=== PATIENT | male | born 1935 | race Caucasian/White ===

== ENCOUNTER 2016-07-13 10:07 | Inpatient (IN) | payer OTHER ==
[~2016-07-13] VITALS: Ht 175.3 cm; Wt 75.4 kg
[2016-07-13] VITALS (15 sets, daily range): BP systolic 85–117; BP diastolic 54–81; PULSE 83–108; TEMP 36.4–36.9; O2SAT 91–97; Ht 175.3 cm; Wt 75.4 kg
[2016-07-13] MEDS ORDERED: PIPERACILLIN/TAZOBACTAM 4.5 GM/100ML D5W IV STA (10:25)
[2016-07-13] MEDS ORDERED: SODIUM CHLORIDE 0.9% 1000ML 1,000 ML IV ONE (10:25)
[2016-07-13] MEDS ORDERED: VANCOMYCIN 1GM/270ML NSS IV STA (10:25)
[2016-07-13] MEDS ORDERED: LEVAQUIN 750MG / 150ML D5W IV STA (10:25)
[2016-07-13] MEDS ORDERED: ONDANSETRON INJ 2 MG/ML 2 ML VIAL IV STA (10:27)
[2016-07-13] MEDS ORDERED: ACETAMINOPHEN 500 MG TAB PO STA (10:27)
--- NOTE | 2016-07-13 10:49 | DIAGNOSTIC IMAGING REPORT ---
CHEST ONE VIEW PORTABLE CLINICAL HISTORY: Sepsis. Confusion. COMPARISON STUDY: No previous studies for comparison. FINDINGS: Lung volumes are normal. There is no pneumothorax or pleural effusion. No evidence of pulmonary edema. There is moderate enlargement of the cardiac silhouette. There is mild left basilar opacity. IMPRESSION: 1. Mild left basilar opacity. Atelectasis is favored although an infectious process could appear similar. 2. Moderate cardiomegaly without evidence of pulmonary edema. Electronically signed by: Henry Recio M.D. 07/13/2016 10:47 AM Dictated Date/Time: 07/13/2016 10:46 AM
--- NOTE | 2016-07-13 10:56 | EMERGENCY ROOM VISIT NOTE ---
History Report prepared by Hardeep: Richard Lynne Under the Supervision of: Dr. Domenic Fisher M.D. First contact with patient: 10:15 Chief Complaint: ILLNESS Stated Complaint: CONFUSION History of Present Illness The patient is a 80 year old male who presents to the Emergency Room via ALS with complaints of persistent weakness starting a few days ago. The patient also complains of chills. As per , the patient has been having flu-like symptoms for the past 3-4 days with a cough and phlegm production. As per , he has also been complaining of burning with urination. The patient currently denies any pain. As per family, he tripped and hit his head last night. He denies fevers, nausea, vomiting, abdominal pain, or any other complaints. Source of History: patient Onset: a few days ago Position: other (global) Symptom Intensity: No pain Quality: other (weakness) Timing: other (persistent) Associated Symptoms: + chills, + cough, No abdominal pain, No fevers, No nausea, No vomiting Review of Systems See HPI for pertinent positives & negatives. A total of 10 systems reviewed and were otherwise negative. Past Medical & Surgical Medical Problems: (1) Atrial fibrillation with RVR (2) Fever and neutropenia (3) Heart disease (4) Hypertension (5) Influenza B (6) Neutropenia associated with infectious disease (7) Sepsis (8) Septic shock (9) Tachycardia (10) Thrombocytopenia Family History Hypertension Social History Smoking Status: Never Smoker Alcohol Use: none Marital Status: Occupation Status: retired Current/Historical Medications Scheduled Dabigatran Etexilate Mesylate (Pradaxa), 1 CAP PO BID Diltiazem Hcl Ext Rel (Tiazac), 360 MG PO DAILY Donepezil Hydrochloride (Aricept), 1 TAB PO DAILY Galantamine Hydrobromide (Razadyne Ext Rel), 16 MG PO DAILY Allergies Coded Allergies: No Known Allergies (Unverified , 07/13/16) Physical Exam Vital Signs Date Time Temp Pulse Resp B/P Pulse Ox O2 Delivery O2 Flow Rate FiO2 07/13/16 14:09 125 28 74/51 96 Room Air 07/13/16 13:25 36.4 132 26 121/61 94 Room Air 07/13/16 11:52 94 Room Air 07/13/16 11:47 149 07/13/16 11:44 124 24 121/61 94 Room Air 07/13/16 11:20 113 20 130/81 94 Room Air 07/13/16 10:34 121 24 106/69 91 Room Air 07/13/16 10:14 39.5 114 22 103/65 91 Room Air Physical Exam GENERAL: Patient is a healthy-appearing well-nourished HEAD: Normocephalic atraumatic EYES: Ocular movements intact pupils equal and react to light OROPHARYNX mucous membranes are moist no exudates present no erythema or edema present NECK: Supple no nuchal rigidity CHEST: Good equal expansion LUNGS: Tachypneic. Clear and equal to auscultation CARDIAC: Normal S1 and S2 ABDOMEN: Soft nontender no guarding BACK: No CVA tenderness EXTREMITIES: No pain upon palpation normal muscle strength in all groups no clubbing cyanosis or edema NEURO: Patient is confused, doesn't follow commands. Cranial Nerves 2-12 grossly intact Medical Decision & Procedures ER Provider Diagnostic Interpretation: X-ray results as stated below per interpretation by me and the radiologist: CHEST ONE VIEW PORTABLE CLINICAL HISTORY: Sepsis. Confusion. COMPARISON STUDY: No previous studies for comparison. FINDINGS: Lung volumes are normal. There is no pneumothorax or pleural effusion. No evidence of pulmonary edema. There is moderate enlargement of the cardiac silhouette. There is mild left basilar opacity. IMPRESSION: 1. Mild left basilar opacity. Atelectasis is favored although an infectious process could appear similar. 2. Moderate cardiomegaly without evidence of pulmonary edema. Electronically signed by: Henry Recio M.D. 07/13/2016 10:47 AM Dictated Date/Time: 07/13/2016 10:[address] results as stated below per my review and radiologist interpretation: CT HEAD WITHOUT CONTRAST (CT) CLINICAL HISTORY: Acute change in mental status. COMPARISON STUDY: No previous studies for comparison. TECHNIQUE: Axial CT of the brain is performed from the vertex to the skull base. IV contrast was not administered for this examination. CT DOSE: 1338.90 mGycm FINDINGS: No intra or extra-axial mass lesions are visualized. There is no CT evidence of acute cortical infarction. There is no evidence of midline shift. There is no acute hemorrhage. No calvarial fractures are visualized. There are patchy white matter hypodensities likely on a small vessel basis. There is no evidence of pathologic ventricular dilatation. There is trace fluid within the sphenoid sinus.. Increased tentorial density, likely secondary to tentorial calcification. IMPRESSION: No acute intracranial findings Electronically signed by: Saul Huber M.D. 07/13/2016 11:43 AM Dictated Date/Time: 07/13/2016 11:41 AM Laboratory Results 07/13/16 10:13 Red Blood Count 5.46, Mean Corpuscular Volume 91.9, Mean Corpuscular Hemoglobin 33.2, Mean Corpuscular Hemoglobin Concent 36.1, Mean Platelet Volume 10.5, Neutrophils (%) (Auto) 84.3, Lymphocytes (%) (Auto) 12.5, Monocytes (%) (Auto) 1.6, Eosinophils (%) (Auto) 0.0, Basophils (%) (Auto) 0.0, Neutrophils # (Auto) 1.55, Lymphocytes # (Auto) 0.23, Monocytes # (Auto) 0.03, Eosinophils # (Auto) 0.00, Basophils # (Auto) 0.00 07/13/16 10:13 Test 07/13/16 10:13 07/13/16 10:37 07/13/16 10:45 White Blood Count 1.84 K/uL (4.8-10.8) Red Blood Count 5.46 M/uL (4.7-6.1) Hemoglobin 18.1 g/dL (14.0-18.0) Hematocrit 50.2 % (42-52) Mean Corpuscular Volume 91.9 fL (80-100) Mean Corpuscular Hemoglobin 33.2 pg (25-34) Mean Corpuscular Hemoglobin Concent 36.1 g/dl (32-36) Platelet Count 64 K/uL (130-400) Mean Platelet Volume 10.5 fL (7.4-10.4) Neutrophils (%) (Auto) 84.3 % Lymphocytes (%) (Auto) 12.5 % Monocytes (%) (Auto) 1.6 % Eosinophils (%) (Auto) 0.0 % Basophils (%) (Auto) 0.0 % Neutrophils # (Auto) 1.55 K/uL (1.4-6.5) Lymphocytes # (Auto) 0.23 K/uL (1.2-3.4) Monocytes # (Auto) 0.03 K/uL (0.11-0.59) Eosinophils # (Auto) 0.00 K/uL (0-0.5) Basophils # (Auto) 0.00 K/uL (0-0.2) RDW Standard Deviation 44.0 fL (36.4-46.3) RDW Coefficient of Variation 13.1 % (11.5-14.5) Immature Granulocyte % (Auto) 1.6 % Immature Granulocyte # (Auto) 0.03 K/uL (0.00-0.02) Prothrombin Time 12.2 SECONDS (9.0-12.0) Prothromb Time International Ratio 1.1 (0.9-1.1) Activated Partial Thromboplast Time 27.9 SECONDS (21.0-31.0) Partial Thromboplastin Ratio 1.1 Anion Gap 12.0 mmol/L (3-11) Est Creatinine Clear Calc Drug Dose 32.4 ml/min Estimated GFR () 42.6 Estimated GFR (Non- 36.7 BUN/Creatinine Ratio 18.4 (10-20) Calcium Level 8.2 mg/dl (8.5-10.1) Magnesium Level 2.1 mg/dl (1.8-2.4) Total Bilirubin 1.5 mg/dl (0.2-1) Aspartate Amino Transf (AST/SGOT) 38 U/L (15-37) Alanine Aminotransferase (ALT/SGPT) 39 U/L (12-78) Alkaline Phosphatase 130 U/L (45-117) Total Creatine Kinase 318 U/L (39-308) Creatine Kinase MB 3.7 ng/ml (0.5-3.6) Creatine Kinase MB Ratio 1.2 (0-3.0) Troponin I 0.030 ng/ml (0-0.045) Total Protein 7.1 gm/dl (6.4-8.2) Albumin 3.2 gm/dl (3.4-5.0) Globulin 3.9 gm/dl (2.5-4.0) Albumin/Globulin Ratio 0.8 (0.9-2) Chemistry Specimen Hemolysis Bedside Lactic Acid Venous 4.32 mmol/L (0.90-1.70) Influenza Type A Antigen Neg for Influ A (NEG) Influenza Type B Antigen POS for Influ B (NEG) Labs reviewed by ED physician. Medications Administered Medications (Trade) Dose Ordered Sig/Virginie Route Start Time Stop Time Status Last Admin Dose Admin Sodium Chloride (Nss 1000ml) 1,000 ml @ 999 mls/hr Q1H1M ONCE IV 07/13/16 10:25 07/13/16 11:25 DC 07/13/16 10:35 999 MLS/HR Piperacillin Sod/ Tazobactam Sod (Zosyn Iv) 4.5 gm ONE STAT IV 07/13/16 10:25 07/13/16 10:28 DC 07/13/16 10:41 4.5 GM Vancomycin HCl (Vancomycin 1gm/ 270ml Nss) 1 gm ONE STAT IV 07/13/16 10:25 07/13/16 10:28 DC 07/13/16 11:51 1 GM Levofloxacin (Levaquin / D5W) 750 mg ONE STAT IV 07/13/16 10:25 07/13/16 10:28 DC 07/13/16 11:27 750 MG Acetaminophen (Tylenol Tab) 1,000 mg NOW STAT PO 07/13/16 10:27 07/13/16 10:28 DC 07/13/16 10:34 1,000 MG Ondansetron HCl 4 mg 4 mg NOW STAT IV 07/13/16 10:27 07/13/16 10:28 DC 07/13/16 10:34 4 MG Sodium Chloride 500 ml @ 999 mls/hr Q31M STAT IV 07/13/16 11:08 07/13/16 11:38 DC 07/13/16 11:25 999 MLS/HR Sodium Chloride (Nss 1000ml) 1,000 ml @ 999 mls/hr Q1H1M STAT IV 07/13/16 11:09 07/13/16 12:09 DC 07/13/16 11:25 999 MLS/HR Oseltamivir Phosphate 75 mg 75 mg NOW STAT PO 07/13/16 11:55 07/13/16 11:57 DC 07/13/16 12:05 75 MG Sodium Chloride 1,000 ml @ 125 mls/hr Q8H IV 07/13/16 13:09 08/12/16 13:08 07/13/16 16:00 125 MLS/HR Norepinephrine Bitartrate/ Dextrose (Levophed Inj/ D5W 500ml) 508 ml @ 0 mls/hr Q0M PRN IV 07/13/16 14:11 08/12/16 14:10 07/13/16 14:59 8 MLS/HR ECG Indication: weakness Rate (beats per minute): 103 Rhythm: atrial fibrillation (with RVR) Findings: no acute ischemic change, other (old inferior infarct; old anterior infarct) ED Course 1015: Past medical records reviewed. The patient was evaluated in room B08. A complete history and physical examination was performed. 1025: Levofloxacin 750 mg IV, Vancomycin HCl 1 gm IV, Zosyn IV 4.5 gm IV, Sodium Chloride 1000 ml @ 999 mls/hr IV 1027: Zofran Inj 4 mg IV, Tylenol Tab 1000 mg PO 1108: Sodium Chloride 500 ml @ 999 mls/hr IV 1109: Sodium Chloride 1000 ml @ 999 mls/hr IV 1155: Tamiflu Cap 75 mg PO 1214: Upon reexamination the patient is resting comfortably. I discussed results and treatment plan with the patient and his family. They verbalize agreement and understanding. I spoke with Dr. Alexander from the [facility]. The patient will be evaluated for further management. Medical Decision Differential diagnosis: Etiologies such as metabolic, infection, hypo/hyperglycemia, electrolyte abnormalities, cardiac sources, intracerebral event, toxicologic, neurologic, as well as others were entertained. 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 The patient is also confused. He has white blood cell count of 1 and is septic. For this reason he was given 30 ml/kgs. He does have an elevation in his lactate. He was pancultured and started on antibiotics. The patient was given Tylenol for his fever and started on Tamiflu for the flu. Based on the nature of the patient's illness I did discuss the case with the hospitalist who agreed to admit the patient. Patient family were in agreement with the treatment plan. Consults Time Called: 1210 Consulting Physician: Dr. Alexander from the [facility] Returned Call: [address] Alexander from the [facility]. Impression Primary Impression: Sepsis Additional Impressions: Pneumonia Flu Critical Care I have personally spent greater than 30 minutes of critical care time in the direct management of this patient. This includes bedside care, interpretation of diagnostic studies, and testing, discussion with consultants, patient, and family members, and other required patient management activities. This 30 minutes is in excess of all separately billable procedures. Scribe Attestation The scribe's documentation has been prepared under my direction and personally reviewed by me in its entirety. I confirm that the note above accurately reflects all work, treatment, procedures, and medical decision making performed by me. Departure Information Dispostion Being Evaluated By Hospitalist Referrals Braeden Sultana III, CRNP (PCP) Patient Instructions My [facility] Problem Qualifiers Primary Impression: Sepsis Sepsis type: sepsis due to unspecified organism Qualified Codes: A41.9 - Sepsis, unspecified organism Additional Impressions: Pneumonia Pneumonia type: due to unspecified organism Laterality: unspecified laterality Lung location: unspecified part of lung Qualified Codes: J18.9 - Pneumonia, unspecified organism
[2016-07-13 11:01] LABS: INR 1.1 (0.9-1.1); PARTIAL THROMBOPLASTIN RATIO 1.1; PROTHROMBIN TIME (PATIENT) 12.2 SECONDS (9.0-12.0)
[2016-07-13] MEDS ORDERED: SODIUM CHLORIDE 0.9% 500ML 500 ML IV STA (11:08)
[2016-07-13] MEDS ORDERED: SODIUM CHLORIDE 0.9% 1000ML 1,000 ML IV STA (11:09)
[2016-07-13 11:10] LABS: HEMATOCRIT 50.2 % (42-52); MEAN CELL VOLUME 91.9 fL (80-100); MEAN CORPUSCULAR HEMOGLOBIN 33.2 pg (25-34); MEAN CORPUSCULAR HGB CONC 36.1 g/dl (32-36); RED BLOOD COUNT 5.46 M/uL (4.7-6.1); WHITE BLOOD COUNT 1.84 K/uL (4.8-10.8)
[2016-07-13 11:18] LABS: COMPLETE YES; IG% 1.6 %; LYMPH % 12.5 %; LYMPH ABS # 0.23 K/uL (1.2-3.4); MEAN PLATELET VOLUME 10.5 fL (7.4-10.4); MONO % 1.6 %; NEUT % 84.3 %; PLATELET COUNT 64 K/uL (130-400)
[2016-07-13 11:20] LABS: BUN/CREATININE RATIO 18.4 (10-20); CALCIUM 8.2 mg/dl (8.5-10.1); CREATININE 1.7 mg/dl (0.60-1.40); POTASSIUM 4.1 mmol/L (3.5-5.1)
[2016-07-13] MEDS ORDERED: GALA4TAB11 PO (11:20)
[2016-07-13] MEDS ORDERED: DILT-119 PO (11:20)
[2016-07-13] MEDS ORDERED: DABI150C PO (11:20)
[2016-07-13 11:29] LABS: ALB/GLOB RATIO 0.8 (0.9-2); CKMB/CK RATIO 1.2 (0-3.0)
--- NOTE | 2016-07-13 11:45 | DIAGNOSTIC IMAGING REPORT ---
CT HEAD WITHOUT CONTRAST (CT) CLINICAL HISTORY: Acute change in mental status. COMPARISON STUDY: No previous studies for comparison. TECHNIQUE: Axial CT of the brain is performed from the vertex to the skull base. IV contrast was not administered for this examination. CT DOSE: 1338.90 mGycm FINDINGS: No intra or extra-axial mass lesions are visualized. There is no CT evidence of acute cortical infarction. There is no evidence of midline shift. There is no acute hemorrhage. No calvarial fractures are visualized. There are patchy white matter hypodensities likely on a small vessel basis. There is no evidence of pathologic ventricular dilatation. There is trace fluid within the sphenoid sinus.. Increased tentorial density, likely secondary to tentorial calcification. IMPRESSION: No acute intracranial findings Electronically signed by: Saul Huber M.D. 07/13/2016 11:43 AM Dictated Date/Time: 07/13/2016 11:41 AM
[2016-07-13] MEDS ORDERED: OSELTAMIVIR PHOSPHATE 75 MG CAP PO STA (11:55)
[2016-07-13] MEDS ORDERED: DONE10TA12 PO (13:11)
[2016-07-13] MEDS ORDERED: RMNER16 PO (13:11)
[2016-07-13] MEDS ORDERED: ONDANSETRON INJ 2 MG/ML 2 ML VIAL IV PRN (13:15)
[2016-07-13] MEDS ORDERED: ALUMINUM/MAGNESIUM/SIMETH (MAALOX MAX) 30 ML UDC PO PRN (13:15)
[2016-07-13] MEDS ORDERED: ACETAMINOPHEN 325 MG TAB PO PRN (13:15)
[2016-07-13] MEDS ORDERED: MAGNESIUM HYDROXIDE SUSP 30 ML UDC PO PRN (13:15)
[2016-07-13] MEDS ORDERED: POLYETHYLENE (MIRALAX) 17 GM PACK PO PRN (13:15)
[2016-07-13] MEDS ORDERED: DILTIAZEM BOLUS / DRIP IV STA (13:24)
[2016-07-13] MEDS ORDERED: NOREPINEPHRINE BIT INJ 8 MG in DEXTROSE 5% 500ML 500 ML IV PRN (14:11)
[2016-07-13] MEDS ORDERED: DILTIAZEM HCL INJ 125 MG in DEXTROSE 5% 100ML IV PRN (14:15)
[2016-07-13 14:25] LABS: MAGNESIUM 2.1 mg/dl (1.8-2.4)
[2016-07-13] MEDS ORDERED: LEVOFLOXACIN CONSULT ACTIVE PRN (14:30)
[2016-07-13] MEDS ORDERED: VANCOMYCIN CONSULT ACTIVE PRN (14:30)
[2016-07-13] MEDS ORDERED: PIPERACILL/TAZOBAC CONSULT ACTIVE PRN (14:30)
--- NOTE | 2016-07-13 15:02 | History and Physical ---
History & Physical Date & Time of Service: Jul 13, 2016 at 14:31 Chief Complaint: Confusion Primary Care Physician: Braeden Sultana III, CRNP History of Present Illness Source: patient, family ( and son at bedside), clinic records, hospital records This is a 80 y/o male with a history of atrial fibrillation, dementia, hypertension, hyperlipidemia and h/o BPH who presented to the ED on 07/13 with weakness, productive cough, chills, dysuria and confusion. The patient is somewhat confused and history is obtained primarily from who is at bedside. The patient first developed a productive cough with white sputum about one week ago and has been experiencing persistent weakness and fatigue. A few days ago, the patient developed a decreased appetite as well as diarrhea. The patient also complained to his that he had burning with urination. The family states the patient has had 2 falls in the last few days, although neither of these were witnessed. The patient had stated time that he had tripped and fell, hitting his head. This morning prior to arrival, the patient developed chills, and he is currently complaining of sweats. He also admits to palpitations earlier but states that they have improved. The patient denies fevers, chest pain, claudication, shortness of breath, nausea, vomiting, abdominal pain, hematuria, urinary retention, paralysis, numbness and tingling. Past Medical/Surgical History Medical Problems: Atrial fibrillation HTN HLD Dementia h/o BPH and TURP Family History Hypertension Social History Smoking Status: Former Smoker Smokeless Tobacco Use: Yes Alcohol Use: none Drug Use: none Marital Status: Housing status: lives with significant other Occupational Status: retired Multi-Drug Resistant Organisms History of MDRO: No Allergies Coded Allergies: No Known Allergies (Unverified , 07/13/16) Home Medications Scheduled Dabigatran Etexilate Mesylate (Pradaxa), 1 CAP PO BID Diltiazem Hcl Ext Rel (Tiazac), 360 MG PO DAILY Donepezil Hydrochloride (Aricept), 1 TAB PO DAILY Galantamine Hydrobromide (Razadyne Ext Rel), 16 MG PO DAILY Review of Systems Constitutional: + chills, + fatigue, + sweats, + weakness, No fever (did not take temperature at home) Eyes: No diplopia, No eye pain, No worsening of vision ENT: No hearing loss, No sore throat, No trouble swallowing Respiratory: + cough, + sputum, No shortness of breath, No wheezing Cardiovascular: + palpitations, No chest pain, No claudication Abdomen: + diarrhea, No nausea, No pain, No vomiting Musculoskeletal: No calf pain, No joint pain, No muscle pain Genitourinary - Male: + dysuria, No hematuria, No urinary retention Neurologic: No numbness/tingling, No paralysis, No weakness Integumentary: No color change, No itch, No rash Physical Exam Vital Signs Date Time Temp Pulse Resp B/P Pulse Ox O2 Delivery O2 Flow Rate FiO2 07/13/16 14:30 135 32 96/61 97 Room Air 07/13/16 14:09 125 28 74/51 96 Room Air 07/13/16 13:25 36.4 132 26 121/61 94 Room Air 07/13/16 11:52 94 Room Air 07/13/16 11:47 149 07/13/16 11:44 124 24 121/61 94 Room Air 07/13/16 11:20 113 20 130/81 94 Room Air 07/13/16 10:34 121 24 106/69 91 Room Air 07/13/16 10:14 39.5 114 22 103/65 91 Room Air General Appearance: WD/WN, + mild distress (diaphoretic, appears fatigued) Head: normocephalic, atraumatic Eyes: normal inspection, PERRL, EOMI ENT: normal ENT inspection, hearing grossly normal, pharynx normal, + pertinent finding (dry oral mucosa) Neck: supple, no JVD, trachea midline Respiratory/Chest: normal breath sounds, no respiratory distress, + wheezing ( wheezing throughout), + pertinent finding (appears to be mildly dyspneic) Cardiovascular: no murmur, + tachycardia, + irregularly irregular Abdomen/GI: normal bowel sounds, non tender, soft Extremities/Musculoskelatal: normal inspection, no calf tenderness, no pedal edema Neurologic/Psych: alert, normal mood/affect, oriented x 3, + pertinent finding (oriented but seems confused) Skin: normal color, no rash, + diaphoresis Diagnostics Laboratory Results Results Past 24 Hours Test 07/13/16 10:13 07/13/16 10:37 07/13/16 10:45 07/13/16 14:00 Range/Units White Blood Count 1.84 4.8-10.8 K/uL Red Blood Count 5.46 4.7-6.1 M/uL Hemoglobin 18.1 14.0-18.0 g/dL Hematocrit 50.2 42-52 % Mean Corpuscular Volume 91.9 80-100 fL Mean Corpuscular Hemoglobin 33.2 25-34 pg Mean Corpuscular Hemoglobin Concent 36.1 32-36 g/dl Platelet Count 64 130-400 K/uL Mean Platelet Volume 10.5 7.4-10.4 fL Neutrophils (%) (Auto) 84.3 % Lymphocytes (%) (Auto) 12.5 % Monocytes (%) (Auto) 1.6 % Eosinophils (%) (Auto) 0.0 % Basophils (%) (Auto) 0.0 % Neutrophils # (Auto) 1.55 1.4-6.5 K/uL Lymphocytes # (Auto) 0.23 1.2-3.4 K/uL Monocytes # (Auto) 0.03 0.11-0.59 K/uL Eosinophils # (Auto) 0.00 0-0.5 K/uL Basophils # (Auto) 0.00 0-0.2 K/uL RDW Standard Deviation 44.0 36.4-46.3 fL RDW Coefficient of Variation 13.1 11.5-14.5 % Immature Granulocyte % (Auto) 1.6 % Immature Granulocyte # (Auto) 0.03 0.00-0.02 K/uL Prothrombin Time 12.2 9.0-12.0 SECONDS Prothromb Time International Ratio 1.1 0.9-1.1 Activated Partial Thromboplast Time 27.9 21.0-31.0 SECONDS Partial Thromboplastin Ratio 1.1 Sodium Level 134 136-145 mmol/L Potassium Level 4.1 3.5-5.1 mmol/L Chloride Level 99 98-107 mmol/L Carbon Dioxide Level 23 21-32 mmol/L Anion Gap 12.0 3-11 mmol/L Blood Urea Nitrogen 31 7-18 mg/dl Creatinine 1.70 0.60-1.40 mg/dl Est Creatinine Clear Calc Drug Dose 32.4 ml/min Estimated GFR () 42.6 Estimated GFR (Non- 36.7 BUN/Creatinine Ratio 18.4 10-20 Random Glucose 167 70-99 mg/dl Calcium Level 8.2 8.5-10.1 mg/dl Magnesium Level 2.1 1.8-2.4 mg/dl Total Bilirubin 1.5 0.2-1 mg/dl Aspartate Amino Transf (AST/SGOT) 38 15-37 U/L Alanine Aminotransferase (ALT/SGPT) 39 12-78 U/L Alkaline Phosphatase 130 45-117 U/L Total Creatine Kinase 318 39-308 U/L Creatine Kinase MB 3.7 0.5-3.6 ng/ml Creatine Kinase MB Ratio 1.2 0-3.0 Troponin I 0.030 0-0.045 ng/ml Total Protein 7.1 6.4-8.2 gm/dl Albumin 3.2 3.4-5.0 gm/dl Globulin 3.9 2.5-4.0 gm/dl Albumin/Globulin Ratio 0.8 0.9-2 Chemistry Specimen Hemolysis Bedside Lactic Acid Venous 4.32 0.90-1.70 mmol/L Influenza Type A Antigen Neg for Influ A NEG Influenza Type B Antigen POS for Influ B NEG Microbiology Results 07/13/16 Blood Culture, Received Pending 07/13/16 Blood Culture, Received Pending Diagnostic Radiology Reviewed the following studies and agree with interpretation as follows: Patient Name: NARINDER ALMANZA Unit Number: [id number] Dictated: 07/13/161140 Transcribed: 07/13/161140 ARG Printed Date/Time: [~ rep prt dt]/[~ rep prt tm] [~ rep ct labl] - [~ rep ct ivnm] [facility] [place] [address] Dictated: 07/13/161140 Transcribed: 07/13/161140 ARG Printed Date/Time: [~ rep prt dt]/[~ rep prt tm] [~ rep ct labl] - [~ rep ct ivnm] Patient: NARINDER ALMANZA Address1: [address] [facility] Rec: [id number] Address2: Acct ID: [id number] [facility] Zip: [place] [address] Date: 1935 Sex: M Room/Bed: Ref Phy: Braeden Sultana III, CRNP SC: FADIA Att Phy: Report #: [id number] Eliane Phy: Braeden Sultana III, CRNP Test: HWO Admit Phy: Special Order Jeweler: RORY Interpreting Phy: Saul Huber M.D. Diagnosis: CONFUSION Ordering Phy: Domenic Fisher MD Service Date: 07/13/16 Admit Date: 07/13/16 MNE: [id number] CONF: DICTATED BY: Saul Huber M.D.]] CC: Domenic Fisher MD Griel, Lester C. III, CRNP Endcc: [~ rep ct add3]] CT HEAD WITHOUT CONTRAST (CT) CLINICAL HISTORY: Acute change in mental status. COMPARISON STUDY: No previous studies for comparison. TECHNIQUE: Axial CT of the brain is performed from the vertex to the skull base. IV contrast was not administered for this examination. CT DOSE: 1338.90 mGycm FINDINGS: No intra or extra-axial mass lesions are visualized. There is no CT evidence of acute cortical infarction. There is no evidence of midline shift. There is no acute hemorrhage. No calvarial fractures are visualized. There are patchy white matter hypodensities likely on a small vessel basis. There is no evidence of pathologic ventricular dilatation. There is trace fluid within the sphenoid sinus.. Increased tentorial density, likely secondary to tentorial calcification. IMPRESSION: No acute intracranial findings Electronically signed by: Saul Huber M.D. 07/13/2016 11:43 AM Dictated Date/Time: 07/13/2016 11:41 AM The status of this report is Signed. Draft = Not yet reviewed or approved by Radiologist. Signed = Reviewed and approved by Radiologist. <AttendingPhy></AttendingPhy> <FamilyPhy>Braeden Sultana III, CRNP</FamilyPhy> < PrimaryPhy>Braeden Sultana III, CRNP</PrimaryPhy> <UnitNumber>[id number]</ UnitNumber> <VisitNumber>[id number]</VisitNumber> <PatientName>NARINDER ALMANZA</PatientName> <DateOfBirth>1935</DateOfBirth> <Location>C.EDB</Location > <ServiceDate>07/13/16</ServiceDate> <MNE>ESINDI</MNE> <OrderingPhy>Domenic Fisher MD</OrderingPhy> <OrderingPhyMNE>f rep ord dr easton</OrderingPhyMNE> < DictatingPhyMNE>f rep dict dr easton</DictatingPhyMNE> <CCListMNE>f rep ct mne</ CCListMNE> <AdmittingPhyMNE>f pt admit dr easton</AdmittingPhyMNE> <AttendingPhyMNE >f pt attend dr easton</AttendingPhyMNE> <ConsultingPhyMNE>f pt consult dr easton</ConsultingPhyMNE> <FamilyPhyMNE>f pt fam dr easton</FamilyPhyMNE> <OtherPhyMNE>f pt other dr easton</OtherPhyMNE> < PrimaryPhyMNE>f pt prim care dr easton</PrimaryPhyMNE> <ReferringPhyMNE>f pt referring dr easton</ReferringPhyMNE> Patient Name: NARINDER ALMANZA Unit Number: [id number] Dictated: 07/13/161045 Transcribed: 07/13/161045 Printed Date/Time: [~ rep prt dt]/[~ rep prt tm] [~ rep ct labl] - [~ rep ct ivnm] [facility] [place] [address] Dictated: 07/13/161045 Transcribed: 07/13/161045 Printed Date/Time: [~ rep prt dt]/[~ rep prt tm] [~ rep ct labl] - [~ rep ct ivnm] Patient: NARINDER ALMANZA Address1: [address] [facility] Rec: [id number] Address2: Acct ID: [id number] [facility] Zip: [place] [address] Date: 1935 Sex: M Room/Bed: Ref Phy: Braeden Sultana III, CRNP SC: AFDIA Att Phy: Report #: [id number] Eliane Phy: Braeden Sultana III, CRNP Test: CXR1P Admit Phy: Special Order Jeweler: JAVON Interpreting Phy: Herny Recio MD Diagnosis: CONFUSION Ordering Phy: Domenic Fisher MD Service Date: 07/13/16 Admit Date: 07/13/16 MNE: [id number] CONF: DICTATED BY: Henry Recio MD]] CC: Domenic Fisher, Braeden Garcia III, CRNP Endcc: [~ rep ct add3]] CHEST ONE VIEW PORTABLE CLINICAL HISTORY: Sepsis. Confusion. COMPARISON STUDY: No previous studies for comparison. FINDINGS: Lung volumes are normal. There is no pneumothorax or pleural effusion. No evidence of pulmonary edema. There is moderate enlargement of the cardiac silhouette. There is mild left basilar opacity. IMPRESSION: 1. Mild left basilar opacity. Atelectasis is favored although an infectious process could appear similar. 2. Moderate cardiomegaly without evidence of pulmonary edema. Electronically signed by: Henry Recio M.D. 07/13/2016 10:47 AM Dictated Date/Time: 07/13/2016 10:46 AM The status of this report is Signed. Draft = Not yet reviewed or approved by Radiologist. Signed = Reviewed and approved by Radiologist. <AttendingPhy></AttendingPhy> <FamilyPhy>Braeden Sultana III, CRNP</FamilyPhy> < PrimaryPhy>Braeden Sulatna III, CRNP</PrimaryPhy> <UnitNumber>[id number]</ UnitNumber> <VisitNumber>[id number]</VisitNumber> <PatientName>NARINDER ALMANZA</PatientName> <DateOfBirth>1935</DateOfBirth> <Location>C.EDB</Location > <ServiceDate>07/13/16</ServiceDate> <MNE>ESINDI</MNE> <OrderingPhy>Domenic Fisher MD</OrderingPhy> <OrderingPhyMNE>f rep ord dr easton</OrderingPhyMNE> < DictatingPhyMNE>f rep dict dr easton</DictatingPhyMNE> <CCListMNE>f rep ct mne</ CCListMNE> <AdmittingPhyMNE>f pt admit dr easton</AdmittingPhyMNE> <AttendingPhyMNE >f pt attend dr easton</AttendingPhyMNE> <ConsultingPhyMNE>f pt consult dr easton</ConsultingPhyMNE> <FamilyPhyMNE>f pt fam dr easton</FamilyPhyMNE> <OtherPhyMNE>f pt other dr easton</OtherPhyMNE> < PrimaryPhyMNE>f pt prim care dr easton</PrimaryPhyMNE> <ReferringPhyMNE>f pt referring dr easton</ReferringPhyMNE> EKG Reviewed EKG and agree with interpretation as follows: 103 bpm, afib with RVR, PVCs Impression Assessment and Plan 80 y/o male with a history of atrial fibrillation, dementia, hypertension, hyperlipidemia and h/o BPH who presented to the ED on 07/13 with weakness, productive cough, chills, dysuria and confusion. Per family, patient had 2 falls in the last few days. Patient is on Pradaxa for his A. fib. Patient arrived with a temperature of 39.5C, HR 114. Other VSS. EKG shows A. fib with RVR. Head CT no acute findings. CXR shows left basilar opacity, atelectasis versus infectious process. WBC 1.84. Hemoglobin elevated at 18.1. Creatinine elevated above baseline at 1.7. Gjvcq-tg-itay lactic acid elevated at 4.32. LFTs elevated. Positive for influenza B. Patient received total of 2.5 L NSS boluses as well as Levaquin, Zosyn, vancomycin and Tamiflu. Urine is pending. Sepsis/septic shock secondary to flu/PNA/possible UTI--meets sepsis criteria with fever, tachycardia, WBC < 4, and infectious source. Patient's blood pressure began to drop to the 70s/50s despite fluid resuscitation -Admit to ICU, consult unit aide -Start on Levophed -NSS at 125 cc/hr -Levaquin 750 mg IV q48h, renally dosed -IV Vanco and Zosyn -MRSA of nares, can consider dropping vancomycin if negative -Tamiflu 30 mg PO BID x 5 days, 1 dose received the ED. Renally dosed -Insert Hudd[place], check UA cath, culture if indicated -Repeat lactic acid at 1400 -Blood cultures pending -Droplet precautions A. fib with RVR -EKGs q am and prn with chest pain -Hold off on diltiazem drip for now due to septic shock -Check magnesium -Pradaxa 150 mg PO BID NICOLETTE--baseline creatinine 1.2-1.3 -Creatinine 1.7 on arrival -IVF as above -Continue to monitor Dementia -Continue Aricept 10 mg PO qd and galantamine 16 mg PO qd HTN--currently hypotensive -Hold oral diltiazem for now, mainly diltiazem drip later for A. fib control DVT prophylaxis -Pradaxa -BELEN chan and SCDs Code Status -Level I, FULL RESUSCITATION STATUS Level of Care Critical Care Resuscitation Status FULL RESUSCITATION VTE Prophylaxis VTE Risk Assessment Done? Y/N: Yes Risk Level: Moderate Given or contraindicated: Unfractionated heparin SQ, T.E.D. Stockings, SCD's Note Attending Admission Note & Attestation: Pt seen/examined, chart reviewed, and care plan d/w MIGUEL Lucero. I agree w/ the small components of her admission documentation. 80yo male with chronic a. fib on anticoagulation, dementia, BPH who presented with 5-7 days of illness. Developed fever in the last 24 hours. Has had 2 falls over last few days. Poor appetite and more confusion in the setting of his dementia. Did have flu vaccine this year. Upon presentation today found to be in rapid a. fib and febrile. Flu swab + for flu B. Sepsis protocol initiated. During his ER stay, despite 3+ liters of fluid, his BP continued to remain low with systolics in the 70s. At that time I gave additional fluid & started him on levophed. Admitted to ICU thereafter. PMH, PSH, allergies, meds, sochx, famhx, ros - reviewed vitals - tachycardic (HRs 100-150), hypotensive (70/50s), febrile gen - ill appearing, confused, hearing impaired neck - no JVD mouth - MM dry heart - irregular, tachy, no murmur lungs - diffuse wheezing b/l, no obvious rales abd - soft, NT, BS+ ext - no edema vascular - pulses feet 1+ at best, cool ext's labs - WBC 1 ANC about 1500 Cr 1.7 fluB+ A/P: 1. septic shock 2nd to influenza and suspected LLL pneumonia. 2. concern for UTI which could also be contributing to #1. 3. metabolic encephalopathy in setting of dementia. 4. a. fib with RVR. 5. thrombocytopenia, likely 2nd to #1. 6. hyponatremia. 7. abnormal LFTs - possibly due to sepsis. Tamiflu; triple abx coverage for pneumonia/septic shock; levophed; continue NS hydration. Hopefully a. fib will improve with resolution of fever and fluid resuscitation. Repeat troponin, LFTs in AM. Repeat cbc, bmp in AM. Place huddleston; send u/a and urine cx. Serial lactates. total critical care time about 70 minutes. plan of care d/w Dr. Andrade Staples, ICU attending. Gilmar Alexander MD
--- NOTE | 2016-07-13 15:03 | Pharmacy Progress Note ---
Pharmacy Antibiotic Consult Date of Service: Jul 13, 2016. Pharmacy Dosing Scope Pharmacy is consulted to initiate Vancomycin, Zosyn and Levaquin IV dosing therapy, order appropriate labs and adjust drug dose/frequency. Subjective The patient is a 80 year old male admitted on 07/13/16. Patient presented with persistent weakness. He reports a history of chills, productive cough and flu- like symptoms for the last 3-4 days. Objective Height (Feet): 5 Height (Inches): 8.00 Weight (Kilograms): 71.500 Lab Results (24hrs): Laboratory Tests Test 07/13/16 10:13 BUN/Creatinine Ratio 18.4 Blood Urea Nitrogen 31 mg/dl Creatinine 1.70 mg/dl White Blood Count 1.84 K/uL Red Blood Count 5.46 M/uL Hemoglobin 18.1 g/dL Hematocrit 50.2 % Mean Corpuscular Volume 91.9 fL Mean Corpuscular Hemoglobin 33.2 pg Mean Corpuscular Hemoglobin Concent 36.1 g/dl Platelet Count 64 K/uL Mean Platelet Volume 10.5 fL Neutrophils (%) (Auto) 84.3 % Lymphocytes (%) (Auto) 12.5 % Monocytes (%) (Auto) 1.6 % Eosinophils (%) (Auto) 0.0 % Basophils (%) (Auto) 0.0 % Neutrophils # (Auto) 1.55 K/uL Lymphocytes # (Auto) 0.23 K/uL Monocytes # (Auto) 0.03 K/uL Eosinophils # (Auto) 0.00 K/uL Basophils # (Auto) 0.00 K/uL Micro Results: Item Value Date Time Blood Culture Received 07/13/16 1025 Blood Pending Blood Culture Received 07/13/16 1040 Blood Pending Recent Pertinent Medications Tamiflu 75 mg x 1, then 30 mg BID - tested positive for influenza B Assessment & Plan Assessment 80 year old male admitted with influenza B and sepsis, possible lung source. Patient is febrile, neutropenic, and hypotensive requiring pressor support. Lactic acid is greater than 4 mmol/L. No recent admissions to [facility]. No previous culture data available for this patient. H&P not available at time of pharmacy consult. Plan Vancomycin, Zosyn and Levaquin for treatment of sepsis, lung source. Vancomycin IV * Patient received 1000 mg IV in ER ~1151 * I have ordered a second dose of 1000 mg IV to be given now (total loading dose = 2000 mg or 28 mg/kg) * A maintenance dose will not be scheduled at this time due to acute kidney injury. Baseline Scr is around 1.2 mg/dL. * Goal trough level for sepsis/pnx : 15 to 20 mcg/mL * A random level will be ordered on 07/14 am if renal function continues to worsen * MRSA nasal swab ordered Piperacillin/tazobactam * 4.5 g bolus administered over 30 minutes, then 4.5 g IV extended infusion every 8 hours for CrCl greater than 20 mL/min. * Aggressive dosing selected due to critically ill status. Levaquin * Continue 750 mg IV every 48 hours for CrCl 20-49 ml/min Pharmacy will continue to follow and will adjust dose/frequency as necessary. Thank you
[2016-07-13 15:38] LABS: URINE APPEARANCE TURBID (CLEAR); URINE BILIRUBIN NEG (NEG); URINE COLOR ORANGE; URINE NITRITE NEG (NEG); URINE SPECIFIC GRAVITY 1.013 (1.000-1.030); UROBILINOGEN NEG (NEG); ZZURINE CULT IF INDIC CATH YES
[2016-07-13 15:41] LABS: MANUAL MICROSCOPIC REQUIRED? NO; REVIEW REQ? NO
[2016-07-13] MEDS ORDERED: VANCOMYCIN INJ 1,000 MG in SODIUM CHLORIDE 0.9% 250ML 250 ML IV ONE (15:45)
[2016-07-13] MEDS: PIPERACILL/TAZOBAC IV 4.5 GM in DEXTROSE 5% 100ML 100 ML IV SCH (16:00)
[2016-07-13] MEDS: SODIUM CHLORIDE 0.9% 1000ML 1,000 ML IV SCH (16:00)
--- NOTE | 2016-07-13 16:49 | Critical Care Consultation ---
Critical Care Consultation Date of Consultation: Jul 13, 2016. Attending Physician: Gilmar Alexander MD Reason for Consultation: Sepsis hypotension requiring vasoactive medications History of Present Illness Patient is an 80-year-old male with a history of atrial fibrillation on his arrival so, hyperlipidemia and BPH who presents to [facility] emergency department on July 13 with weakness, cough, chills, dysuria and confusion. History is obtained predominantly from caregivers his and son. The patient is extremely hard of hearing. The concern that he's had increasing weakness for about 1 week yesterday he complained of difficulty with urination. When he developed rigors and sweats he was brought to the emergency department for further evaluation. In the emergency department he was given approximately 3 L of fluid started on broad-spectrum antibiotics, and started on vasoactive medications for presumptive septic shock. Past Medical/Surgical History Atrial fibrillation HTN HLD Dementia h/o BPH and TURP Family History Hypertension Social History Smoking Status: Former Smoker Smokeless Tobacco Use: Yes Alcohol Use: none Drug Use: none Marital Status: Occupation Status: retired Allergies Coded Allergies: No Known Allergies (Unverified , 07/13/16) Home Medications Scheduled Dabigatran Etexilate Mesylate (Pradaxa), 1 CAP PO BID Diltiazem Hcl Ext Rel (Tiazac), 360 MG PO DAILY Donepezil Hydrochloride (Aricept), 1 TAB PO DAILY Galantamine Hydrobromide (Razadyne Ext Rel), 16 MG PO DAILY Current Inpatient Medications Current Inpatient Medications Medications (Trade) Dose Ordered Sig/Virginie Route Start Time Stop Time Status Last Admin Dose Admin Sodium Chloride (Nss 1000ml) 1,000 ml @ 125 mls/hr Q8H IV 07/13/16 13:09 08/12/16 13:08 07/13/16 16:00 125 MLS/HR Acetaminophen (Tylenol Tab) 650 mg Q4H PRN PO 07/13/16 13:15 08/12/16 13:14 Al Hydrox/Mg Hydrox/Simethicone (Maalox Max Susp) 15 ml Q4H PRN PO 07/13/16 13:15 08/12/16 13:14 Magnesium Hydroxide (Milk Of Magnesia Susp) 30 ml Q12H PRN PO 07/13/16 13:15 08/12/16 13:14 Ondansetron HCl (Zofran Inj) 4 mg Q6H PRN IV 07/13/16 13:15 08/12/16 13:14 Polyethylene (Miralax Powder Packet) 17 gm DAILY PRN PO 07/13/16 13:15 08/12/16 13:14 Dabigatran (Pradaxa Cap) 150 mg BID PO 07/13/16 21:00 08/12/16 20:59 Donepezil HCl (Aricept Tab) 10 mg DAILY PO 07/14/16 09:00 08/13/16 08:59 Galantamine Hydrobromide (Razadyne Cap) 16 mg DAILY PO 07/14/16 09:00 08/13/16 08:59 Vancomycin HCl (Consult) 1 ea UD PRN N/A 07/13/16 14:30 08/12/16 14:29 Oseltamivir Phosphate 30 mg 30 mg BID PO 07/13/16 21:00 07/17/16 21:01 Levofloxacin 750 mg/Prmx 150 ml @ 100 mls/hr Q48H IV 07/15/16 11:00 07/20/16 10:59 Vancomycin HCl 1000 mg/Sodium Chloride 270 ml @ 125 mls/hr 1545 ONCE IV 07/13/16 15:45 07/13/16 17:54 07/13/16 16:00 125 MLS/HR Piperacillin Sod/ Tazobactam Sod 4.5 gm/Dextrose 120 ml @ 28.75 mls/ hr Q8H IV 07/13/16 16:00 07/20/16 09:59 07/13/16 16:00 28.75 MLS/HR Norepinephrine Bitartrate/ Dextrose (Levophed Inj/ D5W 500ml) 508 ml @ 0 mls/hr Q0M PRN IV 07/13/16 14:11 08/12/16 14:10 07/13/16 14:59 8 MLS/HR Levofloxacin (Consult) 1 ea UD PRN N/A 07/13/16 14:30 08/12/16 14:29 Piperacillin Sod/ Tazobactam Sod (Consult) 1 ea UD PRN N/A 07/13/16 14:30 08/12/16 14:29 Review of Systems Constitutional: + chills, + fever ENT: + hearing loss Respiratory: + cough, + sputum Genitourinary - Male: + dysuria Physical Exam Date Time Temp Pulse Resp B/P Pulse Ox O2 Delivery O2 Flow Rate FiO2 07/13/16 15:10 121 28 80/58 96 07/13/16 14:30 135 32 96/61 97 Room Air 07/13/16 14:09 125 28 74/51 96 Room Air 07/13/16 13:25 36.4 132 26 121/61 94 Room Air 07/13/16 11:52 94 Room Air 07/13/16 11:47 149 07/13/16 11:44 124 24 121/61 94 Room Air 07/13/16 11:20 113 20 130/81 94 Room Air 07/13/16 10:34 121 24 106/69 91 Room Air 07/13/16 10:14 39.5 114 22 103/65 91 Room Air General Appearance: mild distress Head: normocephalic, atraumatic Eyes: PERRLA, no discharge ENT: other (dry mucous membranes) Neck: no tenderness, trachea midline Respiratory: rhonchi (scattered bilaterally) Cardiovasular: normal S1S2, irregular rate Abdomen: non tender, normal bowel sounds, no rebound Genitourinary - Male: other ([place] present, purulent urine) Back: normal inspection, no midline tenderness Upper Extremities: no edema Lower Extremities: no edema Neuro: alert, other (interactive with the exam, hard of hearing follows complex commands) Laboratory Results Last 24 Hours Test 07/13/16 10:13 07/13/16 10:37 07/13/16 10:45 07/13/16 14:20 White Blood Count 1.84 K/uL Red Blood Count 5.46 M/uL Hemoglobin 18.1 g/dL Hematocrit 50.2 % Mean Corpuscular Volume 91.9 fL Mean Corpuscular Hemoglobin 33.2 pg Mean Corpuscular Hemoglobin Concent 36.1 g/dl Platelet Count 64 K/uL Mean Platelet Volume 10.5 fL Neutrophils (%) (Auto) 84.3 % Lymphocytes (%) (Auto) 12.5 % Monocytes (%) (Auto) 1.6 % Eosinophils (%) (Auto) 0.0 % Basophils (%) (Auto) 0.0 % Neutrophils # (Auto) 1.55 K/uL Lymphocytes # (Auto) 0.23 K/uL Monocytes # (Auto) 0.03 K/uL Eosinophils # (Auto) 0.00 K/uL Basophils # (Auto) 0.00 K/uL RDW Standard Deviation 44.0 fL RDW Coefficient of Variation 13.1 % Immature Granulocyte % (Auto) 1.6 % Immature Granulocyte # (Auto) 0.03 K/uL Prothrombin Time 12.2 SECONDS Prothromb Time International Ratio 1.1 Activated Partial Thromboplast Time 27.9 SECONDS Partial Thromboplastin Ratio 1.1 Sodium Level 134 mmol/L Potassium Level 4.1 mmol/L Chloride Level 99 mmol/L Carbon Dioxide Level 23 mmol/L Anion Gap 12.0 mmol/L Blood Urea Nitrogen 31 mg/dl Creatinine 1.70 mg/dl Est Creatinine Clear Calc Drug Dose 32.4 ml/min Estimated GFR () 42.6 Estimated GFR (Non- 36.7 BUN/Creatinine Ratio 18.4 Random Glucose 167 mg/dl Calcium Level 8.2 mg/dl Magnesium Level 2.1 mg/dl Total Bilirubin 1.5 mg/dl Aspartate Amino Transf (AST/SGOT) 38 U/L Alanine Aminotransferase (ALT/SGPT) 39 U/L Alkaline Phosphatase 130 U/L Total Creatine Kinase 318 U/L Creatine Kinase MB 3.7 ng/ml Creatine Kinase MB Ratio 1.2 Troponin I 0.030 ng/ml Total Protein 7.1 gm/dl Albumin 3.2 gm/dl Globulin 3.9 gm/dl Albumin/Globulin Ratio 0.8 Chemistry Specimen Hemolysis Bedside Lactic Acid Venous 4.32 mmol/L Influenza Type A Antigen Neg for Influ A Influenza Type B Antigen POS for Influ B Urine Color ORANGE Urine Appearance TURBID Urine pH 6.0 Urine Specific [place] 1.013 Urine Protein 3+ Urine Glucose (UA) NEG Urine Ketones NEG Urine Occult Blood 3+ Urine Nitrite NEG Urine Bilirubin NEG Urine Urobilinogen NEG Urine Leukocyte Esterase LARGE Urine WBC (Auto) >30 /hpf Urine RBC (Auto) >30 /hpf Urine Hyaline Casts (Auto) 1-5 /lpf Urine Epithelial Cells (Auto) 10-20 /lpf Urine Bacteria (Auto) 4+ Test 07/13/16 15:30 Lactic Acid Level 3.7 mmol/L Diagnostic Results I reviewed images of the CT scan of the head as well as the radiology report I have reviewed the chest x-ray dated July 13, report and image. I reviewed the electrocardiogram dated 07/13/2016 at 1012: Atrial fibrillation with PVC, ventricular rate 103. Repeat EKG timed 07/05/1948 revealed atrial fibrillation Assessment & Plan (1) Septic shock (2) Thrombocytopenia (3) Fever and neutropenia (4) Tachycardia (5) Atrial fibrillation with RVR (6) Influenza B Reason Critically Ill: Septic shock secondary to altered mental status, hypotension, lactic acidosis requiring vasoactive medications. PLAN: Neuro: Maintain map greater than 65 Resp: Continue Tamiflu for 5 days for influenza B CV: Titrate vasopressors to goal map greater than 65, pressors have been decreasing so hopefully will be able to stop and not require central venous access Fluids/Renal: Continue fluids at 125 an hour, received 3 L in the ED, bedside ultrasound demonstrated variability in IVC distention ID: Continue broad-spectrum antibiotics as ordered in the emergency department GI/Nutrition: Nothing by mouth Heme: Leukopenia, likely secondary to influenza B and thrombocytopenia, anticoagulated on Pradaxa Endocrine: Blood sugars within acceptable range I have personally spent 40 minutes of critical care time in the direct management of this patient. This is a life/limb threatening event. This includes time spent evaluating patient, direct bedside care, chart review, placing orders, interpretation of diagnostic studies, discussion with consultants, patient, and family members, as well as other required patient management activities. This time is exclusive of all separately billable procedures, and teaching time and separate from and in addition to any other critical care service time.
[2016-07-13] MEDS: DABIGATRAN ELEXILATE 75 MG CAP PO SCH (20:45)
[2016-07-13] MEDS: OSELTAMIVIR PHOSPHATE SUSP 30 MG/5 ML UDP PO SCH (20:46)
[2016-07-13] MEDS ORDERED: HEPARIN SOD 5000 UNIT/0.5 ML CARP SQ SCH (21:00)
[2016-07-14] VITALS (46 sets, daily range): BP systolic 82–143; BP diastolic 53–91; PULSE 81–100; TEMP 36.4–37.4; O2SAT 84–100
[2016-07-14] MEDS: SODIUM CHLORIDE 0.9% 1000ML 1,000 ML IV SCH ×3 (00:05→15:20)
[2016-07-14] MEDS: PIPERACILL/TAZOBAC IV 4.5 GM in DEXTROSE 5% 100ML 100 ML IV SCH ×3 (00:06→15:59)
[2016-07-14 05:24] LABS: ALB/GLOB RATIO 0.7 (0.9-2); BUN/CREATININE RATIO 16.2 (10-20); CALCIUM 6.6 mg/dl (8.5-10.1); CREATININE 2.2 mg/dl (0.60-1.40); MAGNESIUM 1.6 mg/dl (1.8-2.4); PHOSPHORUS 2.8 mg/dl (2.5-4.9); POTASSIUM 4.6 mmol/L (3.5-5.1)
[2016-07-14 06:10] LABS: HEMATOCRIT 41.2 % (42-52); MEAN CELL VOLUME 93.2 fL (80-100); MEAN CORPUSCULAR HEMOGLOBIN 33.7 pg (25-34); MEAN CORPUSCULAR HGB CONC 36.2 g/dl (32-36); MEAN PLATELET VOLUME 12.2 fL (7.4-10.4); PLATELET COUNT 47 K/uL (130-400); RED BLOOD COUNT 4.42 M/uL (4.7-6.1); WHITE BLOOD COUNT 20.45 K/uL (4.8-10.8)
[2016-07-14 06:21] LABS: COMPLETE YES
[2016-07-14 06:22] LABS: ECHINOCYTES 2+; EOSINOPHIL % 0.9 %; LYMPH ABS # 0.53 K/uL (1.2-3.4); LYMPHOCYTE % 2.6 %; META ABS # 2.13 K/uL (0-0); METAMYELOCYTE % 10.4 %; NEUTROPHILS % 85.2 %; PLT ESTIMATE DECREASED
[2016-07-14] MEDS: GALANTAMINE HYDROBROMIDE 8 MG CAPER PO SCH (07:32)
[2016-07-14] MEDS: DONEPEZIL HCL 10 MG TAB PO SCH (07:32)
[2016-07-14] MEDS: DABIGATRAN ELEXILATE 75 MG CAP PO SCH ×2 (07:32→20:53)
--- NOTE | 2016-07-14 07:33 | DIAGNOSTIC IMAGING REPORT ---
CHEST ONE VIEW PORTABLE CLINICAL HISTORY: Sepsis COMPARISON STUDY: 07/13/2016 FINDINGS: The heart is enlarged. There is no overt failure. There is no focal pulmonary consolidation. There are no pleural effusions.[ IMPRESSION: Cardiomegaly. No evidence of focal pulmonary consolidation. Electronically signed by: Saul Huber M.D. 07/14/2016 7:30 AM Dictated Date/Time: 07/14/2016 7:30 AM
[2016-07-14] MEDS: OSELTAMIVIR PHOSPHATE SUSP 30 MG/5 ML UDP PO SCH ×2 (07:34→21:17)
[2016-07-14] MEDS ORDERED: DILTIAZEM HCL (TIAzac) 180 MG CAPCR PO SCH (09:00)
--- NOTE | 2016-07-14 13:17 | ECHOCARDIOGRAM REPORT ---
*NOTICE TO RECEIVING REPUBLICAN AGENCY This information is strictly Confidential and protected under [place] law. [place] law prohibits you from making any further disclosure of this information unless further disclosure is expressly permitted by the written consent of the person to whom it pertains or is authorized by law. A general authorization for the release of medical or other information is not sufficient for this purpose. Hospital accepts no responsibility if the information is made available to any other person, INCLUDING THE PATIENT. Interpretation Summary * Conclusions -- * 1. Normal LV size. Normal LV wall thickness. * 2. Mild LV dysfunction. LVEF 45-50 %. Paradoxical septal motion consistent with RV volume overload. * 3. Normal RV size. Mild RV dysfunction * 4. [id number] mitral regurgitation with borderline anterior leaflet prolapse. * 5. Moderate to severe tricuspid regurgitation. * 6. Severe biatrial enlargement. * 7. Normal estimated PA and RA pressures. * 8. No prior studies for comparison. Procedure Details * Left Ventricle The left ventricle is grossly normal size. There is normal left ventricular wall thickness. Ejection Fraction = 45-50%. Paradoxical septal motion is consistent with right ventricular volume overload. * Right Ventricle The right ventricle is grossly normal size. The right ventricular systolic function is reduced as assessed by tricuspid annular plane systolic excursion (TAPSE) (TAPSE <1.6 cm). * Atria The left atrium is severely dilated. Massive right atrium No ASD detected; PFO is not assessed. * Mitral Valve There is borderline mitral valve prolapse. Mitral stenosis is absent. There is mild to moderate mitral regurgitation. * Tricuspid Valve The tricuspid valve is not well visualized, but is grossly normal. There is moderate to severe tricuspid regurgitation. * Aortic Valve The aortic valve opens well. The aortic valve is trileaflet. No hemodynamically significant valvular aortic stenosis. There is no significant aortic regurgitation. * Pulmonic Valve The pulmonic valve is not well seen, but is grossly normal. There is no pulmonic valvular stenosis. Mild pulmonic valvular regurgitation. * Great Vessels The aortic root and proximal ascending aorta are normal sized. * Pericardium/Pleural There is no pericardial effusion. * Great Vessels There is no evidence of pulmonary hypertension. The PA systolic pressure is less than 36 mmHg. Normal inferior vena cava size and collapsability with sniff indicates a normal right atrial pressure of 3 mmHg * * MMode 2D Measurements and Calculations * IVSd 1.0 cm * IVSs 1.2 cm * * LVIDd 4.9 cm * LVIDs 3.8 cm * LVPWd 1.0 cm * LVPWs 1.2 cm * * IVS/LVPW 1.0 * FS 21.6 % * EDV(Teich) 111.7 ml * ESV(Teich) 62.9 ml * EF(Teich) 43.7 % * * EDV(cubed) 116.1 ml * ESV(cubed) 55.9 ml * EF(cubed) 51.9 % * % IVS thick 21.7 % * % LVPW thick 17.1 % * * LV mass(C)d 178.3 grams * LV mass(C)dI 93.7 grams/m\S\2 * LV mass(C)s 156.9 grams * LV mass(C)sI 82.4 grams/m\S\2 * * CO(Teich) 5.0 l/min * CI(Teich) 2.6 l/min/m\S\2 * SV(Teich) 48.8 ml * SI(Teich) 25.7 ml/m\S\2 * CO(cubed) 6.2 l/min * CI(cubed) 3.3 l/min/m\S\2 * SV(cubed) 60.3 ml * SI(cubed) 31.7 ml/m\S\2 * * Ao root diam 3.7 cm * Ao root area 10.6 cm\S\2 * ACS 1.6 cm * LA dimension 4.7 cm * * LA/Ao 1.3 * * LVAd ap4 22.8 cm\S\2 * LVLd ap4 6.9 cm * EDV(MOD-sp4) 62.0 ml * LVAs ap4 16.5 cm\S\2 * LVLs ap4 6.7 cm * ESV(MOD-sp4) 36.0 ml * EF(MOD-sp4) 41.9 % * * LVAd ap2 22.8 cm\S\2 * LVLd ap2 6.5 cm * EDV(MOD-sp2) 67.0 ml * LVAs ap2 15.5 cm\S\2 * LVLs ap2 6.1 cm * ESV(MOD-sp2) 35.0 ml * EF(MOD-sp2) 47.8 % * * CO(MOD-sp4) 2.7 l/min * CI(MOD-sp4) 1.4 l/min/m\S\2 * SV(MOD-sp4) 26.0 ml * SI(MOD-sp4) 13.7 ml/m\S\2 * * CO(MOD-sp2) 3.3 l/min * CI(MOD-sp2) 1.7 l/min/m\S\2 * SV(MOD-sp2) 32.0 ml * SI(MOD-sp2) 16.8 ml/m\S\2 * * * Doppler Measurements and Calculations * MV E max trish 96.7 cm/sec * * MV P1/2t max trish 107.7 cm/sec * MV P1/2t 37.7 msec * MVA(P1/2t) 5.8 cm\S\2 * MV dec slope 836.1 cm/sec\S\2 * MV dec time 0.17 sec * * Ao V2 max 102.8 cm/sec * Ao max PG 4.2 mmHg * Ao max PG (full) 2.9 mmHg * * LV V1 max PG 1.4 mmHg * * LV V1 max 58.2 cm/sec * * PA V2 max 72.7 cm/sec * PA max PG 2.1 mmHg * * PI max trish 182.3 cm/sec * PI max PG 13.6 mmHg * PI dec slope 186.0 cm/sec\S\2 * PI P1/2t 287.0 msec * * TR max trish 259.3 cm/sec * *
--- NOTE | 2016-07-14 15:23 | Progress Note ---
Subjective Date of Service: Jul 14, 2016. 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 report has been off pressor support for 24 hours and recommend to transfer outside ICU Problem List Medical Problems: (1) Flu Status: Acute (2) Forearm laceration with complication Status: Acute (3) Pneumonia Status: Acute Review of Systems Constitutional: No chills, No fatigue, No fever, No problem reported, No sweats , No weakness, No weight loss Eyes: No diplopia, No discharge, No eye pain, No redness, No worsening of vision ENT: No dental problems, No hearing loss, No nasal symptoms, No sore throat, No tinnitus, No trouble swallowing, No unusual epistaxis Respiratory: No cough, No dyspnea at rest, No dyspnea on exertion, No hemoptysis, No shortness of breath, No sputum, No wheezing Cardiac: No PND, No chest pain, No claudication, No edema, No orthopnea, No palpitations Abdomen: + diarrhea (time 1 after eating), No constipation, No nausea, No pain , No vomiting Musculoskeletal: No calf pain, No joint pain, No muscle pain, No swelling Male : No dysuria, No hematuria, No incontinence, No nocturia more than once/ night, No slowing stream, No urinary frequency Neurologic: No balance problems, No memory loss, No numbness/tingling, No paralysis, No vertigo, No weakness Psychiatric: No anhedonism, No anxiety, No depression symptoms, No insomnia, No substance abuse Heme: No abnormal bleeding/bruising, No clotting problems, No night sweats, No swollen lymph nodes Endo: No excessive thirst, No excessive urination, No fatigue Skin: No bleeding, No color change, No itch, No new/changing skin lesions, No rash Objective Vital Signs Date Time Temp Pulse Resp B/P Pulse Ox O2 Delivery O2 Flow Rate FiO2 07/14/16 14:00 37.4 89 20 117/78 96 Room Air 07/14/16 11:30 37.2 96 20 113/74 96 Room Air 07/14/16 11:30 Room Air 07/14/16 09:25 86 20 106/78 100 Room Air 07/14/16 07:30 Room Air 07/14/16 07:30 37.0 92 20 101/68 97 Room Air 07/14/16 06:00 88 24 103/66 95 Room Air 07/14/16 05:32 83 24 101/69 97 Room Air 07/14/16 05:02 83 90/57 96 Room Air 07/14/16 04:32 91 24 100/57 97 Room Air 07/14/16 04:02 36.5 91 21 82/64 90 Room Air 07/14/16 04:00 Room Air 07/14/16 03:02 88 28 85/56 96 Room Air 07/14/16 02:32 84 22 86/53 95 Room Air 07/14/16 02:02 85 22 89/57 95 Room Air 07/14/16 02:00 88 24 96 Room Air 07/14/16 00:01 36.6 91 22 98/55 97 Room Air 07/13/16 23:59 Room Air 07/13/16 22:02 102 28 93/66 96 07/13/16 21:32 92 26 94/64 96 07/13/16 21:02 92 26 92/62 95 07/13/16 20:32 99 25 87/58 97 07/13/16 20:02 91 26 95/54 96 07/13/16 20:00 36.9 07/13/16 20:00 Room Air 07/13/16 19:32 104 20 90/63 94 07/13/16 19:02 94 26 96/58 96 07/13/16 18:32 99 26 97/60 95 07/13/16 18:02 88 30 89/66 97 07/13/16 17:49 99 29 117/81 97 07/13/16 17:13 93 30 86/59 93 07/13/16 16:17 83 26 85/62 96 07/13/16 16:13 36.4 108 18 85/57 97 Room Air 07/13/16 16:10 85 27 85/57 91 Physical Exam General Appearance: WD/WN, no apparent distress Eyes: normal inspection, PERRL, EOMI, sclerae normal ENT: normal ENT inspection, hearing grossly normal, pharynx normal Neck: supple, no adenopathy, thyroid normal, no JVD, no carotid bruits, trachea midline Respiratory/Chest: chest non-tender, lungs clear, normal breath sounds, no respiratory distress, no accessory muscle use Cardiovascular: regular rate, rhythm, no edema, no gallop, no JVD, no murmur Abdomen: normal bowel sounds, non tender, soft, no organomegaly, no pulsatile mass, + pertinent finding (Huddleston in place) Extremities: normal range of motion, non-tender, normal inspection, no pedal edema, no calf tenderness, normal capillary refill, pelvis stable Neurologic/Psychiatric: 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 as tested, no motor/sensory deficits, alert, normal mood/affect, oriented x 3 Skin: normal color, warm/dry, no rash Lymphatic: no adenopathy Laboratory Results Last 24 Hours Test 07/13/16 15:30 07/13/16 17:09 07/14/16 04:30 07/14/16 12:32 Lactic Acid Level 3.7 mmol/L 3.5 mmol/L Thyroid Stimulating Hormone (TSH) 3.610 uIu/ml Thyroxine (T4) 5.5 mcg/dl Random Cortisol 71.31 mcg/dl White Blood Count 20.45 K/uL Red Blood Count 4.42 M/uL Hemoglobin 14.9 g/dL Hematocrit 41.2 % Mean Corpuscular Volume 93.2 fL Mean Corpuscular Hemoglobin 33.7 pg Mean Corpuscular Hemoglobin Concent 36.2 g/dl Platelet Count 47 K/uL Mean Platelet Volume 12.2 fL Neutrophils (%) (Auto) % Lymphocytes (%) (Auto) % Monocytes (%) (Auto) % Eosinophils (%) (Auto) % Basophils (%) (Auto) % Neutrophils # (Auto) K/uL Lymphocytes # (Auto) K/uL Monocytes # (Auto) K/uL Eosinophils # (Auto) K/uL Basophils # (Auto) K/uL RDW Standard Deviation 46.8 fL RDW Coefficient of Variation 13.6 % Immature Granulocyte % (Auto) % Immature Granulocyte # (Auto) K/uL Neutrophils % (Manual) 85.2 % Lymphocytes % (Manual) 2.6 % Monocytes % (Manual) 0.9 % Eosinophils % (Manual) 0.9 % Metamyelocytes % 10.4 % Neutrophils # (Manual) 17.42 K/uL Total Absolute Neutrophils 17.42 K/uL Lymphocytes # (Manual) 0.53 K/uL Total Absolute Lymphocytes 0.53 K/uL Monocytes # (Manual) 0.18 K/uL Eosinophils # (Manual) 0.18 K/uL Metamyelocytes # 2.13 K/uL Platelet Estimate DECREASED Echinocytes 2+ Sodium Level 136 mmol/L Potassium Level 4.6 mmol/L Chloride Level 107 mmol/L Carbon Dioxide Level 20 mmol/L Anion Gap 9.0 mmol/L Blood Urea Nitrogen 36 mg/dl Creatinine 2.20 mg/dl Est Creatinine Clear Calc Drug Dose 25.9 ml/min Estimated GFR () 31.2 Estimated GFR (Non- 26.9 BUN/Creatinine Ratio 16.2 Random Glucose 111 mg/dl Calcium Level 6.6 mg/dl Phosphorus Level 2.8 mg/dl Magnesium Level 1.6 mg/dl Total Bilirubin 1.1 mg/dl Aspartate Amino Transf (AST/SGOT) 28 U/L Alanine Aminotransferase (ALT/SGPT) 29 U/L Alkaline Phosphatase 39 U/L Troponin I 0.097 ng/ml 0.093 ng/ml Total Protein 5.2 gm/dl Albumin 2.1 gm/dl Globulin 3.1 gm/dl Albumin/Globulin Ratio 0.7 Assessment and Plan 80yo male admitted on 07/13/2016 because of UTI sepsis bacteremia , He has been sick for 5-7 days Developed fever in the last 24 hours prior to admission. Has had 2 falls over last few days. Poor appetite and more confusion in the setting of his dementia. Did have flu vaccine this year. Sepsis from UTI Bacteremia Upon presentation today found to be in rapid a. fib and febrile. Flu swab + for flu B. Continue Sepsis protocol During his ER stay, despite 3+ liters of fluid, his BP continued to remain low with systolics in the 70s. At that time I gave additional fluid & started him on levophed. Has been Admitted to ICU thereafter. , Has been off pressor support more than 24 hour A/P: 1. septic shock 2nd to influenza and suspected LLL pneumonia. 2. concern for UTI which could also be contributing to #1. 3. Gram-negative bacilli blood culture positive 4 metabolic encephalopathy in setting of dementia. 4. a. fib with RVR. 5. thrombocytopenia, likely 2nd to #1. 6. hyponatremia. 7. abnormal LFTs - possibly due to sepsis. Continue Tamiflu; Continue triple abx coverage for pneumonia/septic shock; levophed; continue NS hydration. Repeat troponin, LFTs in AM. Repeat cbc, bmp in AM. Continue huddleston; send u/a and urine cx. Serial lactates. We'll downgrade antibiotic if sensitivity come back
--- NOTE | 2016-07-14 15:33 | Critical Care Progress Note ---
Critical Care Progress Note Date of Service Jul 14, 2016. ICU Day ICU Day Number: [address] Staples Subjective No specific complaint Objective General Appearance: Resting comfortably in bed Head: normocephalic, atraumatic Eyes: PERRLA, no discharge Neck: no tenderness, trachea midline Respiratory: rhonchi (scattered bilaterally) Cardiovasular: normal S1S2, irregular rate Abdomen: non tender, normal bowel sounds, no rebound Genitourinary - Male: other (Valencia present, purulent urine) Back: normal inspection, no midline tenderness Upper Extremities: no edema Lower Extremities: no edema Neuro: alert, other (interactive with the exam, hard of hearing follows complex commands) Assessment & Plan (1) Septic shock (2) Thrombocytopenia (3) Fever and neutropenia (4) Tachycardia (5) Atrial fibrillation with RVR (6) Influenza B (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 Decreased Pradaxa dosing due to decrease in GFR, continue to monitor her thrombocytopenia Endocrine: Blood sugars within acceptable range Significant improvement in clinical status, stable for downgraded to telemetry as patient is not required vasoactive medications. Consults & Procedures Consultants: NA Procedures: NA Data Medications: Current Inpatient Medications Medications (Trade) Dose Ordered Sig/Virginie Route Start Time Stop Time Status Last Admin Dose Admin Sodium Chloride (Nss 1000ml) 1,000 ml @ 75 mls/hr [id number] IV 07/13/16 13:09 08/12/16 13:08 07/14/16 05:09 125 MLS/HR Acetaminophen (Tylenol Tab) 650 mg Q4H PRN PO 07/13/16 13:15 08/12/16 13:14 Al Hydrox/Mg Hydrox/Simethicone (Maalox Max Susp) 15 ml Q4H PRN PO 07/13/16 13:15 08/12/16 13:14 Magnesium Hydroxide (Milk Of Magnesia Susp) 30 ml Q12H PRN PO 07/13/16 13:15 08/12/16 13:14 Ondansetron HCl (Zofran Inj) 4 mg Q6H PRN IV 07/13/16 13:15 08/12/16 13:14 Polyethylene (Miralax Powder Packet) 17 gm DAILY PRN PO 07/13/16 13:15 08/12/16 13:14 Donepezil HCl (Aricept Tab) 10 mg DAILY PO 07/14/16 09:00 08/13/16 08:59 07/14/16 07:32 10 MG Galantamine Hydrobromide (Razadyne Cap) 16 mg DAILY PO 07/14/16 09:00 08/13/16 08:59 07/14/16 07:32 16 MG Oseltamivir Phosphate 30 mg 30 mg BID PO 07/13/16 21:00 07/17/16 21:01 07/14/16 07:34 30 MG Levofloxacin 750 mg/Prmx 150 ml @ 100 mls/hr Q48H IV 07/15/16 11:00 07/20/16 10:59 Piperacillin Sod/ Tazobactam Sod/ Dextrose (Zosyn Iv/D5 100ml) 120 ml @ 28.75 mls/ hr Q8H IV 07/13/16 16:00 07/20/16 09:59 07/14/16 07:32 28.75 MLS/HR Levofloxacin (Consult) 1 ea UD PRN N/A 07/13/16 14:30 08/12/16 14:29 Piperacillin Sod/ Tazobactam Sod (Consult) 1 ea UD PRN N/A 07/13/16 14:30 08/12/16 14:29 Dabigatran (Pradaxa Cap) 75 mg BID PO 07/14/16 21:00 08/13/16 20:59 I & O: 24-Hour Column 07/14/16 08:00 Intake Total 3816 ml Output Total 600 ml Balance 3216 ml Vital Signs: Date Time Temp Pulse Resp B/P Pulse Ox O2 Delivery O2 Flow Rate FiO2 07/14/16 14:00 37.4 89 20 117/78 96 Room Air 07/14/16 11:30 37.2 96 20 113/74 96 Room Air 07/14/16 11:30 Room Air 07/14/16 09:25 86 20 106/78 100 Room Air 07/14/16 07:30 Room Air 07/14/16 07:30 37.0 92 20 101/68 97 Room Air 07/14/16 06:00 88 24 103/66 95 Room Air 07/14/16 05:32 83 24 101/69 97 Room Air 07/14/16 05:02 83 90/57 96 Room Air 07/14/16 04:32 91 24 100/57 97 Room Air 07/14/16 04:02 36.5 91 21 82/64 90 Room Air 07/14/16 04:00 Room Air 07/14/16 03:02 88 28 85/56 96 Room Air 07/14/16 02:32 84 22 86/53 95 Room Air 07/14/16 02:02 85 22 89/57 95 Room Air 07/14/16 02:00 88 24 96 Room Air 07/14/16 00:01 36.6 91 22 98/55 97 Room Air 07/13/16 23:59 Room Air 07/13/16 22:02 102 28 93/66 96 07/13/16 21:32 92 26 94/64 96 07/13/16 21:02 92 26 92/62 95 07/13/16 20:32 99 25 87/58 97 07/13/16 20:02 91 26 95/54 96 07/13/16 20:00 36.9 07/13/16 20:00 Room Air 07/13/16 19:32 104 20 90/63 94 07/13/16 19:02 94 26 96/58 96 07/13/16 18:32 99 26 97/60 95 07/13/16 18:02 88 30 89/66 97 07/13/16 17:49 99 29 117/81 97 07/13/16 17:13 93 30 86/59 93 07/13/16 16:17 83 26 85/62 96 07/13/16 16:13 36.4 108 18 85/57 97 Room Air 07/13/16 16:10 85 27 85/57 91 Laboratory Results: Last 24 Hours Test 07/13/16 15:30 07/13/16 17:09 07/14/16 04:30 07/14/16 12:32 Lactic Acid Level 3.7 mmol/L 3.5 mmol/L Thyroid Stimulating Hormone (TSH) 3.610 uIu/ml Thyroxine (T4) 5.5 mcg/dl Random Cortisol 71.31 mcg/dl White Blood Count 20.45 K/uL Red Blood Count 4.42 M/uL Hemoglobin 14.9 g/dL Hematocrit 41.2 % Mean Corpuscular Volume 93.2 fL Mean Corpuscular Hemoglobin 33.7 pg Mean Corpuscular Hemoglobin Concent 36.2 g/dl Platelet Count 47 K/uL Mean Platelet Volume 12.2 fL Neutrophils (%) (Auto) % Lymphocytes (%) (Auto) % Monocytes (%) (Auto) % Eosinophils (%) (Auto) % Basophils (%) (Auto) % Neutrophils # (Auto) K/uL Lymphocytes # (Auto) K/uL Monocytes # (Auto) K/uL Eosinophils # (Auto) K/uL Basophils # (Auto) K/uL RDW Standard Deviation 46.8 fL RDW Coefficient of Variation 13.6 % Immature Granulocyte % (Auto) % Immature Granulocyte # (Auto) K/uL Neutrophils % (Manual) 85.2 % Lymphocytes % (Manual) 2.6 % Monocytes % (Manual) 0.9 % Eosinophils % (Manual) 0.9 % Metamyelocytes % 10.4 % Neutrophils # (Manual) 17.42 K/uL Total Absolute Neutrophils 17.42 K/uL Lymphocytes # (Manual) 0.53 K/uL Total Absolute Lymphocytes 0.53 K/uL Monocytes # (Manual) 0.18 K/uL Eosinophils # (Manual) 0.18 K/uL Metamyelocytes # 2.13 K/uL Platelet Estimate DECREASED Echinocytes 2+ Sodium Level 136 mmol/L Potassium Level 4.6 mmol/L Chloride Level 107 mmol/L Carbon Dioxide Level 20 mmol/L Anion Gap 9.0 mmol/L Blood Urea Nitrogen 36 mg/dl Creatinine 2.20 mg/dl Est Creatinine Clear Calc Drug Dose 25.9 ml/min Estimated GFR () 31.2 Estimated GFR (Non- 26.9 BUN/Creatinine Ratio 16.2 Random Glucose 111 mg/dl Calcium Level 6.6 mg/dl Phosphorus Level 2.8 mg/dl Magnesium Level 1.6 mg/dl Total Bilirubin 1.1 mg/dl Aspartate Amino Transf (AST/SGOT) 28 U/L Alanine Aminotransferase (ALT/SGPT) 29 U/L Alkaline Phosphatase 39 U/L Troponin I 0.097 ng/ml 0.093 ng/ml Total Protein 5.2 gm/dl Albumin 2.1 gm/dl Globulin 3.1 gm/dl Albumin/Globulin Ratio 0.7
[2016-07-15] MEDS: PIPERACILL/TAZOBAC IV 4.5 GM in DEXTROSE 5% 100ML 100 ML IV SCH ×2 (00:15→08:27)
[2016-07-15] MEDS ORDERED: ALBUT/IPRATROP 3MG/0.5MG NEB 3 ML VIAL INH PRN (00:15)
[2016-07-15 03:26] VITALS: BP 121/85; PULSE 95; TEMP 36.4; O2SAT 97
[2016-07-15] MEDS: SODIUM CHLORIDE 0.9% 1000ML 1,000 ML IV SCH ×2 (03:38→20:27)
[2016-07-15 04:35] LABS: HEMATOCRIT 41.1 % (42-52); MEAN CELL VOLUME 92.2 fL (80-100); MEAN CORPUSCULAR HEMOGLOBIN 33.4 pg (25-34); MEAN CORPUSCULAR HGB CONC 36.3 g/dl (32-36); RED BLOOD COUNT 4.46 M/uL (4.7-6.1); WHITE BLOOD COUNT 17.41 K/uL (4.8-10.8)
[2016-07-15 04:41] LABS: BASO % 0.1 %; BASO ABS # 0.02 K/uL (0-0.2); COMPLETE YES; EOS % 0.2 %; IG% 1.5 %; LYMPH % 5.6 %; LYMPH ABS # 0.98 K/uL (1.2-3.4); MEAN PLATELET VOLUME 10.8 fL (7.4-10.4); MONO % 4.5 %; NEUT % 88.1 %; PLATELET COUNT 58 K/uL (130-400)
[2016-07-15 05:02] LABS: ALB/GLOB RATIO 0.7 (0.9-2); BUN/CREATININE RATIO 18.4 (10-20); CALCIUM 6.8 mg/dl (8.5-10.1); CREATININE 1.5 mg/dl (0.60-1.40); POTASSIUM 3.8 mmol/L (3.5-5.1)
[2016-07-15 07:53] VITALS: BP 118/82; PULSE 90; TEMP 36.6; O2SAT 96
[2016-07-15] MEDS: DONEPEZIL HCL 10 MG TAB PO SCH (08:24)
[2016-07-15] MEDS: OSELTAMIVIR PHOSPHATE SUSP 30 MG/5 ML UDP PO SCH ×2 (08:24→21:31)
[2016-07-15] MEDS: GALANTAMINE HYDROBROMIDE 8 MG CAPER PO SCH (08:24)
[2016-07-15] MEDS: DABIGATRAN ELEXILATE 75 MG CAP PO SCH ×2 (08:24→21:31)
--- NOTE | 2016-07-15 09:54 | Hospitalist Progress Note ---
Hospitalist Progress Note Date of Service Jul 15, 2016. Subjective Pt evaluation today including: conversation w/ patient, conversation w/ family (son), physical exam, chart review, lab review, review of studies, review of inpatient medication list Voiding: huddleston catheter in place (draining concentrated yellow urine ) Patient states he is feeling much better since admission. His appetite is starting to improve- ate breakfast w/out complaints. Patient denies any fever, chills, sweats, lightheadedness, dizziness, vision changes, CP, palpitations, edema, SOB, wheezing, cough, abdominal pain, nausea, vomiting, diarrhea, urinary symptoms, melena, numbness/tingling, weakness, muscle/joint pain, anxiety/depression, active bleeding, or new skin discoloration/changes. Reviewed records on [employer]- patient has followed w/ Dr. Peter in the past for BPH. In January 2015 his PSA was 31. Per notes, patient refused biopsy at that time. According to the patient, he was told if his PSA stays between 20-30, he is "good." This is confirmed by son. Patient admits to urinary difficulty a few days prior to admission, but denies urinary issues prior to recent situation. Medications Current Inpatient Medications Medications (Trade) Dose Ordered Sig/Virginie Route Start Time Stop Time Status Last Admin Dose Admin Sodium Chloride (Nss 1000ml) 1,000 ml @ 75 mls/hr [id number] IV 07/13/16 13:09 08/12/16 13:08 07/15/16 03:38 75 MLS/HR Acetaminophen (Tylenol Tab) 650 mg Q4H PRN PO 07/13/16 13:15 08/12/16 13:14 Al Hydrox/Mg Hydrox/Simethicone (Maalox Max Susp) 15 ml Q4H PRN PO 07/13/16 13:15 08/12/16 13:14 Magnesium Hydroxide (Milk Of Magnesia Susp) 30 ml Q12H PRN PO 07/13/16 13:15 08/12/16 13:14 Ondansetron HCl (Zofran Inj) 4 mg Q6H PRN IV 07/13/16 13:15 08/12/16 13:14 Polyethylene (Miralax Powder Packet) 17 gm DAILY PRN PO 07/13/16 13:15 08/12/16 13:14 Donepezil HCl (Aricept Tab) 10 mg DAILY PO 07/14/16 09:00 08/13/16 08:59 07/15/16 08:24 10 MG Galantamine Hydrobromide (Razadyne Cap) 16 mg DAILY PO 07/14/16 09:00 08/13/16 08:59 07/15/16 08:24 16 MG Oseltamivir Phosphate 30 mg 30 mg BID PO 07/13/16 21:00 07/17/16 21:01 07/15/16 08:24 30 MG Levofloxacin 750 mg/Prmx 150 ml @ 100 mls/hr Q48H IV 07/15/16 11:00 07/20/16 10:59 Piperacillin Sod/ Tazobactam Sod/ Dextrose (Zosyn Iv/D5 100ml) 120 ml @ 28.75 mls/ hr Q8H IV 07/13/16 16:00 07/20/16 09:59 07/15/16 08:27 28.75 MLS/HR Levofloxacin (Consult) 1 ea UD PRN N/A 07/13/16 14:30 08/12/16 14:29 Piperacillin Sod/ Tazobactam Sod (Consult) 1 ea UD PRN N/A 07/13/16 14:30 08/12/16 14:29 Dabigatran (Pradaxa Cap) 75 mg BID PO 07/14/16 21:00 08/13/16 20:59 07/15/16 08:24 75 MG Albuterol/ Ipratropium (Duoneb) 3 ml Q4R PRN INH 07/15/16 00:15 08/14/16 00:14 Objective Vital Signs Date Time Temp Pulse Resp B/P Pulse Ox O2 Delivery O2 Flow Rate FiO2 07/15/16 08:00 Room Air 07/15/16 07:53 36.6 90 20 118/82 96 07/15/16 04:00 Room Air 07/15/16 03:26 36.4 95 20 121/85 97 Room Air 07/14/16 23:59 Room Air 07/14/16 23:21 36.4 85 18 127/81 96 Room Air 07/14/16 20:00 Room Air 07/14/16 19:19 36.7 81 18 122/85 96 Room Air 07/14/16 18:47 36.4 93 16 118/71 96 Room Air 07/14/16 15:25 36.6 85 20 118/74 96 Room Air 07/14/16 15:25 Room Air 07/14/16 15:02 88 22 118/74 97 07/14/16 15:00 91 24 96 07/14/16 14:32 97 21 135/87 98 07/14/16 14:30 89 22 94 07/14/16 14:02 81 23 117/78 97 07/14/16 14:00 37.4 89 20 117/78 96 Room Air 07/14/16 14:00 92 22 98 07/14/16 13:32 87 20 108/74 97 07/14/16 13:30 91 20 97 07/14/16 13:02 91 20 143/91 93 07/14/16 13:00 90 22 89 07/14/16 12:32 95 22 124/80 96 07/14/16 12:30 100 25 96 07/14/16 11:30 97 20 85 07/14/16 11:30 37.2 96 20 113/74 96 Room Air 07/14/16 11:30 Room Air 07/14/16 11:02 85 20 107/67 97 07/14/16 11:00 86 20 97 07/14/16 10:32 91 25 102/71 97 07/14/16 10:30 86 23 97 07/14/16 10:02 86 18 101/86 97 07/14/16 10:00 82 26 98 07/14/16 09:32 82 20 105/67 96 07/14/16 09:30 81 20 97 Physical Exam General Appearance: no apparent distress Eyes: normal inspection, PERRL ENT: + pertinent finding (Hard of hearing ) Neck: supple Respiratory/Chest: no respiratory distress, no accessory muscle use, + decreased breath sounds (throughout all lung chong ), + crackles (bilateral lung bases ) Cardiovascular: + irregularly irregular (rate controlled) Abdomen: normal bowel sounds, non tender, soft Extremities: no pedal edema, no calf tenderness Neurologic/Psychiatric: alert, normal mood/affect, oriented x 3 Skin: normal color, warm/dry, no rash Laboratory Results Last 24 Hours Test 07/14/16 12:32 07/14/16 20:20 07/15/16 04:20 Troponin I 0.093 ng/ml 0.100 ng/ml 0.072 ng/ml White Blood Count 17.41 K/uL Red Blood Count 4.46 M/uL Hemoglobin 14.9 g/dL Hematocrit 41.1 % Mean Corpuscular Volume 92.2 fL Mean Corpuscular Hemoglobin 33.4 pg Mean Corpuscular Hemoglobin Concent 36.3 g/dl Platelet Count 58 K/uL Mean Platelet Volume 10.8 fL Neutrophils (%) (Auto) 88.1 % Lymphocytes (%) (Auto) 5.6 % Monocytes (%) (Auto) 4.5 % Eosinophils (%) (Auto) 0.2 % Basophils (%) (Auto) 0.1 % Neutrophils # (Auto) 15.34 K/uL Lymphocytes # (Auto) 0.98 K/uL Monocytes # (Auto) 0.78 K/uL Eosinophils # (Auto) 0.03 K/uL Basophils # (Auto) 0.02 K/uL RDW Standard Deviation 47.1 fL RDW Coefficient of Variation 13.8 % Immature Granulocyte % (Auto) 1.5 % Immature Granulocyte # (Auto) 0.26 K/uL Sodium Level 141 mmol/L Potassium Level 3.8 mmol/L Chloride Level 112 mmol/L Carbon Dioxide Level 21 mmol/L Anion Gap 8.0 mmol/L Blood Urea Nitrogen 28 mg/dl Creatinine 1.50 mg/dl Est Creatinine Clear Calc Drug Dose 38.0 ml/min Estimated GFR () 49.5 Estimated GFR (Non- 42.7 BUN/Creatinine Ratio 18.4 Random Glucose 95 mg/dl Calcium Level 6.8 mg/dl Magnesium Level 2.0 mg/dl Total Bilirubin 1.1 mg/dl Aspartate Amino Transf (AST/SGOT) 28 U/L Alanine Aminotransferase (ALT/SGPT) 26 U/L Alkaline Phosphatase 38 U/L Total Protein 5.2 gm/dl Albumin 2.1 gm/dl Globulin 3.1 gm/dl Albumin/Globulin Ratio 0.7 Assessment and Plan 80 y/o male with a history of atrial fibrillation, dementia, hypertension, hyperlipidemia and h/o BPH who presented to the ED on 07/13 with weakness, productive cough, chills, dysuria and confusion. Per family, patient had 2 falls in the last few days. Patient is on Pradaxa for his A. fib. Patient arrived with a temperature of 39.5C, HR 114. Other VSS. EKG shows A. fib with RVR. Head CT no acute findings. CXR shows left basilar opacity, atelectasis versus infectious process. WBC 1.84. Hemoglobin elevated at 18.1. Creatinine elevated above baseline at 1.7. [id number] lactic acid elevated at 4.32. LFTs elevated. Positive for influenza B. Patient received total of 2.5 L NSS boluses as well as Levaquin, Zosyn, Vancomycin and Tamiflu. Sepsis/septic shock secondary to flu and UTI-- met sepsis criteria w/ fever, tachycardia, WBC < 4, and infectious source- RESOLVING: - Admitted to ICU, consulted forming tube selector -- Treated with IV Levophed due to hypotension despite fluid resuscitation -- Transferred to [facility] on 07/14--> reviewed- no acute events - Trended cardiac enzymes- peak trop 0.100 - IV NSS at 75 cc/hr - IV Levaquin + Zosyn + Vancomycin -- Vanco d/c'd on 07/14 due to MRSA swab- negative -- Zosyn d/c'd on 07/15 due to resistance on sensitives - BCx- E.coli x1 culture -- Repeat BCx- NGTD - UCx- E.Coli- sensitives reviewed- continue Levaquin Influenza B positive: - Tamiflu 30 mg BID x5 days (last day of treatment 07/17) - DuoNeb PRN - Droplet precautions - Repeat CXR on 07/14- no acute processes h/o BPH: - Patient follows w/ Dr. Peter - PSA of 31 in January 2015- refused another biopsy at that time per records- check PSA tomorrow AM -- Patient had prostate biopsy ~11-12 years ago - d/c Huddleston on 07/15 for void trial- if continued urinary difficulty, will consult urology A. fib w/ RVR- rate controlled: - Diltiazem held due to hypotension- resume once status improves - Pradaxa 150 mg PO BID decreased to 75 mg PO BID due to decreased GFR- resume original dosage once kidney function improves - Mag level - WNL NICOLETTE, baseline creatinine 1.2-1.3- RESOLVING: - Treating with IVF - Follow PRP Dementia: Continue Aricept 10 mg PO qd and Galantamine 16 mg PO qd HTN: Held Diltiazem secondary to hypotension Thrombocytopenia- STABLE: Follow CBC GI Prophylaxis: Maalox PRN, IV Zofran PRN, Colace and/or Milk of Mag PRN DVT prophylaxis: BELEN Flor and LIZETTs Code Status: Level I, FULL RESUSCITATION STATUS Dispo: - From home, lives w/ - PT/OT evaluations - Discharge uncertain at this time
[2016-07-15] MEDS ORDERED: LEVOFLOXACIN / D5W 750 MG in PREMIXED IN D5W 150 ML IV SCH (11:00)
[2016-07-15 11:43] VITALS: BP 147/95; PULSE 86; TEMP 36.9; O2SAT 97
[2016-07-15 15:22] VITALS: BP 155/114; PULSE 89; TEMP 36.5; O2SAT 96
[2016-07-15 19:01] VITALS: BP 115/78; PULSE 95; TEMP 36.5; O2SAT 95
[2016-07-15 23:28] VITALS: BP 121/86; PULSE 88; TEMP 36.2; O2SAT 94
[2016-07-16 04:48] VITALS: BP 150/93; PULSE 93; TEMP 36.6; O2SAT 95
[2016-07-16] MEDS: SODIUM CHLORIDE 0.9% 1000ML 1,000 ML IV SCH (05:41)
[2016-07-16 06:27] LABS: BASO % 0.2 %; BASO ABS # 0.03 K/uL (0-0.2); COMPLETE YES; EOS % 0.3 %; HEMATOCRIT 43.4 % (42-52); IG% 0.5 %; LYMPH % 8.2 %; LYMPH ABS # 1.09 K/uL (1.2-3.4); MEAN CELL VOLUME 92.5 fL (80-100); MEAN CORPUSCULAR HEMOGLOBIN 32.8 pg (25-34); MEAN CORPUSCULAR HGB CONC 35.5 g/dl (32-36); MEAN PLATELET VOLUME 11.3 fL (7.4-10.4); MONO % 6.2 %; NEUT % 84.6 %; PLATELET COUNT 99 K/uL (130-400); RED BLOOD COUNT 4.69 M/uL (4.7-6.1); WHITE BLOOD COUNT 13.26 K/uL (4.8-10.8)
[2016-07-16 06:47] LABS: BUN/CREATININE RATIO 18.1 (10-20); CALCIUM 7.1 mg/dl (8.5-10.1); CREATININE 1.1 mg/dl (0.60-1.40); MAGNESIUM 2.4 mg/dl (1.8-2.4); POTASSIUM 3.8 mmol/L (3.5-5.1)
[2016-07-16 06:53] LABS: ALB/GLOB RATIO 0.7 (0.9-2)
[2016-07-16 07:37] VITALS: BP 148/63; PULSE 90; TEMP 36.5; O2SAT 95
[2016-07-16] MEDS: DABIGATRAN ELEXILATE 75 MG CAP PO SCH ×2 (08:41→20:49)
[2016-07-16] MEDS: GALANTAMINE HYDROBROMIDE 8 MG CAPER PO SCH (08:41)
[2016-07-16] MEDS: DONEPEZIL HCL 10 MG TAB PO SCH (08:56)
[2016-07-16] MEDS: OSELTAMIVIR PHOSPHATE SUSP 30 MG/5 ML UDP PO SCH ×2 (08:56→20:49)
--- NOTE | 2016-07-16 09:23 | Hospitalist Progress Note ---
Hospitalist Progress Note Date of Service Jul 16, 2016. Subjective Pt evaluation today including: conversation w/ patient, conversation w/ family (/son), physical exam, chart review, lab review, review of inpatient medication list Patient states he is feeling well. He is anxious for discharge. Valencia removed yesterday- patient admits to difficulty w/ voiding, but states it is much improved since admission. Again, asked patient about difficulty w/ voiding prior to admission- states he had a lot of difficulty prior to admission, but did notice difficulty over the last few months; yesterday, patient denied difficulty over the last couple of months- unsure of reliability secondary to dementia. Patient denies any fever, chills, sweats, lightheadedness, dizziness, vision changes, CP, palpitations, edema, SOB, wheezing, cough, abdominal pain, nausea, vomiting, diarrhea, melena, numbness/tingling, weakness, muscle/joint pain, anxiety/depression, active bleeding, or new skin discoloration/changes. Medications Current Inpatient Medications Medications (Trade) Dose Ordered Sig/Virginie Route Start Time Stop Time Status Last Admin Dose Admin Acetaminophen (Tylenol Tab) 650 mg Q4H PRN PO 07/13/16 13:15 08/12/16 13:14 Al Hydrox/Mg Hydrox/Simethicone (Maalox Max Susp) 15 ml Q4H PRN PO 07/13/16 13:15 08/12/16 13:14 Magnesium Hydroxide (Milk Of Magnesia Susp) 30 ml Q12H PRN PO 07/13/16 13:15 08/12/16 13:14 Ondansetron HCl (Zofran Inj) 4 mg Q6H PRN IV 07/13/16 13:15 08/12/16 13:14 Polyethylene (Miralax Powder Packet) 17 gm DAILY PRN PO 07/13/16 13:15 08/12/16 13:14 Donepezil HCl (Aricept Tab) 10 mg DAILY PO 07/14/16 09:00 08/13/16 08:59 07/16/16 08:56 10 MG Galantamine Hydrobromide (Razadyne Cap) 16 mg DAILY PO 07/14/16 09:00 08/13/16 08:59 07/16/16 08:41 16 MG Oseltamivir Phosphate (Tamiflu Susp) 30 mg BID PO 07/13/16 21:00 07/17/16 21:01 07/16/16 08:56 30 MG Levofloxacin (Consult) 1 ea UD PRN N/A 07/13/16 14:30 08/12/16 14:29 Dabigatran (Pradaxa Cap) 75 mg BID PO 07/14/16 21:00 08/13/16 20:59 07/16/16 08:41 75 MG Albuterol/ Ipratropium 3 ml 3 ml Q4R PRN INH 07/15/16 00:15 08/14/16 00:14 Levofloxacin/Prmx (Levaquin / D5W/ Premixed D5W) 150 ml @ 100 mls/hr Q24H IV 07/16/16 11:00 07/20/16 10:59 Objective Vital Signs Date Time Temp Pulse Resp B/P Pulse Ox O2 Delivery O2 Flow Rate FiO2 07/16/16 07:37 36.5 90 16 148/63 95 07/16/16 04:48 36.6 93 18 150/93 95 Room Air 07/16/16 04:00 Room Air 07/16/16 00:00 Room Air 07/15/16 23:28 36.2 88 20 121/86 94 Room Air 07/15/16 20:00 Room Air 07/15/16 19:01 36.5 95 19 115/78 95 Room Air 07/15/16 16:00 Room Air 07/15/16 15:22 36.5 89 19 155/114 96 Room Air 07/15/16 12:00 Room Air 07/15/16 11:43 36.9 86 18 147/95 97 Physical Exam General Appearance: no apparent distress Eyes: normal inspection, PERRL ENT: hearing grossly normal Neck: supple Respiratory/Chest: no respiratory distress, no accessory muscle use, + crackles (bilateral lung chong, L>R) Cardiovascular: + irregularly irregular (rate controlled ) Abdomen: normal bowel sounds, non tender, soft Extremities: no pedal edema, no calf tenderness Neurologic/Psychiatric: alert, normal mood/affect, oriented x 3 Skin: normal color, warm/dry, no rash Laboratory Results Last 24 Hours Test 07/16/16 05:37 White Blood Count 13.26 K/uL Red Blood Count 4.69 M/uL Hemoglobin 15.4 g/dL Hematocrit 43.4 % Mean Corpuscular Volume 92.5 fL Mean Corpuscular Hemoglobin 32.8 pg Mean Corpuscular Hemoglobin Concent 35.5 g/dl Platelet Count 99 K/uL Mean Platelet Volume 11.3 fL Neutrophils (%) (Auto) 84.6 % Lymphocytes (%) (Auto) 8.2 % Monocytes (%) (Auto) 6.2 % Eosinophils (%) (Auto) 0.3 % Basophils (%) (Auto) 0.2 % Neutrophils # (Auto) 11.22 K/uL Lymphocytes # (Auto) 1.09 K/uL Monocytes # (Auto) 0.82 K/uL Eosinophils # (Auto) 0.04 K/uL Basophils # (Auto) 0.03 K/uL RDW Standard Deviation 48.2 fL RDW Coefficient of Variation 14.2 % Immature Granulocyte % (Auto) 0.5 % Immature Granulocyte # (Auto) 0.06 K/uL Sodium Level 143 mmol/L Potassium Level 3.8 mmol/L Chloride Level 113 mmol/L Carbon Dioxide Level 21 mmol/L Anion Gap 9.0 mmol/L Blood Urea Nitrogen 20 mg/dl Creatinine 1.10 mg/dl Est Creatinine Clear Calc Drug Dose 51.8 ml/min Estimated GFR () 72.1 Estimated GFR (Non- 62.2 BUN/Creatinine Ratio 18.1 Random Glucose 95 mg/dl Calcium Level 7.1 mg/dl Magnesium Level 2.4 mg/dl Total Bilirubin 0.9 mg/dl Aspartate Amino Transf (AST/SGOT) 23 U/L Alanine Aminotransferase (ALT/SGPT) 26 U/L Alkaline Phosphatase 41 U/L Total Protein 5.5 gm/dl Albumin 2.3 gm/dl Globulin 3.2 gm/dl Albumin/Globulin Ratio 0.7 Prostate Specific Antigen 62.000 ng/ml Assessment and Plan 80 y/o male with a history of atrial fibrillation, dementia, hypertension, hyperlipidemia and h/o BPH who presented to the ED on 07/13 with weakness, productive cough, chills, dysuria and confusion. Per family, patient had 2 falls in the last few days. Patient is on Pradaxa for his A. fib. Patient arrived with a temperature of 39.5C, HR 114. Other VSS. EKG shows A. fib with RVR. Head CT no acute findings. CXR shows left basilar opacity, atelectasis versus infectious process. WBC 1.84. Hemoglobin elevated at 18.1. Creatinine elevated above baseline at 1.7. [id number] lactic acid elevated at 4.32. LFTs elevated. Positive for influenza B. Patient received total of 2.5 L NSS boluses as well as Levaquin, Zosyn, Vancomycin and Tamiflu. Sepsis/septic shock secondary to flu and UTI-- met sepsis criteria w/ fever, tachycardia, WBC < 4, and infectious source- RESOLVING: - Admitted to ICU, consulted manager financial -- Treated with IV Levophed due to hypotension despite fluid resuscitation -- Transferred to [facility] on 07/14 - Trended cardiac enzymes- peak trop 0.100 - IV NSS at 75 cc/hr- d/c on 07/16- eating/drinking adequately, NICOLETTE resolved - IV Levaquin + Zosyn + Vancomycin (Treatment started on 05/15) -- Vanco d/c'd on 07/14 due to MRSA swab- negative -- Zosyn d/c'd on 07/15 due to resistance on sensitives -- Transition to PO Levaquin on 07/17 - BCx- E.coli x1 culture -- Repeat BCx- NGTD x2 - UCx- E.Coli- sensitives reviewed- continue Levaquin Influenza B positive: - Tamiflu 30 mg BID x5 days (last day of treatment 07/17) - DuoNeb PRN - Droplet precautions - Repeat CXR on 07/14- no acute processes h/o BPH: - Patient follows w/ Dr. Peter- consult urology, appreciate recommendations - PSA of 31 in January 2015- refused another biopsy at that time per records -- PSA on 07/16- 62.00 -- Patient had prostate biopsy ~11-12 years ago - d/c Valencia on 07/15 A. fib w/ RVR- rate controlled: - Diltiazem 360 mg daily held due to hypotension- resume once status improves - Pradaxa 150 mg PO BID decreased to 75 mg PO BID due to decreased GFR- resume original dosage once kidney function improves - Mag level - WNL NICOLETTE, baseline creatinine 1.2-1.3- RESOLVED: - Treating with IVF - Follow PRP Dementia: Continue Aricept 10 mg PO qd and Galantamine 16 mg PO qd HTN: Held Diltiazem secondary to hypotension Thrombocytopenia- RESOLVING: Follow CBC GI Prophylaxis: Maalox PRN, IV Zofran PRN, Colace and/or Milk of Mag PRN DVT prophylaxis: BELEN Flor and SCDs Code Status: Level I, FULL RESUSCITATION STATUS Dispo: - From home, lives w/ - PT/OT evaluations - Discharge uncertain at this time
[2016-07-16] MEDS ORDERED: LEVOFLOXACIN / D5W 750 MG in PREMIXED IN D5W 150 ML IV SCH (11:00)
[2016-07-16 11:21] VITALS: BP 158/96; PULSE 72; TEMP 36.4; O2SAT 95
[2016-07-16] MEDS ORDERED: DILTIAZEM HCL 300 MG CAPCR PO STA (13:31)
--- NOTE | 2016-07-16 14:08 | Urology Consultation ---
History General Date of Service: Jul 16, 2016. Chief Complaint: UTI with sepsis, elevated PSA Primary Care Physician: Braeden Sultana III, CRNP Pt seen a urologist before?: Yes (Dr. Peter ) If yes, why?: elevated PSA, BPH History of Present Illness 80 yo male admitted with sepsis. UC&S and blood cultures growing e coli. Currently on Levaquin. consulted for elevated PSA of 63. The pt has a hx of elevated PSA for which he last saw Dr. Peter in 2014. PSA of 30 at that time. Prostate biospy recommended at that time, but the pt declined. Hx of negative prostate bx ~12 years ago. The pt also reports difficulty voiding over the past week. Huddleston catheter removed yesterday, and stream is weak today. PVR after voiding is 350ml. Cr noted to be 1.10 today. Laboratory Last 24 Hours Test 07/16/16 05:37 White Blood Count 13.26 K/uL Red Blood Count 4.69 M/uL Hemoglobin 15.4 g/dL Hematocrit 43.4 % Mean Corpuscular Volume 92.5 fL Mean Corpuscular Hemoglobin 32.8 pg Mean Corpuscular Hemoglobin Concent 35.5 g/dl Platelet Count 99 K/uL Mean Platelet Volume 11.3 fL Neutrophils (%) (Auto) 84.6 % Lymphocytes (%) (Auto) 8.2 % Monocytes (%) (Auto) 6.2 % Eosinophils (%) (Auto) 0.3 % Basophils (%) (Auto) 0.2 % Neutrophils # (Auto) 11.22 K/uL Lymphocytes # (Auto) 1.09 K/uL Monocytes # (Auto) 0.82 K/uL Eosinophils # (Auto) 0.04 K/uL Basophils # (Auto) 0.03 K/uL RDW Standard Deviation 48.2 fL RDW Coefficient of Variation 14.2 % Immature Granulocyte % (Auto) 0.5 % Immature Granulocyte # (Auto) 0.06 K/uL Sodium Level 143 mmol/L Potassium Level 3.8 mmol/L Chloride Level 113 mmol/L Carbon Dioxide Level 21 mmol/L Anion Gap 9.0 mmol/L Blood Urea Nitrogen 20 mg/dl Creatinine 1.10 mg/dl Est Creatinine Clear Calc Drug Dose 51.8 ml/min Estimated GFR () 72.1 Estimated GFR (Non- 62.2 BUN/Creatinine Ratio 18.1 Random Glucose 95 mg/dl Calcium Level 7.1 mg/dl Magnesium Level 2.4 mg/dl Total Bilirubin 0.9 mg/dl Aspartate Amino Transf (AST/SGOT) 23 U/L Alanine Aminotransferase (ALT/SGPT) 26 U/L Alkaline Phosphatase 41 U/L Total Protein 5.5 gm/dl Albumin 2.3 gm/dl Globulin 3.2 gm/dl Albumin/Globulin Ratio 0.7 Prostate Specific Antigen 62.000 ng/ml Problem List Medical Problems: (1) Flu Status: Acute (2) Forearm laceration with complication Status: Acute (3) Pneumonia Status: Acute Past History A Fib, BPH, dementia, hypertension, other (elevated PSA, loss of hearing) Past Surgical History: other (hernia repair) Family History Hypertension Social History Hx Tobacco Use In Past Year?: Yes Smoking: other (former smoker) Alcohol: never Drug use: none Marital status: Housing status: lives with significant other Occupation status: retired History of MDRO No Allergies Coded Allergies: No Known Allergies (Unverified , 07/13/16) Medications Home Medications: Home Meds and Scripts Medications Dose Route/Sig Max Daily Dose Days Date Category Aricept (Donepezil Hydrochloride) 10 Mg Tab 1 Tab PO DAILY 90 07/13/16 Reported Razadyne Ext Rel (Galantamine Hydrobromide) 16 Mg Cap 16 Mg PO DAILY 07/13/16 Reported Tiazac (Diltiazem HCl) 360 Mg Capcr 360 Mg PO DAILY 07/13/16 Reported Pradaxa (Dabigatran Etexilate Mesylate) 150 Mg Cap 1 Cap PO BID 90 07/13/16 Reported Inpatient Medications: Current Inpatient Medications Medications (Trade) Dose Ordered Sig/Virginie Route Start Time Stop Time Status Last Admin Dose Admin Acetaminophen (Tylenol Tab) 650 mg Q4H PRN PO 07/13/16 13:15 08/12/16 13:14 Al Hydrox/Mg Hydrox/Simethicone (Maalox Max Susp) 15 ml Q4H PRN PO 07/13/16 13:15 08/12/16 13:14 Magnesium Hydroxide (Milk Of Magnesia Susp) 30 ml Q12H PRN PO 07/13/16 13:15 08/12/16 13:14 Ondansetron HCl (Zofran Inj) 4 mg Q6H PRN IV 4/24/17 13:15 08/12/16 13:14 Polyethylene (Miralax Powder Packet) 17 gm DAILY PRN PO 07/13/16 13:15 08/12/16 13:14 Donepezil HCl (Aricept Tab) 10 mg DAILY PO 07/14/16 09:00 08/13/16 08:59 07/16/16 08:56 10 MG Galantamine Hydrobromide (Razadyne Cap) 16 mg DAILY PO 07/14/16 09:00 08/13/16 08:59 07/16/16 08:41 16 MG Oseltamivir Phosphate (Tamiflu Susp) 30 mg BID PO 07/13/16 21:00 07/17/16 21:01 07/16/16 08:56 30 MG Levofloxacin (Consult) 1 ea UD PRN N/A 07/13/16 14:30 08/12/16 14:29 Dabigatran (Pradaxa Cap) 75 mg BID PO 07/14/16 21:00 08/13/16 20:59 07/16/16 08:41 75 MG Albuterol/ Ipratropium 3 ml 3 ml Q4R PRN INH 07/15/16 00:15 08/14/16 00:14 Levofloxacin/Prmx (Levaquin / D5W/ Premixed D5W) 150 ml @ 100 mls/hr Q24H IV 07/16/16 11:00 07/17/16 00:00 07/16/16 11:00 100 MLS/HR Levofloxacin (Levaquin Tab) 750 mg DAILY@11 PO 07/17/16 11:00 07/23/26 10:59 Tamsulosin HCl (Flomax Cap) 0.4 mg HS PO 07/16/16 21:00 08/15/16 20:59 Diltiazem HCl (Cardizem Cd Cap) 300 mg QAM PO 07/17/16 09:00 08/16/16 08:59 Review of Systems Review of Systems Constitutional: No chills, No fever Eyes: No double vision Neurological: No dizzy Endocrine: No excessive thirst Gastrointestinal: No abdominal pain, No nausea, No vomiting Cardiovascular: No chest pain Respiratory: No shortness of breath Skin: No rash Musculoskeletal: + arthritis Male : + weak stream, No blood in urine, No painful urination Physical Exam Vital Signs: Vital Signs Past 12 Hours Date Time Temp Pulse Resp B/P Pulse Ox O2 Delivery O2 Flow Rate FiO2 07/16/16 12:00 Room Air 07/16/16 11:21 36.4 72 20 158/96 95 Room Air 07/16/16 08:00 Room Air 07/16/16 07:37 36.5 90 16 148/63 95 07/16/16 04:48 36.6 93 18 150/93 95 Room Air 07/16/16 04:00 Room Air Physical Exam: General Appearance: no apparent distress Eyes: bilateral eyes normal inspection ENT: hearing grossly normal Neck: no JVD Respiratory/Chest: no respiratory distress, no accessory muscle use Cardiovascular: no JVD Extremities: normal inspection Neurologic/Psychiatric: alert, normal mood/affect, oriented x 3 Skin: normal color Assessment & Plan Assessment & Plan 1. UTI with sepsis Suspect possible prostatitis in the setting of elevated PSA and incomplete bladder emptying. FÉLIX deferred as the pt is currently septic. Recommend 28 days of Levaquin to tx for prostatitis. 2. Incomplete bladder emptying, BPH Likely secondary to prostatitis and BPH. Will replace huddleston catheter. Recommend leaving huddleston in place for 14 days while treating for prostatitis. Will plan for outpatient TOV in 14 days. Will also start the pt on Flomax. Check orthostatic BPs 1hr after administration of Flomax. 3. Elevated PSA Remains suspicious for prostate cancer, but likely elevated secondary to UTI/ prostatitis and incomplete bladder emptying as well. Would not perform prostate bx in the setting of sepsis. Recommend 1 month of Levaquin, and repeating a PSA in 4-6 weeks. Will arrange for outpatient f/u with Dr. Peter in 4-6 weeks with a repeat PSA. Discuss possible prostate bx at that time. Thanks for the consult. Will continue to follow along with primary service.
[2016-07-16 15:12] VITALS: BP 156/95; PULSE 90; TEMP 36.2; O2SAT 96
[2016-07-16 19:04] VITALS: BP 157/86; PULSE 70; TEMP 36.7; O2SAT 92
[2016-07-16] MEDS: TAMSULOSIN HCL 0.4 MG CAP PO SCH (20:49)
[2016-07-16 23:44] VITALS: BP_SYST 129; BP_SYST 149; BP_SYST 154; BP_DIAS 79; BP_DIAS 89; BP_DIAS 92; PULSE 63; PULSE 83; PULSE 87; TEMP 36.9; O2SAT 93
[2016-07-17 04:08] VITALS: BP 124/78; PULSE 61; TEMP 36.6; O2SAT 92
[2016-07-17 06:05] LABS: HEMATOCRIT 39.9 % (42-52); MEAN CELL VOLUME 91.7 fL (80-100); MEAN CORPUSCULAR HEMOGLOBIN 32.4 pg (25-34); MEAN CORPUSCULAR HGB CONC 35.3 g/dl (32-36); MEAN PLATELET VOLUME 10.2 fL (7.4-10.4); PLATELET COUNT 111 K/uL (130-400); RED BLOOD COUNT 4.35 M/uL (4.7-6.1); WHITE BLOOD COUNT 10.13 K/uL (4.8-10.8)
[2016-07-17] MEDS: OSELTAMIVIR PHOSPHATE SUSP 30 MG/5 ML UDP PO SCH ×2 (07:37→21:29)
[2016-07-17] MEDS: GALANTAMINE HYDROBROMIDE 8 MG CAPER PO SCH (07:37)
[2016-07-17] MEDS: DABIGATRAN ELEXILATE 75 MG CAP PO SCH ×2 (07:37→20:54)
[2016-07-17] MEDS: DONEPEZIL HCL 10 MG TAB PO SCH (07:37)
[2016-07-17 07:39] VITALS: BP 118/73; PULSE 57; TEMP 36.8; O2SAT 94
[2016-07-17] MEDS: LEVOFLOXACIN 750 MG TAB PO SCH (10:35)
[2016-07-17 11:39] VITALS: BP 127/76; PULSE 58; TEMP 36.4; O2SAT 95
--- NOTE | 2016-07-17 13:08 | Progress Note ---
Subjective Date of Service: Jul 17, 2016. Subjective Pt evaluation today including: conversation w/ patient, conversation w/ family , physical exam, chart review, lab review, review of inpatient medication list Pain: Denies PO Intake: George PO, no emesis Voiding: huddleston catheter in place (urine clear) 80 yo male admitted with probable urosepsis, prostatitis, elevated PSA. in room. Feeling much improved today, Cr and WBC both normalized. Urine clear, findings reviewed with patient, prior consult reviewed. UC&S and blood culture shows E. Coli sensitive to Levaquin. Problem List Medical Problems: (1) Flu Status: Acute (2) Forearm laceration with complication Status: Acute (3) Pneumonia Status: Acute Review of Systems Constitutional: No chills, No fever Eyes: No worsening of vision ENT: No hearing loss Respiratory: No shortness of breath, No sputum Cardiac: No chest pain Abdomen: No nausea, No vomiting Male : + see HPI Neurologic: No memory loss Psychiatric: No depression symptoms Skin: No color change, No new/changing skin lesions Objective Vital Signs Date Time Temp Pulse Resp B/P Pulse Ox O2 Delivery O2 Flow Rate FiO2 07/17/16 12:00 Room Air 07/17/16 11:39 36.4 58 16 127/76 95 07/17/16 08:00 Room Air 07/17/16 07:39 36.8 57 16 118/73 94 07/17/16 04:08 36.6 61 20 124/78 92 Room Air 07/17/16 04:00 Room Air 07/16/16 23:59 Room Air 07/16/16 23:44 36.9 63 18 129/79 93 Room Air 87 154/92 83 149/89 07/16/16 20:00 Room Air 07/16/16 19:04 36.7 70 18 157/86 92 Room Air 07/16/16 16:00 Room Air 07/16/16 15:12 36.2 90 18 156/95 96 Room Air Physical Exam General Appearance: WD/WN, no apparent distress ENT: normal ENT inspection, + pertinent finding ([place]) Neck: supple, no adenopathy Respiratory/Chest: no respiratory distress, no accessory muscle use Cardiovascular: no JVD Abdomen: non tender, soft Neurologic/Psychiatric: alert Skin: normal color Laboratory Results Last 24 Hours Test 07/17/16 05:15 White Blood Count 10.13 K/uL Red Blood Count 4.35 M/uL Hemoglobin 14.1 g/dL Hematocrit 39.9 % Mean Corpuscular Volume 91.7 fL Mean Corpuscular Hemoglobin 32.4 pg Mean Corpuscular Hemoglobin Concent 35.3 g/dl RDW Standard Deviation 45.6 fL RDW Coefficient of Variation 13.6 % Platelet Count 111 K/uL Mean Platelet Volume 10.2 fL Assessment and Plan A/P 80 yo male with improving prostatitis, urosepsis on Levaquin. See recommendations in prior consult. Huddleston x 2 weeks, will arrange trial of void, outpatient f/u with Dr. Peter - patient can call office if he does not receive an appointment early next week. Repeat PSA with outpatient MD visit. Doing well, stable for discharge from perspective. Thank you for allowing us to participate in this patient's care, please contact our service with any additional questions or concerns.
[2016-07-17 15:20] VITALS: O2SAT 96
[2016-07-17 15:30] VITALS: BP 127/76; PULSE 58; TEMP 36.4; O2SAT 95
[2016-07-17 15:55] VITALS: BP 154/89; PULSE 62; TEMP 36.3; O2SAT 96
--- NOTE | 2016-07-17 16:38 | Progress Note ---
Subjective Date of Service: Jul 17, 2016. Subjective Pt evaluation today including: conversation w/ patient, conversation w/ family , physical exam, chart review, lab review, review of studies, conversation w/ nursing consultant, review of inpatient medication list Feeling much better, no complaining, eating okay, Problem List Medical Problems: (1) Flu Status: Acute (2) Forearm laceration with complication Status: Acute (3) Pneumonia Status: Acute Review of Systems Constitutional: + fatigue, + weakness (but is better than yesterday), No chills , No fever, No problem reported, No sweats, No weight loss Eyes: No diplopia, No discharge, No eye pain, No redness, No worsening of vision ENT: No dental problems, No hearing loss, No nasal symptoms, No sore throat, No tinnitus, No trouble swallowing, No unusual epistaxis Respiratory: No cough, No dyspnea at rest, No dyspnea on exertion, No hemoptysis, No shortness of breath, No sputum, No wheezing Cardiac: No PND, No chest pain, No claudication, No edema, No orthopnea, No palpitations Abdomen: No constipation, No diarrhea, No nausea, No pain, No vomiting Musculoskeletal: No calf pain, No joint pain, No muscle pain, No swelling Male : No dysuria, No hematuria, No incontinence, No nocturia more than once/ night, No slowing stream, No urinary frequency Neurologic: No balance problems, No memory loss, No numbness/tingling, No paralysis, No vertigo, No weakness Psychiatric: No anhedonism, No anxiety, No depression symptoms, No insomnia, No substance abuse Heme: No abnormal bleeding/bruising, No clotting problems, No night sweats, No swollen lymph nodes Endo: No excessive thirst, No excessive urination, No fatigue Skin: No bleeding, No color change, No itch, No new/changing skin lesions, No rash Objective Vital Signs Date Time Temp Pulse Resp B/P Pulse Ox O2 Delivery O2 Flow Rate FiO2 07/17/16 15:55 36.3 62 18 154/89 96 Room Air 07/17/16 15:30 36.4 58 16 95 07/17/16 15:20 96 07/17/16 12:00 Room Air 07/17/16 11:39 36.4 58 16 127/76 95 07/17/16 08:00 Room Air 07/17/16 07:39 36.8 57 16 118/73 94 07/17/16 04:08 36.6 61 20 124/78 92 Room Air 07/17/16 04:00 Room Air 07/16/16 23:59 Room Air 07/16/16 23:44 36.9 63 18 129/79 93 Room Air 87 154/92 83 149/89 07/16/16 20:00 Room Air 07/16/16 19:04 36.7 70 18 157/86 92 Room Air Physical Exam General Appearance: WD/WN, no apparent distress, + pertinent finding (look much better than yesterday, awake and alert, orientated, conversational) Eyes: normal inspection, PERRL, EOMI, sclerae normal ENT: normal ENT inspection, hearing grossly normal, pharynx normal Neck: supple, no adenopathy, thyroid normal, no JVD, no carotid bruits, trachea midline Respiratory/Chest: chest non-tender, no respiratory distress, no accessory muscle use, + decreased breath sounds Cardiovascular: regular rate, rhythm, no edema, no gallop, no JVD, no murmur Abdomen: normal bowel sounds, non tender, soft, no organomegaly, no pulsatile mass Extremities: normal range of motion, non-tender, normal inspection, no pedal edema, no calf tenderness, normal capillary refill, pelvis stable Neurologic/Psychiatric: lead clinical research coordinator II-XII nml as tested, no motor/sensory deficits, alert, normal mood/affect, oriented x 3 Skin: normal color, warm/dry, no rash Lymphatic: no adenopathy Laboratory Results Last 24 Hours Test 07/17/16 05:15 White Blood Count 10.13 K/uL Red Blood Count 4.35 M/uL Hemoglobin 14.1 g/dL Hematocrit 39.9 % Mean Corpuscular Volume 91.7 fL Mean Corpuscular Hemoglobin 32.4 pg Mean Corpuscular Hemoglobin Concent 35.3 g/dl RDW Standard Deviation 45.6 fL RDW Coefficient of Variation 13.6 % Platelet Count 111 K/uL Mean Platelet Volume 10.2 fL Assessment and Plan 80 y/o male make it on 07/13 2016 was found possible has Sepsis/septic shock secondary to flu and UTI with weakness, productive cough, chills, dysuria and confusion. Per family, patient had 2 falls in the last few days. Escherichia coli UTI, and Escherichia coli bacteremia with Sepsis/septic shock secondary to flu and UTI upon admission: stable, and continue improving Leukocytosis better from 23 days ago to today 10 was treated with IV Levophed due to hypotension despite fluid resuscitation upon admission in the ICU Was admitted to ICU, consulted mitigation supervisor, Transferred to [facility] on 07/14 2069, continue to be stable in PCU Elevated troponin, likely from demanding ischemia and from the mild sepsis - Trended cardiac enzymes- peak trop 0.100 - IV NSS at 75 cc/hr- d/c on 07/16- eating/drinking adequately, NICOLETTE resolved - IV Levaquin + Zosyn + Vancomycin (Treatment started on 05/15) -- Vanco d/c'd on 07/14 due to MRSA swab- negative -- Zosyn d/c'd on 07/15 due to resistance on sensitives -- Transition to PO Levaquin on 07/17 - BCx- E.coli x1 culture -- Repeat BCx- NGTD x2 - UCx- E.Coli- sensitives reviewed- continue Levaquin Influenza B positive: Has been on Tamiflu 30 mg BID x5 days (last day of treatment 07/17) has completed 4 cause of flu treatment h/o BPH: Check PSA 63k, urology saw patient, continue Valencia catheter, outpatient follow-up with urologist Rosalia shepherd w/ RVR- rate controlled: Continue Diltiazem 360 mg daily held due to hypotension- resume once status improves Continue Pradaxa 150 mg PO BID decreased to 75 mg PO BID due to decreased GFR- resume original dosage today cause of kidney function improves - Mag level - WNL NICOLETTE, baseline creatinine 1.2-1.3, RESOLVED: Dementia: HTN: Thrombocytopenia The above condition is stable continue current care GI Prophylaxis: Maalox PRN, IV Zofran PRN, Colace and/or Milk of Mag PRN DVT prophylaxis, patient is on Pradaxa DVT prophylaxis: Pradaxa, BELEN chan and SCDs Code Status: Level I, FULL RESUSCITATION STATUS Dispo: - From home, lives w/ - PT/OT evaluations Continued [facility] stay due to: multiple IV medications needed Discharge planning: home
[2016-07-17] MEDS: TAMSULOSIN HCL 0.4 MG CAP PO SCH (20:55)
--- NOTE | 2016-07-17 22:42 | Progress Note ---
Post ICU Progress Note Date & Time Jul 17, 2016 at 22:42 Vital Signs Vital Signs Past 12 Hours Date Time Temp Pulse Resp B/P Pulse Ox O2 Delivery O2 Flow Rate FiO2 07/17/16 16:00 Room Air 07/17/16 15:55 36.3 62 18 154/89 96 Room Air 07/17/16 15:30 36.4 58 16 95 07/17/16 15:20 96 07/17/16 12:00 Room Air 07/17/16 11:39 36.4 58 16 127/76 95 Notes Mental Status: see Notes (Spoke with nursing as patient was asleep and resting comfortably) Nausea / Vomiting: adequately controlled Pain: adequately controlled Airway Patency, RR, SpO2: stable & adequate BP & HR: stable & adequate Jude Mckeon is an 80-year-old male with a history of A. fib, hyperlipidemia, BPH who presented to [facility] on July 13 with confusion, weakness, dysuria, cough and chills. Patient had been experiencing increased weakness for about 1 week with difficulty urinating. He developed rigors and sweats and was ultimately brought to the emergency department. He was transferred to the intensive care unit and started on vasoactive medication due to septic shock. Patient's flu PCR was positive for influenza B. He was started on broad spectrum antibiotics. Patient did not undergo any further procedures while in the ICU. Patient did not require intubation, arterial or central access. Patient was on vasoactive for a short period time prior to holding his own pressure greater than a MAP of 60. Patient was transferred out of the ICU the following day July 14. I spoke with Jude's nurse at length secondary to him being asleep in bed when I went to examine him. She states that he has been doing extremely well no longer requiring a one-to-one and had recently taken Ambien to help sleep. He has been afebrile since the second day of admission, remains on room air with adequate saturations. His antibiotic coverage has been downgraded. And A. fib with RVR has been rate controlled and patient remains anticoagulated on Pradaxa His prior NICOLETTE has resolved. Patient has been referred for PT/OT is currently still on multiple IV medications, it is uncertain at this time if patient will need to be discharged to a nursing facility versus home. Consider outpatient follow up in 1 to 2 weeks after discharge with: Braeden Griel III, [employer]ER Repeat imaging needed: N/A Follow up cultures: Per Hospitalist team Reviewed progress notes, labs, and inpatient medication list Continue current management Additional recommendations: None Currently Patient is stable at this time thus critical care will sign off. Thank you for including us in the care of this patient, please feel free to reconsult as needed. Consults & Procedures Consultants: Urology: Dr. Eh Peter Procedures: NA
[2016-07-18 00:15] VITALS: O2SAT 96
[2016-07-18 07:34] VITALS: BP_SYST 149; BP_SYST 163; BP_DIAS 101; BP_DIAS 105; PULSE 82; TEMP 36.6; O2SAT 94
[2016-07-18] MEDS: DABIGATRAN ELEXILATE 75 MG CAP PO SCH ×2 (07:43→20:13)
[2016-07-18] MEDS: DILTIAZEM HCL 300 MG CAPCR PO SCH ×2 (07:43→08:26)
[2016-07-18] MEDS: DONEPEZIL HCL 10 MG TAB PO SCH (07:43)
[2016-07-18] MEDS: GALANTAMINE HYDROBROMIDE 8 MG CAPER PO SCH (08:16)
[2016-07-18 08:45] VITALS: BP 164/109
[2016-07-18 08:55] LABS: HEMATOCRIT 41.1 % (42-52); MEAN CELL VOLUME 91.1 fL (80-100); MEAN CORPUSCULAR HEMOGLOBIN 33.5 pg (25-34); MEAN CORPUSCULAR HGB CONC 36.7 g/dl (32-36); MEAN PLATELET VOLUME 10.6 fL (7.4-10.4); PLATELET COUNT 147 K/uL (130-400); RED BLOOD COUNT 4.51 M/uL (4.7-6.1); WHITE BLOOD COUNT 11.76 K/uL (4.8-10.8)
--- NOTE | 2016-07-18 09:13 | Progress Note ---
Subjective Date of Service: Jul 18, 2016. Subjective Pt evaluation today including: conversation w/ patient, conversation w/ family , physical exam, chart review, lab review, review of studies, conversation w/ group segment consultant, review of inpatient medication list Continue doing good, awake and alert and orientated, however blood pressure is elevated , was 163/109 this a.m., repeated in 1 hour after giving regular dose of Cardizem CD still up to 164/109 Problem List Medical Problems: (1) Flu Status: Acute (2) Forearm laceration with complication Status: Acute (3) Pneumonia Status: Acute Review of Systems Constitutional: + fatigue, + weakness, No chills, No fever, No problem reported , No sweats, No weight loss Eyes: No diplopia, No discharge, No eye pain, No redness, No worsening of vision ENT: No dental problems, No hearing loss, No nasal symptoms, No sore throat, No tinnitus, No trouble swallowing, No unusual epistaxis Respiratory: No cough, No dyspnea at rest, No dyspnea on exertion, No hemoptysis, No shortness of breath, No sputum, No wheezing Cardiac: No PND, No chest pain, No claudication, No edema, No orthopnea, No palpitations Abdomen: + problem reported (Valencia in place has drainage of l urine), No constipation, No diarrhea, No nausea, No pain, No vomiting Musculoskeletal: No calf pain, No joint pain, No muscle pain, No swelling Male : No dysuria, No hematuria, No incontinence, No nocturia more than once/ night, No slowing stream, No urinary frequency Neurologic: No balance problems, No memory loss, No numbness/tingling, No paralysis, No vertigo, No weakness Psychiatric: No anhedonism, No anxiety, No depression symptoms, No insomnia, No substance abuse Heme: No abnormal bleeding/bruising, No clotting problems, No night sweats, No swollen lymph nodes Endo: No excessive thirst, No excessive urination, No fatigue Skin: No bleeding, No color change, No itch, No new/changing skin lesions, No rash Objective Vital Signs Date Time Temp Pulse Resp B/P Pulse Ox O2 Delivery O2 Flow Rate FiO2 07/18/16 08:45 164/109 07/18/16 07:34 36.6 82 18 149/101 94 Room Air 163/105 07/18/16 00:15 96 Room Air 07/17/16 16:00 Room Air 07/17/16 15:55 36.3 62 18 154/89 96 Room Air 07/17/16 15:30 36.4 58 16 95 07/17/16 15:20 96 07/17/16 12:00 Room Air 07/17/16 11:39 36.4 58 16 127/76 95 Physical Exam General Appearance: WD/WN, no apparent distress, + pertinent finding Eyes: normal inspection, PERRL, EOMI, sclerae normal ENT: normal ENT inspection, hearing grossly normal, pharynx normal Neck: supple, no adenopathy, thyroid normal, no JVD, no carotid bruits, trachea midline Respiratory/Chest: chest non-tender, no respiratory distress, no accessory muscle use, + decreased breath sounds Cardiovascular: regular rate, rhythm, no edema, no gallop, no JVD, no murmur Abdomen: normal bowel sounds, non tender, soft, no organomegaly, no pulsatile mass, + pertinent finding (Valencia catheter in place) Extremities: normal range of motion, non-tender, normal inspection, no pedal edema, no calf tenderness, normal capillary refill, pelvis stable 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, no motor/sensory deficits, alert, normal mood/affect, oriented x 3 Skin: normal color, warm/dry, no rash Lymphatic: no adenopathy Laboratory Results Last 24 Hours Test 07/18/16 08:08 White Blood Count 11.76 K/uL Red Blood Count 4.51 M/uL Hemoglobin 15.1 g/dL Hematocrit 41.1 % Mean Corpuscular Volume 91.1 fL Mean Corpuscular Hemoglobin 33.5 pg Mean Corpuscular Hemoglobin Concent 36.7 g/dl RDW Standard Deviation 44.7 fL RDW Coefficient of Variation 13.5 % Platelet Count 147 K/uL Mean Platelet Volume 10.6 fL Assessment and Plan 80 y/o male make it on 07/13 2016 was found possible has Sepsis/septic shock secondary to flu and UTI with weakness, productive cough, chills, dysuria and confusion. Per family, patient had 2 falls in the last few days. Escherichia coli UTI, and Escherichia coli bacteremia with Sepsis/septic shock secondary to flu and UTI upon admission: Continue stable Leukocytosis resolved was treated with IV Levophed due to hypotension despite fluid resuscitation upon admission in the ICU Was admitted to ICU, consulted superintendent of schools, Transferred to tele on 07/14 2069, [facility] Was on IV NSS at 75 cc/hr- d/c on 07/16- eating/drinking adequately, NICOLETTE resolved Was on IV Levaquin + Zosyn + Vancomycin (Treatment started on 05/15) -- Vanco d/c'd on 07/14 due to MRSA swab- negative -- Zosyn d/c'd on 07/15 due to resistance on sensitives -- Transition to PO Levaquin on 07/17 - BCx- E.coli x1 culture -- Repeat BCx- NGTD x2 - UCx- E.Coli- sensitives reviewed- continue Levaquin, we'll give totally 10 days, today is 5/10 days Elevated troponin, likely from demanding ischemia and from the mild sepsis - Trended cardiac enzymes- peak trop 0.100 Influenza B positive: Has been on Tamiflu 30 mg BID x5 days (last day of treatment 07/17) has completed 4 cause of flu treatment h/o BPH: Check PSA 63k, urology saw patient, continue Valencia catheter, outpatient follow-up with urologist, Per report patient's daughter is a nurse, she requested home health care of nursing staff for "Valencia catheter care", Will talk to the family more about what they really need A. fib w/ RVR- rate controlled: Continue Diltiazem 360 mg daily held due to hypotension- resume once status improves Continue Pradaxa 150 mg PO BID decreased to 75 mg PO BID due to decreased GFR- resume original dosage today cause of kidney function improves - Mag level - WNL Accelerated hypertension, because patient has recent Acute kidney failure, I will not be KAILEE inhibitor for now, Beta adrien possible not a choice because his heart rate sometimes dropped < 50 Hydralazine , and amlodipine are a choice, I'm giving one dose of amlodipine NICOLETTE, baseline creatinine 1.2-1.3, RESOLVED: Dementia: Thrombocytopenia, resolved The above condition is stable continue current care GI Prophylaxis: Maalox PRN, IV Zofran PRN, Colace and/or Milk of Mag PRN DVT prophylaxis, patient is on Pradaxa Code Status: Level I, FULL RESUSCITATION STATUS Dispo: - PT/OT evaluations, then recommend patient to return home - Possible going home today if blood pressure better controlled Continued [facility] stay due to: multiple IV medications needed Discharge planning: home
[2016-07-18] MEDS ORDERED: AMLODIPINE BESYLATE 5 MG TAB PO ONE (09:15)
[2016-07-18 09:18] LABS: BUN/CREATININE RATIO 11.5 (10-20); CALCIUM 7.9 mg/dl (8.5-10.1); CREATININE 0.96 mg/dl (0.60-1.40); MAGNESIUM 2.2 mg/dl (1.8-2.4); POTASSIUM 3.7 mmol/L (3.5-5.1)
[2016-07-18 10:50] VITALS: BP 143/96
[2016-07-18] MEDS: LEVOFLOXACIN 750 MG TAB PO SCH (11:29)
[2016-07-18 15:23] VITALS: BP 146/86; PULSE 82; TEMP 36.7; O2SAT 94
[2016-07-18] MEDS: TAMSULOSIN HCL 0.4 MG CAP PO SCH (20:13)
[2016-07-18 23:20] VITALS: BP 152/83; PULSE 74; TEMP 36.6; O2SAT 95
[2016-07-19 00:10] VITALS: O2SAT 96
[2016-07-19 07:21] LABS: HEMATOCRIT 41.5 % (42-52); MEAN CELL VOLUME 90.8 fL (80-100); MEAN CORPUSCULAR HGB CONC 36.4 g/dl (32-36); MEAN PLATELET VOLUME 9.6 fL (7.4-10.4); PLATELET COUNT 161 K/uL (130-400); RED BLOOD COUNT 4.57 M/uL (4.7-6.1); WHITE BLOOD COUNT 11.13 K/uL (4.8-10.8)
[2016-07-19 07:35] VITALS: BP_SYST 135; BP_SYST 163; BP_DIAS 93; PULSE 72; TEMP 36.3; O2SAT 94
[2016-07-19] MEDS: GALANTAMINE HYDROBROMIDE 8 MG CAPER PO SCH (07:50)
[2016-07-19] MEDS: DABIGATRAN ELEXILATE 75 MG CAP PO SCH (07:51)
[2016-07-19] MEDS: DILTIAZEM HCL 300 MG CAPCR PO SCH (07:51)
[2016-07-19] MEDS: DONEPEZIL HCL 10 MG TAB PO SCH (07:51)
[2016-07-19] MEDS ORDERED: AMLODIPINE BESYLATE 5 MG TAB PO SCH ×2 (08:00)
[2016-07-19] MEDS ORDERED: NRV5 PO (08:02)
[2016-07-19] MEDS ORDERED: LVQ750 PO (08:02)
[2016-07-19] MEDS ORDERED: FLM4 PO (08:02)
--- NOTE | 2016-07-19 08:07 | Discharge Instructions ---
Discharge Instructions Date of Service Jul 19, 2016. Admission Reason for Admission: Septic Shock Discharge Discharge Diagnosis / Problem: Escherichia coli UTI, and Escherichia coli bacteremia Discharge Goals Goal(s): Decrease discomfort, Improve function, Increase independence, Improve disease control, Improve nutritional status, Learn about illness, Diagnostic testing, Therapeutic intervention, Prevent Disease Progression, Specific goals Activity Recommendations Activity Limitations: resume your previous activity . Instructions / Follow-Up Instructions / Follow-Up you have Escherichia coli UTI, and Escherichia coli bacteremia with Sepsis/ septic shock secondary to flu and UTI upon admission: I am giving you oral Levaquin for 8 days more you have prostate condition, urology saw you continue Valencia catheter, outpatient follow-up with urologist, you need to call urologist to get appointment, need to be seen in 1-2 week you have Accelerated hypertension, Amlodipine is a new medicine to you you need to check blood Pressure twice a day, follow up with pcp to adjust this medicine - you need to follow up with your primary care physician in 1 week, - take medication as instructed, never overdose or any misuse, or take with alcohol, because misuse of medicine may cause organ damage or , call your primary care physician if have questions of medications. - call your primary care physician OR go to local emergency room if has any fever/chill, chest pain, shortness of breathing, nausea/vomiting/abdominal pain , facial droop/slurry speech/local weakness, or if has any questions. - fall precaution - diet as instructed - you need to follow up with your subspecialist - you should understand that it is important to follow up the above instruction , and "not following the above instruction" may cause delayed or missed care of your medical conditions which may cause permanent organ damage and even . Current Hospital Diet Patient's current hospital diet: AHA Diet (Heart Healthy) Discharge Diet Recommended Diet: AHA Diet (Heart Healthy) Pending Studies Studies pending at discharge: no Medical Emergencies . Who to Call and When: Medical Emergencies: If at any time you feel your situation is an emergency, please call 911 immediately. . Non-Emergent Contact Non-Emergency issues call your: Primary Care Provider, Urologist . . "Provider Documentation" section prepared by Italo Oreilly. . VTE Core Measure Inpt VTE Proph given/why not?: Unfractionated heparin CARLITOS, TLexiEKashif Mcarthur, SCD 's
[2016-07-19] MEDS ORDERED: NURSING VERBAL MED ORDER ONE (09:00)
[2016-07-19 10:59] VITALS: BP 135/93; PULSE 72; TEMP 36.3; O2SAT 94
[2016-07-19] MEDS: LEVOFLOXACIN 750 MG TAB PO SCH (11:41)
--- NOTE | 2016-07-19 11:53 | Discharge Summary ---
Discharge Summary Date of Service Jul 19, 2016. Discharge Summary Admission Date: Jul 13, 2016 at 14:13 Discharge Date: Jul 19, 2016 Discharge Disposition: Home with services Principal Diagnosis: E coli UTI, and Escherichia coli bacteremia with Sepsis/ septic Problems/Secondary Diagnoses: Influenza B BPH, and elevated PSA, On Valencia catheter Procedures: Valencia catheter Consultations: Urologist Medication Reconciliation New Medications: Amlodipine Besylate (Amlodipine Besylate) 5 Mg Tab 5 MG PO QAM for 30 Days, #30 TAB Levofloxacin (Levofloxacin) 750 Mg Tab 750 MG PO DAILY@11 for 8 Days, TAB Tamsulosin HCl (Tamsulosin HCl) 0.4 Mg Cap 0.4 MG PO HS for 30 Days, CAP Continued Medications: Dabigatran Etexilate Mesylate (Pradaxa) 150 Mg Cap 1 CAP PO BID for 90 Days, #180 CAP 1 Refill Diltiazem Hcl Ext Rel (Tiazac) 360 Mg Capcr 360 MG PO DAILY, CAP Donepezil Hydrochloride (Aricept) 10 Mg Tab 1 TAB PO DAILY for 90 Days, #90 TAB 3 Refills Galantamine Hydrobromide (Razadyne Ext Rel) 16 Mg Cap 16 MG PO DAILY, CAP Discharge Exam Doing okay, out of bed to rest room with help, no fever and chill, no other complaint Review of Systems: Constitutional: + fatigue, + weakness, No chills, No fever, No problem reported, No sweats, No weight loss Eyes: No diplopia, No discharge, No eye pain, No problem reported, No redness, No worsening of vision ENT: No dental problems, No hearing loss, No nasal symptoms, No problem reported, No sore throat, No tinnitus, No trouble swallowing, No unusual epistaxis Respiratory: No cough, No dyspnea at rest, No dyspnea on exertion, No hemoptysis, No problem reported, No shortness of breath, No sputum, No wheezing Cardiovascular: No PND, No chest pain, No claudication, No edema, No orthopnea, No palpitations, No problem reported Abdomen: No GI bleeding, No constipation, No diarrhea, No nausea, No pain, No problem reported, No vomiting Musculoskeletal: No calf pain, No joint pain, No muscle pain, No problem reported, No swelling Genitourinary - Male: No dysuria, No hematuria, No impotence, No lesions, No penile discharge, No problem reported, No urinary frequency, No urinary hesitancy, No urinary incontinence, No urinary retention, No urinary urgency Neurologic: No balance problems, No memory loss, No numbness/tingling, No paralysis, No problem reported, No vertigo, No weakness Psychiatric: No anhedonism, No anxiety, No depression symptoms, No insomnia , No problem reported, No substance abuse Endocrine: No excessive thirst, No excessive urination, No fatigue, No problem reported Hematologic / Lymphatic: No abnormal bleeding/bruising, No clotting problems , No night sweats, No problem reported, No swollen lymph nodes Integumentary: No bleeding, No color change, No itch, No new/changing skin lesions, No problem reported, No rash Physical Exam: General Appearance: WD/WN, no apparent distress, + pertinent finding (looks better and then yesterday) Eyes: normal inspection, PERRL, EOMI ENT: normal ENT inspection, hearing grossly normal, TMs normal, pharynx normal Neck: supple, no adenopathy, thyroid normal Respiratory/Chest: chest non-tender, normal breath sounds, no respiratory distress, no accessory muscle use, + decreased breath sounds Cardiovascular: regular rate, rhythm, no edema, no gallop, no JVD Abdomen / GI: normal bowel sounds, non tender, soft, no organomegaly, no pulsatile mass Extremities: normal inspection, no calf tenderness, normal capillary refill 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 Per family, patient had 2 falls in the last few days. Escherichia coli UTI, and Escherichia coli bacteremia with Sepsis/septic shock secondary to flu and UTI upon admission: Continue stable Leukocytosis resolved was treated with IV Levophed due to hypotension despite fluid resuscitation upon admission in the ICU Was admitted to ICU, consulted infection control manager, Transferred to [facility] on 07/14 2069, continue to be stable in [facility] Was on IV NSS at 75 cc/hr- d/c on 07/16- eating/drinking adequately, NICOLETTE resolved Was on IV Levaquin + Zosyn + Vancomycin (Treatment started on 05/15) -- Vanco d/c'd on 07/14 due to MRSA swab- negative -- Zosyn d/c'd on 07/15 due to resistance on sensitives -- Transition to PO Levaquin on 07/17 - BCx- E.coli x1 culture -- Repeat BCx- NGTD x2 - UCx- E.Coli- sensitives reviewed- continue Levaquin, we'll give totally 10 days, today is 5/10 days, will continue Elevated troponin, likely from demanding ischemia and from the mild sepsis - Trended cardiac enzymes- peak trop 0.100 - Continue current care Influenza B positive: Has been on Tamiflu 30 mg BID x5 days (last day of treatment 07/17) has completed 4 cause of flu treatment h/o BPH: Check PSA 63 , urology saw patient, continue Valencia catheter, outpatient follow-up with urologist, Per report patient's daughter is a nurse, she requested home health care of nursing staff for "Valencia catheter care", has requested nurse to have Valencia catheter care teaching to patient's and family before discharge A. fib w/ RVR- rate controlled: Continue Diltiazem 360 mg daily held due to hypotension- resume once status improves Continue Pradaxa 150 mg PO BID decreased to 75 mg PO BID due to decreased GFR- resume original dosage today cause of kidney function improves - Mag level - WNL Accelerated hypertension, because patient has recent Acute kidney failure, I will not be KAILEE inhibitor for now, Beta adrien possible not a choice because his heart rate sometimes dropped < 50 Hydralazine , and amlodipine are a choice, I Medicine amlodipine was started yesterday, we'll continue I told patient to follow-up with PCP for the blood pressure control NICOLETTE, baseline creatinine 1.2-1.3, RESOLVED: Dementia: Thrombocytopenia, resolved The above condition is stable continue current care Total family need to have supervision when patient on the steps, and not allow to do yard work before PCP clear him GI Prophylaxis: Maalox PRN, IV Zofran PRN, Colace and/or Milk of Mag PRN DVT prophylaxis, patient is on Pradaxa Code Status: Level I, FULL RESUSCITATION STATUS Dispo: - PT/OT evaluations, then recommend patient to return home - Upon discharge discussed with nurse, immigration case manager, patient, and patient's family, answered all the questions Instructions / Follow-Up you have Escherichia coli UTI, and Escherichia coli bacteremia with Sepsis/ septic shock secondary to flu and UTI upon admission: I am giving you oral Levaquin for 8 days more you have prostate condition, urology saw you continue Valencia catheter, outpatient follow-up with urologist, you need to call urologist to get appointment, need to be seen in 1-2 week you have Accelerated hypertension, Amlodipine is a new medicine to you you need to check blood Pressure twice a day, follow up with pcp to adjust this medicine - you need to follow up with your primary care physician in 1 week, - take medication as instructed, never overdose or any misuse, or take with alcohol, because misuse of medicine may cause organ damage or , call your primary care physician if have questions of medications. - call your primary care physician OR go to local emergency room if has any fever/chill, chest pain, shortness of breathing, nausea/vomiting/abdominal pain , facial droop/slurry speech/local weakness, or if has any questions. - fall precaution - diet as instructed - you need to follow up with your subspecialist - you should understand that it is important to follow up the above instruction , and "not following the above instruction" may cause delayed or missed care of your medical conditions which may cause permanent organ damage and even . Total Time Spent: Greater than 30 minutes This includes examination of the patient, discharge planning, medication reconciliation, and communication with other providers. Discharge Instructions Please refer to the electronic Patient Visit Report (Discharge Instructions) for additional information. Additional Copies To Braeden Sultana III, CRNP; Farhan Multani MD, Urology
== END 2016-07-19 12:00 | disposition home health service (06) | DRG 871 ==
LOC: ENRESERVDT → CANRESERV → ENRESERVTM → EDBD 10:07 → C.EDB 10:08 → C.MSICU 14:13 → EDBEDREQSVC 14:31 → EDBEDREQTM 14:31 → EDBEDREQ 14:31 → C.2T 07-14 19:01 → C.MS4W 07-17 15:43
PROVIDERS: ADMIT Internal Medicine; ATTEND Hospitalist
DX: A41.51 Sepsis due to Escherichia coli [E. coli] (principal); R65.21 Severe sepsis with septic shock; G93.41 Metabolic encephalopathy; J11.00 Influenza due to unidentified influenza virus with unspecified type of pneumonia; N17.9 Acute kidney failure, unspecified; E87.1 Hypo-osmolality and hyponatremia; E87.2 Acidosis; N39.0 Urinary tract infection, site not specified; I24.8 Other forms of acute ischemic heart disease; I48.91 Unspecified atrial fibrillation; I10 Essential (primary) hypertension; E78.5 Hyperlipidemia, unspecified; F03.90 Unspecified dementia, unspecified severity, without behavioral disturbance, psychotic disturbance, mood disturbance, and anxiety; Z82.49 Family history of ischemic heart disease and other diseases of the circulatory system; Z87.891 Personal history of nicotine dependence; Z79.899 Other long term (current) drug therapy; H91.90 Unspecified hearing loss, unspecified ear; D69.6 Thrombocytopenia, unspecified; M19.90 Unspecified osteoarthritis, unspecified site; R33.9 Retention of urine, unspecified; N40.1 Benign prostatic hyperplasia with lower urinary tract symptoms; D70.9 Neutropenia, unspecified

== ENCOUNTER → 2016-08-25 | Outpatient (CLI) | payer OTHER ==
[~2016-08-25] MED LIST: DABI150C PO; DILT-119 PO; DONE10TA12 PO; FLM4 PO; LVQ750 PO; NRV5 PO; RMNER16 PO
== END | disposition home or self-care (01) ==
LOC: C.LABBC 09:01
PROVIDERS: ATTEND Urology
DX: N40.0 Benign prostatic hyperplasia without lower urinary tract symptoms (principal); R97.20 Elevated prostate specific antigen [PSA]

== ENCOUNTER → 2016-09-01 | Outpatient (CLI) | payer OTHER ==
[2016-09-01 10:46] LABS: BASO % 0.6 %; BASO ABS # 0.04 K/uL (0-0.2); COMPLETE YES; EOS % 4.3 %; HEMATOCRIT 40.6 % (42-52); IG% 0.3 %; LYMPH % 20.3 %; LYMPH ABS # 1.46 K/uL (1.2-3.4); MEAN CELL VOLUME 95.1 fL (80-100); MEAN CORPUSCULAR HEMOGLOBIN 32.6 pg (25-34); MEAN CORPUSCULAR HGB CONC 34.2 g/dl (32-36); MEAN PLATELET VOLUME 9.8 fL (7.4-10.4); MONO % 9.5 %; PLATELET COUNT 173 K/uL (130-400); RED BLOOD COUNT 4.27 M/uL (4.7-6.1); WHITE BLOOD COUNT 7.19 K/uL (4.8-10.8)
[2016-09-01 11:07] LABS: RATIO 121.6 mcg/mg (0-30.0)
[2016-09-01 11:09] LABS: ALT/SGPT 19 U/L (12-78); AST/SGOT 14 U/L (15-37); BLOOD UREA NITROGEN 18 mg/dl (7-18); BUN/CREATININE RATIO 13.6 (10-20); CALCIUM 8.6 mg/dl (8.5-10.1); CARBON DIOXIDE 23 mmol/L (21-32); CHLORIDE 108 mmol/L (98-107); GLUCOSE 110 mg/dl (70-99); POTASSIUM 4.2 mmol/L (3.5-5.1); SODIUM 140 mmol/L (136-145)
[2016-09-01 11:11] LABS: ALB/GLOB RATIO 0.9 (0.9-2); ALKALINE PHOSPHATASE 60 U/L (45-117); CHOLESTEROL 144 mg/dl (0-200); CHOLESTEROL/HDL RATIO 2.5; HDL CHOLESTEROL 58 mg/dl; LDL CHOLESTEROL CALCULATED 78 mg/dl; TRIGLYCERIDES 41 mg/dl (0-150); VERY LOW DENSITY LIPOPROT CALC 8 mg/dl
[2016-09-01 11:50] LABS: ESTIMATED AVERAGE GLUCOSE 117 mg/dl; HA1C FLAG Normal (Normal)
== END | disposition home or self-care (01) ==
LOC: C.LABBC 08:22
PROVIDERS: ATTEND Nurse Practitioner Family
DX: I48.91 Unspecified atrial fibrillation (principal); I10 Essential (primary) hypertension; E78.5 Hyperlipidemia, unspecified; R73.09 Other abnormal glucose

== ENCOUNTER → 2016-09-02 | Outpatient (CLI) | payer OTHER | END | disposition home or self-care (01) | LOC: C.LABSPEC 17:00 | PROVIDERS: ATTEND Urology | DX: R97.20 Elevated prostate specific antigen [PSA] (principal) ==

== ENCOUNTER → 2017-03-09 | Outpatient (CLI) | payer OTHER | END | disposition home or self-care (01) | LOC: C.LABBC 09:28 | PROVIDERS: ATTEND Nurse Practitioner Family | DX: R97.20 Elevated prostate specific antigen [PSA] (principal) ==

== ENCOUNTER → 2017-04-08 | Outpatient (CLI) | payer OTHER ==
[2017-04-08 10:57] LABS: BASO % 0.5 %; BASO ABS # 0.04 K/uL (0-0.2); EOS % 2.7 %; HEMATOCRIT 43.4 % (42-52); IG# 0.02 K/uL (0.00-0.02); LYMPH % 19.9 %; LYMPH ABS # 1.45 K/uL (1.2-3.4); MEAN CELL VOLUME 94.1 fL (80-100); MEAN CORPUSCULAR HEMOGLOBIN 32.5 pg (25-34); MEAN CORPUSCULAR HGB CONC 34.6 g/dl (32-36); MONO ABS # 0.58 K/uL (0.11-0.59); NEUT % 68.6 %; PLATELET COUNT 141 K/uL (130-400); RED CELL DISTRIBUTION WIDTH SD 44.6 fL (36.4-46.3); WHITE BLOOD COUNT 7.29 K/uL (4.8-10.8)
[2017-04-08 11:36] LABS: ALBUMIN 3.7 gm/dl (3.4-5.0); ALT/SGPT 22 U/L (12-78); BLOOD UREA NITROGEN 24 mg/dl (7-18); CALCIUM 8.9 mg/dl (8.5-10.1); CARBON DIOXIDE 24 mmol/L (21-32); CHOLESTEROL 149 mg/dl (0-200); CREATININE 1.36 mg/dl (0.60-1.40); GLUCOSE 109 mg/dl (70-99); POTASSIUM 4.3 mmol/L (3.5-5.1); SODIUM 138 mmol/L (136-145)
[2017-04-08 11:37] LABS: ALKALINE PHOSPHATASE 49 U/L (45-117); AST/SGOT 15 U/L (15-37); LDL CHOLESTEROL CALCULATED 84 mg/dl; TOTAL PROTEIN 7.4 gm/dl (6.4-8.2)
[2017-04-08 11:45] LABS: CREATININE RANDOM URINE 72.7 mg/dl
== END | disposition home or self-care (01) ==
LOC: C.LABBC 08:55
PROVIDERS: ATTEND Nurse Practitioner Family
DX: I48.91 Unspecified atrial fibrillation (principal); I10 Essential (primary) hypertension; E78.5 Hyperlipidemia, unspecified; R73.09 Other abnormal glucose; F03.90 Unspecified dementia, unspecified severity, without behavioral disturbance, psychotic disturbance, mood disturbance, and anxiety

== ENCOUNTER → 2017-10-12 | Outpatient (CLI) | payer OTHER ==
[~2017-10-12] MED LIST changes: +AMLO5TAB3 PO; +ASPI81TA28 PO; +CYAN500T PO; -DONE10TA12 PO; +FLAX100025 PO; -FLM4 PO; +HYDR25TA4 PO; -LVQ750 PO; -NRV5 PO; +TAMS0.4C38 PO; +VGR50 PO
== END | disposition home or self-care (01) ==
LOC: C.LABBC 08:55
PROVIDERS: ATTEND Nurse Practitioner Family
DX: R39.9 Unspecified symptoms and signs involving the genitourinary system (principal)

== ENCOUNTER → 2017-10-22 | Outpatient (CLI) | payer OTHER | END | disposition home or self-care (01) | LOC: C.LABSPEC 15:09 | PROVIDERS: ATTEND Urology | DX: N40.1 Benign prostatic hyperplasia with lower urinary tract symptoms (principal); R33.9 Retention of urine, unspecified ==

== ENCOUNTER → 2017-11-02 | Outpatient (CLI) | payer OTHER ==
[2017-11-02 10:41] LABS: ALBUMIN 3.7 gm/dl (3.4-5.0); BLOOD UREA NITROGEN 23 mg/dl (7-18); CALCIUM 8.9 mg/dl (8.5-10.1); CARBON DIOXIDE 23 mmol/L (21-32); CREATININE 1.36 mg/dl (0.60-1.40); GLUCOSE 95 mg/dl (70-99); PHOSPHORUS 2.6 mg/dl (2.5-4.9); POTASSIUM 4.1 mmol/L (3.5-5.1); SODIUM 136 mmol/L (136-145)
== END | disposition home or self-care (01) ==
LOC: C.LABBC 08:47
PROVIDERS: ATTEND Nurse Practitioner Family
DX: I10 Essential (primary) hypertension (principal); R60.9 Edema, unspecified

== ENCOUNTER 2019-04-19 17:22 | Inpatient (IN) ==
[2019-04-19] MEDS ORDERED: SODIUM CHLORIDE 0.9% 250 ML IV PRN ×3 (18:00→20:32)
[2019-04-19 18:11] LABS: Basophils # (auto) 0.03 K/uL (0-0.2); Basophils % (auto) 0.4 %; Eosinophils # (auto) 0.14 K/uL (0-0.5); Hematocrit (blood only) 22.4 % (42-52); Immature Granulocytes # (auto) 0.01 K/uL (0.00-0.02); Immature Granulocytes % (auto) 0.1 %; Lymphocytes # (auto) 1.38 K/uL (1.2-3.4); Lymphocytes % (auto) 19.4 %; Mean Corpuscular Hemoglobin 26.3 pg (25-34); Mean Corpuscular Hgb Conc 31.3 g/dL (32-36); Mean Corpuscular Volume 84.2 fL (80-100); Mean Platelet Volume 8.1 fL (7.4-10.4); Monocytes # (auto) 0.68 K/uL (0.11-0.59); Monocytes % (auto) 9.6 %; Neutrophils # (auto) 4.88 K/uL (1.4-6.5); Neutrophils % (auto) 68.5 %; Platelet Count 195 K/uL (130-400); RDW Coefficient of Variation 14.8 % (11.5-14.5); RDW Standard Deviation 46.2 fL (36.4-46.3); Red Blood Count 2.66 M/uL (4.7-6.1); White Blood Count 7.12 K/uL (4.8-10.8)
[2019-04-19] MEDS ORDERED: PANTOprazole 80 MG in DEXTROSE 5% 100 ML IV ONE (18:15)
[2019-04-19 18:20] LABS: Alanine Aminotransferase 17 U/L (12-78); Albumin Level 3.2 gm/dl (3.4-5.0); Aspartate Aminotransferase 7 U/L (15-37); BUN Creatinine Ratio 17.3 (10-20); Blood Urea Nitrogen 34 mg/dl (7-18); Calcium 8.7 mg/dl (8.5-10.1); Carbon Dioxide 21 mmol/L (21-32); Chloride 107 mmol/L (98-107); Creatinine Clr Calc Pharmacy 26.7 ml/min; Est GFR (African American) 35.1; Est GFR (Non-African American) 30.3; Glucose 137 mg/dl (70-99); INR 1.5 (0.9-1.1); Magnesium 2.4 mg/dl (1.8-2.4); Partial Thromboplastin Ratio 1.6; Partial Thromboplastin Time 43.3 Seconds (21.0-31.0); Potassium 4.6 mmol/L (3.5-5.1); Prothrombin Time 15.4 Seconds (9.0-12.0); Sodium 136 mmol/L (136-145)
[2019-04-19 18:25] LABS: Albumin Globulin Ratio 0.8 (0.9-2); Alkaline Phosphatase 52 U/L (45-117); Bilirubin,Total 0.2 mg/dl (0.2-1); Globulin 3.9 gm/dl (2.5-4.0); Total Protein 7.1 gm/dl (6.4-8.2); Troponin I < 0.015 ng/ml (0-0.045)
[2019-04-19] MEDS ORDERED: PANTOprazole 40 MG in DEXTROSE 5% 100 ML IV SCH (18:30)
[2019-04-19 18:31] LABS: Acanthocytes 1+; Schistocytes 1+
--- NOTE | 2019-04-19 18:43 | Emergency Department Note ---
Entered by Lauryn Batista acting as a scribe for History of Present Illness General Chief complaint: Referred by Doctor Stated complaint: BLOOD TRANSFUSION Time Seen by Provider: 04/19/19 17:35 Source: patient and family () History of Present Illness Onset (ago): week(s) 1 Location: chest Pain Consistency: + constant Relieved By: + none Associated symptoms: + denies other symptoms (denies abdominal pain), + shortness of breath and + weakness; no chest pain Treatments prior to arrival: none The patient is a 83 year old male who presents to the Emergency Room after referral from his PCP. The patient had blood work done this morning, and his doctor recommended coming to the ED due to his low blood cell count. This is a new problem for the patient, and he has no history of transfusion or a low blood cell count. The patient complained of shortness of breath and weakness for the past week. The patients denies fever. The patient is on a blood thinner. He has no history of ulcer or bleeding in the stomach. He denies chest pain and abdominal pain. Home Medications Home Medications Medication Instructions Recorded Confirmed Type cyanocobalamin (vitamin B-12) 500 500 mcg PO DAILY tab 10/07/18 04/19/19 History mcg tablet diltiazem HCl 360 mg capsule,24 360 mg PO QAM #90 cap 10/31/18 04/19/19 Rx hr,extended release amlodipine 5 mg tablet 5 mg PO DAILY #90 tab 11/07/18 04/19/19 Rx hydrochlorothiazide 25 mg tablet 25 mg PO DAILY #90 tab 11/07/18 04/19/19 Rx dabigatran etexilate 150 mg capsule 150 mg PO BID #180 cap 11/23/18 04/19/19 Rx galantamine 24 mg 24 hr 24 mg PO QAM #90 cap 11/23/18 04/19/19 Rx capsule,extended release sildenafil 50 mg tablet 50 mg PO UD PRN #7 tab 11/23/18 04/19/19 Rx metformin 500 mg tablet 500 mg PO BID #180 tab 11/28/18 04/19/19 Rx finasteride 5 mg tablet 5 mg PO DAILY #90 tab 12/28/18 04/19/19 Rx tamsulosin 0.4 mg capsule 0.4 mg PO DAILY #90 cap 12/28/18 04/19/19 Rx levothyroxine 50 mcg tablet 50 mcg PO DAILY #30 tab 01/23/19 04/19/19 Rx aspirin [Aspir-81] 81 mg PO DAILY 04/19/19 04/19/19 History Allergies Allergy/AdvReac Type Severity Reaction Status Date / Time zinc Allergy Intermediate ITCHY Verified 04/18/19 16:06 Past Med/Surg History Medical History Atrial fibrillation (Acute) 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 (Acute) Dementia (Acute) Elevated PSA (Acute) Heart disease (Chronic) Hiatal hernia (Acute) Hyperlipidemia (Acute) Hypertension Hypothyroidism (Chronic) Metabolic disorder (Acute) Mitral regurgitation (Acute) Raynaud's disease (Acute) Tricuspid regurgitation (Acute) Type 2 diabetes mellitus (Acute) Surgical History H/O hernia repair Family History Brother Coronary arteriosclerosis Mother Myocardial infarction Heart disease Father Myocardial infarction Heart disease Social History Preferred Language: A[place]i Communication Ability: Effective Visual Impairment: No Limitations 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 and A total of 10 systems reviewed and were otherwise negative Physical Exam Vital Signs Vital Signs - 24 hr 04/19/19 17:23 04/19/19 17:28 Temperature 36.8 C Temperature Source Oral Pulse Rate 57 L Respiratory Rate 16 Respiratory Effort / Characteristics Non-Labored Respiratory Depth Normal Blood Pressure 119/62 Blood Pressure Mean 81 Blood Pressure Position Sitting Pulse Oximetry 98 100 Oxygen Delivery Method Room Air Room Air Sepsis Recent Fever Within 48 Hours No Sepsis New/Unexplained Change in Mental Status No Sepsis Action Taken by Nursing No Action Required GENERAL: Patient is in no acute distress. HEENT: No acute trauma, normocephalic atraumatic, mucous membranes moist, no n alana congestion, no scleral icterus. NECK: No stridor, no adenopathy, no meningismus, trachea is midline. LUNGS: Clear to auscultation bilaterally, no wheeze, no rhonchi, breath sounds equal. HEART: Without murmurs gallops or rubs, regular rate and rhythm. ABDOMEN: Soft, nontender, bowel sounds positive, no hernias, no peritonitis. RECTAL: Brown, somewhat bloody appearing stool, heme positive. EXTREMITIES: Mild bilateral pedal edema. No cyanosis or edema, full range of motion of all the joints without pain or difficulty, no signs for acute trauma. NEUROLOGIC: Oriented x 3, no acute motor or sensory deficits, no focal weakness. SKIN: Pale. No rash, no jaundice, no diaphoresis. Course Course 1750: Past medical records reviewed. The patient was evaluated in room C11B. A complete history and physical exam was performed. 1824: The patient has consented for a blood transfusion. 1828: I spoke to Dr. Kim, [facility] hospitalist, who will see the patient for hospitalization. The patient understands and is agreeable to this plan. The patient will be evaluated for further treatment. Administered Medications Pantoprazole Sodium 40 mg/ (Syringe) 10 mls @ 5 mls/min IV BID@0900,2100 [facility] Stop: 05/19/19 20:59 Last Admin: 04/19/19 21:10 Dose: 5 mls/min Documented by: [id number] Insulin Aspart (Novolog Flexpen) 0 units SC Q6 ARSENIO Stop: 05/20/19 00:00 Last Admin: 04/20/19 00:25 Dose: Not Given Documented by: [id number] Cosigned by: [id number] Discontinued Medications Pantoprazole Sodium 80 mg/ (Dextrose) 120 mls @ 480 mls/hr IV NOW ONE Stop: 04/19/19 18:29 Last Infusion: 04/19/19 18:51 Dose: 0 mls/hr Documented by: [id number] Admin: 04/19/19 18:35 Dose: 480 mls/hr Documented by: [id number] Pantoprazole Sodium 40 mg/ (Dextrose) 100 mls @ 20 mls/hr IV Q5H ARSENIO Stop: 04/19/19 23:29 Last Infusion: 04/19/19 20:20 Dose: 0 mls/hr Documented by: [id number] Admin: 04/19/19 18:51 Dose: 20 mls/hr Documented by: [id number] Insulin Aspart (Novolog Flexpen) 0 units SC ACHS ARSENIO Stop: 05/19/19 20:59 Last Admin: 04/19/19 21:10 Dose: 1 units Documented by: [id number] Cosigned by: [id number] Critical Care Time Critical Care Time: Yes Total Critical Care Time: 33 I have personally spent 33 minutes of critical care time in the direct management of this patient. This includes bedside care, interpretation of diagnostic studies, and testing, discussion with consultants, patient, and family members, and other required patient management activities. This 33 minutes is in excess of all separately billable procedures. Medical Decision Making Differential Diagnosis Differential diagnosis includes: upper GI bleed, ulcer, gastritis, lower GI bleeding, colonic mass, anemia, electrolyte imbalance, cardiac ischemia, as well as others were considered. Medical Records Attestation: I reviewed the patient's medical records. Home Medications Current Medication List: was personally reviewed by me Laboratory Data Attestation: I reviewed the patient's lab results. Result diagrams: 04/19/19 20:26 04/19/19 17:42 Lab Results 04/19/19 04/19/19 04/19/19 Range/Units 17:42 17:42 17:42 WBC 7.12 (4.8-10.8) K/uL RBC 2.66 L (4.7-6.1) M/uL Hgb 7.0 L (14.0-18.0) g/dL Hct 22.4 L (42-52) % MCV 84.2 (80-100) fL MCH 26.3 (25-34) pg MCHC 31.3 L (32-36) g/dL RDW Std Deviation 46.2 (36.4-46.3) fL RDW Coeff of Julia 14.8 H (11.5-14.5) % Plt Count 195 (130-400) K/uL MPV 8.1 (7.4-10.4) fL Immature Gran % (Auto) 0.1 % Neut % (Auto) 68.5 % Lymph % (Auto) 19.4 % [place] % (Auto) 9.6 % Eos % (Auto) 2.0 % Baso % (Auto) 0.4 % Immature Gran # (Auto) 0.01 (0.00-0.02) K/uL Neut # (Auto) 4.88 (1.4-6.5) K/uL Lymph # (Auto) 1.38 (1.2-3.4) K/uL [place] # (Auto) 0.68 H (0.11-0.59) K/uL Eos # (Auto) 0.14 (0-0.5) K/uL Baso # (Auto) 0.03 (0-0.2) K/uL Acanthocytes (Spur) 1+ Schistocytes 1+ PT 15.4 H (9.0-12.0) Seconds INR 1.5 H (0.9-1.1) APTT 43.3 H (21.0-31.0) Seconds PTT Ratio 1.6 Sodium 136 (136-145) mmol/L Potassium 4.6 (3.5-5.1) mmol/L Chloride 107 (98-107) mmol/L Carbon Dioxide 21 (21-32) mmol/L Anion Gap 8.0 (3-11) BUN 34 H (7-18) mg/dl Creatinine 1.96 H (0.6-1.4) mg/dl Est Cr Clr Drug Dosing 26.7 ml/min Est GFR ( Amer) 35.1 Est GFR (Non-Af Amer) 30.3 BUN/Creatinine Ratio 17.3 (10-20) Glucose 137 H (70-99) mg/dl Calcium 8.7 (8.5-10.1) mg/dl Magnesium 2.4 (1.8-2.4) mg/dl Total Bilirubin 0.2 (0.2-1) mg/dl AST 7 L (15-37) U/L ALT 17 (12-78) U/L Alkaline Phosphatase 52 (45-117) U/L Troponin I < 0.015 (0-0.045) ng/ml Total Protein 7.1 (6.4-8.2) gm/dl Albumin 3.2 L (3.4-5.0) gm/dl Globulin 3.9 (2.5-4.0) gm/dl Albumin/Globulin Ratio 0.8 L (0.9-2) Blood Type Antibody Screen Crossmatch 04/19/19 Range/Units 17:49 WBC (4.8-10.8) K/uL RBC (4.7-6.1) M/uL Hgb (14.0-18.0) g/dL Hct (42-52) % MCV (80-100) fL MCH (25-34) pg MCHC (32-36) g/dL RDW Std Deviation (36.4-46.3) fL RDW Coeff of Julia (11.5-14.5) % Plt Count (130-400) K/uL MPV (7.4-10.4) fL Immature Gran % (Auto) % Neut % (Auto) % Lymph % (Auto) % [place] % (Auto) % Eos % (Auto) % Baso % (Auto) % Immature Gran # (Auto) (0.00-0.02) K/uL Neut # (Auto) (1.4-6.5) K/uL Lymph # (Auto) (1.2-3.4) K/uL [place] # (Auto) (0.11-0.59) K/uL Eos # (Auto) (0-0.5) K/uL Baso # (Auto) (0-0.2) K/uL Acanthocytes (Spur) Schistocytes PT (9.0-12.0) Seconds INR (0.9-1.1) APTT (21.0-31.0) Seconds PTT Ratio Sodium (136-145) mmol/L Potassium (3.5-5.1) mmol/L Chloride (98-107) mmol/L Carbon Dioxide (21-32) mmol/L Anion Gap (3-11) BUN (7-18) mg/dl Creatinine (0.6-1.4) mg/dl Est Cr Clr Drug Dosing ml/min Est GFR ( Amer) Est GFR (Non-Af Amer) BUN/Creatinine Ratio (10-20) Glucose (70-99) mg/dl Calcium (8.5-10.1) mg/dl Magnesium (1.8-2.4) mg/dl Total Bilirubin (0.2-1) mg/dl AST (15-37) U/L ALT (12-78) U/L Alkaline Phosphatase (45-117) U/L Troponin I (0-0.045) ng/ml Total Protein (6.4-8.2) gm/dl Albumin (3.4-5.0) gm/dl Globulin (2.5-4.0) gm/dl Albumin/Globulin Ratio (0.9-2) Blood Type A Positive Antibody Screen NEGATIVE Crossmatch See Detail ECG Data Attestation: I personally reviewed and interpreted this ECG as follows: Indication: + weakness Rate (beats per minute): 60 Rhythm: + atrial fibrillation ECG Intervals/blocks: + Normal QT-c (434) ECG ST segments: no ST elevation ECG Findings: + Other (Old inferior and potential old septal infarct. ); no PVCs Blood Pressure Blood Pressure Findings: Normal blood pressure Blood Pressure Disposition: did not require urgent referral MDM Narrative There is no leukocytosis. The patient is anemic with a hemoglobin of 7. Platelet count was normal. INR slightly elevated, this is consistent with the Pradaxa use. Creatinine somewhat elevated at 1.96. No liver enzyme elevation. EKG shows an atrial fibrillation, no acute ischemia. Cardiac enzyme testing x1 is not consistent with acute cardiac injury. On exam, the patient had brown/bloody stool that was heme positive. I did review the patient's chest x-ray from earlier today. There was no pneu monia, some mild cardiomegaly was seen. The patient was given a bolus of IV Protonix. Was placed on a Protonix drip. He did consent to a blood transfusion, he was ordered for 1 unit of packed red b lood cells to be transfused while here in the ED. The appropriate paperwork was signed. The patient presents with weakness, shortness of breath and fatigue. He has a low hemoglobin and heme positive stool. Hospitalization and further work-up is warranted. I did speak with case management. The patient is aware of his findings, the on-call hospitalist was consulted. Continuous Cardiac Monitoring: An order was placed for continuous cardiac monitoring. The monitor shows a rate of 62 with afib. Impression & Plan GI bleed, Shortness of breath, Weakness, Anemia Discharge Plan Visit Data *Final* Discharge Date/Time: 04/19/19 19:44 Chief Complaint: Referred by Doctor Stated Complaint: BLOOD TRANSFUSION ED Provider: Rafal Zamudio Discharge Problem: GI bleed, Shortness of breath, Weakness, Anemia Patient Disposition: Admitted As Inpatient Discharge Instructions Interventions: ED Discharge Assessment Last Done: 04/19/19 19:44 Discharge Problem: GI bleed Qualifiers: GI bleed type/associated pathology: unspecified gastrointestinal hemorrhage type Qualified Code(s): K92.2 - Gastrointestinal hemorrhage, unspecified Anemia Qualifiers: Anemia type: unspecified type Qualified Code(s): D64.9 - Anemia, unspecified The elinibe's documentation has been prepared under my direction and personally reviewed by me in its entirety. I confirm that the note above accurately reflects all work, treatment, procedures, and medical decision making performed by me.
[2019-04-19] MEDS ORDERED: ONDANSETRON INJ 2 MG/ML 2 ML VIAL IV PRN (20:02)
[2019-04-19] MEDS ORDERED: DEXTROSE 50% 50 ML SYRINGE IV PRN (20:02)
[2019-04-19] MEDS ORDERED: CARBOHYDRATES FOR HYPOGLYCEMIA PO PRN (20:02)
[2019-04-19] MEDS ORDERED: GLUCOSE 40% GEL 15 GM TUBE PO PRN (20:02)
[2019-04-19] MEDS ORDERED: GLUCOSE 10 TABS/TUBE PO PRN (20:02)
[2019-04-19] MEDS ORDERED: GLUCAGON FOR INJ 1 MG VIAL SQ PRN (20:02)
[2019-04-19 20:39] LABS: Hemoglobin 6.9 g/dL (14.0-18.0); Mean Corpuscular Hgb Conc 31.4 g/dL (32-36); Mean Platelet Volume 8.3 fL (7.4-10.4); Platelet Count 167 K/uL (130-400); RDW Coefficient of Variation 14.9 % (11.5-14.5); RDW Standard Deviation 45.3 fL (36.4-46.3); Red Blood Count 2.65 M/uL (4.7-6.1); White Blood Count 6.32 K/uL (4.8-10.8)
--- NOTE | 2019-04-19 20:52 | History & Physical Report ---
Date of Service April 19, 2019 Assessment & Plan (1) GI bleed: Patient with Heme+ stools, symptomatic anemia with Hgb=7 (from 12.4 in November 2018), Hct=22.4 (from 23.2 in November 2018). Hemodynamically stable, asymptomatic at rest. No history of liver disease. He is on Dabigatran for AF. -Admit to medical floor -NPO -Maintain two large bore PIVs -Transfuse 2 units PRBCs -Trend CBC q 8 hours, transfuse additional units for inappropriate increase, continued bleeding -Protonix 40mg IV BID -GI consultation appreciated Present on Admission?: Yes (2) Hypertension: Blood pressure presently 133/68. -Hold antihypertensive agents, Amlodipine, HCTZ -Continue to monitor blood pressure Present on Admission?: Yes (3) Type 2 diabetes mellitus: Chronic. Blood sugar =137. Last HgbA1c in November 2018 - 6.5 -Hold Metformin -ISS -Continue to monitor Present on Admission?: Yes (4) Benign prostatic hyperplasia with urinary obstruction: Chronic -Continue Finasteride and Flomax Present on Admission?: Yes (5) Dementia: Patient pleasant, AA&O, answers questions appropriately although communication hindered by patient's hearing loss -Continue galantamine -Delirium prevention strategies with frequent orientation Present on Admission?: Yes (6) Conductive hearing loss of both ears: Chronic -Noted -Delirium prevention strategies Present on Admission?: Yes (7) Atrial fibrillation: Patient rate controlled, on anticoagulation with Dabigatran. Takes ASA as well. Patient is hemodynamically stable, receiving blood. Bleed at this time is not acutely life-threatening. Will not administer reversal agent -Hold Dabigatran -Hold Diltiazem -Continue to monitor Present on Admission?: Yes (8) Hypothyroidism: Chronic. TSH=3.21 on 03/30/19 -Continue Synthroid F/E/N - transfusion as above. Electrolytes WNL. NPO for now Ppx - Protonix 40mg IV BID Code - Full Dispo - Admit to medical floor Present on Admission?: Yes History of Present Illness Chief Complaint: LGIB Primary Care Provider: Braeden Sultana, III, MANAGER STERILE Jude Mckeon is an 83yo C male with history of AF on Dabigatran, HT N/HLP/Hypothyroid and dementia. He presents today with complaint of PEDRAZA, fatigue. He was seen by his PCP on 04/18 for similar complaints. In the ER he was found to be afebrile, HD stable. Hgb=7, Hct=22.4. Heme+ stools. Patient does not use EtOH or NSAIDS. No prior GIBs. Denies melena/hematochezia/hematuria. He does have easy bruising. Has a hiatal hernia and frequently wears a binder. Last colonoscopy was "years ago", unable to find record. ER Course: Protonix bolus and drip Allergies Allergy/AdvReac Type Severity Reaction Status Date / Time zinc Allergy Intermediate ITCHY Verified 04/18/19 16:06 Home Medications Home Medications Medication Instructions Recorded Confirmed Type cyanocobalamin (vitamin B-12) 500 500 mcg PO DAILY tab 10/07/18 04/19/19 History mcg tablet diltiazem HCl 360 mg capsule,24 360 mg PO QAM #90 cap 10/31/18 04/19/19 Rx hr,extended release amlodipine 5 mg tablet 5 mg PO DAILY #90 tab 11/07/18 04/19/19 Rx hydrochlorothiazide 25 mg tablet 25 mg PO DAILY #90 tab 11/07/18 04/19/19 Rx dabigatran etexilate 150 mg capsule 150 mg PO BID #180 cap 11/23/18 04/19/19 Rx galantamine 24 mg 24 hr 24 mg PO QAM #90 cap 11/23/18 04/19/19 Rx capsule,extended release sildenafil 50 mg tablet 50 mg PO UD PRN #7 tab 11/23/18 04/19/19 Rx metformin 500 mg tablet 500 mg PO BID #180 tab 11/28/18 04/19/19 Rx finasteride 5 mg tablet 5 mg PO DAILY #90 tab 12/28/18 04/19/19 Rx tamsulosin 0.4 mg capsule 0.4 mg PO DAILY #90 cap 12/28/18 04/19/19 Rx levothyroxine 50 mcg tablet 50 mcg PO DAILY #30 tab 01/23/19 04/19/19 Rx aspirin [Aspir-81] 81 mg PO DAILY 04/19/19 04/19/19 History Past Med/Surg History Medical History Atrial fibrillation (Acute) 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 (Acute) Dementia (Acute) Elevated PSA (Acute) Heart disease (Chronic) Hiatal hernia (Acute) Hyperlipidemia (Acute) Hypertension Hypothyroidism (Chronic) Metabolic disorder (Acute) Mitral regurgitation (Acute) Raynaud's disease (Acute) Tricuspid regurgitation (Acute) Type 2 diabetes mellitus (Acute) Family History Brother Coronary arteriosclerosis Mother Myocardial infarction Heart disease Father Myocardial infarction Heart disease Social History Preferred Language: Yi Communication Ability: Effective Visual Impairment: No Limitations 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 Beliefs That Will Affect Care: None marital status: Current Living Situation: Spouse current occupational status: retired Feels Safe at Home: Yes Smoking Status: Former smoker Tobacco Type: smokeless tobacco ; Age Quit Using Tobacco: 58 ; Do You Dip or Chew Tobacco: Yes ; Tobacco Cessation Education Requested by Patient: No Hx Alcohol Use: No Hx Substance Use: No Dental Care, Regularly: Yes Physical Activity Frequency: Does not Exercise Seatbelt Use: always Sunscreen Use: No Do you think of yourself as: straight/heterosexual Review of Systems Review of Systems: All systems reviewed & are unremarkable except as noted in HPI & below Physical Exam Physical Exam: General: elderly male resting comfortably, NAD, non-toxic in appearance, very hard of hearing, AA&O x 3 Skin: warm, dry, intact, no rashes or lesions, +pallor HEENT: NC/AT, PERRL, EOMI, anicteric sclera, conjunctiva without injection, external ear normal to inspection and nontender, nares patent, moist mucus membranes, dentition intact, no oropharyngeal lesions, neck supple, trachea midline, no LAD, no thyromegaly, no JVD Heart: +S1/S2, irregular, bradycardic 2/6 VILLA at left sternal border, no rubs/gallops Lungs: equal air entry bilaterally, no rales/rhonchi/wheezes Abd: +BS, soft, NT/ND, no masses/organomegaly/ascites Ext: warm, 2+ pulses in UE/LE bilaterally, no clubbing/cyanosis or edema Neuro: nonfocal, patient AA&O x 4, speech intact, no facial droop, moving all extremities on command with equal strength 5/5 Results & Data Vital Signs (Past 12 Hours) Vital Signs Temp Pulse Pulse Resp BP BP Pulse Ox 04/19/19 19:55 36.6 C 72 16 133/68 100 04/19/19 17:28 36.8 C 57 L 16 119/62 100 04/19/19 17:23 98 Laboratory Results Lab Results 04/19/19 04/19/19 04/19/19 Range/Units 17:42 17:42 17:42 WBC 7.12 (4.8-10.8) K/uL RBC 2.66 L (4.7-6.1) M/uL Hgb 7.0 L (14.0-18.0) g/dL Hct 22.4 L (42-52) % MCV 84.2 (80-100) fL MCH 26.3 (25-34) pg MCHC 31.3 L (32-36) g/dL RDW Std Deviation 46.2 (36.4-46.3) fL RDW Coeff of Julia 14.8 H (11.5-14.5) % Plt Count 195 (130-400) K/uL MPV 8.1 (7.4-10.4) fL Immature Gran % (Auto) 0.1 % Neut % (Auto) 68.5 % Lymph % (Auto) 19.4 % Bowie % (Auto) 9.6 % Eos % (Auto) 2.0 % Baso % (Auto) 0.4 % Immature Gran # (Auto) 0.01 (0.00-0.02) K/uL Neut # (Auto) 4.88 (1.4-6.5) K/uL Lymph # (Auto) 1.38 (1.2-3.4) K/uL Bowie # (Auto) 0.68 H (0.11-0.59) K/uL Eos # (Auto) 0.14 (0-0.5) K/uL Baso # (Auto) 0.03 (0-0.2) K/uL Acanthocytes (Spur) 1+ Schistocytes 1+ PT 15.4 H (9.0-12.0) Seconds INR 1.5 H (0.9-1.1) APTT 43.3 H (21.0-31.0) Seconds PTT Ratio 1.6 Sodium 136 (136-145) mmol/L Potassium 4.6 (3.5-5.1) mmol/L Chloride 107 (98-107) mmol/L Carbon Dioxide 21 (21-32) mmol/L Anion Gap 8.0 (3-11) BUN 34 H (7-18) mg/dl Creatinine 1.96 H (0.6-1.4) mg/dl Est Cr Clr Drug Dosing 26.7 ml/min Est GFR ( Amer) 35.1 Est GFR (Non-Af Amer) 30.3 BUN/Creatinine Ratio 17.3 (10-20) Glucose 137 H (70-99) mg/dl POC Glucose (70-99) mg/dl Calcium 8.7 (8.5-10.1) mg/dl Magnesium 2.4 (1.8-2.4) mg/dl Total Bilirubin 0.2 (0.2-1) mg/dl AST 7 L (15-37) U/L ALT 17 (12-78) U/L Alkaline Phosphatase 52 (45-117) U/L Troponin I < 0.015 (0-0.045) ng/ml Total Protein 7.1 (6.4-8.2) gm/dl Albumin 3.2 L (3.4-5.0) gm/dl Globulin 3.9 (2.5-4.0) gm/dl Albumin/Globulin Ratio 0.8 L (0.9-2) Blood Type Blood Type Recheck Antibody Screen Crossmatch 04/19/19 04/19/19 04/19/19 Range/Units 17:49 19:17 20:33 WBC (4.8-10.8) K/uL RBC (4.7-6.1) M/uL Hgb (14.0-18.0) g/dL Hct (42-52) % MCV (80-100) fL MCH (25-34) pg MCHC (32-36) g/dL RDW Std Deviation (36.4-46.3) fL RDW Coeff of Julia (11.5-14.5) % Plt Count (130-400) K/uL MPV (7.4-10.4) fL Immature Gran % (Auto) % Neut % (Auto) % Lymph % (Auto) % Bowie % (Auto) % Eos % (Auto) % Baso % (Auto) % Immature Gran # (Auto) (0.00-0.02) K/uL Neut # (Auto) (1.4-6.5) K/uL Lymph # (Auto) (1.2-3.4) K/uL Bowie # (Auto) (0.11-0.59) K/uL Eos # (Auto) (0-0.5) K/uL Baso # (Auto) (0-0.2) K/uL Acanthocytes (Spur) Schistocytes PT (9.0-12.0) Seconds INR (0.9-1.1) APTT (21.0-31.0) Seconds PTT Ratio Sodium (136-145) mmol/L Potassium (3.5-5.1) mmol/L Chloride (98-107) mmol/L Carbon Dioxide (21-32) mmol/L Anion Gap (3-11) BUN (7-18) mg/dl Creatinine (0.6-1.4) mg/dl Est Cr Clr Drug Dosing ml/min Est GFR ( Amer) Est GFR (Non-Af Amer) BUN/Creatinine Ratio (10-20) Glucose (70-99) mg/dl POC Glucose 161 H (70-99) mg/dl Calcium (8.5-10.1) mg/dl Magnesium (1.8-2.4) mg/dl Total Bilirubin (0.2-1) mg/dl AST (15-37) U/L ALT (12-78) U/L Alkaline Phosphatase (45-117) U/L Troponin I (0-0.045) ng/ml Total Protein (6.4-8.2) gm/dl Albumin (3.4-5.0) gm/dl Globulin (2.5-4.0) gm/dl Albumin/Globulin Ratio (0.9-2) Blood Type A Positive Blood Type Recheck A Positive Antibody Screen NEGATIVE Crossmatch See Detail Code Status & VTE Plan Code Status FULL CODE VTE Prophylaxis Plan VTE Prophylaxis will be ordered: Yes PG Care Time/CCT Total # of Minutes Spent Total Time Spent with Patient: Total time spent is greater than 50% in coordination of care (as documented) at patient's floor/unit and/or counseling patient: Coding Level of Care Code 71456 Initial Inpt Care Lvl 3 Diagnoses GI bleed K92.2 GI bleed type/associated pathology: unspecified gastrointestinal hemorrhag e type Hypertension I10 Hypertension type: essential hypertension Type 2 diabetes mellitus E11.9 Diabetes mellitus tank terminal gauger insulin use: without tank terminal gauger use Diabetes mellitus complication status: without complication Benign prostatic hyperplasia with urinary obstruction N40.1; N13.8 Dementia F03.90 Dementia type: unspecified type Dementia behavioral disturbance: without behavioral disturbance Conductive hearing loss of both ears H90.0 Atrial fibrillation I48.91 Atrial fibrillation type: unspecified Hypothyroidism E03.9 Hypothyroidism type: unspecified (1) GI bleed GI bleed type/associated pathology: unspecified gastrointestinal hemorrhage type Qualified Code(s): K92.2 - Gastrointestinal hemorrhage, unspecified (2) Hypertension Hypertension type: essential hypertension Qualified Code(s): I10 - Essential (primary) hypertension (3) Type 2 diabetes mellitus Diabetes mellitus tank terminal gauger insulin use: without tank terminal gauger use Diabetes mellitus complication status: without complication Qualified Code(s): E11.9 - Type 2 diabetes mellitus without complications (4) Dementia Dementia type: unspecified type Dementia behavioral disturbance: without behavioral disturbance Qualified Code(s): F03.90 - Unspecified dementia without behavioral disturbance (5) Atrial fibrillation Atrial fibrillation type: unspecified Qualified Code(s): I48.91 - Unspecified atrial fibrillation (6) Hypothyroidism Hypothyroidism type: unspecified Qualified Code(s): E03.9 - Hypothyroidism, unspecified
[2019-04-19] MEDS ORDERED: INSULIN ASPART 100 UNITS/ML 3 ML PEN SC SCH (21:00)
[2019-04-19 21:03] LABS: Basophils # (auto) 0.02 K/uL (0-0.2); Basophils % (auto) 0.3 %; Eosinophils # (auto) 0.06 K/uL (0-0.5); Eosinophils % (auto) 0.9 %; Immature Granulocytes # (auto) 0.01 K/uL (0.00-0.02); Immature Granulocytes % (auto) 0.2 %; Lymphocytes # (auto) 1.12 K/uL (1.2-3.4); Lymphocytes % (auto) 17.7 %; Monocytes # (auto) 0.54 K/uL (0.11-0.59); Monocytes % (auto) 8.5 %; Neutrophils # (auto) 4.57 K/uL (1.4-6.5); Neutrophils % (auto) 72.4 %; Ovalocytes 1+; Schistocytes 1+
[2019-04-19] MEDS: PANTOprazole 40 MG in SYRINGE 0 ML IV SCH (21:10)
[2019-04-19] MEDS ORDERED: Nursing to Pharmacy Communication ONE (23:28)
[2019-04-20] MEDS: INSULIN ASPART 100 UNITS/ML 3 ML PEN SC SCH ×5 (00:25→21:52)
[2019-04-20 04:32] LABS: Basophils # (auto) 0.03 K/uL (0-0.2); Basophils % (auto) 0.5 %; Eosinophils # (auto) 0.11 K/uL (0-0.5); Hematocrit (blood only) 27.1 % (42-52); Hemoglobin 8.7 g/dL (14.0-18.0); Immature Granulocytes # (auto) 0.01 K/uL (0.00-0.02); Immature Granulocytes % (auto) 0.2 %; Lymphocytes # (auto) 1.07 K/uL (1.2-3.4); Lymphocytes % (auto) 19.4 %; Mean Corpuscular Hemoglobin 27.2 pg (25-34); Mean Corpuscular Hgb Conc 32.1 g/dL (32-36); Mean Corpuscular Volume 84.7 fL (80-100); Mean Platelet Volume 8.1 fL (7.4-10.4); Monocytes # (auto) 0.69 K/uL (0.11-0.59); Monocytes % (auto) 12.5 %; Neutrophils % (auto) 65.4 %; Platelet Count 158 K/uL (130-400); RDW Coefficient of Variation 14.7 % (11.5-14.5); RDW Standard Deviation 45.9 fL (36.4-46.3); White Blood Count 5.51 K/uL (4.8-10.8)
[2019-04-20 04:47] LABS: BUN Creatinine Ratio 18.4 (10-20); Calcium 8.5 mg/dl (8.5-10.1); Creatinine Clr Calc Pharmacy 33.5 ml/min; Est GFR (African American) 46.3; Est GFR (Non-African American) 39.9; Potassium 4.4 mmol/L (3.5-5.1)
[2019-04-20] MEDS: LEVOTHYROXINE SODIUM 50 MCG TABLET PO SCH (06:12)
[2019-04-20] MEDS: PANTOprazole 40 MG in SYRINGE 0 ML IV SCH ×2 (08:06→20:52)
[2019-04-20] MEDS: GALANTAMINE HYDROBROMIDE 8 MG CAPER PO SCH (08:06)
[2019-04-20] MEDS: CYANOCOBALAMIN 500 MCG TABLET (VITAMIN B-12) PO SCH (08:06)
[2019-04-20] MEDS: FINASTERIDE 5 MG TAB PO SCH (08:06)
[2019-04-20] MEDS: TAMSULOSIN HCL 0.4 MG CAP PO SCH (08:07)
--- NOTE | 2019-04-20 10:36 | Gastrointestinal Consultation ---
Date of Consultation April 20, 2019 Assessment & Plan (1) Anemia: Heme positive stool on Pradaxa daily. Pradaxa on hold currently. Denies NSAID use otherwise. No reported overt bleeding, though patient's ability to provide history is limited. H/H 8.7/27.1. -Continue IV Protonix 40 mg BID. -Keep NPO for EGD today. Patient and did come to an agreement that he wishes to proceed with endoscopic evaluation. -Continue to monitor H/H. Present on Admission?: Yes Supervising Physician Co-Signing Physician Notes Agree with WENDY Partida as above Abd: Soft, NT, ND, +BS Continue current therapy Proceed with EGD now History of Present Illness Reason for Consultation: Symptomatic anemia, possible UGI bleed Attending Physician: Ishan Reese History of Present Illness Patient is an 83 yo male who presented to the hospital with symptomatic anemia. On 04/19/2019 his H/H was 6.9/22. He is very hard of hearing and history is provided mainly by his . They report he has had progressive dyspnea with exertion. He was heme positive in the ED. He takes daily Pradaxa. He is unsure if he has had dark stools or rectal bleeding. is unsure as well. He denies abdominal pain, reflux, or nausea & vomiting. His BUN/Cr is 29/1.56. They report no GI history personally or family history. He reportedly had a colonoscopy many years ago--they believe it was by Dr. Gaines. His H/H is now 8.7/27.1 after transfusion of PRBCs. The patient is unsure if he wishes to proceed with endoscopic work-up at present. His would like him to proceed. They would like some time to discuss what their wishes are. Allergies Allergy/AdvReac Type Severity Reaction Status Date / Time zinc Allergy Intermediate ITCHY Verified 04/18/19 16:06 Home Medications Home Medications Medication Instructions Recorded Confirmed Type cyanocobalamin (vitamin B-12) 500 500 mcg PO DAILY tab 10/07/18 04/19/19 History mcg tablet diltiazem HCl 360 mg capsule,24 360 mg PO QAM #90 cap 10/31/18 04/19/19 Rx hr,extended release amlodipine 5 mg tablet 5 mg PO DAILY #90 tab 11/07/18 04/19/19 Rx hydrochlorothiazide 25 mg tablet 25 mg PO DAILY #90 tab 11/07/18 04/19/19 Rx dabigatran etexilate 150 mg capsule 150 mg PO BID #180 cap 11/23/18 04/19/19 Rx galantamine 24 mg 24 hr 24 mg PO QAM #90 cap 11/23/18 04/19/19 Rx capsule,extended release sildenafil 50 mg tablet 50 mg PO UD PRN #7 tab 11/23/18 04/19/19 Rx metformin 500 mg tablet 500 mg PO BID #180 tab 11/28/18 04/19/19 Rx finasteride 5 mg tablet 5 mg PO DAILY #90 tab 12/28/18 04/19/19 Rx tamsulosin 0.4 mg capsule 0.4 mg PO DAILY #90 cap 12/28/18 04/19/19 Rx levothyroxine 50 mcg tablet 50 mcg PO DAILY #30 tab 01/23/19 04/19/19 Rx aspirin [Aspir-81] 81 mg PO DAILY 04/19/19 04/19/19 History Patient History Medical History Atrial fibrillation (Acute) 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 (Acute) Dementia (Acute) Elevated PSA (Acute) Heart disease (Chronic) Hiatal hernia (Acute) Hyperlipidemia (Acute) Hypertension Hypothyroidism (Chronic) Metabolic disorder (Acute) Mitral regurgitation (Acute) Raynaud's disease (Acute) Tricuspid regurgitation (Acute) Type 2 diabetes mellitus (Acute) Surgical History H/O hernia repair Family History Brother Coronary arteriosclerosis Mother Myocardial infarction Heart disease Father Myocardial infarction Heart disease Social History Preferred Language: Chadian Communication Ability: Effective Visual Impairment: No Limitations Hearing Ability: Use of Hearing Aid Product Test Specialist Required: No Beliefs That Will Affect Care: None marital status: Current Living Situation: Spouse current occupational status: retired Feels Safe at Home: Yes Smoking Status: Former smoker Tobacco Type: smokeless tobacco ; Age Quit Using Tobacco: 58 ; Do You Dip or Chew Tobacco: Yes ; Tobacco Cessation Education Requested by Patient: No Hx Alcohol Use: No Hx Substance Use: No Dental Care, Regularly: Yes Physical Activity Frequency: Does not Exercise Seatbelt Use: always Sunscreen Use: No Do you think of yourself as: straight/heterosexual Review of Systems Constitutional: + fatigue Eyes: no acute issues Ear, Nose, Mouth, Throat: hard of hearing Respiratory: + dyspnea on exertion; no cough Cardiovascular: no chest pain Gastrointestinal: no abdominal pain, no vomiting, no coffee ground emesis, no diarrhea/loose stools, no blood in stools and no melena Musculoskeletal: + joint pain Integumentary: no rash Neurologic: + generalized weakness Psychiatric: no acute issues Endocrine: + fatigue Hematologic / Lymphatic: + easy bleeding Results & Data Vital Signs (Past 12 Hours) Vital Signs Temp Pulse Pulse Resp BP BP Pulse Ox 04/20/19 07:18 36.5 C 62 16 124/77 96 04/20/19 02:40 36.8 C 65 20 122/72 98 04/20/19 01:44 37.1 C 64 20 121/69 97 04/20/19 01:10 36.9 C 68 18 114/66 99 04/20/19 00:41 36.7 C 68 20 127/62 96 04/20/19 00:26 36.9 C 67 18 120/65 98 04/20/19 00:24 36.6 C 71 20 134/77 96 04/20/19 00:07 36.8 C 65 18 125/73 97 04/19/19 23:42 36.7 C 66 18 124/74 98 04/19/19 22:54 36.6 C 64 18 122/72 98 PG Care Time/CCT Total # of Minutes Spent Total Time Spent with Patient: Total time spent is greater than 50% in coordination of care (as documented) at patient's floor/unit and/or counseling patient: Coding Level of Care Code 42776 Initial Inpt Care Lvl 3 Diagnoses Anemia D64.9 Anemia type: unspecified type (1) Anemia Anemia type: unspecified type Qualified Code(s): D64.9 - Anemia, unspecified
[2019-04-20 12:23] LABS: Basophils # (auto) 0.05 K/uL (0-0.2); Basophils % (auto) 0.8 %; Eosinophils % (auto) 1.5 %; Hematocrit (blood only) 30.1 % (42-52); Hemoglobin 9.8 g/dL (14.0-18.0); Immature Granulocytes # (auto) 0.02 K/uL (0.00-0.02); Immature Granulocytes % (auto) 0.3 %; Lymphocytes # (auto) 1.08 K/uL (1.2-3.4); Lymphocytes % (auto) 16.6 %; Mean Corpuscular Hemoglobin 27.4 pg (25-34); Mean Corpuscular Hgb Conc 32.6 g/dL (32-36); Mean Corpuscular Volume 84.1 fL (80-100); Mean Platelet Volume 8.4 fL (7.4-10.4); Monocytes # (auto) 0.69 K/uL (0.11-0.59); Monocytes % (auto) 10.6 %; Neutrophils # (auto) 4.56 K/uL (1.4-6.5); Neutrophils % (auto) 70.2 %; Platelet Count 169 K/uL (130-400); RDW Coefficient of Variation 14.6 % (11.5-14.5); RDW Standard Deviation 45.1 fL (36.4-46.3); Red Blood Count 3.58 M/uL (4.7-6.1)
--- NOTE | 2019-04-20 16:28 | Anesthesiology Consultation ---
Date of Service April 20, 2019 Assessment & Plan (1) Encounter for pre-operative examination: Chart Review Chart Review: Acceptable Risk for Surgery and Patient NOT seen in Pre Admission Testing Consults Requested none History Surgery Operation Date: 04/20/19 17:30 Proposed Procedures p Esophagogastroduodenoscopy Dr Landers - Jamal Tatum Case, DO Height/Weight Height: 5 ft 8 in Weight: 71.6 kg Allergies Allergy/AdvReac Type Severity Reaction Status Date / Time zinc Allergy Intermediate ITCHY Verified 04/18/19 16:06 Medications Home Medications Medication Instructions Recorded Confirmed Last Taken cyanocobalamin (vitamin B-12) 500 500 mcg PO DAILY tab 10/07/18 04/19/19 Unknown mcg tablet diltiazem HCl 360 mg capsule,24 360 mg PO QAM #90 cap 10/31/18 04/19/19 Unknown hr,extended release amlodipine 5 mg tablet 5 mg PO DAILY #90 tab 11/07/18 04/19/19 Unknown hydrochlorothiazide 25 mg tablet 25 mg PO DAILY #90 tab 11/07/18 04/19/19 Unknown dabigatran etexilate 150 mg capsule 150 mg PO BID #180 cap 11/23/18 04/19/19 Unknown galantamine 24 mg 24 hr 24 mg PO QAM #90 cap 11/23/18 04/19/19 Unknown capsule,extended release sildenafil 50 mg tablet 50 mg PO UD PRN #7 tab 11/23/18 04/19/19 Unknown metformin 500 mg tablet 500 mg PO BID #180 tab 11/28/18 04/19/19 Unknown finasteride 5 mg tablet 5 mg PO DAILY #90 tab 12/28/18 04/19/19 Unknown tamsulosin 0.4 mg capsule 0.4 mg PO DAILY #90 cap 12/28/18 04/19/19 Unknown levothyroxine 50 mcg tablet 50 mcg PO DAILY #30 tab 01/23/19 04/19/19 Unknown aspirin [Aspir-81] 81 mg PO DAILY 04/19/19 04/19/19 Unknown Active Medications Generic Name Dose Route Start Last Admin Trade Name Freq PRN Reason Stop Dose Admin Cyanocobalamin 500 mcg 04/20/19 09:00 04/20/19 08:06 Vitamin B-12 PO 05/20/19 08:59 500 mcg DAILY ARSENIO Administration Finasteride 5 mg 04/20/19 09:00 04/20/19 08:06 Proscar PO 05/20/19 08:59 5 mg DAILY ARSENIO Administration Galantamine Hydrobromide 24 mg 04/20/19 09:00 04/20/19 08:06 Razadyne PO 05/20/19 08:59 24 mg QAM ARSENIO Administration Pantoprazole Sodium 40 mg/ 10 mls @ 5 mls/min 04/19/19 21:00 04/20/19 08:06 Syringe IV 05/19/19 20:59 5 mls/min BID@0900,2100 ARSENIO Administration Insulin Aspart 0 units 04/20/19 00:00 04/20/19 12:27 Novolog Flexpen SC 05/20/19 00:00 Not Given Q6 ARSENIO Levothyroxine Sodium 50 mcg 04/20/19 06:30 04/20/19 06:12 Synthroid PO 05/20/19 06:29 50 mcg DAILYBB ARSENIO Administration Tamsulosin HCl 0.4 mg 04/20/19 09:00 04/20/19 08:07 Flomax PO 05/20/19 08:59 0.4 mg DAILY ARSENIO Administration NPO Date Last Intake of Fluids: 04/19/19 Time Last Intake of Fluids: 23:00 Last Intake of Fluids Comment: SIP WITH MEDS Date Last Intake of Solids: 04/18/19 Time Last Intake of Solids: 16:30 Last Intake of Solids Comment: SEVERAL DAYS PATIENT STATES Past Medical History Medical History Atrial fibrillation (Acute) 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 (Acute) Dementia (Acute) Elevated PSA (Acute) Heart disease (Chronic) Hiatal hernia (Acute) Hyperlipidemia (Acute) Hypertension Hypothyroidism (Chronic) Metabolic disorder (Acute) Mitral regurgitation (Acute) Raynaud's disease (Acute) Tricuspid regurgitation (Acute) Type 2 diabetes mellitus (Acute) Past Family History Family History Brother Coronary arteriosclerosis Mother Myocardial infarction Heart disease Father Myocardial infarction Heart disease Past Surgical History Surgical History H/O hernia repair Social History Smoking Status: Former smoker tobacco type: smokeless tobacco Do You Dip or Chew Tobacco: Yes Hx Alcohol Use: No Hx Substance Use: No Physical Exam Vital Signs Last Vital Signs Temp 36.9 C 04/20/19 16:09 Pulse 79 04/20/19 16:09 Resp 18 04/20/19 16:09 BP 148/76 H 04/20/19 16:09 Pulse Ox 97 04/20/19 16:09 Testing Laboratory Results 04/20/19 12:13 04/20/19 04:15 PT 15.4 Seconds (9.0-12.0) H 04/19/19 17:42 INR 1.5 (0.9-1.1) H 04/19/19 17:42 APTT 43.3 Seconds (21.0-31.0) H 04/19/19 17:42 Blood Type A Positive 04/19/19 17:49 Antibody Screen NEGATIVE 04/19/19 17:49 04/20/19 04/20/19 11:54 06:01 POC Glucose 117 H 124 H
[2019-04-20] MEDS ORDERED: ATROPINE SULFATE 0.1 MG/ML 10ML SYR IV PRN (16:29)
[2019-04-20] MEDS ORDERED: ePHEDrine sulfate 50 MG/ML AMP IV PRN (16:29)
[2019-04-20] MEDS ORDERED: PROPOFOL IV EMULSION 10 MG/ML 20 ML VIAL IV ONE ×2 (16:40→17:04)
[2019-04-20] MEDS ORDERED: LIDOCAINE HCL 2% 2 ML VIAL/AMP(20MG/ML) INFIL ONE (16:40)
--- NOTE | 2019-04-20 17:16 | Electrocardiogram Report ---
Test Reason : Blood Pressure : / mmHG Vent. Rate : 060 BPM Atrial Rate : 057 BPM P-R Int : 000 ms QRS Dur : 084 ms QT Int : 434 ms P-R-T Axes : 000 -17 012 degrees QTc Int : 434 ms probably Atrial fibrillation with a competing junctional pacemaker Low voltage QRS Inferior infarct (cited on or before 14-JUL-2016) Cannot rule out Anterior infarct (cited on or before 15-JUL-2016) Abnormal ECG When compared with ECG of 15-JUL-2016 13:38, No significant change was found Confirmed by Eh Linda ([id number]) on 04/20/2019 5:16:23 PM Referred By: REFERRED SELF Confirmed By:Rob Linda
--- NOTE | 2019-04-20 17:18 | Anesthesiology Progress Note ---
Date of Service April 20, 2019 Anesthesia Post Procedure Vital Signs Vital Signs: Temp Pulse Pulse Resp BP BP Pulse Ox 04/20/19 16:09 36.9 C 79 18 148/76 H 97 04/20/19 15:05 36.5 C 82 18 135/77 96 04/20/19 07:18 36.5 C 62 16 124/77 96 04/20/19 02:40 36.8 C 65 20 122/72 98 04/20/19 01:44 37.1 C 64 20 121/69 97 04/20/19 01:10 36.9 C 68 18 114/66 99 04/20/19 00:41 36.7 C 68 20 127/62 96 04/20/19 00:26 36.9 C 67 18 120/65 98 04/20/19 00:24 36.6 C 71 20 134/77 96 04/20/19 00:07 36.8 C 65 18 125/73 97 04/19/19 23:42 36.7 C 66 18 124/74 98 04/19/19 22:54 36.6 C 64 18 122/72 98 04/19/19 22:25 36.8 C 64 18 127/73 99 04/19/19 21:54 36.8 C 59 L 18 122/72 98 04/19/19 21:24 36.8 C 59 L 18 122/72 98 04/19/19 21:09 36.8 C 73 18 122/69 95 04/19/19 20:51 36.6 C 60 18 124/73 99 04/19/19 19:55 36.6 C 72 16 133/68 100 04/19/19 17:28 36.8 C 57 L 16 119/62 100 04/19/19 17:23 98 Transfer of Care Handoff Completed per policy Notes Mental Status: alert / awake / arousable Patient Amnestic to Procedure: Yes Nausea / Vomiting: adequately controlled Pain: adequately controlled Airway Patency, RR, SpO2: stable & adequate BP & HR: stable & adequate Hydration State: stable & adequate Anesthetic Complications: no major complications apparent and Pt Satisfied with anesthetic care
[2019-04-20] MEDS ORDERED: PHENYLEPHRINE 100MCG/ML 5ML SYR ONE (17:23)
--- NOTE | 2019-04-20 17:24 | GI REPORT ---
Patient Name: Jude Mckeon Procedure Date: 04/20/2019 4:52 PM Date of : 1935 Admit Type: Inpatient Age: 83 Gender: Male Attending MD: Jamal Landers DO Procedure: Upper GI endoscopy Providers: Jamal Landers DO Referring MD: Ishan Reese M.d. Indications: Acute post hemorrhagic anemia, Melena Medicines: Monitored Anesthesia Care Complications: No immediate complications. Estimated Blood Loss: Estimated blood loss: none. Procedure: Pre-Anesthesia Assessment: - Prior to the procedure, a History and Physical was performed, and patient medications and allergies were reviewed. The patient's tolerance of previous anesthesia was also reviewed. The risks and benefits of the procedure and the sedation options and risks were discussed with the patient. All questions were answered, and informed consent was obtained. Prior Anticoagulants: The patient last took aspirin 1 day and Pradaxa (dabigatran) 1 day prior to the procedure. ASA Grade Assessment: III - A patient with severe systemic disease. After reviewing the risks and benefits, the patient was deemed in satisfactory condition to undergo the procedure. After obtaining informed consent, the endoscope was passed under direct vision. Throughout the procedure, the patient's blood pressure, pulse, and oxygen saturations were monitored continuously. The Endoscope was introduced through the mouth, and advanced to the second part of duodenum. The upper GI endoscopy was accomplished without difficulty. The patient tolerated the procedure well. Findings: One superficial esophageal ulcer with no bleeding and no stigmata of recent bleeding was found 34 cm from the incisors. The lesion was 5 mm in largest dimension. A small hiatal hernia was present. Localized mild inflammation characterized by erythema was found in the gastric antrum. Biopsies were taken with a cold forceps for histology. One non-bleeding cratered gastric ulcer with no stigmata of bleeding was found in the gastric antrum. The lesion was 4 mm in largest dimension. The examined duodenum was normal. Impression: - Non-bleeding esophageal ulcer. - Small hiatal hernia. - Gastritis. Biopsied. - Non-bleeding gastric ulcer with no stigmata of bleeding. - Normal examined duodenum. Recommendation: - Return patient to [facility] for [facility] care. - Advance diet as tolerated. - Continue present medications. - Await pathology results. Jamal Landers DO 04/20/2019 5:24:17 PM This report has been signed electronically. Note Initiated On: 04/20/2019 4:52 PM Number of Addenda: 0 I attest to the content of the Intraoperative Record and orders documented therein, exceptions below {[id number]}
[2019-04-20 20:37] LABS: Basophils # (auto) 0.02 K/uL (0-0.2); Basophils % (auto) 0.3 %; Eosinophils % (auto) 1.6 %; Hematocrit (blood only) 30.6 % (42-52); Hemoglobin 9.8 g/dL (14.0-18.0); Immature Granulocytes # (auto) 0.02 K/uL (0.00-0.02); Immature Granulocytes % (auto) 0.3 %; Lymphocytes # (auto) 1.37 K/uL (1.2-3.4); Lymphocytes % (auto) 22.1 %; Mean Corpuscular Hemoglobin 26.8 pg (25-34); Mean Corpuscular Volume 83.8 fL (80-100); Mean Platelet Volume 8.6 fL (7.4-10.4); Monocytes % (auto) 9.7 %; Neutrophils # (auto) 4.08 K/uL (1.4-6.5); Platelet Count 155 K/uL (130-400); RDW Coefficient of Variation 14.6 % (11.5-14.5); RDW Standard Deviation 44.7 fL (36.4-46.3); Red Blood Count 3.65 M/uL (4.7-6.1); White Blood Count 6.19 K/uL (4.8-10.8)
[2019-04-20 21:21] LABS: Polychromasia 1+
--- NOTE | 2019-04-20 22:59 | Hospitalist Progress Note ---
Date of Service April 20, 2019 Assessment & Plan (1) GI bleed: Patient with Heme+ stools, symptomatic anemia with Hgb=7 (from 12.4 in November 2018), Hct=22.4 (from 23.2 in November 2018). Hemodynamically stable, asymptomatic at rest. No history of liver disease. He is on Dabigatran for AF. -Admit to medical floor -NPO -Maintain two large bore PIVs -Transfused2 units PRBCs: hemoglobin improved to above 9 which was appropriate -No signs of continued bleeding. -Plan is for Upper endoscopy later today -Protonix 40mg IV BID -GI consultation appreciated (2) Hypertension: Blood pressure at goal. Hold BP meds for now. -Continue to monitor blood pressure (3) Type 2 diabetes mellitus: Chronic. Blood sugar =137. Last HgbA1c in November 2018 - 6.5 -Hold Metformin -ISS -Continue to monitor (4) Benign prostatic hyperplasia with urinary obstruction: Chronic -Continue Finasteride and Flomax (5) Dementia: Patient pleasant, AA&O, answers questions appropriately although communication hindered by patient's hearing loss -Continue galantamine -Delirium prevention strategies with frequent orientation (6) Conductive hearing loss of both ears: Chronic -Noted -Delirium prevention strategies (7) Atrial fibrillation: Patient rate controlled, on anticoagulation with Dabigatran. Takes ASA as well. Patient is hemodynamically stable, Will not administer reversal agent -Hold Dabigatran -Hold Diltiazem -Continue to monitor Patient will need to restart dabigatran if ulcers are cleaned base after discharge, DUE to CHADSVASC score of 4. (8) Hypothyroidism: Chronic. TSH=3.21 on 03/30/19 -Continue Synthroid F/E/N - transfusion as above. Electrolytes WNL. NPO for now Ppx - Protonix 40mg IV BID Code - Full Subjective Patient is a poor historian as he is poor of hearing. Patient's family is at bedside and is concern about his anemia. All of their questions and concerns were answered. Patient has not had any dark stools prior to arriving to hospital or during hospital stay, patient also has not had any hematoquezia. Review of Systems Review of Systems: All systems reviewed & are unremarkable except as noted in HPI & below Physical Exam Physical Exam: General: elderly male resting comfortably, NAD, non-toxic in appearance, very hard of hearing, AA&O x 3 Skin: warm, dry, intact, no rashes or lesions, +pallor HEENT: NC/AT, PERRL, EOMI, anicteric sclera, conjunctiva without injection, no oropharyngeal lesions, neck supple, trachea midline, no LAD, no thyromegaly, no JVD Heart: +S1/S2, irregular, bradycardic 2/6 VILLA at left sternal border, no rubs/gallops Lungs: equal air entry bilaterally, no rales/rhonchi/wheezes Abd: +BS, soft, NT/ND, no masses/organomegaly/ascites Ext: warm, 2+ pulses in UE/LE bilaterally, no clubbing/cyanosis or edema Neuro: nonfocal, patient AA&O x 4, speech intact, no facial droop, moving all extremities on command with equal strength 5/5 Results & Data ([facility]) Vital Signs (Past 12 Hours) Vital Signs Temp Pulse Resp BP Pulse Ox 04/20/19 18:15 36.7 C 65 20 105/76 95 04/20/19 17:58 36.7 C 73 18 123/67 04/20/19 17:45 69 18 107/58 L 94 04/20/19 17:30 73 18 109/52 L 96 04/20/19 17:15 70 16 93/50 L 96 04/20/19 16:09 36.9 C 79 18 148/76 H 97 04/20/19 15:05 36.5 C 82 18 135/77 96 PG Care Time/CCT Total # of Minutes Spent Total Time Spent with Patient: Total time spent is greater than 50% in coordination of care (as documented) at patient's floor/unit and/or counseling patient: Coding Level of Care Code 79421 Subseq Hosp Care Lvl 3 Diagnoses GI bleed K92.2 GI bleed type/associated pathology: unspecified gastrointestinal hemorrhage type Hypertension I10 Hypertension type: essential hypertension Type 2 diabetes mellitus E11.9 Diabetes mellitus complication status: without complication Diabetes mellitus meterman insulin use: without correction use Benign prostatic hyperplasia with urinary obstruction N40.1; N13.8 Dementia F03.90 Dementia behavioral disturbance: without behavioral disturbance Dementia type: unspecified type Conductive hearing loss of both ears H90.0 Atrial fibrillation I48.91 Atrial fibrillation type: unspecified Hypothyroidism E03.9 Hypothyroidism type: unspecified Time Spent (min) 35 Comment D/W family and GI. (1) GI bleed GI bleed type/associated pathology: unspecified gastrointestinal hemorrhage type Qualified Code(s): K92.2 - Gastrointestinal hemorrhage, unspecified (2) Type 2 diabetes mellitus Diabetes mellitus complication status: without complication Diabetes mellitus meterman insulin use: without correction use Qualified Code(s): E11.9 - Type 2 diabetes mellitus without complications (3) Atrial fibrillation Atrial fibrillation type: unspecified Qualified Code(s): I48.91 - Unspecified atrial fibrillation (4) Dementia Dementia behavioral disturbance: without behavioral disturbance Dementia type: unspecified type Qualified Code(s): F03.90 - Unspecified dementia without behavioral disturbance (5) Hypothyroidism Hypothyroidism type: unspecified Qualified Code(s): E03.9 - Hypothyroidism, unspecified (6) Hypertension Hypertension type: essential hypertension Qualified Code(s): I10 - Essential (primary) hypertension
[2019-04-21 04:12] LABS: Basophils # (auto) 0.03 K/uL (0-0.2); Basophils % (auto) 0.6 %; Eosinophils % (auto) 3.8 %; Hematocrit (blood only) 30.2 % (42-52); Hemoglobin 9.7 g/dL (14.0-18.0); Immature Granulocytes # (auto) 0.02 K/uL (0.00-0.02); Immature Granulocytes % (auto) 0.4 %; Lymphocytes # (auto) 1.02 K/uL (1.2-3.4); Lymphocytes % (auto) 19.6 %; Mean Corpuscular Hgb Conc 32.1 g/dL (32-36); Mean Corpuscular Volume 84.1 fL (80-100); Mean Platelet Volume 8.8 fL (7.4-10.4); Monocytes # (auto) 0.71 K/uL (0.11-0.59); Monocytes % (auto) 13.6 %; Neutrophils # (auto) 3.23 K/uL (1.4-6.5); Platelet Count 152 K/uL (130-400); RDW Coefficient of Variation 14.8 % (11.5-14.5); RDW Standard Deviation 45.8 fL (36.4-46.3); Red Blood Count 3.59 M/uL (4.7-6.1); White Blood Count 5.21 K/uL (4.8-10.8)
[2019-04-21] MEDS: LEVOTHYROXINE SODIUM 50 MCG TABLET PO SCH (05:33)
--- NOTE | 2019-04-21 07:38 | Anesthesiology Progress Note ---
Date of Service April 21, 2019 Anesthesia Post Procedure Vital Signs Vital Signs: Temp Pulse Resp BP BP Pulse Ox 04/21/19 07:00 36.7 C 80 20 133/81 99 04/21/19 01:00 36.5 C 72 18 134/60 95 04/20/19 18:15 36.7 C 65 20 105/76 95 04/20/19 17:58 36.7 C 73 18 123/67 04/20/19 17:45 69 18 107/58 L 94 04/20/19 17:30 73 18 109/52 L 96 04/20/19 17:15 70 16 93/50 L 96 04/20/19 16:09 36.9 C 79 18 148/76 H 97 04/20/19 15:05 36.5 C 82 18 135/77 96 Notes Mental Status: alert / awake / arousable and participated in evaluation Patient Amnestic to Procedure: Yes Nausea / Vomiting: adequately controlled Pain: adequately controlled Airway Patency, RR, SpO2: stable & adequate BP & HR: stable & adequate Hydration State: stable & adequate Anesthetic Complications: Pt Satisfied with anesthetic care
[2019-04-21] MEDS: TAMSULOSIN HCL 0.4 MG CAP PO SCH (08:11)
[2019-04-21] MEDS: PANTOprazole 40 MG in SYRINGE 0 ML IV SCH (08:11)
[2019-04-21] MEDS: FINASTERIDE 5 MG TAB PO SCH (08:11)
[2019-04-21] MEDS: GALANTAMINE HYDROBROMIDE 8 MG CAPER PO SCH (08:11)
[2019-04-21] MEDS: INSULIN ASPART 100 UNITS/ML 3 ML PEN SC SCH ×2 (08:43→12:51)
[2019-04-21] MEDS: CYANOCOBALAMIN 500 MCG TABLET (VITAMIN B-12) PO SCH (08:44)
--- NOTE | 2019-04-21 10:00 | Gastroenterology Progress Note ---
Date of Service April 21, 2019 Assessment & Plan (1) Esophageal ulcer: -Continue Protonix 40 mg BID on d/c for 8 weeks. -Follow-up in our clinic in 8 weeks. If H/H stable/improving and no signs of bleeding, will decrease PPI to once daily. -Await pathology from biopsies taken during EGD. -Supportive care and discharge planning per primary team. Present on Admission?: Yes (2) Gastric ulcer: See plan for esophageal ulcer. Supervising Physician Co-Signing Physician Notes Agree with WENDY Partida as above Abd: Soft, NT, ND, +BS Protonix 40 mg by mouth twice daily Continue supportive care. Subjective Patient is an 83 yo male with anemia & esophageal and gastric ulcers identified on EGD on 04/20/2019. He is currently on Protonix therapy. H/H improved after transfusions of PRBCs to 9.7/30.2. He denies melena. No further complaints from a GI standpoint. Review of Systems Constitutional: + fatigue Respiratory: + dyspnea on exertion Cardiovascular: no chest pain Gastrointestinal: no abdominal pain, no heartburn and no melena Physical Exam Constitutional: WD/WN, vitals as above Respiratory: normal respiratory effort, lungs clear to auscultation Cardiovascular: Rate/Rhythm: regular rate Gastrointestinal (Abdomen): normal bowel sounds, soft, nontender, no hepatosplenomegaly Skin: no rashes, warm and dry Psychiatric: A+Ox3, euthymic affect Results & Data Vital Signs (Past 12 Hours) Vital Signs Temp Pulse Resp BP BP Pulse Ox 04/21/19 07:00 36.7 C 80 20 133/81 99 04/21/19 01:00 36.5 C 72 18 134/60 95 PG Care Time/CCT Total # of Minutes Spent Total Time Spent with Patient: Total time spent is greater than 50% in coordination of care (as documented) at patient's floor/unit and/or counseling patient: Coding Level of Care Code 13294 Subseq Hosp Care Lvl 2 Diagnoses Esophageal ulcer K22.10 Esophageal ulcer bleeding: without bleeding Gastric ulcer K25.3 Gastric ulcer chronicity: acute Gastric ulcer complication status: without hemorrhage or perforation (1) Esophageal ulcer Esophageal ulcer bleeding: without bleeding Qualified Code(s): K22.10 - Ulcer of esophagus without bleeding (2) Gastric ulcer Gastric ulcer chronicity: acute Gastric ulcer complication status: without hemorrhage or perforation Qualified Code(s): K25.3 - Acute gastric ulcer without hemorrhage or perforation
--- NOTE | 2019-04-25 20:17 | Discharge Summary ---
Date of Service April 21, 2019 Admission HPI Per Admitting Provider Jude Mckeon is an 83yo C male with history of AF on Dabigatran, HTN/HLP/Hypothyroid and dementia. He presents today with complaint of PEDRAZA, fatigue. He was seen by his PCP on 04/18 for similar complaints. In the ER he was found to be afebrile, HD stable. Hgb=7, Hct=22.4. Heme+ stools. Patient does not use EtOH or NSAIDS. No prior GIBs. Denies melena/hematochezia/hematuria. He does have easy bruising. Has a hiatal hernia and frequently wears a binder. Last colonoscopy was "years ago", unable to find record. ER Course: Protonix bolus and drip Principal Diagnosis upper GI bleed Discharge Exam General: elderly male resting comfortably, NAD, non-toxic in appearance, very hard of hearing, AA&O x 3 Skin: warm, dry, intact, no rashes or lesions, +pallor HEENT: NC/AT, PERRL, EOMI, anicteric sclera, conjunctiva without injection, no oropharyngeal lesions, neck supple, trachea midline, no LAD, no thyromegaly, no JVD Heart: +S1/S2, irregular, bradycardic 2/6 VILLA at left sternal border, no rubs/gallops Lungs: equal air entry bilaterally, no rales/rhonchi/wheezes Abd: +BS, soft, NT/ND, no masses/organomegaly/ascites Ext: warm, 2+ pulses in UE/LE bilaterally, no clubbing/cyanosis or edema Neuro: nonfocal, patient AA&O x 4, speech intact, no facial droop, moving all extremities on command with equal strength 5/5 Discharge Data Allergies Allergy/AdvReac Type Severity Reaction Status Date / Time zinc Allergy Intermediate ITCHY Verified 04/18/19 16:06 Consultations 04/19/19 18:27 ED Decision to Admit Stat 04/19/19 20:02 Consult Gastroenterology Routine Procedures Performed Operation Date: 04/20/19 17:30 Actual Procedures p EGD Biopsy Cytology - Jamal Tatum Case, DO Hospital Course (1) GI bleed: Patient with Heme+ stools, symptomatic anemia with Hgb=7 (from 12.4 in November 2018), Hct=22.4 (from 23.2 in November 2018). Hemodynamically stable, asymptomatic at rest. No history of liver disease. He is on Dabigatran for AF. -Admit to medical floor -NPO -Maintain two large bore PIVs -Transfused 2 units PRBCs: hemoglobin improved to above 9 which was appropriate -No signs of continued bleeding. -Plan is for Upper endoscopy later today -Protonix 40mg IV BID -GI consultation appreciated -Continue Protonix 40 mg BID indefinitely (due to being on blood thinner) -Await pathology from biopsies taken during EGD. -will resume xarelto early next week as benefit outweighs risk, and studies have shown mortality rises when anticoagulation is stopped (2) Hypertension: Blood pressure at goal. will resume BP meds at discharge but at a decreased dose, please refer to med list below. (3) Type 2 diabetes mellitus: Chronic. Blood sugar =137. 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 Takes ASA as well. Patient is hemodynamically stable, cooper resume meds at discharge (8) Hypothyroidism: Chronic. TSH=3.21 on 03/30/19 -Continue Synthroid Total Time Total Time Spent Total Time Spent (In Minutes): 32 Total Time Includes: Examination of the Patient, Discharge Planning and Medication Reconciliation Discharge Plan Discharge Items Patient Disposition: Home - Self-Care Reason For Visit: UGIB Discharge Diagnosis: Upper Gastrointestinal bleed Activity: Resume your previous activity Non-emergency contact: Primary Care Provider Call non-emergency contact if: you have any medication questions Follow-up/Referrals: Margarita Reagan CRNP [Nurse Practitioner] - 05/22/19 1:45 pm (Please, follow up at [facility] G[facility] Office with Margarita TRONCOSO on WednesdayMay 21 at 1:45 pm. *The office is located at [address] [place] [address]). If you need to change this appointment, call the office at [phone].) Braeden Sultana III, CRNP [Primary Care Provider] - 05/01/19 4:00 pm (Please, follow up with Braeden RTONCOSO on WednesdayMay 01 at 4:00 pm. *If you need to change this appointment, call the office at [phone].) Diet: Regular and Carb Consistent or DM2 Addtl Attending Provider Instructions: You have been hospitalized for an acute medical problem: anemia. During your stay at [facility], we have made an effort to correct the problem that brought you to the hospital while keeping you as comfortable as possible. Medications were used to bring your condition under control and your discharge instructions will include directions for any medications you should take after leaving the hospital. Please make sure you see your Primary Care Provider as part of your follow up plan. You can resume your medications, but will hold HYDROCHLOROTHIAZIDE until seen by your primary care doctor. Restart amlodipine 2.5 mg PO HS. You will restart your dabigatran 150 mg twice a day on Wednesday. Pending Studies at Discharge: No Stand-Alone Forms: My [facility], Smoking Cessation Medications and DC Order Prescriptions: New pantoprazole 40 mg tablet,delayed release (DR/EC) 40 mg PO BID 30 Days Qty: 60 RF: 0 amlodipine 2.5 mg tablet 2.5 mg PO HS Qty: 30 RF: 0 Continued diltiazem HCl 360 mg capsule,extended release 24 hr 360 mg PO QAM Qty: 90 RF: 1 galantamine 24 mg capsule,ext rel. pellets 24 hr 24 mg PO QAM Qty: 90 RF: 1 dabigatran etexilate 150 mg capsule 150 mg PO BID Qty: 180 RF: 1 sildenafil 50 mg tablet 50 mg PO UD PRN (Reason: sexual activity) Qty: 7 RF: 9 levothyroxine 50 mcg tablet 50 mcg PO DAILY Qty: 30 RF: 2 cyanocobalamin (vitamin B-12) 500 mcg tablet 500 mcg PO DAILY RF: 0 metformin 500 mg tablet 500 mg PO BID Qty: 180 RF: 1 finasteride 5 mg tablet 5 mg PO DAILY Qty: 90 RF: 3 tamsulosin 0.4 mg capsule 0.4 mg PO DAILY Qty: 90 RF: 3 aspirin [Aspir-81] 81 mg Tablet,Delayed Release (Dr/Ec) 81 mg PO DAILY RF: 0 Discontinued hydrochlorothiazide 25 mg tablet 25 mg PO DAILY Qty: 90 RF: 1 amlodipine 5 mg tablet 5 mg PO DAILY Qty: 90 RF: 1 Discharge Orders: Discharge Order (Routine); Ordered 04/21/19 Ordered By: Ishan Reese Admission Data Admit Date/Time: 04/19/19 19:02 Attending Provider: Ishan Reese Admit Provider: Shaniqua Kim Primary Care Provider: Braeden Sultana III Other Providers: Shaniqua Kim ; Jamal Landers Other Interventions: Discharge Summary Assessment (RN) Last Done: 04/21/19 13:22 DC Date/Time DO NOT enter until pt leaves facility: 04/21/19 14:15 Coding Level of Care Code D/C Day Management >30 mins Diagnoses GI bleed K92.2 GI bleed type/associated pathology: unspecified gastrointestinal hemorrhage type Hypertension I10 Hypertension type: essential hypertension Type 2 diabetes mellitus E11.9 Diabetes mellitus care home insulin use: without care home use Diabetes mellitus complication status: without complication Benign prostatic hyperplasia with urinary obstruction N40.1; N13.8 Dementia F03.90 Dementia type: unspecified type Dementia behavioral disturbance: without behavioral disturbance Conductive hearing loss of both ears H90.0 Atrial fibrillation I48.91 Atrial fibrillation type: unspecified Hypothyroidism E03.9 Hypothyroidism type: unspecified
== END 2019-04-21 14:15 | disposition home or self-care (01) | DRG 378 ==
LOC: ED 17:22 → SUATTDRO 19:02 → 4W 19:02

== ENCOUNTER 2020-06-18 18:14 | Inpatient (IN) ==
[2020-06-18 19:49] LABS: Basophils # (auto) 0.02 K/uL (0-0.2); Basophils % (auto) 0.2 %; Eosinophils # (auto) 0.11 K/uL (0-0.5); Eosinophils % (auto) 1.3 %; Hematocrit (blood only) 25.9 % (42-52); Hemoglobin 8.2 g/dL (14.0-18.0); Immature Granulocytes # (auto) 0.01 K/uL (0.00-0.02); Immature Granulocytes % (auto) 0.1 %; Lymphocytes # (auto) 0.84 K/uL (1.2-3.4); Lymphocytes % (auto) 10.1 %; Mean Corpuscular Hgb Conc 31.7 g/dL (32-36); Mean Corpuscular Volume 85.2 fL (80-100); Mean Platelet Volume 9.2 fL (7.4-10.4); Monocytes # (auto) 0.73 K/uL (0.11-0.59); Monocytes % (auto) 8.8 %; Neutrophils # (auto) 6.59 K/uL (1.4-6.5); Neutrophils % (auto) 79.5 %; Platelet Count 211 K/uL (130-400); RDW Coefficient of Variation 13.7 % (11.5-14.5); RDW Standard Deviation 42.8 fL (36.4-46.3); Red Blood Count 3.04 M/uL (4.7-6.1)
--- NOTE | 2020-06-18 19:49 | Emergency Department Note ---
Impression & Plan Peripheral edema, Anemia, CKD (chronic kidney disease) ED Provider Note NAME: NARINDER ALMANZA AGE: 84 SEX: M ARRIVES VIA: Walk-In INFORMANT: Patient, ED PROVIDER(S): Marco Gonsalez MD CHIEF COMPLAINT: Edema, anemia PLAN: Disposition: Admit MEDICAL DECISION MAKING: The patient is a pleasant 84-year-old gentleman with a past medical history of atrial fibrillation on dabigatran, hypertension, hypothyroidism, diabetes, GERD, BPH who presents to the emergency department referred from PCPs office for evaluation of worsening lower extremity edema with outpatient lab work performed that also demonstrated worsening anemia with a hemoglobin of 8 is down from 10 in the February. The patient denies any blood in his stool though he and his report that his stools have been dark but this was in the setting of being on iron which he stopped taking several days ago. The patient denies any recent fevers, chills, cough, congestion, chest pain, shortness of breath. Denies any known COVID-19 exposures. They do admit that he has been gaining weight likely related to his fluid retention over the past couple of months. On arrival the patient is in no acute distress, afebrile with stable vital signs. He does have 2+ bilateral lower extremity pitting edema which extends into his scrotum as well. There is no erythema warmth or tenderness. There is no crepitus. Rectal exam was performed and demonstrates brown stool and no melena. This was slightly Hemoccult positive. Chest x-ray performed outpatient earlier today showed improvement in venous congestion. WBC and platelets within normal limits. H/H 8.2/25.9 similar to values earlier today. MCV is normocytic. Chemistry without significant metabolic acidosis. Creatinine 1.86 increased from recent values but approximate to prior range of values in the setting of history of CKD. Electrolytes unremarkable. LFTs without significant abnormality. Troponin negative/undetectable. BNP 1800, nonspecific in the setting of the patient's CKD. UA with positive nitrites leukoesterase and WBCs and 4+ bacteria albeit with epithelial cells present. Will defer decision for antibiotics to admitting team. Covid-19 PCR negative. Given the patient's volume overload noted on exam suspect patient's anemia which has progressed since February may be related to component of hemodilution as the patient does not exhibit any evidence of any significant GI bleed given brown stool. Moreover, his reports that he has been evaluated for GI bleeding in the past with no source of bleeding identified (EGD and colonoscopy May 2019). The patient was ordered for lasix as well as huddleston catheter for diuresis. Dr. Kim, [facility] [place] hospitalist, to evaluate the patient for admission. Triage Nursing notes reviewed and agree them. Additional history obtained from at bedside Prior medical records reviewed Vital Signs: reviewed and remarkable for no significant abnormalities Differential diagnosis: Infection, dehydration, metabolic abnormality, hypo/hyperglycemia, electrolyte disturbance, anemia, hypoxia, cardiac sources, intracerebral event, toxicologic, neurologic, as well as other pathologies. ER treatment provided: See below. Diagnostics interpreted by me: Cardiac Monitoring: An order for continuous cardiac monitoring was placed and demonstrated atrial fibrillation, 58 bpm, no ectopy. Laboratory studies: See below Imaging studies: Outpatient: XR chest 2V PA/lateral HISTORY: Shortness of breath. COMPARISON: Chest 04/19/2019. FINDINGS: The cardiac silhouette remains enlarged. There is interval improvement in the mild pulmonary vascular congestion without overt edema. Trace bilateral pleural effusions have also improved. No pneumothorax. No new focal lung consolidations to suggest pneumonia. IMPRESSION: Near complete resolution of the pulmonary vascular congestion and trace bilateral pleural effusions. Consultation(s): Dr. Kim [facility] [place] hospitalist, to evaluate the patient for admission. HPI: The patient is a pleasant 84-year-old gentleman with a past medical history of atrial fibrillation on dabigatran, hypertension, hypothyroidism, diabetes, GERD, BPH who presents to the emergency department referred from PCPs office for evaluation of worsening lower extremity edema with outpatient lab work performed that also demonstrated worsening anemia with a hemoglobin of 8 is down from 10 in the February. The patient denies any blood in his stool though he and his report that his stools have been dark but this was in the setting of being on iron which he stopped taking several days ago. The patient denies any recent fevers, chills, cough, congestion, chest pain, shortness of breath. Denies any known COVID-19 exposures. They do admit that he has been gaining weight likely related to his fluid retention over the past couple of months. ROS: See above HPI for pertinent positives & negatives. A total of 10 systems reviewed and were otherwise negative. PAST MEDICAL HISTORY:See Below PAST SURGICAL HISTORY:See Below FAMILY HISTORY:See Below SOCIAL HISTORY:See Below HOME MEDICATIONS:See Below ALLERGIES:See Below VITALS:See Below PHYSICAL EXAMINATION: GENERAL: Awake, alert, well-appearing, in no distress HENT: Normocephalic, atraumatic. Oropharynx unremarkable. EYES: Normal conjunctiva. Sclera non-icteric. NECK: Supple. No nuchal rigidity. FROM. No JVD. RESPIRATORY: Clear to auscultation. CARDIAC: Regular rate, irregular rhythm. Extremities warm and well perfused. Pulses equal. ABDOMEN: Soft, non-distended. No tenderness to palpation. No rebound or guarding. No masses. RECTAL: Brown stool, no gross blood or melena. Scant heme-occult positive. : 3+ scrotal/penile edema. No erythema, warmth or tenderness. No crepitus. MUSCULOSKELETAL: Chest examination reveals no tenderness. The back is symmetrical on inspection without obvious abnormality. There is no CVA tenderness to palpation. No joint edema. LOWER EXTREMITIES: Calves are equal size bilaterally and non-tender. 2+ BLE pitting edema. No discoloration. NEURO: Normal sensorium. No sensory or motor deficits noted. SKIN: No rash or jaundice noted. Marco Gonsalez MD Past Med/Surg History Medical History Acute blood loss anemia Atrial fibrillation 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 Dementia Elevated PSA Esophageal ulcer Gastric ulcer GI bleed Heart disease Hiatal hernia Hyperlipidemia Hypertension Hypothyroidism Metabolic disorder Mitral regurgitation Raynaud's disease Tricuspid regurgitation Type 2 diabetes mellitus Surgical History H/O hernia repair History of colonoscopy History of esophagogastroduodenoscopy (EGD) 04/20/[address] Berry Case Family History Brother Coronary arteriosclerosis Mother Myocardial infarction Heart disease Father Myocardial infarction Heart disease Denies family history of Colon cancer Ovarian cancer Prostate cancer Breast cancer Social History Smoking Status: Former smoker Age Quit Using Tobacco: 58; Second Hand Exposure: No; Hx Alcohol Use: No Hx Substance Use: No Preferred Language: Burkinan Communication Ability: Effective Visual Impairment: No Limitations Hearing Ability: Use of Hearing Aid Elevator Dispatcher Required: Yes Beliefs That Will Affect Care: None marital status: Current Living Situation: Spouse current occupational status: retired Feels Safe at Home: Yes Dental Care, Regularly: Yes Physical Activity Frequency: Does not Exercise Seatbelt Use: always Sunscreen Use: No Do you think of yourself as: straight/heterosexual Assistive Devices: Glasses and Hearing Aid - Bilateral Allergies Allergies Allergy/AdvReac Type Severity Reaction Status Date / Time zinc Allergy Intermediate ITCHY Verified 06/18/20 19:46 Home Meds Home Medications Medication Instructions Recorded Confirmed diltiazem HCl 360 mg PO QAM 06/18/20 06/18/20 pantoprazole [Protonix] 40 mg PO QAM 06/18/20 06/18/20 tamsulosin 0.4 mg PO HS 06/18/20 06/18/20 Previous Rx's Medication Instructions Recorded metformin 500 mg tablet 500 mg PO BID #180 tab 01/01/20 amlodipine 2.5 mg tablet 2.5 mg PO HS #90 tab 01/16/20 levothyroxine 50 mcg tablet 50 mcg PO QAM #90 tab 01/23/20 finasteride 5 mg tablet 5 mg PO QPM #90 tab 03/04/20 galantamine 24 mg 24 hr 24 mg PO QAM #90 cap 06/04/20 capsule,extended release dabigatran etexilate 150 mg capsule 150 mg PO BID #180 cap 06/11/20 furosemide 20 mg tablet 20 mg PO DAILY #30 tab 06/18/20 Results & Data (ED) Vital Signs Vital Signs - 24 hr 06/18/20 18:25 06/18/20 19:35 06/18/20 20:20 Temperature 36.4 C L Temperature Source Temporal Artery Scan Pulse Rate 59 L Pulse Rate [Bilateral Apical] 56 L 60 Respiratory Rate 20 20 20 Blood Pressure 118/62 Blood Pressure [Right Arm] 131/45 L 131/45 L Blood Pressure Mean 80 Blood Pressure Mean [Right Arm] 73 73 Pulse Oximetry 99 99 98 Oxygen Delivery Method Room Air Room Air Sepsis Recent Fever Within 48 Hours No Sepsis New/Unexplained Change in Mental Status No Sepsis Action Taken by Nursing No Action Required Laboratory Data Attestation: I reviewed the patient's lab results. Result diagrams: 06/18/20 19:18 03/30/21 19:18 Lab Results 06/18/20 06/18/20 06/18/20 Range/Units 19:18 19:18 19:18 WBC 8.30 (4.8-10.8) K/uL RBC 3.04 L (4.7-6.1) M/uL Hgb 8.2 L (14.0-18.0) g/dL Hct 25.9 L (42-52) % MCV 85.2 (80-100) fL MCH 27.0 (25-34) pg MCHC 31.7 L (32-36) g/dL RDW Std Deviation 42.8 (36.4-46.3) fL RDW Coeff of Julia 13.7 (11.5-14.5) % Plt Count 211 (130-400) K/uL MPV 9.2 (7.4-10.4) fL Immature Gran % (Auto) 0.1 % Neut % (Auto) 79.5 % Lymph % (Auto) 10.1 % [place] % (Auto) 8.8 % Eos % (Auto) 1.3 % Baso % (Auto) 0.2 % Neut # (Auto) 6.59 H (1.4-6.5) K/uL Lymph # (Auto) 0.84 L (1.2-3.4) K/uL [place] # (Auto) 0.73 H (0.11-0.59) K/uL Eos # (Auto) 0.11 (0-0.5) K/uL Baso # (Auto) 0.02 (0-0.2) K/uL Immature Gran # (Auto) 0.01 (0.00-0.02) K/uL Sodium 135 L (136-145) mmol/L Potassium 4.5 (3.5-5.1) mmol/L Chloride 107 (98-107) mmol/L Carbon Dioxide 20 L (21-32) mmol/L Anion Gap 8.0 (3-11) BUN 32 H (7-18) mg/dl Creatinine 1.86 H (0.6-1.4) mg/dl Est Cr Clr Drug Dosing 25.7 ml/min Est GFR ( Amer) 37.1 Est GFR (Non-Af Amer) 32.0 BUN/Creatinine Ratio 17.4 (10-20) Glucose 143 H (70-99) mg/dl Calcium 8.7 (8.5-10.1) mg/dl Phosphorus (2.5-4.9) mg/dl Magnesium (1.8-2.4) mg/dl Total Bilirubin 0.4 (0.2-1) mg/dl AST 12 L (15-37) U/L ALT 18 (12-78) U/L Alkaline Phosphatase 70 (45-117) U/L Troponin I (0-0.045) ng/ml NT-Pro-B Natriuret Pep (0-1800) pg/ml Total Protein 7.0 (6.4-8.2) gm/dl Albumin 3.5 (3.4-5.0) gm/dl Globulin 3.5 (2.5-4.0) gm/dl Albumin/Globulin Ratio 1.0 (0.9-2) Urine Color Urine Appearance (Clear) Urine pH (4.5-7.5) Ur Specific [place] (1.000-1.030) Urine Protein (Negative) Urine Glucose (UA) (Negative) Urine Ketones (Negative) Urine Blood (Negative) Urine Nitrite (Negative) Urine Bilirubin (Negative) Urine Urobilinogen (Negative) Ur Leukocyte Esterase (Negative) Urine WBC (Auto) (0-5) /hpf Urine RBC (Auto) (0-4) /hpf U Hyaline Cast (Auto) (0-5) /lpf U Epithel Cells (Auto) (0-5) /lpf Urine Bacteria (Auto) (Negative) COVID-19 Eval Order SARS-CoV-2 (PCR) (Negative) Influenza Type A (PCR) (Neg) Influenza Type B (PCR) (Neg) RSV (RT-PCR) (Neg) Blood Type A Positive Antibody Screen NEGATIVE 06/18/20 06/18/20 06/18/20 Range/Units 19:18 20:17 20:17 WBC (4.8-10.8) K/uL RBC (4.7-6.1) M/uL Hgb (14.0-18.0) g/dL Hct (42-52) % MCV (80-100) fL MCH (25-34) pg MCHC (32-36) g/dL RDW Std Deviation (36.4-46.3) fL RDW Coeff of Julia (11.5-14.5) % Plt Count (130-400) K/uL MPV (7.4-10.4) fL Immature Gran % (Auto) % Neut % (Auto) % Lymph % (Auto) % [place] % (Auto) % Eos % (Auto) % Baso % (Auto) % Neut # (Auto) (1.4-6.5) K/uL Lymph # (Auto) (1.2-3.4) K/uL [place] # (Auto) (0.11-0.59) K/uL Eos # (Auto) (0-0.5) K/uL Baso # (Auto) (0-0.2) K/uL Immature Gran # (Auto) (0.00-0.02) K/uL Sodium (136-145) mmol/L Potassium (3.5-5.1) mmol/L Chloride (98-107) mmol/L Carbon Dioxide (21-32) mmol/L Anion Gap (3-11) BUN (7-18) mg/dl Creatinine (0.6-1.4) mg/dl Est Cr Clr Drug Dosing ml/min Est GFR ( Amer) Est GFR (Non-Af Amer) BUN/Creatinine Ratio (10-20) Glucose (70-99) mg/dl Calcium (8.5-10.1) mg/dl Phosphorus 3.5 (2.5-4.9) mg/dl Magnesium 2.5 H (1.8-2.4) mg/dl Total Bilirubin (0.2-1) mg/dl AST (15-37) U/L ALT (12-78) U/L Alkaline Phosphatase (45-117) U/L Troponin I < 0.015 (0-0.045) ng/ml NT-Pro-B Natriuret Pep 1806 H (0-1800) pg/ml Total Protein (6.4-8.2) gm/dl Albumin (3.4-5.0) gm/dl Globulin (2.5-4.0) gm/dl Albumin/Globulin Ratio (0.9-2) Urine Color Urine Appearance (Clear) Urine pH (4.5-7.5) Ur Specific [place] (1.000-1.030) Urine Protein (Negative) Urine Glucose (UA) (Negative) Urine Ketones (Negative) Urine Blood (Negative) Urine Nitrite (Negative) Urine Bilirubin (Negative) Urine Urobilinogen (Negative) Ur Leukocyte Esterase (Negative) Urine WBC (Auto) (0-5) /hpf Urine RBC (Auto) (0-4) /hpf U Hyaline Cast (Auto) (0-5) /lpf U Epithel Cells (Auto) (0-5) /lpf Urine Bacteria (Auto) (Negative) COVID-19 Eval Order CovFluRsv at [facility] SARS-CoV-2 (PCR) NEGATIVE (Negative) Influenza Type A (PCR) Negative (Neg) Influenza Type B (PCR) Negative (Neg) RSV (RT-PCR) Negative (Neg) Blood Type Antibody Screen 06/18/20 Range/Units 20:30 WBC (4.8-10.8) K/uL RBC (4.7-6.1) M/uL Hgb (14.0-18.0) g/dL Hct (42-52) % MCV (80-100) fL MCH (25-34) pg MCHC (32-36) g/dL RDW Std Deviation (36.4-46.3) fL RDW Coeff of Julia (11.5-14.5) % Plt Count (130-400) K/uL MPV (7.4-10.4) fL Immature Gran % (Auto) % Neut % (Auto) % Lymph % (Auto) % [place] % (Auto) % Eos % (Auto) % Baso % (Auto) % Neut # (Auto) (1.4-6.5) K/uL Lymph # (Auto) (1.2-3.4) K/uL [place] # (Auto) (0.11-0.59) K/uL Eos # (Auto) (0-0.5) K/uL Baso # (Auto) (0-0.2) K/uL Immature Gran # (Auto) (0.00-0.02) K/uL Sodium (136-145) mmol/L Potassium (3.5-5.1) mmol/L Chloride (98-107) mmol/L Carbon Dioxide (21-32) mmol/L Anion Gap (3-11) BUN (7-18) mg/dl Creatinine (0.6-1.4) mg/dl Est Cr Clr Drug Dosing ml/min Est GFR ( Amer) Est GFR (Non-Af Amer) BUN/Creatinine Ratio (10-20) Glucose (70-99) mg/dl Calcium (8.5-10.1) mg/dl Phosphorus (2.5-4.9) mg/dl Magnesium (1.8-2.4) mg/dl Total Bilirubin (0.2-1) mg/dl AST (15-37) U/L ALT (12-78) U/L Alkaline Phosphatase (45-117) U/L Troponin I (0-0.045) ng/ml NT-Pro-B Natriuret Pep (0-1800) pg/ml Total Protein (6.4-8.2) gm/dl Albumin (3.4-5.0) gm/dl Globulin (2.5-4.0) gm/dl Albumin/Globulin Ratio (0.9-2) Urine Color Yellow Urine Appearance Cloudy A (Clear) Urine pH 6.0 (4.5-7.5) Ur Specific [place] 1.014 (1.000-1.030) Urine Protein Negative (Negative) Urine Glucose (UA) Negative (Negative) Urine Ketones Negative (Negative) Urine Blood Negative (Negative) Urine Nitrite Positive A (Negative) Urine Bilirubin Negative (Negative) Urine Urobilinogen Negative (Negative) Ur Leukocyte Esterase 1+ H (Negative) Urine WBC (Auto) 10-30 H (0-5) /hpf Urine RBC (Auto) 0-4 (0-4) /hpf U Hyaline Cast (Auto) 10-30 H (0-5) /lpf U Epithel Cells (Auto) >30 H (0-5) /lpf Urine Bacteria (Auto) 4+ H (Negative) COVID-19 Eval Order SARS-CoV-2 (PCR) (Negative) Influenza Type A (PCR) (Neg) Influenza Type B (PCR) (Neg) RSV (RT-PCR) (Neg) Blood Type Antibody Screen Administered Medications Dabigatran (Dabigatran Etexilate 75 Mg Cap) 150 mg PO BID ARSENIO Stop: 07/18/20 22:44 Last Admin: 06/19/20 00:09 Dose: 150 mg Documented by: [id number] Finasteride (Finasteride 5 Mg Tab) 5 mg PO QPM ARSENIO Stop: 07/18/20 22:25 Last Admin: 06/19/20 00:10 Dose: 5 mg Documented by: [id number] Insulin Aspart (Insulin Aspart 100 Units/Ml 3 Ml Pen) 0 units SC ACHS ARSENIO Stop: 07/18/20 22:25 Last Admin: 06/19/20 00:33 Dose: Not Given Documented by: [id number] Tamsulosin HCl (Tamsulosin Hcl 0.4 Mg Cap) 0.4 mg PO HS ARSENIO Stop: 07/18/20 22:25 Last Admin: 06/19/20 00:09 Dose: 0.4 mg Documented by: [id number] Discontinued Medications Furosemide (Furosemide 40 Mg/4 Ml Vial) 20 mg IV NOW STA Stop: 06/18/20 20:11 Last Admin: 06/18/20 20:20 Dose: 20 mg Documented by: [id number] Discharge Plan Visit Data Chief Complaint: Abnormal Labs/Diagnostic Testing Stated Complaint: ABNORMAL LABS- DOC REFERRED ED Provider: Marco Gonsalez Discharge Problem: Peripheral edema, Anemia, CKD (chronic kidney disease) Patient Disposition: Admitted As Inpatient Discharge Instructions Interventions: ED Discharge Assessment Last Done: 06/18/20 21:53 Discharge Problem: Anemia Qualifiers: Anemia type: unspecified type Qualified Code(s): D64.9 - Anemia, unspecified CKD (chronic kidney disease) Qualifiers: Chronic kidney disease stage: unspecified stage Qualified Code(s): N18.9 - Chronic kidney disease, unspecified
[2020-06-18 20:09] LABS: Albumin Level 3.5 gm/dl (3.4-5.0); BUN Creatinine Ratio 17.4 (10-20); Calcium 8.7 mg/dl (8.5-10.1); Creatinine Clr Calc Pharmacy 25.7 ml/min; Est GFR (African American) 37.1; Potassium 4.5 mmol/L (3.5-5.1)
[2020-06-18] MEDS ORDERED: FUROSEMIDE 40 MG/4 ML VIAL IV STA (20:10)
[2020-06-18 20:12] LABS: Bilirubin,Total 0.4 mg/dl (0.2-1); Globulin 3.5 gm/dl (2.5-4.0)
[2020-06-18 20:27] LABS: Magnesium 2.5 mg/dl (1.8-2.4); NT Pro B Type Natriuretic Pept 1806 pg/ml (0-1800); Phosphorus 3.5 mg/dl (2.5-4.9); Troponin I < 0.015 ng/ml (0-0.045)
[2020-06-18 20:47] LABS: Appearance Urine Cloudy (Clear); Bacteria Urine Automated 4+ (Negative); Bilirubin Urine Negative (Negative); Blood Urine Negative (Negative); Color Urine Yellow; Epithelial Cell Urine Auto >30 /lpf (0-5); Glucose Urine UA Negative (Negative); Ketones Urine Negative (Negative); Leukocyte Esterase Urine 1+ (Negative); Nitrite Urine Positive (Negative); Protein Urine Negative (Negative); RBC Urine Automated 0-4 /hpf (0-4); Specific Gravity Urine 1.014 (1.000-1.030); Urobilinogen Urine Negative (Negative)
--- NOTE | 2020-06-18 21:04 | History & Physical Report ---
Date of Service June 18, 2020 Assessment & Plan (1) Edema: 84yo male presenting with one week of progressive bilateral LE edema. Patient had an echocardiogram performed in 2017 which showed normal LV size, mild LV dysfunction with EF of 45-50%, mild RV dysfunction, mild-moderate MR wtih borderline anterior leaflet prolapse, mod-severe TR, severe biatrial enlargement. Suspect CHF contributing to edema. Elevated BNP = 1806, no prior on record. Patient is bradycardic with HR presently 54 bpm could possibly be contributing to failure as well. -Admit to medical with telemetry -Lasix 20mg IV BID -Monitor intake and output. Valencia catheter placed in ER -Monitor daily weights -Monitor electrolytes and renal function -Check 2D echo Present on Admission?: Yes (2) Atrial fibrillation: Patient bradycardic currently at 54 bpm. He is currently on Diltiazem 360mg po qAM. Question if heart rate may be contributing to CHF -Echo as above -Decrease Diltiazem to 180mg po daily - closely monitor HR -Continue Dabigatran -Consider Cardiology consultation Present on Admission?: Yes (3) Hypertension: Blood pressure currently 122/70 -Hold Amlodipine for now. May be contributing to LE edema -Decrease Diltiazem as above from 360mg daily to 180mg daily -Monitor BP Present on Admission?: Yes (4) Anemia: Hgb=8.2. No active bleeding identified. Normochromic, normocytic. ?dilutional component as well. 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 Valencia catheter placed in ER without difficulty. -Continue Finasteride 5mg po qPM -Continue Flomax 0.4mg po qHS Present on Admission?: Yes (6) Type 2 diabetes mellitus: Chronic. Blood tnxbs=826 today. Hgb A1C on 02/26/20 = 5.7 -Check HgbA1C with AM labs -Hold Metformin -ISS, goal blood sugar 100 - 140 -CC diet as tolerated Present on Admission?: Yes (7) Hypothyroidism: TSH within normal limits at 4.06 -Continue Synthroid 50mcg po daily Present on Admission?: Yes (8) Dementia: Chronic. Patient very hard of hearing as well -Continue Galantamine daily -Frequent orientation -Delirium prevention strategies Present on Admission?: Yes (9) UTI (urinary tract infection): +UA, patient with history of BPH -Await culture -Ceftriaxone 1gm IV daily F/E/N- Diuresis with Lasix 20mg IV BID, electrolytes WNL, CC/AHA diet Ppx - On Dabigatran. Continue home Protonix Code - Full per discussion with at bedside. Living will on file Dispo - Admit to medical with telemetry Present on Admission?: Yes History of Present Illness Chief Complaint: edema Primary Care Provider: Braeden Sultana, III, SCORING MACHINE OPERATOR Jude Mckeon is an 84yo C male with history of atrial fibrillation on Dabigatran anticoagulation presenting with one week of worsening LE and scrotal edema. Symptoms have been progressive x 1 week. also notes patient becomes tired more easily as well as some dyspnea with exertion. Patient denies chest pain, palpitations, cough, SOB, abdominal pain, nausea, vomiting, diarrhea or constipation. No additional complaints at this time. Patient was seen by his PCP today with this complaint. He was to be changed from HCTZ 25mg daily to Lasix 20mg po daily to start tomorrow AM. He reports weighing 165# today at his PCPs office. He is unsure of his dry weight. He has had history of LE edema in the past, however, not as severe as today. ER Course: Lasix 20mg IV Allergies Allergy/AdvReac Type Severity Reaction Status Date / Time zinc Allergy Intermediate ITCHY Verified 06/18/20 19:46 Home Medications Medication Instructions Recorded Confirmed Type metformin 500 mg tablet 500 mg PO BID #180 tab 01/01/20 06/18/20 Rx amlodipine 2.5 mg tablet 2.5 mg PO HS #90 tab 01/16/20 06/18/20 Rx levothyroxine 50 mcg tablet 50 mcg PO QAM #90 tab 01/23/20 06/18/20 Rx finasteride 5 mg tablet 5 mg PO QPM #90 tab 03/04/20 06/18/20 Rx galantamine 24 mg 24 hr 24 mg PO QAM #90 cap 06/04/20 06/18/20 Rx capsule,extended release dabigatran etexilate 150 mg capsule 150 mg PO BID #180 cap 06/11/20 06/18/20 Rx diltiazem HCl 360 mg PO QAM 06/18/20 06/18/20 History furosemide 20 mg tablet 20 mg PO DAILY #30 tab 06/18/20 06/18/20 Rx pantoprazole [Protonix] 40 mg PO QAM 06/18/20 06/18/20 History tamsulosin 0.4 mg PO HS 06/18/20 06/18/20 History Past Med/Surg History Medical History (Updated 06/18/20 @ 21:26 by Shaniqua Kim DO) Acute blood loss anemia Atrial fibrillation 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 Dementia Elevated PSA Esophageal ulcer Gastric ulcer GI bleed Heart disease Hiatal hernia Hyperlipidemia Hypertension Hypothyroidism Metabolic disorder Mitral regurgitation Raynaud's disease Tricuspid regurgitation Type 2 diabetes mellitus Surgical History H/O hernia repair History of colonoscopy History of esophagogastroduodenoscopy (EGD) 04/20/[address] Berry Case Family History Brother Coronary arteriosclerosis Mother Myocardial infarction Heart disease Father Myocardial infarction Heart disease Denies family history of Colon cancer Ovarian cancer Prostate cancer Breast cancer Social History Smoking Status: Former smoker Age Quit Using Tobacco: 58; Second Hand Exposure: No; Hx Alcohol Use: No Hx Substance Use: No Preferred Language: Nigerian Communication Ability: Effective Visual Impairment: No Limitations Hearing Ability: Use of Hearing Aid Gse Mechanic Required: No Beliefs That Will Affect Care: None marital status: Current Living Situation: Spouse current occupational status: retired Feels Safe at Home: Yes Dental Care, Regularly: Yes Physical Activity Frequency: Does not Exercise Seatbelt Use: always Sunscreen Use: No Do you think of yourself as: straight/heterosexual Assistive Devices: Glasses and Hearing Aid - Bilateral Review of Systems Review of Systems: All systems reviewed & are unremarkable except as noted in HPI & below Physical Exam Physical Exam: General: patient resting comfortably, NAD, non-toxic in appearance, very hard of hearing Skin: warm, dry, intact, no rashes or lesions HEENT: NC/AT, PERRL, EOMI, anicteric sclera, conjunctiva without injection, external ear normal to inspection and nontender, nares patent, moist mucus membranes, dentition intact, no oropharyngeal lesions, neck supple, trachea mi dline, no LAD, no thyromegaly, no JVD Heart: +S1/S2, irregularly irregular, 2/6 VILLA at LSB Lungs: equal air entry bilaterally, no rales/rhonchi/wheezes Abd: +BS, soft, NT/ND, no masses/organomegaly/ascites Ext: warm, 2+ pulses in UE/LE bilaterally, 3+ pitting edema to thighs bilaterally, scrotal edema Neuro: nonfocal, patient very hard of hearing, speech intact, no facial droop, moving all extremities on command with equal strength 5/5 Results & Data Results & Data ([facility]) Vital Signs (Past 12 Hours) Vital Signs Temp Pulse Pulse Resp BP BP Pulse Ox 06/18/20 20:20 60 20 131/45 L 98 06/18/20 19:35 56 L 20 131/45 L 99 06/18/20 18:25 36.4 C L 59 L 20 118/62 99 Laboratory Results Lab Results 06/18/20 06/18/20 06/18/20 Range/Units 19:18 19:18 19:18 WBC 8.30 (4.8-10.8) K/uL RBC 3.04 L (4.7-6.1) M/uL Hgb 8.2 L (14.0-18.0) g/dL Hct 25.9 L (42-52) % MCV 85.2 (80-100) fL MCH 27.0 (25-34) pg MCHC 31.7 L (32-36) g/dL RDW Std Deviation 42.8 (36.4-46.3) fL RDW Coeff of Julia 13.7 (11.5-14.5) % Plt Count 211 (130-400) K/uL MPV 9.2 (7.4-10.4) fL Immature Gran % (Auto) 0.1 % Neut % (Auto) 79.5 % Lymph % (Auto) 10.1 % Whitman % (Auto) 8.8 % Eos % (Auto) 1.3 % Baso % (Auto) 0.2 % Neut # (Auto) 6.59 H (1.4-6.5) K/uL Lymph # (Auto) 0.84 L (1.2-3.4) K/uL Whitman # (Auto) 0.73 H (0.11-0.59) K/uL Eos # (Auto) 0.11 (0-0.5) K/uL Baso # (Auto) 0.02 (0-0.2) K/uL Immature Gran # (Auto) 0.01 (0.00-0.02) K/uL Sodium 135 L (136-145) mmol/L Potassium 4.5 (3.5-5.1) mmol/L Chloride 107 (98-107) mmol/L Carbon Dioxide 20 L (21-32) mmol/L Anion Gap 8.0 (3-11) BUN 32 H (7-18) mg/dl Creatinine 1.86 H (0.6-1.4) mg/dl Est Cr Clr Drug Dosing 25.7 ml/min Est GFR ( Amer) 37.1 Est GFR (Non-Af Amer) 32.0 BUN/Creatinine Ratio 17.4 (10-20) Glucose 143 H (70-99) mg/dl Calcium 8.7 (8.5-10.1) mg/dl Phosphorus 3.5 (2.5-4.9) mg/dl Magnesium 2.5 H (1.8-2.4) mg/dl Total Bilirubin 0.4 (0.2-1) mg/dl AST 12 L (15-37) U/L ALT 18 (12-78) U/L Alkaline Phosphatase 70 (45-117) U/L Troponin I < 0.015 (0-0.045) ng/ml NT-Pro-B Natriuret Pep 1806 H (0-1800) pg/ml Total Protein 7.0 (6.4-8.2) gm/dl Albumin 3.5 (3.4-5.0) gm/dl Globulin 3.5 (2.5-4.0) gm/dl Albumin/Globulin Ratio 1.0 (0.9-2) Urine Color Urine Appearance (Clear) Urine pH (4.5-7.5) Ur Specific [place] (1.000-1.030) Urine Protein (Negative) Urine Glucose (UA) (Negative) Urine Ketones (Negative) Urine Blood (Negative) Urine Nitrite (Negative) Urine Bilirubin (Negative) Urine Urobilinogen (Negative) Ur Leukocyte Esterase (Negative) Urine WBC (Auto) (0-5) /hpf Urine RBC (Auto) (0-4) /hpf U Hyaline Cast (Auto) (0-5) /lpf U Epithel Cells (Auto) (0-5) /lpf Urine Bacteria (Auto) (Negative) COVID-19 Eval Order 06/18/20 06/18/20 Range/Units 20:17 20:30 WBC (4.8-10.8) K/uL RBC (4.7-6.1) M/uL Hgb (14.0-18.0) g/dL Hct (42-52) % MCV (80-100) fL MCH (25-34) pg MCHC (32-36) g/dL RDW Std Deviation (36.4-46.3) fL RDW Coeff of Julia (11.5-14.5) % Plt Count (130-400) K/uL MPV (7.4-10.4) fL Immature Gran % (Auto) % Neut % (Auto) % Lymph % (Auto) % Whitman % (Auto) % Eos % (Auto) % Baso % (Auto) % Neut # (Auto) (1.4-6.5) K/uL Lymph # (Auto) (1.2-3.4) K/uL Whitman # (Auto) (0.11-0.59) K/uL Eos # (Auto) (0-0.5) K/uL Baso # (Auto) (0-0.2) K/uL Immature Gran # (Auto) (0.00-0.02) K/uL Sodium (136-145) mmol/L Potassium (3.5-5.1) mmol/L Chloride (98-107) mmol/L Carbon Dioxide (21-32) mmol/L Anion Gap (3-11) BUN (7-18) mg/dl Creatinine (0.6-1.4) mg/dl Est Cr Clr Drug Dosing ml/min Est GFR ( Amer) Est GFR (Non-Af Amer) BUN/Creatinine Ratio (10-20) Glucose (70-99) mg/dl Calcium (8.5-10.1) mg/dl Phosphorus (2.5-4.9) mg/dl Magnesium (1.8-2.4) mg/dl Total Bilirubin (0.2-1) mg/dl AST (15-37) U/L ALT (12-78) U/L Alkaline Phosphatase (45-117) U/L Troponin I (0-0.045) ng/ml NT-Pro-B Natriuret Pep (0-1800) pg/ml Total Protein (6.4-8.2) gm/dl Albumin (3.4-5.0) gm/dl Globulin (2.5-4.0) gm/dl Albumin/Globulin Ratio (0.9-2) Urine Color Yellow Urine Appearance Cloudy A (Clear) Urine pH 6.0 (4.5-7.5) Ur Specific [place] 1.014 (1.000-1.030) Urine Protein Negative (Negative) Urine Glucose (UA) Negative (Negative) Urine Ketones Negative (Negative) Urine Blood Negative (Negative) Urine Nitrite Positive A (Negative) Urine Bilirubin Negative (Negative) Urine Urobilinogen Negative (Negative) Ur Leukocyte Esterase 1+ H (Negative) Urine WBC (Auto) 10-30 H (0-5) /hpf Urine RBC (Auto) 0-4 (0-4) /hpf U Hyaline Cast (Auto) 10-30 H (0-5) /lpf U Epithel Cells (Auto) >30 H (0-5) /lpf Urine Bacteria (Auto) 4+ H (Negative) COVID-19 Eval Order CovFluRsv at [facility] PG Care Time/CCT Total # of Minutes Spent Total Time Spent with Patient: Total time spent is greater than 50% in coordination of care (as documented) at patient's floor/unit and/or counseling patient: Coding Level of Care Code 94735 Initial Inpt Care Lvl 3 Diagnoses Edema R60.9 Edema type: unspecified Atrial fibrillation I48.91 Atrial fibrillation type: unspecified Hypertension I10 Hypertension type: essential hypertension Anemia D64.9 Anemia type: unspecified type Benign prostatic hyperplasia with urinary obstruction N40.1; N13.8 Type 2 diabetes mellitus E11.9 Diabetes mellitus complication status: without complication Diabetes mellitus care home insulin use: without care home use Hypothyroidism E03.9 Hypothyroidism type: unspecified Dementia F03.90 Dementia type: unspecified type Dementia behavioral disturbance: without behavioral disturbance UTI (urinary tract infection) N39.0 Urinary tract infection type: site unspecified Hematuria presence: without hematuria (1) Type 2 diabetes mellitus Diabetes mellitus complication status: without complication Diabetes mellitus care home insulin use: without intermission coordinator use Qualified Code(s): E11.9 - Type 2 diabetes mellitus without complications (2) Anemia Anemia type: unspecified type Qualified Code(s): D64.9 - Anemia, unspecified (3) Atrial fibrillation Atrial fibrillation type: unspecified Qualified Code(s): I48.91 - Unspecified atrial fibrillation (4) Edema Edema type: unspecified Qualified Code(s): R60.9 - Edema, unspecified (5) Hypothyroidism Hypothyroidism type: unspecified Qualified Code(s): E03.9 - Hypothyroidism, unspecified (6) Hypertension Hypertension type: essential hypertension Qualified Code(s): I10 - Essential (primary) hypertension (7) Dementia Dementia type: unspecified type Dementia behavioral disturbance: without behavioral disturbance Qualified Code(s): F03.90 - Unspecified dementia without behavioral disturbance (8) UTI (urinary tract infection) Urinary tract infection type: site unspecified Hematuria presence: without hematuria Qualified Code(s): N39.0 - Urinary tract infection, site not specified
[2020-06-18 21:25] LABS: Influenza A virus by PCR Negative (Neg); Influenza B virus by PCR Negative (Neg); RSV by PCR Negative (Neg); SARS CoV2 RNA(COVID-19) InHosp NEGATIVE (Negative)
[2020-06-18] MEDS ORDERED: GLUCAGON FOR INJ 1 MG VIAL SQ PRN (22:26)
[2020-06-18] MEDS ORDERED: CARBOHYDRATES FOR HYPOGLYCEMIA PO PRN (22:26)
[2020-06-18] MEDS ORDERED: GLUCOSE 40% GEL 15 GM TUBE PO PRN (22:26)
[2020-06-18] MEDS ORDERED: DEXTROSE 50% 50 ML SYRINGE IV PRN (22:26)
[2020-06-18] MEDS ORDERED: ACETAMINOPHEN 325 MG TAB PO PRN (22:26)
[2020-06-18] MEDS ORDERED: GLUCOSE 10 TABS/TUBE PO PRN (22:26)
[2020-06-18] MEDS ORDERED: ONDANSETRON INJ 2 MG/ML 2 ML VIAL IV PRN (22:26)
[2020-06-19] MEDS: DABIGATRAN ETEXILATE 75 MG CAP PO SCH ×3 (00:09→20:54)
[2020-06-19] MEDS: TAMSULOSIN HCL 0.4 MG CAP PO SCH ×2 (00:09→20:54)
[2020-06-19] MEDS: FINASTERIDE 5 MG TAB PO SCH ×2 (00:10→20:55)
[2020-06-19] MEDS: INSULIN ASPART 100 UNITS/ML 3 ML PEN SC SCH ×5 (00:33→20:55)
[2020-06-19] MEDS: LEVOTHYROXINE SODIUM 50 MCG TABLET PO SCH (05:56)
[2020-06-19 06:02] LABS: Basophils # (auto) 0.02 K/uL (0-0.2); Basophils % (auto) 0.3 %; Eosinophils # (auto) 0.12 K/uL (0-0.5); Eosinophils % (auto) 2.1 %; Hematocrit (blood only) 24.5 % (42-52); Hemoglobin 7.8 g/dL (14.0-18.0); Immature Granulocytes # (auto) 0.01 K/uL (0.00-0.02); Immature Granulocytes % (auto) 0.2 %; Lymphocytes # (auto) 0.83 K/uL (1.2-3.4); Lymphocytes % (auto) 14.3 %; Mean Corpuscular Hemoglobin 27.1 pg (25-34); Mean Corpuscular Hgb Conc 31.8 g/dL (32-36); Mean Corpuscular Volume 85.1 fL (80-100); Mean Platelet Volume 8.6 fL (7.4-10.4); Monocytes # (auto) 0.54 K/uL (0.11-0.59); Monocytes % (auto) 9.3 %; Neutrophils # (auto) 4.29 K/uL (1.4-6.5); Neutrophils % (auto) 73.8 %; Platelet Count 176 K/uL (130-400); RDW Coefficient of Variation 13.6 % (11.5-14.5); RDW Standard Deviation 42.4 fL (36.4-46.3); Red Blood Count 2.88 M/uL (4.7-6.1); White Blood Count 5.81 K/uL (4.8-10.8)
[2020-06-19 06:23] LABS: Acanthocytes 1+
[2020-06-19 06:36] LABS: BUN Creatinine Ratio 19.9 (10-20); Calcium 8.2 mg/dl (8.5-10.1); Creatinine Clr Calc Pharmacy 30.5 ml/min; Est GFR (African American) 45.6; Est GFR (Non-African American) 39.3
[2020-06-19] MEDS ORDERED: SODIUM CHLORIDE 0.9% 250 ML IV PRN (08:16)
[2020-06-19] MEDS: GALANTAMINE HYDROBROMIDE 8 MG CAPER PO SCH (08:17)
[2020-06-19] MEDS: FUROSEMIDE 20 MG in SYRINGE 0 ML IV SCH ×2 (08:18→16:55)
[2020-06-19] MEDS: PANTOprazole 40 MG TAB PO SCH (08:18)
[2020-06-19] MEDS: dilTIAZem HCL 180 MG CAPCR PO SCH (08:25)
[2020-06-19] MEDS ORDERED: dilTIAZem HCL 180 MG CAPCR PO SCH (09:00)
[2020-06-19] MEDS: cefTRIAXone SODIUM 1,000 MG in DEXTROSE 5% 50 ML IV SCH (09:35)
--- NOTE | 2020-06-19 11:24 | XCELERA ---
[id number]
--- NOTE | 2020-06-19 13:39 | Hospitalist Progress Note ---
Date of Service June 19, 2020 Assessment & Plan (1) Edema: Appears to be due to acute on chronic diastolic congestive heart failure. Good response to parenteral Lasix so far. Cardiac echo reveals normal ejection fraction with no regional wall motion abnormalities. (2) Atrial fibrillation: Somewhat bradycardic on admission. Diltiazem dose has been down titrated. Amlodipine has been discontinued. Continue Pradaxa anticoagulation. Telemetry (3) Hypertension: Stable. Diltiazem has been down titrated due to somewhat slow heart rate. Amlodipine has been discontinued as this may be contributing to the peripheral edema. Monitor BP (4) Anemia: Hemoglobin has decreased to 7.8. He consents to 2 units packed red blood cells today. No evidence of overt GI blood loss. Serial labs ordered. 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 Valencia catheter placed in ER without difficulty. -Continue Finasteride 5mg po qPM -Continue Flomax 0.4mg po qHS (6) Type 2 diabetes mellitus: Hgb A1C on 02/26/20 = 5.7. ADA diet. Sliding scale coverage. Metformin currently on hold. (7) Hypothyroidism: TSH within normal limits at 4.06 -Continue Synthroid 50mcg po daily (8) Dementia: Chronic. Patient very hard of hearing as well -Continue Galantamine daily -Frequent orientation -Delirium prevention strategies (9) UTI (urinary tract infection): +UA, patient with history of BPH -Await culture -Continue ceftriaxone 1gm IV daily F/E/N- Diuresis with Lasix 20mg IV BID, electrolytes WNL, CC/AHA diet Ppx - On Dabigatran. Continue home Protonix Code - Full Dispo -eventual discharge to home Admission and Anticipated Discharge Date Admission Date: June 18, 2020 Subjective Very hard of hearing and difficult to communicate with. Overall he is stable and he has diuresed quite a bit with parenteral Lasix. Hemoglobin is 7.8 and he has agreed to receive 2 units packed red blood cells today. Creatinine trending downward. He remains on Rocephin. Urine culture results are pending however. Diltiazem dosage has been decreased due to atrial fibrillation with somewhat slow ventricular rate. Amlodipine discontinued on admission. Cardiac echo done today reveals normal ejection fraction with no regional wall motion abnormalities. OT and PT assessments requested. Review of Systems Review of Systems: All systems reviewed & are unremarkable except as noted in HPI & below Physical Exam Physical Exam: General-alert and oriented x3, no fevers, no chills HEENT-head atraumatic and normocephalic, TMs intact bilaterally, pupils equal and reactive to light, extraocular muscles intact. Hard of hearing Neck-no lymphadenopathy or thyromegaly, trachea midline Chest-faint bibasilar inspiratory rales. No dullness to percussion. No wheezing Cardiac-regular rate and rhythm, normal S1 and S2 Abdomen-normal bowel sounds, nontender, no hepatosplenomegaly [id number]+ pitting edema bilateral lower extremities below the knees . He also has evidence of chronic venous stasis changes Neuro-cranial nerves II through XII intact, motor and sensory function within normal limits, strength symmetrical , no focal deficits Psych-normal affect, normal mood Results & Data Results & Data ([facility]) Vital Signs (Past 12 Hours) Vital Signs Temp Pulse Pulse Pulse Resp BP BP 06/19/20 13:15 36.7 C 58 L 18 109/63 06/19/20 13:00 36.7 C 66 16 110/63 06/19/20 12:39 36.6 C 66 18 107/59 L 06/19/20 11:12 36.7 C 57 L 16 108/59 L 06/19/20 08:17 85 06/19/20 07:35 36.8 C 53 L 16 113/64 06/19/20 04:04 36.8 C 79 18 111/68 Pulse Ox 06/19/20 13:15 99 06/19/20 13:00 99 06/19/20 12:39 99 06/19/20 11:12 99 06/19/20 08:17 06/19/20 07:35 96 06/19/20 04:04 95 Laboratory Results 06/19/20 05:19 06/19/20 05:19 PG Care Time/CCT Total # of Minutes Spent Total Time Spent with Patient: Total time spent is greater than 50% in coordination of care (as documented) at patient's floor/unit and/or counseling patient: Coding Level of Care Code 99735 Subseq Hosp Care Lvl 3 Diagnoses Edema R60.9 Edema type: unspecified Atrial fibrillation I48.91 Atrial fibrillation type: unspecified Hypertension I10 Hypertension type: essential hypertension Anemia D64.9 Anemia type: unspecified type Benign prostatic hyperplasia with urinary obstruction N40.1; N13.8 Type 2 diabetes mellitus E11.9 Diabetes mellitus care home insulin use: without care home use Diabetes mellitus complication status: without complication Hypothyroidism E03.9 Hypothyroidism type: unspecified Dementia F03.90 Dementia type: unspecified type Dementia behavioral disturbance: without behavioral disturbance UTI (urinary tract infection) N39.0 Urinary tract infection type: site unspecified Hematuria presence: without hematuria (1) Edema Edema type: unspecified Qualified Code(s): R60.9 - Edema, unspecified (2) Atrial fibrillation Atrial fibrillation type: unspecified Qualified Code(s): I48.91 - Unspecified atrial fibrillation (3) Hypertension Hypertension type: essential hypertension Qualified Code(s): I10 - Essential (primary) hypertension (4) Anemia Anemia type: unspecified type Qualified Code(s): D64.9 - Anemia, unspecified (5) Type 2 diabetes mellitus Diabetes mellitus care home insulin use: without care home use Diabetes mellitus complication status: without complication Qualified Code(s): E11.9 - Type 2 diabetes mellitus without complications (6) Hypothyroidism Hypothyroidism type: unspecified Qualified Code(s): E03.9 - Hypothyroidism, unspecified (7) Dementia Dementia type: unspecified type Dementia behavioral disturbance: without behavioral disturbance Qualified Code(s): F03.90 - Unspecified dementia without behavioral disturbance (8) UTI (urinary tract infection) Urinary tract infection type: site unspecified Hematuria presence: without hematuria Qualified Code(s): N39.0 - Urinary tract infection, site not specified
--- NOTE | 2020-06-19 14:35 | Electrocardiogram Report ---
Test Reason : Blood Pressure : / mmHG Vent. Rate : 052 BPM Atrial Rate : 267 BPM P-R Int : 000 ms QRS Dur : 074 ms QT Int : 436 ms P-R-T Axes : 000 -03 071 degrees QTc Int : 405 ms Probable Junctional bradycardia Low voltage QRS Cannot rule out Anterior infarct (cited on or before 15-JUL-2016) Abnormal ECG When compared with ECG of 19-APR-2019 18:03, T wave inversion more evident in Anterior leads Confirmed by Jayy Beatty ([id number]) on 06/19/2020 2:35:27 PM Referred By: Braeden Sultana Confirmed By:Jayy Beatty
[2020-06-20] MEDS: LEVOTHYROXINE SODIUM 50 MCG TABLET PO SCH (05:49)
[2020-06-20 07:30] LABS: Basophils # (auto) 0.04 K/uL (0-0.2); Basophils % (auto) 0.6 %; Eosinophils # (auto) 0.13 K/uL (0-0.5); Eosinophils % (auto) 2.1 %; Hemoglobin 10.2 g/dL (14.0-18.0); Lymphocytes # (auto) 0.83 K/uL (1.2-3.4); Lymphocytes % (auto) 13.5 %; Mean Corpuscular Hemoglobin 27.3 pg (25-34); Mean Corpuscular Hgb Conc 32.9 g/dL (32-36); Mean Corpuscular Volume 82.9 fL (80-100); Mean Platelet Volume 8.7 fL (7.4-10.4); Monocytes # (auto) 0.71 K/uL (0.11-0.59); Monocytes % (auto) 11.5 %; Neutrophils # (auto) 4.45 K/uL (1.4-6.5); Neutrophils % (auto) 72.3 %; Platelet Count 180 K/uL (130-400); RDW Coefficient of Variation 13.9 % (11.5-14.5); RDW Standard Deviation 42.8 fL (36.4-46.3); Red Blood Count 3.74 M/uL (4.7-6.1); White Blood Count 6.16 K/uL (4.8-10.8)
[2020-06-20 08:02] LABS: BUN Creatinine Ratio 18.2 (10-20); Calcium 8.4 mg/dl (8.5-10.1); Creatinine Clr Calc Pharmacy 32.6 ml/min; Est GFR (African American) 49.4; Est GFR (Non-African American) 42.6; Potassium 3.6 mmol/L (3.5-5.1)
[2020-06-20] MEDS: dilTIAZem HCL 180 MG CAPCR PO SCH (08:03)
[2020-06-20] MEDS: GALANTAMINE HYDROBROMIDE 8 MG CAPER PO SCH (08:03)
[2020-06-20] MEDS: FUROSEMIDE 20 MG in SYRINGE 0 ML IV SCH (08:04)
[2020-06-20] MEDS: PANTOprazole 40 MG TAB PO SCH (08:04)
[2020-06-20] MEDS: DABIGATRAN ETEXILATE 75 MG CAP PO SCH (08:04)
[2020-06-20] MEDS: cefTRIAXone SODIUM 1,000 MG in DEXTROSE 5% 50 ML IV SCH (08:05)
[2020-06-20] MEDS: INSULIN ASPART 100 UNITS/ML 3 ML PEN SC SCH ×2 (08:11→12:12)
--- NOTE | 2020-06-20 11:44 | Hospitalist Progress Note ---
Date of Service June 20, 2020 Assessment & Plan (1) Edema: Appears to be due to acute on chronic diastolic congestive heart failure. Resolved with parenteral Lasix . Cardiac echo reveals normal ejection fraction with no regional wall motion abnormalities. (2) Atrial fibrillation: Somewhat bradycardic on admission. Diltiazem dose has been down titrated. Amlodipine has been discontinued. Continue Pradaxa anticoagulation. Telemetry . Improved (3) Hypertension: Stable. Diltiazem has been down titrated due to somewhat slow heart rate. Amlodipine has been discontinued as this may be contributing to the peripheral edema. Monitor BP (4) Anemia: Hemoglobin better after 2 units packed red blood cells 06/19. No evidence of overt GI blood loss. Serial labs ordered. 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 Valencia catheter placed in ER without difficulty. Will remove at discharge -Continue Finasteride 5mg po qPM -Continue Flomax 0.4mg po qHS (6) Type 2 diabetes mellitus: Hgb A1C on 02/26/20 = 5.7. ADA diet. Sliding scale coverage. Metformin currently on hold. restart at discharge (7) Hypothyroidism: TSH within normal limits at 4.06 -Continue Synthroid 50mcg po daily (8) Dementia: Chronic. Patient very hard of hearing as well -Continue Galantamine daily -Frequent orientation -Delirium prevention strategies (9) UTI (urinary tract infection): +UA, patient with history of BPH -Await culture -Treated with ceftriaxone 1gm IV daily F/E/N- Diuresis with Lasix 20mg IV BID, electrolytes WNL, CC/AHA diet Ppx - On Dabigatran. Continue home Protonix Code - Full Dispo - discharge to home today, 06/20 Admission and Anticipated Discharge Date Admission Date: June 18, 2020 Subjective Adamant about leaving today and fortunately he is ready for discharge. Hgb acceptable after transfusion. CHF resolved. Valencia will be removed. Review of Systems Review of Systems: All systems reviewed & are unremarkable except as noted in HPI & below Physical Exam Constitutional: WD/WN, vitals as above Eyes: PERRL, conjunctivae normal, anicteric sclerae ENMT: external ear and nose normal, oropharynx normal Neck: trachea midline, no thyromegaly Respiratory: normal respiratory effort, lungs clear to auscultation Cardiovascular: Rate/Rhythm: regular rate and regular rhythm Gastrointestinal (Abdomen): normal bowel sounds, soft, nontender, no hepatosplenomegaly Musculoskeletal: no cyanosis or clubbing, extremities motor strength 5/5 Skin: no rashes, warm and dry Neurologic: CN's II-XI intact bilaterally and moves all extremities Psychiatric: A+Ox3, euthymic affect Results & Data Results & Data ([facility]) Vital Signs (Past 12 Hours) Vital Signs Temp Pulse Pulse Resp BP Pulse Ox 06/20/20 11:29 36.9 C 88 18 134/83 99 06/20/20 07:58 36.9 C 61 19 124/72 97 06/20/20 07:14 58 L 06/20/20 03:59 36.7 C 81 16 120/73 95 06/20/20 00:02 81 Laboratory Results 06/20/20 07:06 06/20/20 07:06 PG Care Time/CCT Total # of Minutes Spent Total Time Spent with Patient: Total time spent is greater than 50% in c oordination of care (as documented) at patient's floor/unit and/or counseling patient: Coding Level of Care Code 58018 Subseq Hosp Care Lvl 3 Diagnoses Edema R60.9 Edema type: unspecified Atrial fibrillation I48.91 Atrial fibrillation type: unspecified Hypertension I10 Hypertension type: essential hypertension Anemia D64.9 Anemia type: unspecified type Benign prostatic hyperplasia with urinary obstruction N40.1; N13.8 Type 2 diabetes mellitus E11.9 Diabetes mellitus ocean transportation intermediary insulin use: without ocean transportation intermediary use Diabetes mellitus complication status: without complication Hypothyroidism E03.9 Hypothyroidism type: unspecified Dementia F03.90 Dementia type: unspecified type Dementia behavioral disturbance: without behavioral disturbance UTI (urinary tract infection) N39.0 Urinary tract infection type: site unspecified Hematuria presence: without hematuria (1) Edema Edema type: unspecified Qualified Code(s): R60.9 - Edema, unspecified (2) Atrial fibrillation Atrial fibrillation type: unspecified Qualified Code(s): I48.91 - Unspecified atrial fibrillation (3) Hypertension Hypertension type: essential hypertension Qualified Code(s): I10 - Essential (primary) hypertension (4) Anemia Anemia type: unspecified type Qualified Code(s): D64.9 - Anemia, unspecified (5) Type 2 diabetes mellitus Diabetes mellitus ocean transportation intermediary insulin use: without ocean transportation intermediary use Diabetes mellitus complication status: without complication Qualified Code(s): E11.9 - Type 2 diabetes mellitus without complications (6) Hypothyroidism Hypothyroidism type: unspecified Qualified Code(s): E03.9 - Hypothyroidism, unspecified (7) Dementia Dementia type: unspecified type Dementia behavioral disturbance: without behavioral disturbance Qualified Code(s): F03.90 - Unspecified dementia without behavioral disturbance (8) UTI (urinary tract infection) Urinary tract infection type: site unspecified Hematuria presence: without hematuria Qualified Code(s): N39.0 - Urinary tract infection, site not specified
--- NOTE | 2020-06-27 10:04 | Coding Query ---
CHRONIC KIDNEY DISEASE To promote full compliance with coding requirements relating to patient care, physician participation is requested in all cases of devil dog uncertainty. Please assist us with the question(s) below: Coding Question(s): The record reflects the following clinical findings: The ER H&P Documents CKD (Chronic Kidney Disease), this is not documented past the ER H&P. Please specify the known or suspected type by placing an "X" within the parenthesis (x). If other, please document type. Please document Staging if known: ( ) Stage I >90 Kidney damage with normal or elevated GFR. ( ) Stage II 60-89 Kidney damage with mildly decreased kidney function ( x) Stage III 30-59 Moderately decreased kidney function ( ) Stage IV 15-29 Severely decreased kidney function ( ) Stage V <15 Renal failure (or dialysis) ( ) End Stage ( ) Unknown ( ) Ruled-Out Thank you Asiya STEVE
--- NOTE | 2020-07-18 14:04 | Discharge Summary ---
Date of Service July 18, 2020 Admission HPI Per Admitting Provider Jude Mckeon is an 84yo C male with history of atrial fibrillation on Dabigatran anticoagulation presenting with one week of worsening LE and scrotal edema. Symptoms have been progressive x 1 week. also notes patient becomes tired more easily as well as some dyspnea with exertion. Patient denies chest pain, palpitations, cough, SOB, abdominal pain, nausea, vomiting, diarrhea or constipation. No additional complaints at this time. Patient was seen by his PCP today with this complaint. He was to be changed from HCTZ 25mg daily to Lasix 20mg po daily to start tomorrow AM. He reports weighing 165# today at his PCPs office. He is unsure of his dry weight. He has had history of LE edema in the past, however, not as severe as today. ER Course: Lasix 20mg IV Principal Diagnosis Acute on chronic diastolic congestive heart failure, atrial fibrillation, anemia Discharge Data Allergies Allergy/AdvReac Type Severity Reaction Status Date / Time zinc Allergy Intermediate ITCHY Verified 06/27/20 09:18 Consultations 06/18/20 20:11 ED Decision to Admit Stat Hospital Course (1) Edema: Appears to be due to acute on chronic diastolic congestive heart failure. Resolved with parenteral Lasix . Cardiac echo reveals normal ejection fraction with no regional wall motion abnormalities. (2) Atrial fibrillation: Somewhat bradycardic on admission. Diltiazem dose has been down titrated. Amlodipine has been discontinued. Continue Pradaxa anticoagulation. Telemetry . Improved (3) Hypertension: Stable. Diltiazem has been down titrated due to somewhat slow heart rate. Amlodipine has been discontinued as this may be contributing to the peripheral edema. Monitor BP (4) Anemia: Hemoglobin better after 2 units packed red blood cells 06/19. No evidence of overt GI blood loss. Serial labs ordered. 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 Valencia catheter placed in ER without difficulty. Will remove at discharge -Continue Finasteride 5mg po qPM -Continue Flomax 0.4mg po qHS (6) Type 2 diabetes mellitus: Hgb A1C on 02/26/20 = 5.7. ADA diet. Sliding scale coverage. Metformin currently on hold. restart at discharge (7) Hypothyroidism: TSH within normal limits at 4.06 -Continue Synthroid 50mcg po daily (8) Dementia: Chronic. Patient very hard of hearing as well -Continue Galantamine daily -Frequent orientation -Delirium prevention strategies (9) UTI (urinary tract infection): +UA, patient with history of BPH -Await culture -Treated with ceftriaxone 1gm IV daily F/E/N- Diuresis with Lasix 20mg IV BID, electrolytes WNL, CC/AHA diet Ppx - On Dabigatran. Continue home Protonix Code - Full Dispo - discharge to home today, 06/20 Total Time Total Time Spent Total Time Spent (In Minutes): 35 minutes Total Time Includes: Examination of the Patient, Discharge Planning and Medication Reconciliation Discharge Plan Discharge Items Patient Disposition: Home - Self-Care Reason For Visit: EDEMA Discharge Diagnosis: Acute diastolic CHF, UTI, chronic atrial fib with bradycardia Activity: Resume your previous activity Non-emergency contact: Primary Care Provider Call non-emergency contact if: you have any medication questions and your symptoms worsen Follow-up/Referrals: Braeden Sultana III, CRNP [Primary Care Provider] - 06/27/20 9:20 am Diet: Carb Consistent or DM2 and Heart Healthy Addtl Attending Provider Instructions: Amlodipine has been discontinued. Diltiazem dose has been decreased Pending Studies at Discharge: No Stand-Alone Forms: My [facility] [place] [employer], Smoking Cessation Medications and DC Order Prescriptions: New diltiazem HCl 180 mg Capsule,Extended Release 24hr 180 mg PO QAM Qty: 30 RF: 0 amoxicillin 875 mg tablet 875 mg PO BID Qty: 14 RF: 0 Continued levothyroxine 50 mcg tablet 50 mcg PO QAM Qty: 90 RF: 1 galantamine 24 mg capsule,ext rel. pellets 24 hr 24 mg PO QAM Qty: 90 RF: 1 Pradaxa 150 mg capsule 150 mg PO BID Qty: 180 RF: 1 finasteride 5 mg tablet 5 mg PO QPM Qty: 90 RF: 3 furosemide 20 mg tablet 20 mg PO DAILY Qty: 30 RF: 2 tamsulosin 0.4 mg capsule 0.4 mg PO HS RF: 0 pantoprazole [Protonix] 40 mg tablet,delayed release (DR/EC) 40 mg PO QAM RF: 0 Discontinued amlodipine 2.5 mg tablet 2.5 mg PO HS Qty: 90 RF: 1 diltiazem HCl 360 mg capsule,extended release 24 hr 360 mg PO QAM RF: 0 No Action metformin 500 mg tablet 500 mg PO BID Qty: 180 RF: 1 Discharge Orders: Discharge Order (Routine); Ordered 06/20/20 Ordered By: Jae Sanford Admission Data Admit Date/Time: 06/18/20 20:52 Attending Provider: Jae Sanford Admit Provider: Shaniqua Kim Primary Care Provider: Braeden Sultana III Other Interventions: Discharge Summary Assessment (RN) Last Done: 06/20/20 12:00 Coding Level of Care Code D/C Day Management >30 mins Diagnoses Edema R60.9 Edema type: unspecified Atrial fibrillation I48.91 Atrial fibrillation type: unspecified Hypertension I10 Hypertension type: essential hypertension Anemia D64.9 Anemia type: unspecified type Benign prostatic hyperplasia with urinary obstruction N40.1; N13.8 Type 2 diabetes mellitus E11.9 Diabetes mellitus manager long term care insulin use: without manager long term care use Diabetes mellitus complication status: without complication Hypothyroidism E03.9 Hypothyroidism type: unspecified Dementia F03.90 Dementia type: unspecified type Dementia behavioral disturbance: without behavioral disturbance UTI (urinary tract infection) N39.0 Urinary tract infection type: site unspecified Hematuria presence: without hematuria
== END 2020-06-20 13:20 | disposition home or self-care (01) | DRG 291 ==
LOC: ED 18:14 → 2N 20:52 → SUATTDRO 20:52 → 2N 21:53

== ENCOUNTER 2020-09-02 12:49 | Inpatient (IN) ==
[2020-09-02] MEDS ORDERED: PANTOPRAZOLE BOLUS/DRIP 1 EA IV STA (14:27)
[2020-09-02] MEDS ORDERED: PANTOprazole 80 MG in DEXTROSE 5% 100 ML IV ONE (14:27)
--- NOTE | 2020-09-02 14:41 | Emergency Department Note ---
Impression & Plan Peripheral edema, Anemia, CKD (chronic kidney disease) ED Provider Note NAME: NARINDER ALMANZA AGE: 85 SEX: M : 1935 ARRIVES VIA: Walk-In INFORMANT: Patient, ED PROVIDER(S): Domenic Fisher MD CHIEF COMPLAINT: Anemia HPI: This is an 85-year-old male sent in by his primary care physician over concerns of the patient's blood counts have dropped. The patient himself has no complaints. He denies any chest pain or abdominal pain. He does admit to general weakness that is made worse with movement. He reports rest makes the weakness better. The patient has previously needed blood for GI bleed although the site of the blood has never been found. ROS: See above HPI for pertinent positives & negatives. A total of 10 systems reviewed and were otherwise negative. PAST MEDICAL HISTORY: See Below PAST SURGICAL HISTORY: See Below FAMILY HISTORY: See Below SOCIAL HISTORY: See Below HOME MEDICATIONS: See Below ALLERGIES: See Below VITALS: See Below PHYSICAL EXAMINATION: VITAL SIGNS - Vital signs and nursing notes were reviewed. GENERAL - 85-year-old male appearing stated age who is in no acute distress. Communicates well with provider and answers questions appropriately. SKIN - Without rashes. HEAD - NC/AT. EYES - PERRL with EOMI bilaterally. Sclera anicteric. Palpebral conjunctiva pink and moist with no injection noted. EARS - No deformities of external structures noted on gross examination bilaterally. NOSE - Midline and without cyanosis. No epistaxis or purulent drainage noted. Septum midline without deviation or septal hematoma noted. MOUTH/OROPHARYNX - Without perioral cyanosis. Buccal mucosa pink and moist and without leukoplakia. Tongue midline with equal elevation of palate bilaterally. No tonsillar hypertrophy, erythema, or exudates noted. NECK - Neck with FROM. Supple to palpation. No nuchal rigidity. LUNGS - Chest wall symmetric without accessory muscle use, intercostals retractions, or central cyanosis. Normal vesicular breath sounds CTA B/L. No wheezes, rales, or rhonchi appreciated. CARDIAC - RRR with S1/S2. No murmur, rubs, or gallops appreciated. ABDOMEN - Abdominal contour BS normoactive all four quadrants. No tenderness, palpable masses, hepatosplenomegaly, or ascites noted. RECTAL - Brown stool heme positive EXTREMITIES - No clubbing or peripheral cyanosis. No pretibial edema present. +3/5 radial, posterior tibial, and dorsalis pedis pulses palpated throughout. +5/5 strength noted in UE/LE bilaterally. NEUROLOGIC - Cranial nerves II through XII grossly intact. Sensory intact to light touch throughout. Patellar reflexes +2/4. PSYCH - A&Ox3 and cooperates fully with examiner. Pt is very pleasant and in teracts well with examiner. MEDICAL DECISION MAKING: Patient was seen and evaluated as above in room A2. Review was performed of nursing notes and vital signs. I did review pertinent previous visits and patient history. After obtaining a thorough history and physical examination the above work up was performed. This is an 85-year-old male sent in for a GI bleed and anemia. The patient was typed and screened for 1 unit of packed red blood cells. He was started on Protonix bolus and drip. Patient's blood consent was signed and placed on the chart by the patient's . Patient himself verbally agrees to a blood transfusion. I did discuss the case with the hospitalist service who did agree to admit the patient. An order was placed for continuous cardiac monitoring. The monitor shows a rate of 80 with A fib rhythm. The patient was evaluated during a period of high volume and high acuity during the global COVID-19 pandemic, and that diagnosis was suspected/considered upon their initial presentation. Their evaluation, treatment and testing was consistent with current guidelines for patients who present with complaints or symptoms that may be related to COVID-19. Patient was seen while provider was wearing PPE. Triage Nursing notes reviewed. Prior medical records reviewed Vital Signs: reviewed and remarkable for no significant abnormalities Differential diagnosis: Diverticulosis, AVM, coagulopathy, colitis, inflammatory bowel disease, malignancy, Rayna-Noe tear, esophagitis, peptic ulcer disease, variceal bleed, gastritis, epistaxis, fissure, hemorrhoids, as well as other pathologies. ER treatment provided: See below Diagnostics interpreted by me: ECG: EKG shows A. fib with PVC inferior infarct anterior septal infarct QTC is 445 ventricular rate is 88, EKG is compared to 06/18/2020 A. fib has replaced junctional rhythm. Laboratory studies: As stated above and show below. Imaging studies: See below Consultation(s): Internal Medicine ED COURSE: Critical Care: I have personally spent greater than 30 minutes of critical care time in the direct management of this patient. This includes bedside care, interpretation of diagnostic studies, and testing, discussion with consultants, patient, and family members, and other required patient management activities. This 30 minutes is in excess of all separately billable procedures. 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 Berry Case Family History Brother Coronary arteriosclerosis Mother Myocardial infarction Heart disease Father Myocardial infarction Heart disease Denies family history of Colon cancer Ovarian cancer Prostate cancer Breast cancer Social History Smoking Status: Former smoker Age Quit Using Tobacco: 58; Second Hand Exposure: No; Hx Alcohol Use: No Hx Substance Use: No Preferred Language: Hebrew Communication Ability: Impaired Visual Impairment: No Limitations Hearing Ability: Use of Hearing Aid Pattern Changer Required: Yes Beliefs That Will Affect Care: None marital status: Current Living Situation: Spouse current occupational status: retired Feels Safe at Home: Yes Dental Care, Regularly: Yes Physical Activity Frequency: Does not Exercise Seatbelt Use: always Sunscreen Use: No Do you think of yourself as: straight/heterosexual Assistive Devices: Hearing Aid - Bilateral Allergies Allergies Allergy/AdvReac Type Severity Reaction Status Date / Time zinc Allergy Intermediate ITCHY Verified 09/03/20 09:29 Home Meds Home Medications Medication Instructions Recorded Confirmed tamsulosin 0.4 mg PO HS 06/18/20 09/02/20 pantoprazole 40 mg PO BID 09/02/20 09/02/20 Previous Rx's Medication Instructions Recorded galantamine 24 mg 24 hr 24 mg PO QAM #90 cap 06/04/20 capsule,extended release furosemide 20 mg tablet 20 mg PO DAILY #30 tab 06/18/20 metformin 500 mg tablet 500 mg PO BID #180 tab 07/04/20 levothyroxine 50 mcg tablet 50 mcg PO QAM #90 tab 07/24/20 diltiazem HCl 180 mg 180 mg PO QAM #30 cap 08/13/20 capsule,extended release 24 hr finasteride 5 mg tablet 5 mg PO QPM #90 tab 08/28/20 Results & Data (ED) Vital Signs Vital Signs - 24 hr 09/02/20 13:08 09/02/20 14:29 09/02/20 14:31 Temperature 37.3 C Temperature Source Temporal Artery Scan Pulse Rate 95 H Pulse Rate [Finger] 80 Pulse Rhythm Regular Pulse Strength Normal Respiratory Rate 20 18 Respiratory Effort / Characteristics Non-Labored Spontaneous Respiratory Depth Normal Respiratory Pattern Regular Blood Pressure 131/59 L Blood Pressure [Right Arm] 123/74 Blood Pressure Mean 83 Blood Pressure Mean [Right Arm] 90 Blood Pressure Position Sitting Pulse Oximetry 100 100 100 Oxygen Delivery Method Room Air Room Air Room Air Sepsis Recent Fever Within 48 Hours No Sepsis New/Unexplained Change in Mental Status No Sepsis Action Taken by Nursing No Action Required Laboratory Data Result diagrams: 09/03/20 05:42 09/03/20 05:42 Lab Results 09/02/20 09/02/20 09/02/20 Range/Units 14:15 14:15 14:15 WBC 5.43 (4.8-10.8) K/uL RBC 2.91 L (4.7-6.1) M/uL Hgb 6.6 L* (14.0-18.0) g/dL Hct 22.1 L (42-52) % MCV 75.9 L (80-100) fL MCH 22.7 L (25-34) pg MCHC 29.9 L (32-36) g/dL RDW Std Deviation 44.6 (36.4-46.3) fL RDW Coeff of Julia 15.8 H (11.5-14.5) % Plt Count 196 (130-400) K/uL MPV 8.2 (7.4-10.4) fL Immature Gran % (Auto) 0.2 % Neut % (Auto) 70.6 % Lymph % (Auto) 16.9 % [place] % (Auto) 10.1 % Eos % (Auto) 1.3 % Baso % (Auto) 0.9 % Neut # (Auto) 3.83 (1.4-6.5) K/uL Lymph # (Auto) 0.92 L (1.2-3.4) K/uL [place] # (Auto) 0.55 (0.11-0.59) K/uL Eos # (Auto) 0.07 (0-0.5) K/uL Baso # (Auto) 0.05 (0-0.2) K/uL Immature Gran # (Auto) 0.01 (0.00-0.02) K/uL Hypochromasia Present Ovalocytes 1+ Acanthocytes (Spur) 1+ PT (9.0-12.0) Seconds INR (0.9-1.1) APTT (21.0-31.0) Seconds PTT Ratio Sodium 138 (136-145) mmol/L Potassium 4.6 (3.5-5.1) mmol/L Chloride 108 H (98-107) mmol/L Carbon Dioxide 24 (21-32) mmol/L Anion Gap 6.0 (3-11) BUN 25 H (7-18) mg/dl Creatinine 1.66 H (0.6-1.4) mg/dl Est Cr Clr Drug Dosing 28.3 ml/min Est GFR ( Amer) 42.3 ml/min Est GFR (Non-Af Amer) 36.5 ml/min BUN/Creatinine Ratio 14.8 (10-20) Glucose 108 H (70-99) mg/dl Calcium 8.4 L (8.5-10.1) mg/dl Total Bilirubin 0.4 (0.2-1) mg/dl AST 8 L (15-37) U/L ALT 15 (12-78) U/L Alkaline Phosphatase 59 (45-117) U/L Troponin I < 0.015 (0-0.045) ng/ml Total Protein 7.3 (6.4-8.2) gm/dl Albumin 3.5 (3.4-5.0) gm/dl Globulin 3.8 (2.5-4.0) gm/dl Albumin/Globulin Ratio 0.9 (0.9-2) POC Stool Occult Blood (Negative) COVID-19 Eval Order SARS-CoV-2 (PCR) (Negative) Blood Type A Positive Antibody Screen NEGATIVE Crossmatch See Detail 09/02/20 09/02/20 09/02/20 Range/Units 14:15 14:25 14:25 WBC (4.8-10.8) K/uL RBC (4.7-6.1) M/uL Hgb (14.0-18.0) g/dL Hct (42-52) % MCV (80-100) fL MCH (25-34) pg MCHC (32-36) g/dL RDW Std Deviation (36.4-46.3) fL RDW Coeff of Julia (11.5-14.5) % Plt Count (130-400) K/uL MPV (7.4-10.4) fL Immature Gran % (Auto) % Neut % (Auto) % Lymph % (Auto) % [place] % (Auto) % Eos % (Auto) % Baso % (Auto) % Neut # (Auto) (1.4-6.5) K/uL Lymph # (Auto) (1.2-3.4) K/uL [place] # (Auto) (0.11-0.59) K/uL Eos # (Auto) (0-0.5) K/uL Baso # (Auto) (0-0.2) K/uL Immature Gran # (Auto) (0.00-0.02) K/uL Hypochromasia Ovalocytes Acanthocytes (Spur) PT 16.3 H (9.0-12.0) Seconds INR 1.7 H (0.9-1.1) APTT 47.4 H* (21.0-31.0) Seconds PTT Ratio 1.8 Sodium (136-145) mmol/L Potassium (3.5-5.1) mmol/L Chloride (98-107) mmol/L Carbon Dioxide (21-32) mmol/L Anion Gap (3-11) BUN (7-18) mg/dl Creatinine (0.6-1.4) mg/dl Est Cr Clr Drug Dosing ml/min Est GFR ( Amer) ml/min Est GFR (Non-Af Amer) ml/min BUN/Creatinine Ratio (10-20) Glucose (70-99) mg/dl Calcium (8.5-10.1) mg/dl Total Bilirubin (0.2-1) mg/dl AST (15-37) U/L ALT (12-78) U/L Alkaline Phosphatase (45-117) U/L Troponin I (0-0.045) ng/ml Total Protein (6.4-8.2) gm/dl Albumin (3.4-5.0) gm/dl Globulin (2.5-4.0) gm/dl Albumin/Globulin Ratio (0.9-2) POC Stool Occult Blood (Negative) COVID-19 Eval Order Covid19 at [facility] SARS-CoV-2 (PCR) NEGATIVE (Negative) Blood Type Antibody Screen Crossmatch 09/02/20 Range/Units 14:29 WBC (4.8-10.8) K/uL RBC (4.7-6.1) M/uL Hgb (14.0-18.0) g/dL Hct (42-52) % MCV (80-100) fL MCH (25-34) pg MCHC (32-36) g/dL RDW Std Deviation (36.4-46.3) fL RDW Coeff of Julia (11.5-14.5) % Plt Count (130-400) K/uL MPV (7.4-10.4) fL Immature Gran % (Auto) % Neut % (Auto) % Lymph % (Auto) % [place] % (Auto) % Eos % (Auto) % Baso % (Auto) % Neut # (Auto) (1.4-6.5) K/uL Lymph # (Auto) (1.2-3.4) K/uL [place] # (Auto) (0.11-0.59) K/uL Eos # (Auto) (0-0.5) K/uL Baso # (Auto) (0-0.2) K/uL Immature Gran # (Auto) (0.00-0.02) K/uL Hypochromasia Ovalocytes Acanthocytes (Spur) PT (9.0-12.0) Seconds INR (0.9-1.1) APTT (21.0-31.0) Seconds PTT Ratio Sodium (136-145) mmol/L Potassium (3.5-5.1) mmol/L Chloride (98-107) mmol/L Carbon Dioxide (21-32) mmol/L Anion Gap (3-11) BUN (7-18) mg/dl Creatinine (0.6-1.4) mg/dl Est Cr Clr Drug Dosing ml/min Est GFR ( Amer) ml/min Est GFR (Non-Af Amer) ml/min BUN/Creatinine Ratio (10-20) Glucose (70-99) mg/dl Calcium (8.5-10.1) mg/dl Total Bilirubin (0.2-1) mg/dl AST (15-37) U/L ALT (12-78) U/L Alkaline Phosphatase (45-117) U/L Troponin I (0-0.045) ng/ml Total Protein (6.4-8.2) gm/dl Albumin (3.4-5.0) gm/dl Globulin (2.5-4.0) gm/dl Albumin/Globulin Ratio (0.9-2) POC Stool Occult Blood Positive A (Negative) COVID-19 Eval Order SARS-CoV-2 (PCR) (Negative) Blood Type Antibody Screen Crossmatch Administered Medications Discontinued Medications Diltiazem HCl (Diltiazem Hcl 180 Mg Capcr) 180 mg PO QAM ARSENIO Stop: 10/03/20 08:59 Last Admin: 09/03/20 07:59 Dose: 180 mg Documented by: [id number] Finasteride (Finasteride 5 Mg Tab) 5 mg PO QPM ARSENIO Stop: 10/02/20 20:59 Last Admin: 09/02/20 20:06 Dose: 5 mg Documented by: [id number] Furosemide (Furosemide 20 Mg Tab) 20 mg PO DAILY ARSENIO Stop: 10/03/20 08:59 Last Admin: 09/03/20 07:59 Dose: 20 mg Documented by: [id number] Pantoprazole Sodium (Protonix Bolus/Drip) 0 mls @ 1 mls/hr IV ONE STA Stop: 09/02/20 14:28 Last Infusion: 09/03/20 10:15 Dose: 0 mls/hr Documented by: [id number] Admin: 09/02/20 14:49 Dose: 1 mls/hr Documented by: [id number] Pantoprazole Sodium 40 mg/ (Dextrose) 100 mls @ 20 mls/hr IV Q5H ARSENIO Stop: 10/02/20 14:41 Last Infusion: 09/03/20 13:46 Dose: 0 mg/hr, 0 mls/hr Documented by: [id number] Infusion: 09/03/20 12:55 Dose: 0 mg/hr, 0 mls/hr Documented by: [id number] Admin: 09/03/20 11:16 Dose: 8 mg/hr, 20 mls/hr Documented by: [id number] Infusion: 09/03/20 10:14 Dose: 0 mg/hr, 0 mls/hr Documented by: [id number] Admin: 09/03/20 05:13 Dose: 8 mg/hr, 20 mls/hr Documented by: [id number] Infusion: 09/03/20 05:11 Dose: 8 mg/hr, 20 mls/hr Documented by: [id number] Admin: 09/03/20 00:11 Dose: 8 mg/hr, 20 mls/hr Documented by: [id number] Infusion: 09/03/20 00:11 Dose: 8 mg/hr, 20 mls/hr Documented by: [id number] Admin: 09/02/20 19:29 Dose: 8 mg/hr, 20 mls/hr Documented by: [id number] Infusion: 09/02/20 19:29 Dose: 8 mg/hr, 20 mls/hr Documented by: [id number] Admin: 09/02/20 14:49 Dose: 8 mg/hr, 20 mls/hr Documented by: [id number] Pantoprazole Sodium 80 mg/ (Dextrose) 120 mls @ 400 mls/hr IV NOW ONE Stop: 09/02/20 14:44 Last Infusion: 09/02/20 18:10 Dose: 0 mls/hr Documented by: [id number] Admin: 09/02/20 14:49 Dose: 400 mls/hr Documented by: [id number] Calcium Gluconate 1,000 mg/ (Sodium Chloride) 60 mls @ 240 mls/hr IV NOW ONE Stop: 09/02/20 20:14 Last Infusion: 09/02/20 20:13 Dose: 0 mls/hr Documented by: [id number] Admin: 09/02/20 19:48 Dose: 240 mls/hr Documented by: [id number] Insulin Aspart (Insulin Aspart 100 Units/Ml 3 Ml Pen) 0 units SC ACHS ARSENIO Stop: 10/02/20 20:59 Last Admin: 09/03/20 12:24 Dose: Not Given Documented by: [id number] Cosigned by: [id number] Admin: 09/03/20 07:54 Dose: Not Given Documented by: [id number] Cosigned by: [id number] Admin: 09/02/20 20:59 Dose: Not Given Documented by: [id number] Levothyroxine Sodium (Levothyroxine Sodium 50 Mcg Tablet) 50 mcg PO DAILYBB [facility] Stop: 10/03/20 06:29 Last Admin: 09/03/20 05:47 Dose: 50 mcg Documented by: [id number] Miscellaneous (Galantamine~Order Awaiting Action) 1 ea N/A QS [facility] Stop: 10/02/20 18:29 Last Admin: 09/03/20 15:06 Dose: Not Given Documented by: [id number] Admin: 09/03/20 07:56 Dose: Not Given Documented by: [id number] Admin: 09/03/20 00:12 Dose: Not Given Documented by: [id number] Admin: 09/02/20 19:39 Dose: Not Given Documented by: [id number] Tamsulosin HCl (Tamsulosin Hcl 0.4 Mg Cap) 0.4 mg PO HS [facility] Stop: 10/02/20 20:59 Last Admin: 09/02/20 20:06 Dose: 0.4 mg Documented by: [id number] Discharge Plan Visit Data Chief Complaint: Abnormal Labs/Diagnostic Testing Stated Complaint: ABNORMAL LABS,REF BY DOC ED Provider: Domenic Fisher Discharge Problem: Peripheral edema, Anemia, CKD (chronic kidney disease) Patient Disposition: Admitted As Inpatient Discharge Instructions Interventions: ED Discharge Assessment Last Done: 09/02/20 18:16
[2020-09-02 14:46] LABS: Alanine Aminotransferase 15 U/L (12-78); Albumin Level 3.5 gm/dl (3.4-5.0); Aspartate Aminotransferase 8 U/L (15-37); BUN Creatinine Ratio 14.8 (10-20); Blood Urea Nitrogen 25 mg/dl (7-18); Calcium 8.4 mg/dl (8.5-10.1); Carbon Dioxide 24 mmol/L (21-32); Chloride 108 mmol/L (98-107); Creatinine Clr Calc Pharmacy 28.3 ml/min; Est GFR (African American) 42.3 ml/min; Est GFR (Non-African American) 36.5 ml/min; Glucose 108 mg/dl (70-99); INR 1.7 (0.9-1.1); Partial Thromboplastin Ratio 1.8; Potassium 4.6 mmol/L (3.5-5.1); Prothrombin Time 16.3 Seconds (9.0-12.0); Sodium 138 mmol/L (136-145)
[2020-09-02] MEDS: PANTOprazole 40 MG in DEXTROSE 5% 100 ML IV SCH ×2 (14:49→19:29)
[2020-09-02 14:50] LABS: Hematocrit (blood only) 22.1 % (42-52); Hemoglobin 6.6 g/dL (14.0-18.0); Mean Corpuscular Hemoglobin 22.7 pg (25-34); Mean Corpuscular Hgb Conc 29.9 g/dL (32-36); Mean Corpuscular Volume 75.9 fL (80-100); Mean Platelet Volume 8.2 fL (7.4-10.4); Platelet Count 196 K/uL (130-400); RDW Coefficient of Variation 15.8 % (11.5-14.5); RDW Standard Deviation 44.6 fL (36.4-46.3); Red Blood Count 2.91 M/uL (4.7-6.1); White Blood Count 5.43 K/uL (4.8-10.8)
[2020-09-02 14:51] LABS: Albumin Globulin Ratio 0.9 (0.9-2); Alkaline Phosphatase 59 U/L (45-117); Bilirubin,Total 0.4 mg/dl (0.2-1); Globulin 3.8 gm/dl (2.5-4.0); Total Protein 7.3 gm/dl (6.4-8.2); Troponin I < 0.015 ng/ml (0-0.045)
[2020-09-02 14:54] LABS: Partial Thromboplastin Time 47.4 Seconds (21.0-31.0)
[2020-09-02] MEDS ORDERED: SODIUM CHLORIDE 0.9% 250 ML IV PRN ×2 (15:06→18:19)
[2020-09-02 15:13] LABS: Acanthocytes 1+; Basophils # (auto) 0.05 K/uL (0-0.2); Basophils % (auto) 0.9 %; Eosinophils # (auto) 0.07 K/uL (0-0.5); Eosinophils % (auto) 1.3 %; Hypochromasia Present; Immature Granulocytes # (auto) 0.01 K/uL (0.00-0.02); Immature Granulocytes % (auto) 0.2 %; Lymphocytes # (auto) 0.92 K/uL (1.2-3.4); Lymphocytes % (auto) 16.9 %; Monocytes # (auto) 0.55 K/uL (0.11-0.59); Monocytes % (auto) 10.1 %; Neutrophils # (auto) 3.83 K/uL (1.4-6.5); Neutrophils % (auto) 70.6 %; Ovalocytes 1+
--- NOTE | 2020-09-02 16:43 | History & Physical Report ---
Date of Service September 02, 2020 Assessment & Plan (1) GI bleed: Unspecified- Stools dark, no increase in frequency per . Heme positive in the EMD - [place] 10 - Shock index on admission 0.7 - Protonix drip started in the EMD- will continue - GI consult- Dr. Landers - Monitor stools - BUN not elevated - LFTs normal - INR 1.7- hold Pradaxa recheck in AM - Calcium mildly low- will replete with 1GM CA gluconate following blood transfusion (2) Anemia: Microcytic hypochromic on this admission with RDW 15.8% - likely multifactorial with FE deficient and blood loss - PRBC already infusing in the EMD - Can get repeat iron studies done as outpatient- although he is currently non compliant with medications (3) Hypertension: - Continue with his lasix and diltiazem at this time - Lasix will be tomorrow morning and l - ikely needed after blood volume- revaluate need following 2nd unit tonight - Continue diltiazem for rate control (4) Atrial fibrillation: As above, continue diltiazem- hemodynamically stable - Hold Dabigatran - consider need for extermination supervisor anticoagulation with patient regarding bleeding risks (5) Mitral regurgitation: As above, follow volume status with transfusion - IV lasix if needed following transfusion (6) CKD (chronic kidney disease): CKD III - 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- mild increase to 1.66 baseline 1.2-1.5 - Minimize nephrotoxic agents (7) BPH (benign prostatic hyperplasia): Currently with retention in the EMD and distended bladder - straight cath now with PVR- continue when on floor - Continue Tamsulosin and Finasteride- hold if hypotension occurs from blood loss (8) Hypothyroidism: Continue Synthroid - TSH in morning History of Present Illness Primary Care Provider: Braeden Sultana, III, [employer] INTERFACE DEVELOPER 85 YOM with past medical history of: Afib (on Pradaxa), BPH, HFpEF, mild mitral regurge, hypothyroidism, HTN, FE deficient anemia, DM II, difficulty hearing (does not use hearing aids), dementia. Patient comes to the emergency room today , brought in by his for concerns of dark stools and fatigue. The patient is hard of hearing and refuses to wear hearing aids. The states that he has been having dark stools for the past few weeks. He was on Iron tablets in the recent past, but stopped taking these as he thought it was making his stool more dark. She denies noticing any kasandra blood. The patient just says "no blood in stools" and does not quantify frequency of BM, but denies hematemesis, or abdominal pain or discomfort. Patient is on Pradaxa for his atrial fibrillation. She has noticed that he is more easily fatigued, however he still gets up at 0400 and does work around the yard, no syncope or presyncope described. Patient states that he came in here before and "had studies done and didn't find anything." He was recently admitted in May for acute CHF- had an ECHO done with normal EF 50-60% and mild Mitral Regurge. He was anemic at that time, normochromic/normocytic and negative FOBT. He had a EGD and Colonoscopy on 06/06/20 with normal esophagus/small hiatal hernia, and normal duodenum. Colonoscopy with small diverticula in sigmoid colon, non bleeding small internal hemorrhoids. He also had an EGD in 04/20/20 that showed a non-bleeding esophageal ulcer with gastritis- biopsy was negative for metaplasia, dysplasia and malignancy and negative for H.Pylori. Patient will be admitted to medical telemetry, Pradaxa will be held, clear diet, NPO after midnight. GI consult placed. Will transfuse 1-2 more units of PRBC as needed for HGB >8. Allergies Allergy/AdvReac Type Severity Reaction Status Date / Time zinc Allergy Intermediate ITCHY Verified 09/06/20 22:02 Home Medications Medication Instructions Recorded Confirmed Type galantamine 24 mg 24 hr 24 mg PO QAM #90 cap 06/04/20 09/06/20 Rx capsule,extended release furosemide 20 mg tablet 20 mg PO DAILY #30 tab 06/18/20 09/06/20 Rx tamsulosin 0.4 mg PO HS 06/18/20 09/06/20 History metformin 500 mg tablet 500 mg PO BID #180 tab 07/04/20 09/06/20 Rx levothyroxine 50 mcg tablet 50 mcg PO QAM #90 tab 07/24/20 09/06/20 Rx diltiazem HCl 180 mg 180 mg PO QAM #30 cap 08/13/20 09/06/20 Rx capsule,extended release 24 hr finasteride 5 mg tablet 5 mg PO QPM #90 tab 08/28/20 09/06/20 Rx pantoprazole 40 mg PO BID 09/02/20 09/06/20 History Past Med/Surg History Medical History (Updated 09/07/20 @ 04:26 by Lv Medina MD) Acute blood loss anemia Atrial fibrillation 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 Dementia Elevated PSA Esophageal ulcer Gastric ulcer GI bleed Heart disease Hiatal hernia Hyperlipidemia Hypertension Hypothyroidism Metabolic disorder Mitral regurgitation Raynaud's disease Tricuspid regurgitation Type 2 diabetes mellitus Surgical History H/O hernia repair History of colonoscopy History of esophagogastroduodenoscopy (EGD) 04/20/[address] Berry Case Family History Brother Coronary arteriosclerosis Mother Myocardial infarction Heart disease Father Myocardial infarction Heart disease Denies family history of Colon cancer Ovarian cancer Prostate cancer Breast cancer Social History Smoking Status: Former smoker Age Quit Using Tobacco: 58; Second Hand Exposure: No; Do You Dip or Chew Tobacco: No; Tobacco Cessation Education Requested by Patient: No Hx Alcohol Use: No Hx Substance Use: No Preferred Language: South Sudanese Communication Ability: Effective Communication Ability Comment: EGEGIK Visual Impairment: No Limitations Hearing Ability: Use of Hearing Aid Service Desk Director Required: No Beliefs That Will Affect Care: None marital status: Current Living Situation: Spouse current occupational status: retired Other Information That Helps Us Care for You: No Feels Safe at Home: Yes Safety Concerns: Feels Safe At This Time Dental Care, Regularly: Yes Physical Activity Frequency: Does not Exercise Seatbelt Use: always Sunscreen Use: No Do you think of yourself as: straight/heterosexual Assistive Devices: Oxygen - Continuous Review of Systems Review of Systems: REVIEW OF SYSTEMS: Constitutional: No fever, sweats or chills Eyes: No diplopia, no worsening or blurred vision ENT: very difficult of hearing, no trouble swallowing Respiratory: No cough, sputum, dyspnea at rest or on exertion Cardiovascular: No chest pain, tightness or palpitations Abdomen: +) dark stools, No pain, nausea, vomiting, diarrhea or constipation Musculoskeletal: No joint pain, calf pain, swelling Neurologic: No weakness, numbness/tingling, or balance problems Psychiatric: No anxiety or depression Skin: No rash or itch Physical Exam Physical Exam: PHYSICAL EXAM: General: awake, alert, no apparent distress Head: Normocephalic, atraumatic ENT: PERRL, EOMI, pale conjunctiva, no pharyngeal exudate, mucous membranes moist Neuro: AAO x 3, speech clear and appropriate, strength intact bilaterally 5/5, sensation intact and equal all extremities and dermatomes, no pronator drift Chest: equal rise and fall of the chest, no accessory muscle use, no heaves or thrills, Clear to auscultation, on room air, Cardiac: Regular rate and rhythm, telemetry reviewed, skin warm dry, cap refill <3 seconds, peripheral pulses +2 no JVD, 1-2 soft systolic murmur LSB, no edema GI: NABS x 4 quadrants, soft, nontender to palpation, no rebound, guarding or tenderness : Spontaneously voiding, no pain, no CVA tenderness, Extremities: Normal inspection, no peripheral edema or erythema, calfs nontender to palpation Psych: Normal mood and affect Skin: no rash or erythema Results & Data Results & Data ([facility]) Vital Signs (Past 12 Hours) Vital Signs Temp Pulse Pulse Resp BP BP Pulse Ox 09/02/20 16:00 36.5 C 77 18 132/76 98 09/02/20 15:41 36.9 C 77 20 135/74 100 09/02/20 14:31 80 18 123/74 100 09/02/20 14:29 100 09/02/20 13:08 37.3 C 95 H 20 131/59 L 100 Laboratory Results Abnormal lab results 09/02/20 09/02/20 09/02/20 Range/Units 14:15 14:15 14:15 RBC 2.91 L (4.7-6.1) M/uL Hgb 6.6 L* (14.0-18.0) g/dL Hct 22.1 L (42-52) % MCV 75.9 L (80-100) fL MCH 22.7 L (25-34) pg MCHC 29.9 L (32-36) g/dL RDW Coeff of Julia 15.8 H (11.5-14.5) % Lymph # (Auto) 0.92 L (1.2-3.4) K/uL PT (9.0-12.0) Seconds INR (0.9-1.1) APTT (21.0-31.0) Seconds Chloride 108 H (98-107) mmol/L BUN 25 H (7-18) mg/dl Creatinine 1.66 H (0.6-1.4) mg/dl Glucose 108 H (70-99) mg/dl Calcium 8.4 L (8.5-10.1) mg/dl AST 8 L (15-37) U/L POC Stool Occult Blood (Negative) Crossmatch See Detail 09/02/20 09/02/20 Range/Units 14:15 14:29 RBC (4.7-6.1) M/uL Hgb (14.0-18.0) g/dL Hct (42-52) % MCV (80-100) fL MCH (25-34) pg MCHC (32-36) g/dL RDW Coeff of Julia (11.5-14.5) % Lymph # (Auto) (1.2-3.4) K/uL PT 16.3 H (9.0-12.0) Seconds INR 1.7 H (0.9-1.1) APTT 47.4 H* (21.0-31.0) Seconds Chloride (98-107) mmol/L BUN (7-18) mg/dl Creatinine (0.6-1.4) mg/dl Glucose (70-99) mg/dl Calcium (8.5-10.1) mg/dl AST (15-37) U/L POC Stool Occult Blood Positive A (Negative) Crossmatch Diagnostic Findings No films obtained Medications Administered Pantoprazole Sodium 40 mg/ (Dextrose) 100 mls @ 20 mls/hr IV Q5H [facility] Stop: 10/02/20 14:41 Last Admin: 09/02/20 14:49 Dose: 8 mg/hr, 20 mls/hr Documented by: [id number] Discontinued Medications Pantoprazole Sodium (Protonix Bolus/Drip) 0 mls @ 1 mls/hr IV ONE STA Stop: 09/02/20 14:28 Last Admin: 09/02/20 14:49 Dose: 1 mls/hr Documented by: [id number] Pantoprazole Sodium 80 mg/ (Dextrose) 120 mls @ 400 mls/hr IV NOW ONE Stop: 09/02/20 14:44 Last Admin: 09/02/20 14:49 Dose: 400 mls/hr Documented by: [id number] ECG Additional Comments: Atrial fibrillation with premature ventricular or aberrantly conducted complexes Inferior infarct , age undetermined Anteroseptal infarct (cited on or before 15-JUL-2016) Abnormal ECG When compared with ECG of 18-JUN-2020 19:13, Atrial fibrillation has replaced Junctional rhythm Vent. rate has increased BY [address] no longer depressed in Anterior leads T wave inversion no longer evident in Anterior leads Code Status & VTE Plan Code Status CODE: FULL VTE: SCDs VTE Prophylaxis Plan VTE Prophylaxis will be ordered: Yes Supervising Physician Co-Signing Physician Notes Attending Attestation & Admission Note: Pt seen/examined, chart reviewed, care plan d/w ABA Darci Liz. I agree w/ the small components of his documentation. 85yo male with permanent a.fib on pradaxa, prior GI bleeding requiring PRBC transfusion, DM -- presents with melena stools and acute blood loss anemia. Presenting Hb 6.5. MCV 76. Fortunately without any GI symptoms and hemodynamically stable. PMH, PSH, allergies, meds, sochx, famhx - reviewed VSS, no fever gen - NAD skin - pallor ENT - SEVERE hearing impairment heart - irregular, s1 s2 lungs - CTA b/l abd - soft, NT, ND, BS+, no HSM ext - no edema labs as noted above creatinine 1.5 A/P: 1. acute blood loss anemia - suspected 2nd upper GI bleeding. Tx PRBCs per Mr Hill's note. 2. check ferritin in am; consider IV venofer. 3. GI consultation for consideration of EGD; if EGD negative -- capsule endoscopy?? Has never had such per records. 4. hypothyroidism - TSH wnl; cont synthroid. Gilmar Alexander MD PG Care Time/CCT Total # of Minutes Spent Total Time Spent with Patient: Total time spent is greater than 50% in coordination of care (as documented) at patient's floor/unit and/or counseling patient: Coding Level of Care Code 61904 Initial Inpt Care Lvl 3 Diagnoses GI bleed K92.2 GI bleed type/associated pathology: unspecified gastrointestinal hemorrhage type Anemia D64.9 Anemia type: unspecified type Hypertension I10 Hypertension type: essential hypertension Atrial fibrillation I48.91 Atrial fibrillation type: unspecified Mitral regurgitation I34.0 Cardiac valve disease etiology: etiology unspecified CKD (chronic kidney disease) N18.9 Chronic kidney disease stage: unspecified stage BPH (benign prostatic hyperplasia) N40.1; R33.8 Lower urinary tract symptom detail: urinary retention Lower urinary tract symptom presence: symptoms present Hypothyroidism E03.9 Hypothyroidism type: unspecified (1) BPH (benign prostatic hyperplasia) Lower urinary tract symptom detail: urinary retention Lower urinary tract symptom presence: symptoms present Qualified Code(s): N40.1 - Benign prostatic hyperplasia with lower urinary tract symptoms; R33.8 - Other retention of urine (2) GI bleed GI bleed type/associated pathology: unspecified gastrointestinal hemorrhage type Qualified Code(s): K92.2 - Gastrointestinal hemorrhage, unspecified (3) Anemia Anemia type: unspecified type Qualified Code(s): D64.9 - Anemia, unspecified (4) Atrial fibrillation Atrial fibrillation type: unspecified Qualified Code(s): I48.91 - Unspecified atrial fibrillation (5) Hypothyroidism Hypothyroidism type: unspecified Qualified Code(s): E03.9 - Hypothyroidism, unspecified (6) Mitral regurgitation Cardiac valve disease etiology: etiology unspecified Qualified Code(s): I34.0 - Nonrheumatic mitral (valve) insufficiency (7) CKD (chronic kidney disease) Chronic kidney disease stage: unspecified stage Qualified Code(s): N18.9 - Chronic kidney disease, unspecified (8) Hypertension Hypertension type: essential hypertension Qualified Code(s): I10 - Essential (primary) hypertension
--- NOTE | 2020-09-02 17:16 | Electrocardiogram Report ---
Test Reason : Blood Pressure : / mmHG Vent. 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 rate has increased BY [address] no longer depressed in Anterior leads T wave inversion no longer evident in Anterior leads Confirmed by Eh Linda ([id number]) on 09/02/2020 5:15:48 PM Referred By: Confirmed By:Rob Linda
[2020-09-02] MEDS ORDERED: GLUCOSE 10 TABS/TUBE PO PRN (18:19)
[2020-09-02] MEDS ORDERED: DEXTROSE 50% 50 ML SYRINGE IV PRN (18:19)
[2020-09-02] MEDS ORDERED: GLUCAGON FOR INJ 1 MG VIAL SQ PRN (18:19)
[2020-09-02] MEDS ORDERED: ONDANSETRON INJ 2 MG/ML 2 ML VIAL IV PRN (18:19)
[2020-09-02] MEDS ORDERED: CARBOHYDRATES FOR HYPOGLYCEMIA PO PRN (18:19)
[2020-09-02] MEDS ORDERED: ACETAMINOPHEN 325 MG TAB PO PRN (18:19)
[2020-09-02] MEDS ORDERED: GLUCOSE 40% GEL 15 GM TUBE PO PRN (18:19)
[2020-09-02] MEDS ORDERED: CALCIUM GLUCONATE 10% 1,000 MG in SODIUM CHLORIDE 0.9% 50 ML IV ONE (20:00)
[2020-09-02] MEDS: INSULIN ASPART 100 UNITS/ML 3 ML PEN SC SCH (20:59)
[2020-09-02] MEDS ORDERED: FINASTERIDE 5 MG TAB PO SCH (21:00)
[2020-09-02] MEDS ORDERED: TAMSULOSIN HCL 0.4 MG CAP PO SCH (21:00)
[2020-09-03] MEDS: PANTOprazole 40 MG in DEXTROSE 5% 100 ML IV SCH ×3 (00:11→11:16)
[2020-09-03 06:12] LABS: Basophils # (auto) 0.02 K/uL (0-0.2); Basophils % (auto) 0.3 %; Eosinophils # (auto) 0.07 K/uL (0-0.5); Eosinophils % (auto) 1.1 %; Hematocrit (blood only) 27.3 % (42-52); Hemoglobin 8.4 g/dL (14.0-18.0); Immature Granulocytes # (auto) 0.01 K/uL (0.00-0.02); Immature Granulocytes % (auto) 0.2 %; Lymphocytes # (auto) 0.79 K/uL (1.2-3.4); Lymphocytes % (auto) 11.9 %; Mean Corpuscular Hemoglobin 24.2 pg (25-34); Mean Corpuscular Hgb Conc 30.8 g/dL (32-36); Mean Corpuscular Volume 78.7 fL (80-100); Mean Platelet Volume 8.4 fL (7.4-10.4); Monocytes # (auto) 0.55 K/uL (0.11-0.59); Monocytes % (auto) 8.3 %; Neutrophils # (auto) 5.21 K/uL (1.4-6.5); Neutrophils % (auto) 78.2 %; Platelet Count 175 K/uL (130-400); RDW Coefficient of Variation 15.8 % (11.5-14.5); Red Blood Count 3.47 M/uL (4.7-6.1); White Blood Count 6.65 K/uL (4.8-10.8)
[2020-09-03 06:22] LABS: INR 1.4 (0.9-1.1); Partial Thromboplastin Ratio 1.6
[2020-09-03] MEDS ORDERED: LEVOTHYROXINE SODIUM 50 MCG TABLET PO SCH (06:30)
[2020-09-03 06:55] LABS: BUN Creatinine Ratio 19.6 (10-20); Calcium 8.3 mg/dl (8.5-10.1); Creatinine Clr Calc Pharmacy 35.9 ml/min; Est GFR (African American) 56.3 ml/min; Est GFR (Non-African American) 48.6 ml/min; Potassium 4.2 mmol/L (3.5-5.1)
[2020-09-03 07:06] LABS: Ferritin 7.7 ng/ml (8-388); Thyroid Stimulating Hormone 2.72 uIu/ml (0.300-4.500)
[2020-09-03] MEDS: INSULIN ASPART 100 UNITS/ML 3 ML PEN SC SCH ×2 (07:54→12:24)
--- NOTE | 2020-09-03 08:34 | Hospitalist Progress Note ---
Date of Service September 03, 2020 Assessment & Plan (1) GI bleed: Unspecified- Stools dark, no increase in frequency per . Heme positive in the EMD - [place] 10 - Shock index on admission 0.7 - Protonix drip started in the EMD- will continue - GI consult- Dr. 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 with patient regarding bleeding risks (5) Mitral regurgitation: As above, follow volume status with transfusion - IV lasix if needed following transfusion (6) CKD (chronic kidney disease): CKD III - 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- mild increase to 1.66 baseline 1.2-1.5 - Minimize nephrotoxic agents (7) BPH (benign prostatic hyperplasia): Currently with retention in the EMD and distended bladder - straight cath now with PVR- continue when on floor - Continue Tamsulosin and Finasteride- hold if hypotension occurs from blood loss (8) Hypothyroidism: Continue Synthroid - TSH in morning Admission and Anticipated Discharge Date Admission Date: September 02, 2020 Results & Data Results & Data ([facility]) Vital Signs (Past 12 Hours) Vital Signs Temp Pulse Pulse Resp BP BP Pulse Ox 09/03/20 07:47 98.6 F 70 18 116/72 99 09/03/20 04:31 98.6 F 64 18 125/71 95 09/03/20 01:51 74 09/03/20 00:10 98.1 F 81 18 125/80 95 09/03/20 00:09 98.1 F 81 18 125/80 95 09/02/20 23:15 98.4 F 80 18 120/68 95 09/02/20 22:47 97.9 F 73 18 149/81 H 96 09/02/20 22:15 98.1 F 75 18 117/65 97 09/02/20 21:45 98.2 F 77 18 118/63 98 09/02/20 21:30 98.4 F 77 20 109/77 98 09/02/20 21:12 98.4 F 73 16 114/63 98 PG Care Time/CCT Total # of Minutes Spent Total Time Spent with Patient: Total time spent is greater than 50% in coordination of care (as documented) at patient's floor/unit and/or counseling patient: Coding Diagnoses GI bleed K92.2 GI bleed type/associated pathology: unspecified gastrointestinal hemorrhage type Anemia D64.9 Anemia type: unspecified type Hypertension I10 Hypertension type: essential hypertension Atrial fibrillation I48.91 Atrial fibrillation type: unspecified Mitral regurgitation I34.0 Cardiac valve disease etiology: etiology unspecified CKD (chronic kidney disease) N18.9 Chronic kidney disease stage: unspecified stage BPH (benign prostatic hyperplasia) N40.1; R33.8 Lower urinary tract symptom presence: symptoms present Lower urinary tract symptom detail: urinary retention Hypothyroidism E03.9 Hypothyroidism type: unspecified (1) GI bleed GI bleed type/associated pathology: unspecified gastrointestinal hemorrhage type Qualified Code(s): K92.2 - Gastrointestinal hemorrhage, unspecified (2) Anemia Anemia type: unspecified type Qualified Code(s): D64.9 - Anemia, unspecified (3) Hypertension Hypertension type: essential hypertension Qualified Code(s): I10 - Essential (primary) hypertension (4) Atrial fibrillation Atrial fibrillation type: unspecified Qualified Code(s): I48.91 - Unspecified atrial fibrillation (5) Mitral regurgitation Cardiac valve disease etiology: etiology unspecified Qualified Code(s): I34.0 - Nonrheumatic mitral (valve) insufficiency (6) CKD (chronic kidney disease) Chronic kidney disease stage: unspecified stage Qualified Code(s): N18.9 - Chronic kidney disease, unspecified (7) BPH (benign prostatic hyperplasia) Lower urinary tract symptom presence: symptoms present Lower urinary tract symptom detail: urinary retention Qualified Code(s): N40.1 - Benign prostatic hyperplasia with lower urinary tract symptoms; R33.8 - Other retention of urine (8) Hypothyroidism Hypothyroidism type: unspecified Qualified Code(s): E03.9 - Hypothyroidism, unspecified
[2020-09-03] MEDS ORDERED: dilTIAZem HCL 180 MG CAPCR PO SCH (09:00)
[2020-09-03] MEDS ORDERED: FUROSEMIDE 20 MG TAB PO SCH (09:00)
--- NOTE | 2020-09-03 09:08 | Gastrointestinal Consultation ---
Date of Consultation September 03, 2020 Assessment & Plan (1) Anemia: (2) Melena: -Keep NPO for EGD today -Continue IV Protonix 40 mg BID for now -Follow H/H -Further recommendations pending results of EGD Thank you for allowing us to participate in the care of this patient. If you should have any further questions or concerns, do not hesitate to contact us at extension [phone] or [phone]. Supervising Physician Co-Signing Physician Notes Agree with WENDY Partida as above Abd: Soft, NT, ND, +BS Continue current therapy EGD today for further evaluation History of Present Illness Reason for Consultation: Anemia Attending Physician: Daniel Paula MD History of Present Illness Patient is an 85 year old male with past medical history of Afib on Pradaxa, BPH, HFpEF, mild mitral regurgitation, hypothyroidism, HTN, FE deficient anemia, DM II, hearing loss, and dementia. Patient was brought to the ED by who had concerns for progressive fatigue. There were reports of dark stools over several weeks. He is a poor historian but denies abdominal pain or BRBPR. He was hospitalized in May and was anemic at that time with a negative fecal occult blood test. EGD at that time indicated no unusual findings. Colonoscopy indicated small diverticula and non-bleeding hemorrhoids. He also had an EGD in March 2020 that indicated a non-bleeding esophageal ulcer with gastritis. H/H 8.4/27.3 at present. Allergies Allergy/AdvReac Type Severity Reaction Status Date / Time zinc Allergy Intermediate ITCHY Verified 09/02/20 14:51 Home Medications Medication Instructions Recorded Confirmed Type galantamine 24 mg 24 hr 24 mg PO QAM #90 cap 06/04/20 09/02/20 Rx capsule,extended release dabigatran etexilate 150 mg capsule 150 mg PO BID #180 cap 06/11/20 09/02/20 Rx furosemide 20 mg tablet 20 mg PO DAILY #30 tab 06/18/20 09/02/20 Rx tamsulosin 0.4 mg PO HS 06/18/20 09/02/20 History metformin 500 mg tablet 500 mg PO BID #180 tab 07/04/20 09/02/20 Rx levothyroxine 50 mcg tablet 50 mcg PO QAM #90 tab 07/24/20 09/02/20 Rx diltiazem HCl 180 mg 180 mg PO QAM #30 cap 08/13/20 09/02/20 Rx capsule,extended release 24 hr finasteride 5 mg tablet 5 mg PO QPM #90 tab 08/28/20 09/02/20 Rx pantoprazole 40 mg PO BID 09/02/20 09/02/20 History Patient History Medical History (Updated 09/03/20 @ 09:24 by Sandy Go PA-C) Acute blood loss anemia Atrial fibrillation 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 Dementia Elevated PSA Esophageal ulcer Gastric ulcer GI bleed Heart disease Hiatal hernia Hyperlipidemia Hypertension Hypothyroidism Metabolic disorder Mitral regurgitation Raynaud's disease Tricuspid regurgitation Type 2 diabetes mellitus Surgical History H/O hernia repair History of colonoscopy History of esophagogastroduodenoscopy (EGD) 04/20/[address] 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 Beliefs That Will Affect Care: None marital status: Current Living Situation: Spouse current occupational status: retired Feels Safe at Home: Yes Dental Care, Regularly: Yes Physical Activity Frequency: Does not Exercise Seatbelt Use: always Sunscreen Use: No Do you think of yourself as: straight/heterosexual Assistive Devices: Hearing Aid - Bilateral Review of Systems Review of Systems: Difficult to obtain due to hearing issues Constitutional: no fever and no chills Respiratory: no cough and no dyspnea Cardiovascular: no chest pain Gastrointestinal: + melena; no abdominal pain and no blood in stools Physical Exam Constitutional: well developed Respiratory: normal respiratory effort Cardiovascular: Extremities: no edema Gastrointestinal (Abdomen): normal bowel sounds, soft, nontender, no hepatosplenomegaly Psychiatric: A+Ox3, euthymic affect Results & Data ([facility]) Vital Signs (Past 12 Hours) Vital Signs Temp Pulse Pulse Resp BP BP Pulse Ox 09/03/20 07:47 37.0 C 70 18 116/72 99 09/03/20 04:31 37.0 C 64 18 125/71 95 09/03/20 01:51 74 09/03/20 00:10 36.7 C 81 18 125/80 95 09/03/20 00:09 36.7 C 81 18 125/80 95 09/02/20 23:15 36.9 C 80 18 120/68 95 09/02/20 22:47 36.6 C 73 18 149/81 H 96 09/02/20 22:15 36.7 C 75 18 117/65 97 09/02/20 21:45 36.8 C 77 18 118/63 98 09/02/20 21:30 36.9 C 77 20 109/77 98 09/02/20 21:12 36.9 C 73 16 114/63 98 PG Care Time/CCT Total # of Minutes Spent Total Time Spent with Patient: Total time spent is greater than 50% in coordination of care (as documented) at patient's floor/unit and/or counseling patient: Coding Level of Care Code 57308 Initial Inpt Care Lvl 3 Diagnoses Anemia D64.9 Anemia type: unspecified type Melena K92.1 (1) Anemia Anemia type: unspecified type Qualified Code(s): D64.9 - Anemia, unspecified
--- NOTE | 2020-09-03 09:13 | Anesthesiology Consultation ---
Date of Service September 03, 2020 Assessment & Plan (1) Encounter for pre-operative examination: Chart Review Chart Review: Acceptable Risk for Surgery, Patient NOT seen in Pre Admission Testing and entry analyst initiated Consults Requested none ASA ASA3 Proposed Anesthesia Anesthesia Type: MAC Risk / Benefits Reviewed With: PT / POA / Parent / Guardian, Accepts Plan and Informed Consent Obtained History Surgery Operation Date: 09/03/20 16:30 Proposed Procedures p Esophagogastroduodenoscopy Dr Landers - Jamal Tatum Case, DO Height/Weight Height: 5 ft 6 in Weight: 67.1 kg Allergies Allergy/AdvReac Type Severity Reaction Status Date / Time zinc Allergy Intermediate ITCHY Verified 09/02/20 14:51 Medications Home Medications Medication Instructions Recorded Confirmed Last Taken galantamine 24 mg 24 hr 24 mg PO QAM #90 cap 06/04/20 09/02/20 06/18/20 capsule,extended release dabigatran etexilate 150 mg capsule 150 mg PO BID #180 cap 06/11/20 09/02/20 06/18/20 furosemide 20 mg tablet 20 mg PO DAILY #30 tab 06/18/20 09/02/20 Unknown tamsulosin 0.4 mg PO HS 06/18/20 09/02/20 06/17/20 metformin 500 mg tablet 500 mg PO BID #180 tab 07/04/20 09/02/20 Unknown levothyroxine 50 mcg tablet 50 mcg PO QAM #90 tab 07/24/20 09/02/20 Unknown diltiazem HCl 180 mg 180 mg PO QAM #30 cap 08/13/20 09/02/20 Unknown capsule,extended release 24 hr finasteride 5 mg tablet 5 mg PO QPM #90 tab 08/28/20 09/02/20 Unknown pantoprazole 40 mg PO BID 09/02/20 09/02/20 Unknown Active Medications Generic Name Dose Route Start Last Admin Trade Name Freq PRN Reason Stop Dose Admin Diltiazem HCl 180 mg 09/03/20 09:00 09/03/20 07:59 Diltiazem Hcl 180 Mg Capcr PO 10/03/20 08:59 180 mg QAM ARSENIO Administration Finasteride 5 mg 09/02/20 21:00 09/02/20 20:06 Finasteride 5 Mg Tab PO 10/02/20 20:59 5 mg QPM ARSENIO Administration Furosemide 20 mg 09/03/20 09:00 09/03/20 07:59 Furosemide 20 Mg Tab PO 10/03/20 08:59 20 mg DAILY ARSENIO Administration Pantoprazole Sodium 40 mg/ 100 mls @ 20 mls/hr 09/02/20 14:42 09/03/20 05:13 Dextrose IV 10/02/20 14:41 8 mg/hr Q5H ARSENIO 20 mls/hr Administration 8 MG/HR Insulin Aspart 0 units 09/02/20 21:00 09/03/20 07:54 Insulin Aspart 100 Units/Ml 3 Ml Pen SC 10/02/20 20:59 Not Given ACHS ARSENIO Levothyroxine Sodium 50 mcg 09/03/20 06:30 09/03/20 05:47 Levothyroxine Sodium 50 Mcg Tablet PO 10/03/20 06:29 50 mcg DAILYBB ARSENIO Administration Miscellaneous 1 ea 09/02/20 18:30 09/03/20 07:56 Galantamine~Order Awaiting Action N/A 10/02/20 18:29 Not Given QS ARSENIO Tamsulosin HCl 0.4 mg 09/02/20 21:00 09/02/20 20:06 Tamsulosin Hcl 0.4 Mg Cap PO 10/02/20 20:59 0.4 mg HS ARSENIO Administration Past Medical History Medical History (Updated 09/03/20 @ 09:16 by Sam Figueroa MD) Acute blood loss anemia Atrial fibrillation 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 Dementia Elevated PSA Esophageal ulcer Gastric ulcer GI bleed Heart disease Hiatal hernia Hyperlipidemia Hypertension Hypothyroidism Metabolic disorder Mitral regurgitation Raynaud's disease Tricuspid regurgitation Type 2 diabetes mellitus Past Family History Family History Brother Coronary arteriosclerosis Mother Myocardial infarction Heart disease Father Myocardial infarction Heart disease Denies family history of Colon cancer Ovarian cancer Prostate cancer Breast cancer Past Surgical History Surgical History H/O hernia repair History of colonoscopy History of esophagogastroduodenoscopy (EGD) 04/20/[address] Jamal Landers Social History Smoking Status: Former smoker tobacco type: smokeless tobacco Hx Alcohol Use: No Hx Substance Use: No Physical Exam Vital Signs Last Vital Signs Temp 37.0 C 09/03/20 07:47 Pulse 70 09/03/20 07:47 Resp 18 09/03/20 07:47 BP 116/72 09/03/20 07:47 Pulse Ox 99 09/03/20 07:47 Testing Laboratory Results 09/03/20 05:42 09/03/20 05:42 PT 14.0 Seconds (9.0-12.0) H 09/03/20 05:42 INR 1.4 (0.9-1.1) H 09/03/20 05:42 APTT 43.0 Seconds (21.0-31.0) H 09/03/20 05:42 Blood Type A Positive 09/02/20 14:15 Antibody Screen NEGATIVE 09/02/20 14:15 09/03/20 07:33 POC Glucose 130 H Electrocardiogram Test Reason : Blood Pressure : / mmHG Vent. 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 rate has increased BY [address] no longer depressed in Anterior leads T wave inversion no longer evident in Anterior leads Confirmed by Eh Linda ([id number]) on 09/02/2020 5:15:48 PM Referred By: Confirmed By:Rob Linda Echocardiogram Date: 06/19/20 EF: 60-65 LV Function: normal RWMA: + none Other Findings: + atrial enlargement Valvular Disease: + MR
--- NOTE | 2020-09-03 10:00 | GI REPORT ---
Patient Name: Jude Mckeon Procedure Date: 09/03/2020 9:32 AM Date of : 1935 Admit Type: Inpatient Age: 85 Gender: Male Attending MD: Jamal Landers DO Procedure: Upper GI endoscopy Providers: Jamal Landers DO Referring MD: Braeden Sultana Indications: Acute post hemorrhagic anemia, Melena Medicines: Monitored Anesthesia Care Complications: No immediate complications. Estimated Blood Loss: Estimated blood loss: none. Procedure: Pre-Anesthesia Assessment: - Prior to the procedure, a History and Physical was performed, and patient medications and allergies were reviewed. The patient's tolerance of previous anesthesia was also reviewed. The risks and benefits of the procedure and the sedation options and risks were discussed with the patient. All questions were answered, and informed consent was obtained. Prior Anticoagulants: The patient has taken Pradaxa (dabigatran), last dose was 2 days prior to procedure. ASA Grade Assessment: III - A patient with severe systemic disease. After reviewing the risks and benefits, the patient was deemed in satisfactory condition to undergo the procedure. After obtaining informed consent, the endoscope was passed under direct vision. Throughout the procedure, the patient's blood pressure, pulse, and oxygen saturations were monitored continuously. The Endoscope was introduced through the mouth, and advanced to the third part of duodenum. The upper GI endoscopy was accomplished without difficulty. The patient tolerated the procedure well. Findings: Gum was found in the posterior pharynx. Removal was accomplished with a regular forceps. The examined esophagus was normal. A small hiatal hernia was present. The examined duodenum was normal. Impression: - Foreign body removal from posterior pharynx - Normal esophagus. - Small hiatal hernia. - Normal examined duodenum. - No specimens collected. Recommendation: - Resume previous diet. - Continue present medications. - Return to primary care physician as previously scheduled. Jamal Landers DO 09/03/2020 10:00:00 AM This report has been signed electronically. Note Initiated On: 09/03/2020 9:32 AM Number of Addenda: 0 I attest to the content of the Intraoperative Record and orders documented therein, exceptions below {[id number]}
--- NOTE | 2020-09-03 10:18 | Anesthesiology Progress Note ---
Date of Service September 03, 2020 Anesthesia Post Procedure Vital Signs Vital Signs: Temp Pulse Pulse Resp BP BP Pulse Ox 09/03/20 10:16 73 18 91/50 L 98 09/03/20 10:07 76 18 95/62 L 97 09/03/20 09:17 37.6 C H 61 16 126/83 99 09/03/20 07:47 37.0 C 70 18 116/72 99 09/03/20 04:31 37.0 C 64 18 125/71 95 09/03/20 01:51 74 09/03/20 00:10 36.7 C 81 18 125/80 95 09/03/20 00:09 36.7 C 81 18 125/80 95 09/02/20 23:15 36.9 C 80 18 120/68 95 09/02/20 22:47 36.6 C 73 18 149/81 H 96 09/02/20 22:15 36.7 C 75 18 117/65 97 09/02/20 21:45 36.8 C 77 18 118/63 98 09/02/20 21:30 36.9 C 77 20 109/77 98 09/02/20 21:12 36.9 C 73 16 114/63 98 09/02/20 18:23 36.6 C 81 17 159/70 H 97 09/02/20 18:01 72 18 130/77 97 09/02/20 18:00 67 21 98 09/02/20 17:45 36.6 C 79 18 144/65 H 99 09/02/20 17:31 79 18 144/65 H 99 09/02/20 17:30 81 22 96 09/02/20 17:28 78 16 133/90 98 09/02/20 16:45 36.9 C 82 16 150/70 H 99 09/02/20 16:30 80 16 150/70 H 99 09/02/20 16:15 36.8 C 77 17 144/63 H 98 09/02/20 16:00 36.5 C 80 23 132/76 98 09/02/20 15:41 36.9 C 77 20 135/74 100 09/02/20 15:40 76 19 135/74 100 09/02/20 15:30 77 17 144/63 H 98 09/02/20 15:00 18 127/77 100 09/02/20 14:31 80 18 123/74 100 09/02/20 14:29 100 09/02/20 13:08 37.3 C 95 H 20 131/59 L 100 Transfer of Care Handoff Completed per policy Notes Mental Status: alert / awake / arousable and participated in evaluation Patient Amnestic to Procedure: Yes Nausea / Vomiting: adequately controlled Pain: adequately controlled Airway Patency, RR, SpO2: stable & adequate BP & HR: stable & adequate Hydration State: stable & adequate Anesthetic Complications: no major complications apparent and Pt Satisfied with anesthetic care
--- NOTE | 2020-09-03 18:56 | Discharge Summary ---
Date of Service September 03, 2020 Principal Diagnosis anemia of undetermined cause, negative EGD pt demands to leave transfusion of 2 units of PRBC Discharge Exam The patient appeared well , appears agitated and partially demented Vital signs as documented. does not appear pale Lungs are clear to auscultation and appear unlabored Cardiac exam, Rhythm is regular.. No murmurs, rubs or gallops. Abdominal exam reveals normal bowel sounds, soft non tender Extremities are nonedematous and both pedal pulses are normal. Neurologic exam is alert and oriented, no focal loss of strength or sensation Skin is without bruises or rashes Psychologically is with concerns for dementia Discharge Data Allergies Allergy/AdvReac Type Severity Reaction Status Date / Time zinc Allergy Intermediate ITCHY Verified 09/03/20 09:29 Consultations 09/02/20 15:25 ED Decision to Admit Stat 09/02/20 18:19 Consult Gastroenterology Routine Procedures Performed Operation Date: 09/03/20 16:30 Actual Procedures p EGD Foreign Body Removal - Jamal Landers, DO Hospital Course (1) GI bleed: Unspecified- Stools dark, no increase in frequency per . Heme positive in the EMD - - GI consult- Dr. Landers, performed upper endoscope without signs of bleeding, will transition to protonix po again, pt does not want to stay for further workup or surveillance. - BUN not elevated - LFTs normal - INR 1.7- hold Pradaxa, will recheck labs as an outpt, understands that she may need to return has a pcp appointment on 09/05 this pt absolutely will not stay another day, pacing in room ripping off tele patches, pulled out [place] with balloon up and refused further iv meds or labs here (2) Anemia: Microcytic hypochromic on this admission with RDW 15.8% - likely multifactorial with FE deficient and blood loss - PRBC 2 units given check iron as outpt (3) Hypertension: - Continue with his lasix and diltiazem at this time (4) Atrial fibrillation: As above, continue diltiazem- hemodynamically stable - Hold Dabigatran- consider need for detention anticoagulation with patient regarding bleeding risks somewhat dependent on outpt labs, may benefit from outpt colonoscopy and oral iron (5) Mitral regurgitation: continue typical outpt regime (6) CKD (chronic kidney disease): CKD III - BUN and TOPPER PACKER stable- mild increase to 1.66 baseline 1.2-1.5 - Minimize nephrotoxic agents (7) BPH (benign prostatic hyperplasia): Currently with retention in the EMD and distended bladder - straight cath now with PVR- continue when on floor - Continue Tamsulosin and Finasteride- (8) Hypothyroidism: Continue Synthroid Total Time Total Time Spent Total Time Spent (In Minutes): Discharge greater than 30 minutes required including bedside discussion with and patient Discharge Plan Discharge Items Patient Disposition: Home - Self-Care Reason For Visit: Anemia, GI bleed unspecified Discharge Diagnosis: anemia cause unspecified Activity: Per Instructions section Activity Comment: rest and recover Non-emergency contact: Primary Care Provider Call non-emergency contact if: your symptoms worsen and you have a fever Follow-up/Referrals: Braeden Sultana III, CRNP [Primary Care Provider] - 09/05/20 12:00 pm (Please keep your appointment already scheduled for . If you have any questions or need to change this, please call [phone].) Diet: Regular Ambulatory Orders: Complete Blood Count with Diff (Routine) Timeframe: 1 Day Location: Determined by Patient Ordered By: Daniel Curran Attending Provider Instructions: please hydrate and rest Please hold your blood thinner, Pradaxa/Dabigitran, until you see your primary care, braeden Porter please have outpatient blood work checked on wednesday09/04/20 please return in abdominal pain or bloody bowel movements the patient tore out his urinary catheter during his stay, he may experience some bloody or painful urination, if he is unable to urinate or has severe pain or fever please return to the hospital Pending Studies at Discharge: No Stand-Alone Forms: My [facility] [employer], Smoking Cessation Medications and DC Order Prescriptions: Continued galantamine 24 mg capsule,ext rel. pellets 24 hr 24 mg PO QAM Qty: 90 RF: 1 metformin 500 mg tablet 500 mg PO BID Qty: 180 RF: 1 levothyroxine 50 mcg tablet 50 mcg PO QAM Qty: 90 RF: 1 diltiazem HCl 180 mg capsule,extended release 24hr 180 mg PO QAM Qty: 30 RF: 5 furosemide 20 mg tablet 20 mg PO DAILY Qty: 30 RF: 2 finasteride 5 mg tablet 5 mg PO QPM Qty: 90 RF: 3 tamsulosin 0.4 mg capsule 0.4 mg PO HS RF: 0 pantoprazole 40 mg tablet,delayed release (DR/EC) 40 mg PO BID RF: 0 Discontinued Pradaxa 150 mg capsule 150 mg PO BID Qty: 180 RF: 1 Discharge Orders: Discharge Order (Routine); Ordered 09/03/20 Ordered By: Daniel Valentino/Other Patient Handouts: Bleeding Gastrointestinal, Anemia, Benign Prostatic Hyperplasia, ED BPH (Enlarged Prostate) Admission Data Admit Date/Time: 09/02/20 16:55 Attending Provider: Daniel Paula Admit Provider: Gilmar Alexander Primary Care Provider: Braeden Sultana III Other Providers: Gilmar Alexander ; Jamal Landers Other Interventions: Discharge Summary Assessment (RN) Last Done: 09/03/20 15:07 Coding Level of Care Code D/C Day Management >30 mins Diagnoses GI bleed K92.2 GI bleed type/associated pathology: unspecified gastrointestinal hemorrhage type Anemia D64.9 Anemia type: unspecified type Hypertension I10 Hypertension type: essential hypertension Atrial fibrillation I48.91 Atrial fibrillation type: unspecified Mitral regurgitation I34.0 Cardiac valve disease etiology: etiology unspecified CKD (chronic kidney disease) N18.9 Chronic kidney disease stage: unspecified stage BPH (benign prostatic hyperplasia) N40.1; R33.8 Lower urinary tract symptom presence: symptoms present Lower urinary tract symptom detail: urinary retention Hypothyroidism E03.9 Hypothyroidism type: unspecified
[2020-09-03] MEDS ORDERED: PANTOprazole 40 MG TAB PO SCH (21:00)
== END 2020-09-03 15:57 | disposition home or self-care (01) | DRG 812 ==
LOC: ED 12:49 → SUATTDRO 16:55 → 2N 16:55

== ENCOUNTER 2020-09-06 19:11 | Inpatient (IN) ==
[2020-09-06] MEDS ORDERED: CEFEPIME 2,000 MG/20 ML VIAL IV STA (19:24)
[2020-09-06] MEDS ORDERED: DAPTOmycin 400 MG in SYRINGE 0 ML IV ONE (19:25)
--- NOTE | 2020-09-06 19:29 | Emergency Department Note ---
Impression & Plan Sepsis ED Provider Note INFORMANT: Patient ED PROVIDER(S): Ino Green MD CHIEF COMPLAINT: Weakness PLAN: Disposition: Admitted Condition: Good Outpatient prescription management: none Referral: None MEDICAL DECISION MAKING: Patient presented because of weakness and fever. Upon arrival the full nursing team was evaluating the patient and initiating a work-up. Urinalysis was ob tained via catheter specimen. Blood work and cultures were being performed. IV was established. Patient was started on normal saline hydration. Urinalysis was very concerning for infection. He was treated with IV Tylenol. He was given additional saline. His blood work showed a leukocytosis. He was mildly anemic but consistent with prior. His lactate was mildly elevated. Urinalysis was very concerning for infection. Patient was empirically treated with broad- spectrum antibiotics of cefepime and daptomycin. Chest x-ray was unremarkable. Patient was reevaluated and was doing well. He had no hypotension. His fever resolved. I did inform his of the findings. He will need further management in the hospital. Consultation was made with Dr. Lv Medina of the [facility] service. Patient was evaluated in the ER for further management. Triage Nursing notes reviewed and agree them. Vital Signs: reviewed and remarkable for fever Differential diagnosis: Sepsis, UTI, pneumonia, metabolic, electrolyte abnormalities, cardiac sources, intracerebral event, toxicologic, neurologic, as well as other pathologies. Diagnostics interpreted by me: ECG: Twelve-lead ECG reveals atrial fibrillation at 70 bpm. Low voltage QRS. No ST elevation or depression. No PVCs. Anteroseptal Q waves. Cardiac Monitoring:Cardiac monitoring ordered by me: The patient was placed on continuous cardiac monitoring and observed. It revealed a fibrillation at 67 beats per minute without ectopy or evidence of dysrhythmia. Imaging studies: Chest x-ray. Findings: A chest x-ray was performed and revealed no pneumothorax, effusion, infiltrate, pulmonary edema, free air under the diaphragm, or wide mediastinum. Impression: No acute disease. HPI: The patient is a 85 year old male who presents to the Emergency Room with complaints of weakness. This started today and is persisting. The patient also notes the following associated symptoms, fevers. The patient has found no relieving factors. Current pain is rated as 0/10. EMS noted he had foul smelling urine. Pt denies LOC, headache, diaphoresis, visual changes, neck pain, chest pain, breathing difficulties, nausea, vomiting, abdominal pain, back pain, melena, hematochezia, numbness, weakness, lymphadenopathy, rash, or other complaints. ROS: See above HPI for pertinent positives & negatives. A total of 10 systems reviewed and were otherwise negative. PAST MEDICAL HISTORY:See Below , anemia, afib with RVR PAST SURGICAL HISTORY:See Below, FAMILY HISTORY:See Below SOCIAL HISTORY:See Below, HOME MEDICATIONS:See Below ALLERGIES:See Below VITALS:See Below PHYSICAL EXAMINATION: GENERAL: Awake, tired appearing, in no distress HENT: Normocephalic, atraumatic. Oropharynx unremarkable. EYES: Normal conjunctiva. Sclera non-icteric. NECK: Inspection normal. Non-tender. Supple. No nuchal rigidity. FROM. No masses. RESPIRATORY: Clear to auscultation. No wheezes. No rales. Normal respiratory effort. CARDIAC: Normal rate. Irregular rhythm. No murmurs. No rubs. Extremities warm and well perfused. Pulses equal. No JVD. GI: Soft, non-distended. No tenderness to palpation. No rebound or guarding. No masses. RECTAL: Deferred. MUSCULOSKELETAL: Atraumatic. Chest examination reveals no tenderness. The back is symmetrical on inspection without obvious abnormality. There is no CVA tenderness to palpation. No joint edema. LOWER EXTREMITIES: Calves are equal size bilaterally and non-tender. No edema. No discoloration. NEURO: [place], Normal sensorium.Generally weak but No focal sensory or motor deficits noted. SKIN: No rash or jaundice noted. 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 Berry Case Family History Brother Coronary arteriosclerosis Mother Myocardial infarction Heart disease Father Myocardial infarction Heart disease Denies family history of Colon cancer Ovarian cancer Prostate cancer Breast cancer Social History Smoking Status: Former smoker Age Quit Using Tobacco: 58; Second Hand Exposure: No; Do You Dip or Chew Tobacco: No; Tobacco Cessation Education Requested by Patient: No Hx Alcohol Use: No Hx Substance Use: No Preferred Language: Wallisian Communication Ability: Effective Communication Ability Comment: [place] Visual Impairment: No Limitations Hearing Ability: Use of Hearing Aid Porcelain Technician Required: No Beliefs That Will Affect Care: None marital status: Current Living Situation: Spouse current occupational status: retired Other Information That Helps Us Care for You: No Feels Safe at Home: Yes Safety Concerns: Feels Safe At This Time Dental Care, Regularly: Yes Physical Activity Frequency: Does not Exercise Seatbelt Use: always Sunscreen Use: No Do you think of yourself as: straight/heterosexual Assistive Devices: Walker Allergies Allergies Allergy/AdvReac Type Severity Reaction Status Date / Time zinc Allergy Intermediate ITCHY Verified 09/06/20 22:02 Home Meds Home Medications Medication Instructions Recorded Confirmed tamsulosin 0.4 mg PO HS 06/18/20 09/06/20 pantoprazole 40 mg PO BID 09/02/20 09/06/20 Previous Rx's Medication Instructions Recorded galantamine 24 mg 24 hr 24 mg PO QAM #90 cap 06/04/20 capsule,extended release furosemide 20 mg tablet 20 mg PO DAILY #30 tab 06/18/20 metformin 500 mg tablet 500 mg PO BID #180 tab 07/04/20 levothyroxine 50 mcg tablet 50 mcg PO QAM #90 tab 07/24/20 diltiazem HCl 180 mg 180 mg PO QAM #30 cap 08/13/20 capsule,extended release 24 hr finasteride 5 mg tablet 5 mg PO QPM #90 tab 08/28/20 Results & Data (ED) Vital Signs Vital Signs - 24 hr 09/06/20 19:14 09/06/20 19:38 09/06/20 19:41 Temperature 39.6 C H Temperature Source Oral Pulse Rate 73 82 102 H Pulse Rate from SpO2 Sensor 78 81 Respiratory Rate 28 H 20 30 H Respiratory Effort / Characteristics Non-Labored Spontaneous Respiratory Depth Normal Blood Pressure 122/63 Blood Pressure Mean 82 Blood Pressure Position Lying Pulse Oximetry 94 96 94 Oxygen Delivery Method Room Air Room Air Room Air Sepsis Recent Fever Within 48 Hours Yes Sepsis New/Unexplained Change in Mental Status No Sepsis Action Taken by Nursing No Action Required 09/06/20 19:45 09/06/20 20:00 09/06/20 20:15 Temperature Temperature Source Pulse Rate 84 86 86 Pulse Rate from SpO2 Sensor Respiratory Rate 25 H 26 H 23 Respiratory Effort / Characteristics Respiratory Depth Blood Pressure Blood Pressure Mean Blood Pressure Position Pulse Oximetry Oxygen Delivery Method Sepsis Recent Fever Within 48 Hours Sepsis New/Unexplained Change in Mental Status Sepsis Action Taken by Nursing 09/06/20 20:30 09/06/20 20:45 09/06/20 21:00 Temperature Temperature Source Pulse Rate 75 91 H 90 Pulse Rate from SpO2 Sensor Respiratory Rate 26 H 22 21 Respiratory Effort / Characteristics Respiratory Depth Blood Pressure Blood Pressure Mean Blood Pressure Position Pulse Oximetry Oxygen Delivery Method Sepsis Recent Fever Within 48 Hours Sepsis New/Unexplained Change in Mental Status Sepsis Action Taken by Nursing 09/06/20 21:15 09/06/20 21:30 09/06/20 21:45 Temperature Temperature Source Pulse Rate 87 82 79 Pulse Rate from SpO2 Sensor 79 Respiratory Rate 24 26 H 23 Respiratory Effort / Characteristics Respiratory Depth Blood Pressure Blood Pressure Mean Blood Pressure Position Pulse Oximetry 92 Oxygen Delivery Method Sepsis Recent Fever Within 48 Hours Sepsis New/Unexplained Change in Mental Status Sepsis Action Taken by Nursing 09/06/20 22:00 09/06/20 22:15 09/06/20 22:30 Temperature Temperature Source Pulse Rate 82 87 82 Pulse Rate from SpO2 Sensor 84 82 82 Respiratory Rate 25 H 23 21 Respiratory Effort / Characteristics Respiratory Depth Blood Pressure Blood Pressure Mean Blood Pressure Position Pulse Oximetry 92 94 95 Oxygen Delivery Method Room Air Room Air Sepsis Recent Fever Within 48 Hours Sepsis New/Unexplained Change in Mental Status Sepsis Action Taken by Nursing 09/06/20 22:40 09/06/20 22:41 09/06/20 22:42 Temperature Temperature Source Pulse Rate 74 82 72 Pulse Rate from SpO2 Sensor 75 83 74 Respiratory Rate 25 H 24 23 Respiratory Effort / Characteristics Respiratory Depth Blood Pressure 100/59 L 101/50 L Blood Pressure Mean 72 67 Blood Pressure Position Pulse Oximetry 92 95 93 Oxygen Delivery Method Room Air Room Air Sepsis Recent Fever Within 48 Hours Sepsis New/Unexplained Change in Mental Status Sepsis Action Taken by Nursing Laboratory Data Result diagrams: 09/06/20 19:25 09/06/20 19:25 Lab Results 09/06/20 09/06/20 09/06/20 Range/Units 19:20 19:25 19:25 WBC 13.55 H (4.8-10.8) K/uL RBC 3.60 L (4.7-6.1) M/uL Hgb 8.7 L (14.0-18.0) g/dL Hct 28.2 L (42-52) % MCV 78.3 L (80-100) fL MCH 24.2 L (25-34) pg MCHC 30.9 L (32-36) g/dL RDW Std Deviation 51.1 H (36.4-46.3) fL RDW Coeff of Julia 18.2 H (11.5-14.5) % Plt Count 180 (130-400) K/uL MPV 8.6 (7.4-10.4) fL Immature Gran % (Auto) 0.4 % Neut % (Auto) 91.1 % Lymph % (Auto) 3.1 % Hart % (Auto) 5.2 % Eos % (Auto) 0.1 % Baso % (Auto) 0.1 % Neut # (Auto) 12.35 H (1.4-6.5) K/uL Lymph # (Auto) 0.42 L (1.2-3.4) K/uL Hart # (Auto) 0.70 H (0.11-0.59) K/uL Eos # (Auto) 0.01 (0-0.5) K/uL Baso # (Auto) 0.01 (0-0.2) K/uL Immature Gran # (Auto) 0.06 H (0.00-0.02) K/uL PT 11.7 (9.0-12.0) Seconds INR 1.2 H (0.9-1.1) APTT 25.1 (21.0-31.0) Seconds PTT Ratio 1.0 Sodium (136-145) mmol/L Potassium (3.5-5.1) mmol/L Chloride (98-107) mmol/L Carbon Dioxide (21-32) mmol/L Anion Gap (3-11) BUN (7-18) mg/dl Creatinine (0.6-1.4) mg/dl Est Cr Clr Drug Dosing ml/min Est GFR ( Amer) ml/min Est GFR (Non-Af Amer) ml/min BUN/Creatinine Ratio (10-20) Glucose (70-99) mg/dl Lactate (0.4-2.0) mmol/L Calcium (8.5-10.1) mg/dl Magnesium (1.8-2.4) mg/dl Total Bilirubin (0.2-1) mg/dl AST (15-37) U/L ALT (12-78) U/L Alkaline Phosphatase (45-117) U/L Troponin I (0-0.045) ng/ml Total Protein (6.4-8.2) gm/dl Albumin (3.4-5.0) gm/dl Globulin (2.5-4.0) gm/dl Albumin/Globulin Ratio (0.9-2) Procalcitonin (0-0.5) ng/ml Urine Color Yellow Urine Appearance Clear (Clear) Urine pH 5.5 (4.5-7.5) Ur Specific [place] 1.012 (1.000-1.030) Urine Protein Negative (Negative) Urine Glucose (UA) Negative (Negative) Urine Ketones Negative (Negative) Urine Blood 2+ H (Negative) Urine Nitrite Positive A (Negative) Urine Bilirubin Negative (Negative) Urine Urobilinogen Negative (Negative) Ur Leukocyte Esterase Trace H (Negative) Urine WBC (Auto) 10-30 H (0-5) /hpf Urine RBC (Auto) 10-30 H (0-4) /hpf U Hyaline Cast (Auto) 1-5 (0-5) /lpf U Epithel Cells (Auto) 10-20 H (0-5) /lpf Urine Bacteria (Auto) Negative (Negative) Urine Yeast Present A (None Prsent) COVID-19 Eval Order SARS-CoV-2 (PCR) (Negative) 09/06/20 09/06/20 09/06/20 Range/Units 19:25 19:25 19:37 WBC (4.8-10.8) K/uL RBC (4.7-6.1) M/uL Hgb (14.0-18.0) g/dL Hct (42-52) % MCV (80-100) fL MCH (25-34) pg MCHC (32-36) g/dL RDW Std Deviation (36.4-46.3) fL RDW Coeff of Julia (11.5-14.5) % Plt Count (130-400) K/uL MPV (7.4-10.4) fL Immature Gran % (Auto) % Neut % (Auto) % Lymph % (Auto) % Hart % (Auto) % Eos % (Auto) % Baso % (Auto) % Neut # (Auto) (1.4-6.5) K/uL Lymph # (Auto) (1.2-3.4) K/uL Hart # (Auto) (0.11-0.59) K/uL Eos # (Auto) (0-0.5) K/uL Baso # (Auto) (0-0.2) K/uL Immature Gran # (Auto) (0.00-0.02) K/uL PT (9.0-12.0) Seconds INR (0.9-1.1) APTT (21.0-31.0) Seconds PTT Ratio Sodium 133 L (136-145) mmol/L Potassium 4.1 (3.5-5.1) mmol/L Chloride 102 (98-107) mmol/L Carbon Dioxide 24 (21-32) mmol/L Anion Gap 7.0 (3-11) BUN 25 H (7-18) mg/dl Creatinine 1.75 H (0.6-1.4) mg/dl Est Cr Clr Drug Dosing 28.8 ml/min Est GFR ( Amer) 39.7 ml/min Est GFR (Non-Af Amer) 34.3 ml/min BUN/Creatinine Ratio 14.5 (10-20) Glucose 153 H (70-99) mg/dl Lactate (0.4-2.0) mmol/L Calcium 8.5 (8.5-10.1) mg/dl Magnesium 2.0 (1.8-2.4) mg/dl Total Bilirubin 0.6 (0.2-1) mg/dl AST 8 L (15-37) U/L ALT 14 (12-78) U/L Alkaline Phosphatase 57 (45-117) U/L Troponin I 0.015 (0-0.045) ng/ml Total Protein 7.4 (6.4-8.2) gm/dl Albumin 3.4 (3.4-5.0) gm/dl Globulin 4.0 (2.5-4.0) gm/dl Albumin/Globulin Ratio 0.9 (0.9-2) Procalcitonin 0.15 (0-0.5) ng/ml Urine Color Urine Appearance (Clear) Urine pH (4.5-7.5) Ur Specific [place] (1.000-1.030) Urine Protein (Negative) Urine Glucose (UA) (Negative) Urine Ketones (Negative) Urine Blood (Negative) Urine Nitrite (Negative) Urine Bilirubin (Negative) Urine Urobilinogen (Negative) Ur Leukocyte Esterase (Negative) Urine WBC (Auto) (0-5) /hpf Urine RBC (Auto) (0-4) /hpf U Hyaline Cast (Auto) (0-5) /lpf U Epithel Cells (Auto) (0-5) /lpf Urine Bacteria (Auto) (Negative) Urine Yeast (None Prsent) COVID-19 Eval Order Covid19 at [facility] SARS-CoV-2 (PCR) (Negative) 09/06/20 09/06/20 09/06/20 Range/Units 19:37 19:47 21:34 WBC (4.8-10.8) K/uL RBC (4.7-6.1) M/uL Hgb (14.0-18.0) g/dL Hct (42-52) % MCV (80-100) fL MCH (25-34) pg MCHC (32-36) g/dL RDW Std Deviation (36.4-46.3) fL RDW Coeff of Julia (11.5-14.5) % Plt Count (130-400) K/uL MPV (7.4-10.4) fL Immature Gran % (Auto) % Neut % (Auto) % Lymph % (Auto) % Hart % (Auto) % Eos % (Auto) % Baso % (Auto) % Neut # (Auto) (1.4-6.5) K/uL Lymph # (Auto) (1.2-3.4) K/uL Hart # (Auto) (0.11-0.59) K/uL Eos # (Auto) (0-0.5) K/uL Baso # (Auto) (0-0.2) K/uL Immature Gran # (Auto) (0.00-0.02) K/uL PT (9.0-12.0) Seconds INR (0.9-1.1) APTT (21.0-31.0) Seconds PTT Ratio Sodium (136-145) mmol/L Potassium (3.5-5.1) mmol/L Chloride (98-107) mmol/L Carbon Dioxide (21-32) mmol/L Anion Gap (3-11) BUN (7-18) mg/dl Creatinine (0.6-1.4) mg/dl Est Cr Clr Drug Dosing ml/min Est GFR ( Amer) ml/min Est GFR (Non-Af Amer) ml/min BUN/Creatinine Ratio (10-20) Glucose (70-99) mg/dl Lactate 2.1 H* 1.3 (0.4-2.0) mmol/L Calcium (8.5-10.1) mg/dl Magnesium (1.8-2.4) mg/dl Total Bilirubin (0.2-1) mg/dl AST (15-37) U/L ALT (12-78) U/L Alkaline Phosphatase (45-117) U/L Troponin I (0-0.045) ng/ml Total Protein (6.4-8.2) gm/dl Albumin (3.4-5.0) gm/dl Globulin (2.5-4.0) gm/dl Albumin/Globulin Ratio (0.9-2) Procalcitonin (0-0.5) ng/ml Urine Color Urine Appearance (Clear) Urine pH (4.5-7.5) Ur Specific [place] (1.000-1.030) Urine Protein (Negative) Urine Glucose (UA) (Negative) Urine Ketones (Negative) Urine Blood (Negative) Urine Nitrite (Negative) Urine Bilirubin (Negative) Urine Urobilinogen (Negative) Ur Leukocyte Esterase (Negative) Urine WBC (Auto) (0-5) /hpf Urine RBC (Auto) (0-4) /hpf U Hyaline Cast (Auto) (0-5) /lpf U Epithel Cells (Auto) (0-5) /lpf Urine Bacteria (Auto) (Negative) Urine Yeast (None Prsent) COVID-19 Eval Order SARS-CoV-2 (PCR) NEGATIVE (Negative) Administered Medications Sodium Chloride (Nss 1000ml) 1,000 mls @ 80 mls/hr IV .[id number] ARSENIO Stop: 09/07/20 13:14 Last Infusion: 09/07/20 02:25 Dose: 80 mls/hr Documented by: [id number] Infusion: 09/07/20 01:57 Dose: 0 mls/hr Documented by: [id number] Admin: 09/07/20 01:54 Dose: 80 mls/hr Documented by: [id number] Ceftriaxone Sodium 1,000 mg/ (Dextrose) 50 mls @ 100 mls/hr IV Q24H ARSENIO; Protocol Stop: 09/17/20 01:59 Last Infusion: 09/07/20 02:25 Dose: 0 mls/hr Documented by: [id number] Admin: 09/07/20 01:53 Dose: 100 mls/hr Documented by: [id number] Discontinued Medications Acetaminophen (Acetaminophen 500 Mg Tab) 1,000 mg PO NOW STA Stop: 09/06/20 19:41 Last Admin: 09/06/20 19:48 Dose: Not Given Documented by: [id number] Acetaminophen (Acetaminophen 1000 Mg/100 Ml Iv) Confirm Administered Dose 1,000 mg IV .STK-MED ONE Stop: 09/06/20 19:45 Last Admin: 09/06/20 19:47 Dose: Not Given Documented by: [id number] Sodium Chloride (Nss 1000ml) 1,000 mls @ 999 mls/hr IV .[id number] ARSENIO Stop: 09/06/20 20:30 Last Infusion: 09/06/20 20:34 Dose: 0 mls/hr Documented by: [id number] Admin: 09/06/20 19:33 Dose: 999 mls/hr Documented by: [id number] Sodium Chloride (Nss 1000ml) 1,000 mls @ 150 mls/hr IV .[id number] ARSENIO Stop: 10/06/20 19:29 Last Infusion: 09/07/20 00:51 Dose: 0 mls/hr Documented by: [id number] Admin: 09/06/20 21:12 Dose: 150 mls/hr Documented by: [id number] Cefepime HCl (Maxipime) 2,000 mg in 20 mls @ 5 mls/min IV NOW STA; Protocol Stop: 09/06/20 19:27 Last Admin: 09/06/20 19:34 Dose: 5 mls/min Documented by: [id number] Daptomycin 400 mg/ Syringe 8 mls @ 4 mls/min IV NOW ONE; Protocol Stop: 09/06/20 19:26 Last Admin: 09/06/20 21:11 Dose: 4 mls/min Documented by: [id number] Acetaminophen (Ofirmev) 1,000 mg in 100 mls @ 400 mls/hr IV NOW STA Stop: 09/06/20 20:00 Last Infusion: 09/06/20 20:02 Dose: 0 mls/hr Documented by: [id number] Admin: 09/06/20 19:47 Dose: 400 mls/hr Documented by: [id number] Imaging Data Radiologist's Impression: Chest X-Ray 09/06/20 19:24 XR chest 1V portable HISTORY: SEPSIS COMPARISON: Chest 06/18/2020. FINDINGS: No pneumothorax or no pleural effusions. Slightly rotated study. The heart remains enlarged. Calcified left hilar lymph nodes and a calcified left upper lobe granuloma are noted. Mild chronic interstitial thickening, unchanged. No new focal lung consolidations to suggest pneumonia. No evidence for pulmonary edema. IMPRESSION: No change in the cardiomegaly and diffuse interstitial thickening. No new focal lung consolidations to suggest pneumonia. ACT 112: Negative or not required by law. Electronically signed by: Ayush Addison M.D. 09/06/2020 7:53 PM Discharge Plan Visit Data Chief Complaint: Weakness Stated Complaint: WEAKNESS, ED Provider: Ino Green Discharge Problem: Sepsis Patient Disposition: Admitted As Inpatient Discharge Instructions Interventions: ED Discharge Assessment Last Done: 09/07/20 00:08
[2020-09-06] MEDS ORDERED: SODIUM CHLORIDE 0.9% 1000ML 1,000 ML IV SCH ×2 (19:30)
[2020-09-06 19:40] LABS: Basophils # (auto) 0.01 K/uL (0-0.2); Basophils % (auto) 0.1 %; Eosinophils # (auto) 0.01 K/uL (0-0.5); Eosinophils % (auto) 0.1 %; Hematocrit (blood only) 28.2 % (42-52); Hemoglobin 8.7 g/dL (14.0-18.0); Immature Granulocytes # (auto) 0.06 K/uL (0.00-0.02); Immature Granulocytes % (auto) 0.4 %; Lymphocytes # (auto) 0.42 K/uL (1.2-3.4); Lymphocytes % (auto) 3.1 %; Mean Corpuscular Hemoglobin 24.2 pg (25-34); Mean Corpuscular Hgb Conc 30.9 g/dL (32-36); Mean Corpuscular Volume 78.3 fL (80-100); Mean Platelet Volume 8.6 fL (7.4-10.4); Monocytes % (auto) 5.2 %; Neutrophils # (auto) 12.35 K/uL (1.4-6.5); Neutrophils % (auto) 91.1 %; Platelet Count 180 K/uL (130-400); RDW Coefficient of Variation 18.2 % (11.5-14.5); RDW Standard Deviation 51.1 fL (36.4-46.3); White Blood Count 13.55 K/uL (4.8-10.8)
[2020-09-06] MEDS ORDERED: ACETAMINOPHEN 500 MG TAB PO STA (19:40)
[2020-09-06] MEDS ORDERED: ACETAMINOPHEN 1000 MG/100 ML IV IV ONE (19:44)
[2020-09-06] MEDS ORDERED: ACETAMINOPHEN 1,000 MG/100 ML VIAL IV STA (19:46)
[2020-09-06 19:52] LABS: INR 1.2 (0.9-1.1); Partial Thromboplastin Time 25.1 Seconds (21.0-31.0); Prothrombin Time 11.7 Seconds (9.0-12.0)
--- NOTE | 2020-09-06 19:55 | XRay Report ---
XR chest 1V portable HISTORY: SEPSIS COMPARISON: Chest 06/18/2020. FINDINGS: No pneumothorax or no pleural effusions. Slightly rotated study. The heart remains enlarged . Calcified left hilar lymph nodes and a calcified left upper lobe granuloma are noted. Mild chronic interstitial thickening, unchanged. No new focal lung consolidations to suggest pneumonia. No evidenc e for pulmonary edema. IMPRESSION: No change in the cardiomegaly and diffuse interstitial thickening. No new focal lung consolidations t o suggest pneumonia. ACT 112: Negative or not required by law. Electronically signed by: Aysuh Addison M.D. 09/06/2020 7:53 PM
[2020-09-06 20:08] LABS: Appearance Urine Clear (Clear); Bacteria Urine Automated Negative (Negative); Bilirubin Urine Negative (Negative); Blood Urine 2+ (Negative); Color Urine Yellow; Glucose Urine UA Negative (Negative); Ketones Urine Negative (Negative); Leukocyte Esterase Urine Trace (Negative); Nitrite Urine Positive (Negative); Protein Urine Negative (Negative); Specific Gravity Urine 1.012 (1.000-1.030); Urobilinogen Urine Negative (Negative); pH Urine 5.5 (4.5-7.5)
[2020-09-06 20:11] LABS: Albumin Level 3.4 gm/dl (3.4-5.0); BUN Creatinine Ratio 14.5 (10-20); Calcium 8.5 mg/dl (8.5-10.1); Creatinine Clr Calc Pharmacy 28.8 ml/min; Est GFR (African American) 39.7 ml/min; Est GFR (Non-African American) 34.3 ml/min; Potassium 4.1 mmol/L (3.5-5.1)
[2020-09-06 20:16] LABS: Albumin Globulin Ratio 0.9 (0.9-2); Bilirubin,Total 0.6 mg/dl (0.2-1); Total Protein 7.4 gm/dl (6.4-8.2); Troponin I 0.015 ng/ml (0-0.045)
--- NOTE | 2020-09-06 22:46 | History & Physical Report ---
Date of Service September 06, 2020 Assessment & Plan (1) Sepsis due to urinary tract infection: Sepsis due to UTI/BPH with LUTS Follow urine culture and sensitivity History of previous infections with Enterococcus faecalis and coag negative staph Admit on daptomycin IV and ceftriaxone IV Likely associated BPH and LUTS Continue tamsulosin 0.4 mg at bedtime Present on Admission?: Yes (2) Acute kidney injury superimposed on chronic kidney disease: Creatinine 1.75 upon admission with baseline 1.31 Placed on NSS at 80 mils per hour, and follow labs serially Hold furosemide Present on Admission?: Yes (3) Benign prostatic hyperplasia with urinary obstruction: Continue tamsulosin Present on Admission?: Yes (4) Atrial fibrillation: Atrial fibrillation/hypertension- Continue diltiazem Present on Admission?: Yes (5) Hypertension: See above Present on Admission?: Yes (6) Type 2 diabetes mellitus: Hold Metformin Placed on Accu-Cheks before meals and at bedtime with NovoLog coverage scale Check hemoglobin A1c Present on Admission?: Yes (7) Hypothyroidism: Continue levothyroxine Present on Admission?: Yes (8) Dementia: Continue galantamine Present on Admission?: Yes (9) Gastric ulcer: Continue pantoprazole Present on Admission?: Yes History of Present Illness Chief Complaint: The patient presents to the emergency department due to concerns regarding fever and generalized weakness Primary Care Provider: Braeden Sultana III, CRNP The patient is an 85-year-old male with a past medical history including anemia, CKD, UTI, atrial fib with RVR, BPH with LUTS, hypertension, CAD, MR, TR, hiatal hernia, elevated PSA, diabetes mellitus type 2, dementia, conductive bilateral hearing loss, atrial fibrillation, metabolic disorder, hyperlipidemia, Raynaud's disease and hypothyroidism. The patient presented to the ED with a fever, generalized weakness and mild confusion. Work-up in the emergency department revealed the following abnormal laboratories: WBC 13.55, hemoglobin 8.7, hematocrit 28.2, creatinine 1.75, lactic acid 2.1 and glucose 153. Chest x-ray showed no acute findings Urinalysis suggested a urinary tract infection COVID-19 testing was negative Allergies Allergy/AdvReac Type Severity Reaction Status Date / Time zinc Allergy Intermediate ITCHY Verified 09/06/20 22:02 Home Medications Medication Instructions Recorded Confirmed Type galantamine 24 mg 24 hr 24 mg PO QAM #90 cap 06/04/20 09/06/20 Rx capsule,extended release furosemide 20 mg tablet 20 mg PO DAILY #30 tab 06/18/20 09/06/20 Rx tamsulosin 0.4 mg PO HS 06/18/20 09/06/20 History metformin 500 mg tablet 500 mg PO BID #180 tab 07/04/20 09/06/20 Rx levothyroxine 50 mcg tablet 50 mcg PO QAM #90 tab 07/24/20 09/06/20 Rx diltiazem HCl 180 mg 180 mg PO QAM #30 cap 08/13/20 09/06/20 Rx capsule,extended release 24 hr finasteride 5 mg tablet 5 mg PO QPM #90 tab 08/28/20 09/06/20 Rx pantoprazole 40 mg PO BID 09/02/20 09/06/20 History Past Med/Surg History Medical History (Updated 09/07/20 @ 04:26 by Lv Medina MD) Acute blood loss anemia Atrial fibrillation 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 Dementia Elevated PSA Esophageal ulcer Gastric ulcer GI bleed Heart disease Hiatal hernia Hyperlipidemia Hypertension Hypothyroidism Metabolic disorder Mitral regurgitation Raynaud's disease Tricuspid regurgitation Type 2 diabetes mellitus Surgical History H/O hernia repair History of colonoscopy History of esophagogastroduodenoscopy (EGD) 04/20/[address] Berry Case Family History Brother Coronary arteriosclerosis Mother Myocardial infarction Heart disease Father Myocardial infarction Heart disease Denies family history of Colon cancer Ovarian cancer Prostate cancer Breast cancer Social History Smoking Status: Former smoker Age Quit Using Tobacco: 58; Second Hand Exposure: No; Do You Dip or Chew Tobacco: No; Tobacco Cessation Education Requested by Patient: No Hx Alcohol Use: No Hx Substance Use: No Preferred Language: Danish Communication Ability: Effective Communication Ability Comment: [place] Visual Impairment: No Limitations Hearing Ability: Use of Hearing Aid Sap Security Consultant Required: No Beliefs That Will Affect Care: None marital status: Current Living Situation: Spouse current occupational status: retired Other Information That Helps Us Care for You: No Feels Safe at Home: Yes Safety Concerns: Feels Safe At This Time Dental Care, Regularly: Yes Physical Activity Frequency: Does not Exercise Seatbelt Use: always Sunscreen Use: No Do you think of yourself as: straight/heterosexual Assistive Devices: Walker Review of Systems Review of Systems: Unobtainable due to cognitive status Physical Exam Physical Exam: The patient is lethargic, well developed and well nourished, normocephalic and atraumatic, lying in bed and in no acute distress. HEENT--PERRL, EOMI, mucous membranes and oropharynx dry. Neck--supple. No JVD. No bruits. Thyroid normal, trachea midline, no adenopathy. Heart--normal S1 and S2. No murmurs, rubs or gallops. Lungs--decreased breath sounds throughout. No respiratory distress, no accessory muscle use. Abdomen--normal bowel sounds and soft. Nontender. Nondistended, no hernias or masses, no organomegaly. Extremities--no cyanosis or clubbing. No edema. Dermatologic--skin is dry Neurologic--cranial nerves II through XII grossly intact. Rheumatologic--normal range of motion. Psychiatric--lethargic Results & Data Results & Data ([facility]) Vital Signs (Past 12 Hours) Vital Signs Temp Pulse Resp BP Pulse Ox 09/06/20 22:00 82 25 H 92 09/06/20 21:45 79 23 92 09/06/20 21:30 82 26 H 09/06/20 21:15 87 24 09/06/20 21:00 90 21 09/06/20 20:45 91 H 22 09/06/20 20:30 75 26 H 09/06/20 20:15 86 23 09/06/20 20:00 86 26 H 09/06/20 19:45 84 25 H 09/06/20 19:41 102 H 30 H 94 09/06/20 19:38 82 20 96 09/06/20 19:14 103.3 F H 73 28 H 122/63 94 Laboratory Results Laboratory Results WBC 13.55 K/uL (4.8-10.8) H 09/06/20 19:25 RBC 3.60 M/uL (4.7-6.1) L 09/06/20 19:25 Hgb 8.7 g/dL (14.0-18.0) L 09/06/20 19: Hct 28.2 % (42-52) L 09/06/20: MCV 78.3 fL (80-100) L 09/06/20 19: MCH 24.2 pg (25-34) L 09/06/20: MCHC 30.9 g/dL (32-36) L 09/06/20: RDW Std Deviation 51.1 fL (36.4-46.3) H 09/06/20: RDW Coeff of Julia 18.2 % (11.5-14.5) H 09/06/20: Plt Count 180 K/uL (130-400) 09/06/20: MPV 8.6 fL (7.4-10.4) 09/06/20: Immature Gran % (Auto) 0.4 % 09/06/20: Neut % (Auto) 91.1 % 09/06/20: Lymph % (Auto) 3.1 % 09/06/20: Petroleum % (Auto) 5.2 % 09/06/20: Eos % (Auto) 0.1 % 09/06/20: Baso % (Auto) 0.1 % 09/06/20: Neut # (Auto) 12.35 K/uL (1.4-6.5) H 09/06/20: Lymph # (Auto) 0.42 K/uL (1.2-3.4) L 09/06/20: Petroleum # (Auto) 0.70 K/uL (0.11-0.59) H 09/06/20: Eos # (Auto) 0.01 K/uL (0-0.5) 09/06/20: Baso # (Auto) 0.01 K/uL (0-0.2) 09/06/20: Immature Gran # (Auto) 0.06 K/uL (0.00-0.02) H 09/06/20 19: PT 11.7 Seconds (9.0-12.0) 09/06/20 19:25 INR 1.2 (0.9-1.1) H 09/06/20 19:25 APTT 25.1 Seconds (21.0-31.0) 09/06/20 19:25 PTT Ratio 1.0 09/06/20 19:25 Sodium 133 mmol/L (136-145) L 09/06/20 19:25 Potassium 4.1 mmol/L (3.5-5.1) 09/06/20 19:25 Chloride 102 mmol/L (98-107) 09/06/20 19:25 Carbon Dioxide 24 mmol/L (21-32) 09/06/20 19:25 Anion Gap 7.0 (3-11) 09/06/20 19:25 BUN 25 mg/dl (7-18) H 09/06/20 19:25 Creatinine 1.75 mg/dl (0.6-1.4) H 09/06/20 19:25 Est Cr Clr Drug Dosing 28.8 ml/min 09/06/20 19:25 Est GFR ( Amer) 39.7 ml/min 09/06/20 19:25 Est GFR (Non-Af Amer) 34.3 ml/min 09/06/20 19:25 BUN/Creatinine Ratio 14.5 (10-20) 09/06/20 19:25 Glucose 153 mg/dl (70-99) H 09/06/20 19:25 Lactate 1.3 mmol/L (0.4-2.0) 09/06/20 21:34 Calcium 8.5 mg/dl (8.5-10.1) 09/06/20 19:25 Magnesium 2.0 mg/dl (1.8-2.4) 09/06/20 19:25 Total Bilirubin 0.6 mg/dl (0.2-1) 09/06/20 19:25 AST 8 U/L (15-37) L 09/06/20 19:25 ALT 14 U/L (12-78) 09/06/20 19:25 Alkaline Phosphatase 57 U/L (45-117) 09/06/20 19:25 Troponin I 0.015 ng/ml (0-0.045) 09/06/20 19:25 Total Protein 7.4 gm/dl (6.4-8.2) 09/06/20 19:25 Albumin 3.4 gm/dl (3.4-5.0) 09/06/20 19:25 Globulin 4.0 gm/dl (2.5-4.0) 09/06/20 19:25 Albumin/Globulin Ratio 0.9 (0.9-2) 09/06/20 19:25 Procalcitonin 0.15 ng/ml (0-0.5) 09/06/20 19:25 Urine Color Yellow 09/06/20 19:20 Urine Appearance Clear (Clear) 09/06/20 19:20 Urine pH 5.5 (4.5-7.5) 09/06/20 19:20 Ur Specific [place] 1.012 (1.000-1.030) 09/06/20 19:20 Urine Protein Negative (Negative) 09/06/20 19:20 Urine Glucose (UA) Negative (Negative) 09/06/20 19: Urine Ketones Negative (Negative) 09/06/20 19:20 Urine Blood 2+ (Negative) H 09/06/20 19:20 Urine Nitrite Positive (Negative) A 09/06/20 19:20 Urine Bilirubin Negative (Negative) 09/06/20 19:20 Urine Urobilinogen Negative (Negative) 09/06/20 19:20 Ur Leukocyte Esterase Trace (Negative) H 09/06/20 19:20 Urine WBC (Auto) 10-30 /hpf (0-5) H 09/06/20 19:20 Urine RBC (Auto) 10-30 /hpf (0-4) H 09/06/20 19:20 U Hyaline Cast (Auto) 1-5 /lpf (0-5) 09/06/20 19:20 U Epithel Cells (Auto) 10-20 /lpf (0-5) H 09/06/20 19:20 Urine Bacteria (Auto) Negative (Negative) 09/06/20 19:20 Urine Yeast Present (None Prsent) A 09/06/20 19:20 COVID-19 Eval Order Covid19 at [facility] 09/06/20 19:37 SARS-CoV-2 (PCR) NEGATIVE (Negative) 09/06/20 19:37 Impressions Chest X-Ray 09/06/20 19:24 XR chest 1V portable HISTORY: SEPSIS COMPARISON: Chest 06/18/2020. FINDINGS: No pneumothorax or no pleural effusions. Slightly rotated study. The heart remains enlarged. Calcified left hilar lymph nodes and a calcified left upper lobe granuloma are noted. Mild chronic interstitial thickening, unchanged. No new focal lung consolidations to suggest pneumonia. No evidence for pulmonary edema. IMPRESSION: No change in the cardiomegaly and diffuse interstitial thickening. No new focal lung consolidations to suggest pneumonia. ACT 112: Negative or not required by law. Electronically signed by: Ayush Addison M.D. 09/06/2020 7:53 PM Code Status & VTE Plan Code Status Full code VTE Prophylaxis Plan VTE Prophylaxis will be ordered: Yes PG Care Time/CCT Total # of Minutes Spent Total Time Spent with Patient: Total time spent is greater than 50% in coordination of care (as documented) at patient's floor/unit and/or counseling patient: Coding Level of Care Code 97107 Initial Inpt Care Lvl 3 Diagnoses Sepsis due to urinary tract infection A41.9; N39.0 Acute kidney injury superimposed on chronic kidney disease N17.9; N18.9 Benign prostatic hyperplasia with urinary obstruction N40.1; N13.8 Atrial fibrillation I48.91 Atrial fibrillation type: unspecified Hypertension I10 Hypertension type: essential hypertension Type 2 diabetes mellitus E11.9 Diabetes mellitus longterm insulin use: without intermodal dispatcher use Diabetes mellitus complication status: without complication Hypothyroidism E03.9 Hypothyroidism type: unspecified Dementia F03.90 Dementia type: unspecified type Dementia behavioral disturbance: without behavioral disturbance Gastric ulcer K25.3 Gastric ulcer chronicity: acute Gastric ulcer complication status: without hemorrhage or perforation (1) Hypertension Hypertension type: essential hypertension Qualified Code(s): I10 - Essential (primary) hypertension (2) Type 2 diabetes mellitus Diabetes mellitus intermodal dispatcher insulin use: without longterm use Diabetes mellitus complication status: without complication Qualified Code(s): E11.9 - Type 2 diabetes mellitus without complications (3) Dementia Dementia type: unspecified type Dementia behavioral disturbance: without behavioral disturbance Qualified Code(s): F03.90 - Unspecified dementia without behavioral disturbance (4) Atrial fibrillation Atrial fibrillation type: unspecified Qualified Code(s): I48.91 - Unspecified atrial fibrillation (5) Hypothyroidism Hypothyroidism type: unspecified Qualified Code(s): E03.9 - Hypothyroidism, unspecified (6) Gastric ulcer Gastric ulcer chronicity: acute Gastric ulcer complication status: without hemorrhage or perforation Qualified Code(s): K25.3 - Acute gastric ulcer without hemorrhage or perforation
[2020-09-07] MEDS ORDERED: DEXTROSE 50% 50 ML SYRINGE IV PRN (00:45)
[2020-09-07] MEDS ORDERED: GLUCOSE 10 TABS/TUBE PO PRN (00:45)
[2020-09-07] MEDS ORDERED: SODIUM CHLORIDE 0.9% 1000ML 1,000 ML IV SCH (00:45)
[2020-09-07] MEDS ORDERED: ACETAMINOPHEN 325 MG TAB PO PRN (00:45)
[2020-09-07] MEDS ORDERED: GLUCAGON FOR INJ 1 MG VIAL SQ PRN (00:45)
[2020-09-07] MEDS ORDERED: GLUCOSE 40% GEL 15 GM TUBE PO PRN (00:45)
[2020-09-07] MEDS ORDERED: CARBOHYDRATES FOR HYPOGLYCEMIA PO PRN (00:45)
[2020-09-07] MEDS ORDERED: ONDANSETRON INJ 2 MG/ML 2 ML VIAL IV PRN (00:45)
[2020-09-07] MEDS: cefTRIAXone SODIUM 1,000 MG in DEXTROSE 5% 50 ML IV SCH (01:53)
[2020-09-07] MEDS: LEVOTHYROXINE SODIUM 50 MCG TABLET PO SCH (05:44)
[2020-09-07] MEDS: ENOXAPARIN INJ 30 MG/0.3 ML SYR SQ SCH (05:44)
[2020-09-07 06:11] LABS: Basophils # (auto) 0.02 K/uL (0-0.2); Basophils % (auto) 0.2 %; Eosinophils # (auto) 0.01 K/uL (0-0.5); Eosinophils % (auto) 0.1 %; Hematocrit (blood only) 29.1 % (42-52); Hemoglobin 8.7 g/dL (14.0-18.0); Immature Granulocytes # (auto) 0.05 K/uL (0.00-0.02); Immature Granulocytes % (auto) 0.4 %; Lymphocytes # (auto) 0.69 K/uL (1.2-3.4); Lymphocytes % (auto) 5.4 %; Mean Corpuscular Hemoglobin 23.7 pg (25-34); Mean Corpuscular Hgb Conc 29.9 g/dL (32-36); Mean Corpuscular Volume 79.3 fL (80-100); Mean Platelet Volume 8.7 fL (7.4-10.4); Monocytes # (auto) 0.57 K/uL (0.11-0.59); Monocytes % (auto) 4.5 %; Neutrophils # (auto) 11.44 K/uL (1.4-6.5); Neutrophils % (auto) 89.4 %; Platelet Count 152 K/uL (130-400); RDW Coefficient of Variation 18.2 % (11.5-14.5); RDW Standard Deviation 51.8 fL (36.4-46.3); Red Blood Count 3.67 M/uL (4.7-6.1); White Blood Count 12.78 K/uL (4.8-10.8)
[2020-09-07 06:41] LABS: Estimated Average Glucose 131 mg/dl; Hemoglobin A1C 6.2 % (4.5-5.6)
[2020-09-07 06:43] LABS: Albumin Globulin Ratio 0.8 (0.9-2); Albumin Level 2.9 gm/dl (3.4-5.0); BUN Creatinine Ratio 14.2 (10-20); Bilirubin,Total 0.6 mg/dl (0.2-1); Creatinine Clr Calc Pharmacy 34.3 ml/min; Est GFR (African American) 49.8 ml/min; Globulin 3.6 gm/dl (2.5-4.0); Total Protein 6.5 gm/dl (6.4-8.2)
[2020-09-07] MEDS: dilTIAZem HCL 180 MG CAPCR PO SCH (09:02)
[2020-09-07] MEDS: PANTOprazole 40 MG TAB PO SCH ×2 (09:02→20:40)
[2020-09-07] MEDS: INSULIN ASPART 100 UNITS/ML 3 ML PEN SC SCH ×4 (09:20→20:39)
[2020-09-07] MEDS: GALANTAMINE HYDROBROMIDE 8 MG CAPER PO SCH (10:07)
--- NOTE | 2020-09-07 10:59 | Electrocardiogram Report ---
Test Reason : Blood Pressure : / mmHG Vent. Rate : 078 BPM Atrial Rate : 055 BPM P-R Int : 000 ms QRS Dur : 086 ms QT Int : 346 ms P-R-T Axes : 000 -27 070 degrees QTc Int : 394 ms Atrial fibrillation Low voltage QRS Cannot rule out Anteroseptal infarct (cited on or before 15-JUL-2016) Abnormal ECG When compared with ECG of 02-SEP-2020 14:20, QT has shortened Confirmed by Eh Linda ([id number]) on 09/07/2020 10:59:03 AM Referred By: REFERRED SELF Confirmed By:Rob Linda
[2020-09-07] MEDS: DAPTOmycin 275 MG in SYRINGE 0 ML IV SCH (20:40)
[2020-09-07] MEDS: FINASTERIDE 5 MG TAB PO SCH (20:41)
[2020-09-07] MEDS: TAMSULOSIN HCL 0.4 MG CAP PO SCH (20:41)
--- NOTE | 2020-09-07 22:48 | Hospitalist Progress Note ---
Date of Service September 07, 2020 Assessment & Plan (1) Sepsis due to urinary tract infection: Sepsis due to UTI/BPH with LUTS Follow urine culture and sensitivity History of previous infections with Enterococcus faecalis and coag negative staph Admit on daptomycin IV and ceftriaxone IV will continue current antibiotics Likely associated BPH and LUTS Continue tamsulosin 0.4 mg at bedtime (2) Acute kidney injury superimposed on chronic kidney disease: Creatinine 1.75 upon admission with baseline 1.31 Placed on NSS at 80 mils per hour, and follow labs serially Hold furosemide (3) Benign prostatic hyperplasia with urinary obstruction: Continue tamsulosin (4) Atrial fibrillation: Atrial fibrillation/hypertension- Continue diltiazem (5) Hypertension: See above (6) Type 2 diabetes mellitus: Hold Metformin Placed on Accu-Cheks before meals and at bedtime with NovoLog coverage scale Check hemoglobin A1c (7) Hypothyroidism: Continue levothyroxine (8) Dementia: Continue galantamine (9) Gastric ulcer: Continue pantoprazole Admission and Anticipated Discharge Date Admission Date: September 06, 2020 Subjective Patient reports no new symptoms. Review of Systems Review of Systems: All systems reviewed & are unremarkable except as noted in HPI & below Physical Exam Physical Exam: The patient is well developed and well nourished, normocephalic and atraumatic, lying in bed and in no acute distress. HEENT--PERRL, EOMI, mucous membranes and oropharynx dry. Neck--supple. No JVD. No bruits. Thyroid normal, trachea midline, no adenopathy. Heart--normal S1 and S2. No murmurs, rubs or gallops. Lungs--decreased breath sounds throughout. No respiratory distress, no accessory muscle use. Abdomen--normal bowel sounds and soft. Nontender. Nondistended, no hernias or masses, no organomegaly. Extremities--no cyanosis or clubbing. No edema. Dermatologic--skin is dry Neurologic--cranial nerves II through XII grossly intact. Rheumatologic--normal range of motion. Results & Data Results & Data ([facility]) Vital Signs (Past 12 Hours) Vital Signs Temp Pulse Resp BP Pulse Ox 09/07/20 22:06 37.1 C 68 18 115/60 100 09/07/20 18:28 37.3 C 85 19 111/65 99 09/07/20 16:31 37.3 C 75 19 113/66 100 09/07/20 12:20 36.8 C 87 18 113/59 L 100 PG Care Time/CCT Total # of Minutes Spent Total Time Spent with Patient: Total time spent is greater than 50% in coordination of care (as documented) at patient's floor/unit and/or counseling patient: Coding Level of Care Code 72610 Subseq Hosp Care Lvl 2 Diagnoses Sepsis due to urinary tract infection A41.9; N39.0 Acute kidney injury superimposed on chronic kidney disease N17.9; N18.9 Benign prostatic hyperplasia with urinary obstruction N40.1; N13.8 Atrial fibrillation I48.91 Atrial fibrillation type: unspecified Hypertension I10 Hypertension type: essential hypertension Type 2 diabetes mellitus E11.9 Diabetes mellitus complication status: without complication Diabetes mellitus concrete precast moulder insulin use: without concrete precast moulder use Hypothyroidism E03.9 Hypothyroidism type: unspecified Dementia F03.90 Dementia behavioral disturbance: without behavioral disturbance Dementia type: unspecified type Gastric ulcer K25.3 Gastric ulcer chronicity: acute Gastric ulcer complication status: without hemorrhage or perforation (1) Type 2 diabetes mellitus Diabetes mellitus complication status: without complication Diabetes mellitus [facility] insulin use: without [facility] use Qualified Code(s): E11.9 - Type 2 diabetes mellitus without complications (2) Atrial fibrillation Atrial fibrillation type: unspecified Qualified Code(s): I48.91 - Unspecified atrial fibrillation (3) Dementia Dementia behavioral disturbance: without behavioral disturbance Dementia type: unspecified type Qualified Code(s): F03.90 - Unspecified dementia without behavioral disturbance (4) Hypothyroidism Hypothyroidism type: unspecified Qualified Code(s): E03.9 - Hypothyroidism, unspecified (5) Gastric ulcer Gastric ulcer chronicity: acute Gastric ulcer complication status: without hemorrhage or perforation Qualified Code(s): K25.3 - Acute gastric ulcer without hemorrhage or perforation (6) Hypertension Hypertension type: essential hypertension Qualified Code(s): I10 - Essential (primary) hypertension
[2020-09-08] MEDS: cefTRIAXone SODIUM 1,000 MG in DEXTROSE 5% 50 ML IV SCH (02:04)
[2020-09-08] MEDS: ENOXAPARIN INJ 30 MG/0.3 ML SYR SQ SCH (05:32)
[2020-09-08] MEDS: LEVOTHYROXINE SODIUM 50 MCG TABLET PO SCH (05:32)
[2020-09-08] MEDS: dilTIAZem HCL 180 MG CAPCR PO SCH (08:15)
[2020-09-08] MEDS: GALANTAMINE HYDROBROMIDE 8 MG CAPER PO SCH (08:15)
[2020-09-08] MEDS: PANTOprazole 40 MG TAB PO SCH ×2 (08:16→20:17)
[2020-09-08 08:17] LABS: Basophils # (auto) 0.02 K/uL (0-0.2); Basophils % (auto) 0.4 %; Eosinophils # (auto) 0.04 K/uL (0-0.5); Eosinophils % (auto) 0.7 %; Hematocrit (blood only) 24.4 % (42-52); Hemoglobin 7.5 g/dL (14.0-18.0); Immature Granulocytes # (auto) 0.03 K/uL (0.00-0.02); Immature Granulocytes % (auto) 0.5 %; Lymphocytes # (auto) 0.77 K/uL (1.2-3.4); Lymphocytes % (auto) 13.5 %; Mean Corpuscular Hemoglobin 24.1 pg (25-34); Mean Corpuscular Hgb Conc 30.7 g/dL (32-36); Mean Corpuscular Volume 78.5 fL (80-100); Mean Platelet Volume 8.7 fL (7.4-10.4); Monocytes # (auto) 0.48 K/uL (0.11-0.59); Monocytes % (auto) 8.4 %; Neutrophils # (auto) 4.36 K/uL (1.4-6.5); Neutrophils % (auto) 76.5 %; Platelet Count 131 K/uL (130-400); RDW Coefficient of Variation 18.3 % (11.5-14.5); RDW Standard Deviation 52.4 fL (36.4-46.3); Red Blood Count 3.11 M/uL (4.7-6.1)
[2020-09-08] MEDS: INSULIN ASPART 100 UNITS/ML 3 ML PEN SC SCH ×4 (08:18→20:37)
[2020-09-08 08:43] LABS: Albumin Level 2.6 gm/dl (3.4-5.0); BUN Creatinine Ratio 17.7 (10-20); Calcium 7.9 mg/dl (8.5-10.1); Creatinine Clr Calc Pharmacy 40.4 ml/min; Est GFR (African American) 60.8 ml/min; Est GFR (Non-African American) 52.5 ml/min; Potassium 3.8 mmol/L (3.5-5.1)
[2020-09-08 08:45] LABS: Acanthocytes 1+; Echinocytes 1+; Hypochromasia Present; Ovalocytes 1+
[2020-09-08 08:46] LABS: Albumin Globulin Ratio 0.8 (0.9-2); Bilirubin,Total 0.3 mg/dl (0.2-1); Globulin 3.3 gm/dl (2.5-4.0); Total Protein 5.9 gm/dl (6.4-8.2)
[2020-09-08 18:34] LABS: Hemoglobin 7.7 g/dL (14.0-18.0)
[2020-09-08] MEDS ORDERED: DAPTOmycin 275 MG in SYRINGE 0 ML IV SCH (20:00)
[2020-09-08] MEDS: TAMSULOSIN HCL 0.4 MG CAP PO SCH (20:17)
[2020-09-08] MEDS: DAPTOmycin 275 MG in SYRINGE 0 ML IV SCH (20:17)
[2020-09-08] MEDS: FINASTERIDE 5 MG TAB PO SCH (20:17)
--- NOTE | 2020-09-08 23:44 | Hospitalist Progress Note ---
Date of Service September 08, 2020 Assessment & Plan (1) Sepsis due to urinary tract infection: Sepsis due to UTI/BPH with LUTS Follow urine culture and sensitivity: showing staph aureus. Sensitivites not available. History of previous infections with Enterococcus faecalis and coag negative staph Admit on daptomycin IV and ceftriaxone IV will continue current antibiotics Likely associated BPH and LUTS Continue tamsulosin 0.4 mg at bedtime (2) Acute kidney injury superimposed on chronic kidney disease: Creatinine 1.75 upon admission with baseline 1.31 Placed on NSS at 80 mils per hour, and follow labs serially Hold furosemide will also hold lasix for now. (3) Benign prostatic hyperplasia with urinary obstruction: Continue tamsulosin (4) Atrial fibrillation: Atrial fibrillation/hypertension- Continue diltiazem (5) Hypertension: See above (6) Type 2 diabetes mellitus: Hold Metformin Placed on Accu-Cheks before meals and at bedtime with NovoLog coverage scale Check hemoglobin A1c: 6.2 (7) Hypothyroidism: Continue levothyroxine (8) Dementia: Continue galantamine (9) Gastric ulcer: Continue pantoprazole (10) Anemia: Likely iron def. anemia from GI bleed Patient has been having recurrent GI bleed with dark stools. This has been ongoing for over a year. Patient recently was in the hospital for this, and anticoagulation for a fib was held. Patient may benefit from iron supplements Patient had upper and lower scopes which were negative in last hospital stay. Perhaps a AVM, may benefit from capsule endoscopy. Updated . dvt SCD Admission and Anticipated Discharge Date Admission Date: September 06, 2020 Subjective Patient is hard of hearing. Patient has no new complaints. Review of Systems 2 Review of Systems: All systems reviewed & are unremarkable except as noted in HPI & below Physical Exam Physical Exam: The patient is well developed and well nourished, normocephalic and atraumatic, lying in bed and in no acute distress. HEENT--PERRL, EOMI, mucous membranes and oropharynx dry. Neck--supple. No JVD. No bruits. Thyroid normal, trachea midline, no adenopathy. Heart--normal S1 and S2. No murmurs, rubs or gallops. Lungs--decreased breath sounds throughout. No respiratory distress, no accessory muscle use. Abdomen--normal bowel sounds and soft. Nontender. Nondistended, no hernias or masses, no organomegaly. Extremities--no cyanosis or clubbing. No edema. Dermatologic--skin is dry Neurologic--cranial nerves II through XII grossly intact. Rheumatologic--normal range of motion. Results & Data Results & Data ([facility]) Vital Signs (Past 12 Hours) Vital Signs Temp Pulse Pulse Resp BP Pulse Ox 09/08/20 23:32 37.1 C 66 16 112/66 94 09/08/20 19:45 36.9 C 73 20 131/56 L 95 09/08/20 15:33 69 09/08/20 15:24 36.6 C 65 18 99/63 L 98 PG Care Time/CCT Total # of Minutes Spent Total Time Spent with Patient: Total time spent is greater than 50% in coordination of care (as documented) at patient's floor/unit and/or counseling patient: Coding Level of Care Code 87852 Subseq Hosp Care Lvl 3 Diagnoses Sepsis due to urinary tract infection A41.9; N39.0 Acute kidney injury superimposed on chronic kidney disease N17.9; N18.9 Benign prostatic hyperplasia with urinary obstruction N40.1; N13.8 Atrial fibrillation I48.91 Atrial fibrillation type: unspecified Hypertension I10 Hypertension type: essential hypertension Type 2 diabetes mellitus E11.9 Diabetes mellitus complication status: without complication Diabetes mellitus care home insulin use: without care home use Hypothyroidism E03.9 Hypothyroidism type: unspecified Dementia F03.90 Dementia behavioral disturbance: without behavioral disturbance Dementia type: unspecified type Gastric ulcer K25.3 Gastric ulcer chronicity: acute Gastric ulcer complication status: without hemorrhage or perforation Anemia D64.9 Time Spent (min) 35 (1) Type 2 diabetes mellitus Diabetes mellitus complication status: without complication Diabetes mellitus care home insulin use: without care home use Qualified Code(s): E11.9 - Type 2 diabetes mellitus without complications (2) Atrial fibrillation Atrial fibrillation type: unspecified Qualified Code(s): I48.91 - Unspecified atrial fibrillation (3) Dementia Dementia behavioral disturbance: without behavioral disturbance Dementia type: unspecified type Qualified Code(s): F03.90 - Unspecified dementia without behavioral disturbance (4) Hypothyroidism Hypothyroidism type: unspecified Qualified Code(s): E03.9 - Hypothyroidism, unspecified (5) Gastric ulcer Gastric ulcer chronicity: acute Gastric ulcer complication status: without hemorrhage or perforation Qualified Code(s): K25.3 - Acute gastric ulcer without hemorrhage or perforation (6) Hypertension Hypertension type: essential hypertension Qualified Code(s): I10 - Essential (primary) hypertension
[2020-09-09] MEDS: cefTRIAXone SODIUM 1,000 MG in DEXTROSE 5% 50 ML IV SCH (02:12)
[2020-09-09] MEDS: LEVOTHYROXINE SODIUM 50 MCG TABLET PO SCH (05:35)
[2020-09-09 08:03] LABS: Basophils # (auto) 0.02 K/uL (0-0.2); Basophils % (auto) 0.4 %; Eosinophils # (auto) 0.07 K/uL (0-0.5); Eosinophils % (auto) 1.3 %; Hematocrit (blood only) 26.6 % (42-52); Hemoglobin 8.1 g/dL (14.0-18.0); Immature Granulocytes # (auto) 0.03 K/uL (0.00-0.02); Immature Granulocytes % (auto) 0.5 %; Mean Corpuscular Hemoglobin 23.8 pg (25-34); Mean Corpuscular Hgb Conc 30.5 g/dL (32-36); Monocytes # (auto) 0.57 K/uL (0.11-0.59); Monocytes % (auto) 10.3 %; Neutrophils # (auto) 4.37 K/uL (1.4-6.5); Neutrophils % (auto) 78.5 %; Platelet Count 151 K/uL (130-400); RDW Coefficient of Variation 18.3 % (11.5-14.5); RDW Standard Deviation 51.8 fL (36.4-46.3); Red Blood Count 3.41 M/uL (4.7-6.1); White Blood Count 5.56 K/uL (4.8-10.8)
[2020-09-09] MEDS: INSULIN ASPART 100 UNITS/ML 3 ML PEN SC SCH ×4 (08:15→21:23)
[2020-09-09 08:40] LABS: Albumin Level 2.8 gm/dl (3.4-5.0); BUN Creatinine Ratio 16.3 (10-20); Calcium 8.3 mg/dl (8.5-10.1); Creatinine Clr Calc Pharmacy 43.4 ml/min; Est GFR (African American) 66.6 ml/min; Est GFR (Non-African American) 57.5 ml/min
[2020-09-09 08:43] LABS: Albumin Globulin Ratio 0.8 (0.9-2); Bilirubin,Total 0.4 mg/dl (0.2-1); Globulin 3.4 gm/dl (2.5-4.0); Total Protein 6.2 gm/dl (6.4-8.2)
[2020-09-09 08:48] LABS: Ferritin 30.7 ng/ml (8-388)
[2020-09-09] MEDS: PANTOprazole 40 MG TAB PO SCH ×2 (09:22→21:45)
[2020-09-09] MEDS: GALANTAMINE HYDROBROMIDE 8 MG CAPER PO SCH (09:22)
[2020-09-09] MEDS: dilTIAZem HCL 180 MG CAPCR PO SCH (09:22)
[2020-09-09] MEDS: FINASTERIDE 5 MG TAB PO SCH (21:45)
[2020-09-09] MEDS: TAMSULOSIN HCL 0.4 MG CAP PO SCH (21:45)
--- NOTE | 2020-09-09 21:57 | Hospitalist Progress Note ---
Date of Service September 09, 2020 Assessment & Plan (1) Sepsis due to urinary tract infection: Sepsis due to UTI/BPH with LUTS urine growing staph species, awaiting final culture History of previous infections with Enterococcus faecalis and coag negative staph continue Daptomycin, stop Rocephin plan for Augmentin on discharge Likely associated BPH and LUTS Continue tamsulosin 0.4 mg at bedtime pull huddleston to see if he can void has known enlarged prostate and elevated PSA, has refused work up with Dr. Peter (2) Acute kidney injury superimposed on chronic kidney disease: Creatinine 1.75 upon admission with baseline 1.31 Placed on NSS at 80 mils per hour Cr down to 1.1, electrolytes stable stop fluids (3) Benign prostatic hyperplasia with urinary obstruction: Continue tamsulosin again, follows with Dr. Peter, h/o elevated PSA but refuses work up (4) Atrial fibrillation: Atrial fibrillation/hypertension- Continue diltiazem (5) Hypertension: See above (6) Type 2 diabetes mellitus: Hold Metformin Placed on Accu-Cheks before meals and at bedtime with NovoLog coverage scale Check hemoglobin A1c: 6.2 (7) Hypothyroidism: Continue levothyroxine (8) Dementia: Continue galantamine (9) Gastric ulcer: Continue pantoprazole (10) Anemia: Likely iron def. anemia from GI bleed Patient has been having recurrent GI bleed with dark stools. This has been ongoing for over a year. Patient recently was in the hospital for this, and anticoagulation for a fib was held. Patient may benefit from iron supplements Patient had upper and lower scopes which were negative in last hospital stay. Perhaps a AVM, may benefit from capsule endoscopy. plan for Venofer tomorrow Ferrous Sulfate on discharge Hb is 8.1 today, no signs of bleeding Admission and Anticipated Discharge Date Admission Date: September 06, 2020 Subjective patient doing well, although he is a little confused walking the halls a lot with aide, needs a one to one but he remembers a lot of accurate details about recent history reviewed labs, Hb is up to 8.1, Cr is stable, electrolytes stable will pull huddleston can likely discharge tomorrow updated his over the phone Review of Systems Review of Systems: All systems reviewed & are unremarkable except as noted in Subjective Physical Exam Constitutional: well developed, well nourished, cooperative and comfortable; no acute distress Neck: trachea midline, no thyromegaly Respiratory: normal respiratory effort, lungs clear to auscultation Cardiovascular: RRR, no murmur, no edema Gastrointestinal (Abdomen): normal bowel sounds, soft, nontender, no hepatosplenomegaly Musculoskeletal: no cyanosis or clubbing, extremities motor strength 5/5 Skin: no rashes, warm and dry Neurologic: patellar DTR's 2+ bilat, sensation intact and PERRL, EOMI, accommodation nl, no face palsy, no dysarthria Psychiatric: A+Ox3, euthymic affect Lymphatic: no cervical or axillary lymphadenopathy Results & Data Results & Data ([facility]) Vital Signs (Past 12 Hours) Vital Signs Temp Pulse Pulse Resp BP BP Pulse Ox 09/09/20 19:03 36.9 C 83 18 114/64 95 09/09/20 15:48 36.9 C 76 18 106/62 96 09/09/20 11:21 36.6 C 87 16 132/87 98 Laboratory Results Laboratory Results - last 24 hr 09/09/20 09/09/20 09/09/20 07:36 07:42 07:42 WBC 5.56 RBC 3.41 L Hgb 8.1 L Hct 26.6 L MCV 78.0 L MCH 23.8 L MCHC 30.5 L RDW Std Deviation 51.8 H RDW Coeff of Julia 18.3 H Plt Count 151 MPV 9.0 Immature Gran % (Auto) 0.5 Neut % (Auto) 78.5 Lymph % (Auto) 9.0 Story % (Auto) 10.3 Eos % (Auto) 1.3 Baso % (Auto) 0.4 Neut # (Auto) 4.37 Lymph # (Auto) 0.50 L Story # (Auto) 0.57 Eos # (Auto) 0.07 Baso # (Auto) 0.02 Immature Gran # (Auto) 0.03 H Sodium 137 Potassium 4.0 Chloride 108 H Carbon Dioxide 22 Anion Gap 7.0 BUN 19 H Creatinine 1.14 Est Cr Clr Drug Dosing 43.4 Est GFR ( Amer) 66.6 Est GFR (Non-Af Amer) 57.5 BUN/Creatinine Ratio 16.3 Glucose 117 H POC Glucose 147 H Calcium 8.3 L Iron TIBC Ferritin Total Bilirubin 0.4 AST 14 L ALT 23 Alkaline Phosphatase 44 L Total Protein 6.2 L Albumin 2.8 L Globulin 3.4 Albumin/Globulin Ratio 0.8 L 09/09/20 09/09/20 09/09/20 07:42 07:42 11:20 WBC RBC Hgb Hct MCV MCH MCHC RDW Std Deviation RDW Coeff of Julia Plt Count MPV Immature Gran % (Auto) Neut % (Auto) Lymph % (Auto) Story % (Auto) Eos % (Auto) Baso % (Auto) Neut # (Auto) Lymph # (Auto) Story # (Auto) Eos # (Auto) Baso # (Auto) Immature Gran # (Auto) Sodium Potassium Chloride Carbon Dioxide Anion Gap BUN Creatinine Est Cr Clr Drug Dosing Est GFR ( Amer) Est GFR (Non-Af Amer) BUN/Creatinine Ratio Glucose POC Glucose 127 H Calcium Iron 13 L TIBC 330 Ferritin 30.7 Total Bilirubin AST ALT Alkaline Phosphatase Total Protein Albumin Globulin Albumin/Globulin Ratio 09/09/20 09/09/20 16:43 20:08 WBC RBC Hgb Hct MCV MCH MCHC RDW Std Deviation RDW Coeff of Julia Plt Count MPV Immature Gran % (Auto) Neut % (Auto) Lymph % (Auto) Story % (Auto) Eos % (Auto) Baso % (Auto) Neut # (Auto) Lymph # (Auto) Story # (Auto) Eos # (Auto) Baso # (Auto) Immature Gran # (Auto) Sodium Potassium Chloride Carbon Dioxide Anion Gap BUN Creatinine Est Cr Clr Drug Dosing Est GFR ( Amer) Est GFR (Non-Af Amer) BUN/Creatinine Ratio Glucose POC Glucose 139 H 143 H Calcium Iron TIBC Ferritin Total Bilirubin AST ALT Alkaline Phosphatase Total Protein Albumin Globulin Albumin/Globulin Ratio Medications Administered Current Inpatient Medications Acetaminophen (Acetaminophen 325 Mg Tab) 650 mg PO Q4H PRN PRN Reason: Pain or Fever Stop: 10/07/20 00:44 Dextrose (Dextrose 50% 50 Ml Syringe) 25 - 50 ml IV UD PRN; Protocol PRN Reason: Hypoglycemia Protocol Stop: 10/07/20 00:44 Diltiazem HCl (Diltiazem Hcl 180 Mg Capcr) 180 mg PO QAM ARSENIO Stop: 10/07/20 08:59 Last Admin: 09/09/20 09:22 Dose: 180 mg Documented by: Finasteride (Finasteride 5 Mg Tab) 5 mg PO QPM ARSENIO Stop: 10/07/20 20:59 Last Admin: 09/09/20 21:45 Dose: 5 mg Documented by: Galantamine Hydrobromide (Galantamine Hydrobromide 8 Mg Caper) 24 mg PO QAM ARSENIO Stop: 10/07/20 08:59 Last Admin: 09/09/20 09:22 Dose: 24 mg Documented by: Glucagon (Glucagon For Inj 1 Mg Vial) 1 mg SQ UD PRN; Protocol PRN Reason: Hypoglycemia Protocol Stop: 10/07/20 00:44 Glucose (Glucose 10 Tabs/Tube) 4 - 8 tabs PO UD PRN; Protocol PRN Reason: Hypoglycemia Protocol Stop: 10/07/20 00:44 Glucose (Glucose 40% Gel 15 Gm Tube) 15 - 30 gm PO UD PRN; Protocol PRN Reason: Hypoglycemia Protocol Stop: 10/07/20 00:44 Insulin Aspart (Insulin Aspart 100 Units/Ml 3 Ml Pen) 0 units SC ACHS ARSENIO Stop: 10/07/20 07:29 Last Admin: 09/09/20 21:23 Dose: Not Given Documented by: Levothyroxine Sodium (Levothyroxine Sodium 50 Mcg Tablet) 50 mcg PO DAILYBB ARSENIO Stop: 10/07/20 06:29 Last Admin: 09/09/20 05:35 Dose: 50 mcg Documented by: Miscellaneous (Carbohydrates For Hypoglycemia ) 15 - 30 gm PO UD PRN PRN Reason: Hypoglycemia Protocol Stop: 10/07/20 00:44 Ondansetron HCl (Ondansetron Inj 2 Mg/Ml 2 Ml Vial) 4 mg IV Q6H PRN PRN Reason: Nausea Stop: 10/07/20 00:44 Pantoprazole Sodium (Pantoprazole 40 Mg Tab) 40 mg PO BID ARSENIO Stop: 10/07/20 08:59 Last Admin: 09/09/20 21:45 Dose: 40 mg Documented by: Tamsulosin HCl (Tamsulosin Hcl 0.4 Mg Cap) 0.4 mg PO HS [facility] Stop: 10/07/20 20:59 Last Admin: 09/09/20 21:45 Dose: 0.4 mg Documented by: PG Care Time/CCT Total # of Minutes Spent Total Time Spent: 33 Total Time Spent with Patient: Total time spent is greater than 50% in coordination of care (as documented) at patient's floor/unit and/or counseling patient: Coding Level of Care Code 50018 Subseq Hosp Care Lvl 3 Diagnoses Sepsis due to urinary tract infection A41.9; N39.0 Acute kidney injury superimposed on chronic kidney disease N17.9; N18.9 Benign prostatic hyperplasia with urinary obstruction N40.1; N13.8 Atrial fibrillation I48.91 Atrial fibrillation type: unspecified Hypertension I10 Hypertension type: essential hypertension Type 2 diabetes mellitus E11.9 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: without custodial use Diabetes mellitus complication status: without complication Hypothyroidism E03.9 Hypothyroidism type: unspecified Dementia F03.90 Dementia type: unspecified type Dementia behavioral disturbance: without behavioral disturbance Gastric ulcer K25.3 Gastric ulcer chronicity: acute Gastric ulcer complication status: without hemorrhage or perforation Anemia D64.9 (1) Atrial fibrillation Atrial fibrillation type: unspecified Qualified Code(s): I48.91 - Unspecified atrial fibrillation (2) Hypertension Hypertension type: essential hypertension Qualified Code(s): I10 - Essential (primary) hypertension (3) Type 2 diabetes mellitus Diabetes mellitus custodial insulin use: without custodial use Diabetes mellitus complication status: without complication Qualified Code(s): E11.9 - Type 2 diabetes mellitus without complications (4) Hypothyroidism Hypothyroidism type: unspecified Qualified Code(s): E03.9 - Hypothyroidism, unspecified (5) Dementia Dementia type: unspecified type Dementia behavioral disturbance: without behavioral disturbance Qualified Code(s): F03.90 - Unspecified dementia without behavioral disturbance (6) Gastric ulcer Gastric ulcer chronicity: acute Gastric ulcer complication status: without hemorrhage or perforation Qualified Code(s): K25.3 - Acute gastric ulcer without hemorrhage or perforation
[2020-09-10] MEDS ORDERED: OLANZapine 5 MG TABLET PO STA (00:38)
[2020-09-10] MEDS: LEVOTHYROXINE SODIUM 50 MCG TABLET PO SCH (05:38)
[2020-09-10 07:07] LABS: Hematocrit (blood only) 26.7 % (42-52); Mean Corpuscular Hemoglobin 23.7 pg (25-34); Mean Corpuscular Volume 79.2 fL (80-100); Mean Platelet Volume 8.8 fL (7.4-10.4); Platelet Count 163 K/uL (130-400); RDW Coefficient of Variation 18.6 % (11.5-14.5); Red Blood Count 3.37 M/uL (4.7-6.1); White Blood Count 5.02 K/uL (4.8-10.8)
[2020-09-10 07:44] LABS: BUN Creatinine Ratio 16.2 (10-20); Calcium 8.6 mg/dl (8.5-10.1); Creatinine Clr Calc Pharmacy 43.4 ml/min; Est GFR (African American) 68.1 ml/min; Est GFR (Non-African American) 58.7 ml/min
[2020-09-10] MEDS ORDERED: AMOXICILLIN/CLAVULANATE 875 MG TAB PO SCH (08:00)
[2020-09-10] MEDS ORDERED: IRON SUCROSE 200 MG in 0.9 % SODIUM CHLORIDE 100 ML IV ONE (08:15)
[2020-09-10] MEDS: GALANTAMINE HYDROBROMIDE 8 MG CAPER PO SCH (09:07)
[2020-09-10] MEDS: PANTOprazole 40 MG TAB PO SCH (09:07)
[2020-09-10] MEDS: INSULIN ASPART 100 UNITS/ML 3 ML PEN SC SCH (09:08)
[2020-09-10] MEDS: dilTIAZem HCL 180 MG CAPCR PO SCH (09:08)
--- NOTE | 2020-09-10 11:11 | Discharge Summary ---
Date of Service September 10, 2020 Admission HPI Per Admitting Provider The patient is an 85-year-old male with a past medical history including anemia, CKD, UTI, atrial fib with RVR, BPH with LUTS, hypertension, CAD, MR, TR, hiatal hernia, elevated PSA, diabetes mellitus type 2, dementia, conductive bilateral hearing loss, atrial fibrillation, metabolic disorder, hyperlipidemia, Raynaud's disease and hypothyroidism. The patient presented to the ED with a fever, generalized weakness and mild confusion. Work-up in the emergency department revealed the following abnormal laboratories: WBC 13.55, hemoglobin 8.7, hematocrit 28.2, creatinine 1.75, lactic acid 2.1 and glucose 153. Chest x-ray showed no acute findings Urinalysis suggested a urinary tract infection COVID-19 testing was negative Principal Diagnosis Sepsis due to UTI Discharge Exam Constitutional well developed, well nourished, cooperative and comfortable; no acute distress Neck trachea midline, no thyromegaly Respiratory normal respiratory effort, lungs clear to auscultation Cardiovascular RRR, no murmur, no edema Gastrointestinal (Abdomen) normal bowel sounds, soft, nontender, no hepatosplenomegaly Musculoskeletal no cyanosis or clubbing, extremities motor strength 5/5 Skin no rashes, warm and dry Neurologic patellar DTR's 2+ bilat, sensation intact and PERRL, EOMI, accommodation nl, no face palsy, no dysarthria Psychiatric A+Ox3, euthymic affect Lymphatic no cervical or axillary lymphadenopathy Discharge Data Allergies Allergy/AdvReac Type Severity Reaction Status Date / Time zinc Allergy Intermediate ITCHY Verified 09/06/20 22:02 Consultations 09/06/20 20:48 ED Decision to Admit Stat Hospital Course (1) Sepsis due to urinary tract infection: Sepsis due to UTI/BPH with LUTS urine culture: coagulase negative Staph treated initially with Daptomycin and Rocephin, stopped the Rocephin when cultures showed gram + plan for Augmentin BID on discharge, complete 10 more days Likely associated BPH and LUTS Continue tamsulosin 0.4 mg at bedtime huddleston removed 09/09, he has been able to void has known enlarged prostate and elevated PSA, has refused work up with Dr. Peter (2) Acute kidney injury superimposed on chronic kidney disease: Creatinine 1.75 upon admission with baseline 1.31 Placed on NSS at 80 mils per hour Cr down to 1.1, electrolytes stable stopped fluids, eating and drinking well (3) Benign prostatic hyperplasia with urinary obstruction: Continue tamsulosin again, follows with Dr. Peter, h/o elevated PSA but refuses work up (4) Atrial fibrillation: Atrial fibrillation/hypertension- Continue diltiazem (5) Hypertension: See above (6) Type 2 diabetes mellitus: resume Metformin on discharge Check hemoglobin A1c: 6.2 (7) Hypothyroidism: Continue levothyroxine (8) Dementia: Continue galantamine (9) Gastric ulcer: Continue pantoprazole (10) Anemia: Likely iron def. anemia from GI bleed Patient has been having recurrent GI bleed with dark stools. This has been ongoing for over a year. Patient recently was in the hospital for this, and anticoagulation for a fib was held. Patient may benefit from iron supplements Patient had upper and lower scopes which were negative in last hospital stay. Perhaps a AVM, may benefit from capsule endoscopy. treated with Venofer morning of discharge, could set up for further treatments as outpatient, likely would need 4 more treatments Ferrous Sulfate on discharge Hb is 8.1 today, no signs of bleeding Total Time Total Time Spent Total Time Spent (In Minutes): 32 Total Time Includes: Examination of the Patient, Discharge Planning and Medication Reconciliation Discharge Plan Discharge Items Patient Disposition: Home - Self-Care Reason For Visit: UTI, NICOLETTE Discharge Diagnosis: Urinary tract infection Acute kidney injury, dehydration Condition on Discharge: Good Goals: stay well nourished and well hydrated monitor hemoglobin levels, take iron supplements Activity: Resume your previous activity Weightbearing: Full weightbearing Non-emergency contact: Primary Care Provider Call non-emergency contact if: you have any medication questions Follow-up/Referrals: Braeden Sultana III, CRNP [Primary Care Provider] - 09/19/20 9:20 am (one week. If you have any questions or need to change this appointment, please call [phone].) Diet: Carb Consistent or DM2 Addtl Attending Provider Instructions: Medications: - AMOXICILLIN/CLAVULONATE: take one tablet twice a day, next dose due this evening, take until prescription is done (19 tablets) - FERROUS SULFATE: iron supplement, take one tablet twice a day UTI, dehydration, acute kidney injury urine culture grew out coagulase negative Staph, sensitive to penicillins, will treat with Amoxicillin/Clavulonate for 10 more days you were given IV fluids, renal function is back to normal huddleston removed yesterday and you have been able to urinate Anemia: ongoing issue, but hemoglobin is stable for the past four days, no signs of active bleeding continue to take Protonix 40mg twice a day continue to stay off of anticoagulation follow up with Braeden Sultana, would recommend getting Venofer infusions as outpatient, you tolerated an infusion today in the meantime, will place you on Ferrous Sulfate twice a day, this can cause constipation if you have issues moving your bowels, recommend that you take Miralax once a day (this is over the counter) Pending Studies at Discharge: No Stand-Alone Forms: My [facility], Smoking Cessation Medications and DC Order Prescriptions: New amoxicillin-pot clavulanate [Augmentin] 875-125 mg Tablet 1 tab PO BIDM 10 Days Qty: 19 RF: 0 ferrous sulfate 325 mg (65 mg iron) tablet,delayed release (DR/EC) 325 mg PO BID Qty: 60 RF: 3 Continued galantamine 24 mg capsule,ext rel. pellets 24 hr 24 mg PO QAM Qty: 90 RF: 1 metformin 500 mg tablet 500 mg PO BID Qty: 180 RF: 1 levothyroxine 50 mcg tablet 50 mcg PO QAM Qty: 90 RF: 1 diltiazem HCl 180 mg capsule,extended release 24hr 180 mg PO QAM Qty: 30 RF: 5 furosemide 20 mg tablet 20 mg PO DAILY Qty: 30 RF: 2 finasteride 5 mg tablet 5 mg PO QPM Qty: 90 RF: 3 tamsulosin 0.4 mg capsule 0.4 mg PO HS RF: 0 pantoprazole 40 mg tablet,delayed release (DR/EC) 40 mg PO BID RF: 0 Discharge Orders: Discharge Order (Routine); Ordered 09/10/20 Ordered By: Iban Valentino/Other Patient Handouts: Managing Type 2 Diabetes, A1C Admission Data Admit Date/Time: 09/06/20 22:45 Attending Provider: Iban Sanchez Admit Provider: Lv Medina Primary Care Provider: Braeden Sultana III Other Providers: Lv Medina Other Interventions: Discharge Summary Assessment (RN) Last Done: 09/10/20 11:18 Coding Level of Care Code D/C Day Management >30 mins Diagnoses Sepsis due to urinary tract infection A41.9; N39.0 Acute kidney injury superimposed on chronic kidney disease N17.9; N18.9 Benign prostatic hyperplasia with urinary obstruction N40.1; N13.8 Atrial fibrillation I48.91 Atrial fibrillation type: unspecified Hypertension I10 Hypertension type: essential hypertension Type 2 diabetes mellitus E11.9 Diabetes mellitus complication status: without complication 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
== END 2020-09-10 12:29 | disposition home or self-care (01) | DRG 872 ==
LOC: ED 19:11 → SUATTDRO 22:45 → 2E 22:45 → 2W 09-08 00:16

== ENCOUNTER 2021-04-22 14:04 | Observation (INO) ==
[2021-04-22] MEDS ORDERED: SODIUM CHLORIDE 0.9% 250 ML IV ONE (14:51)
--- NOTE | 2021-04-22 14:53 | Emergency Department Note ---
History of Present Illness General Chief complaint: Diarrhea Stated complaint: DIARRHEA, BLOOD IN STOOL Time Seen by Provider: 04/22/21 14:23 Source: patient and family ( who was at the bedside) Mode of arrival: ambulatory Limitations: no limitations History of Present Illness This patient comes in complaining of diarrhea for the last 2 and half days. He said about 10-12 episodes. He is on iron studies chronically dark stools his w gray thought it looked a little bright blood-tinged today. He has been eating okay without any complaints no nausea vomiting no abdominal pain no recent illness he had the Covid vaccine and booster no sick contacts. No lightheadedness or dizziness. He was worked up in the past for low hemoglobin w hich included a normal upper EGD and an colonoscopy which showed diverticulosis. Does have A. fib. Home Medications Medication Instructions Recorded Confirmed Type dabigatran etexilate 150 mg 150 mg PO BID #180 cap 09/19/20 04/22/21 Rx capsule (Pradaxa) diltiazem HCl 180 mg 180 mg PO QAM #90 cap 09/19/20 04/22/21 Rx capsule,extended release 24 hr pantoprazole 40 mg tablet,delayed 40 mg PO BID #60 tab 10/22/20 04/22/21 Rx release tamsulosin 0.4 mg capsule (Flomax) 0.4 mg PO DAILY #90 cap 10/28/20 04/22/21 Rx galantamine 24 mg 24 hr 24 mg PO QAM #90 cap 12/16/20 04/22/21 Rx capsule,extended release metformin 500 mg tablet 500 mg PO BID #180 tab 01/07/21 04/22/21 Rx ferrous sulfate 325 mg (65 mg 325 mg PO BID #60 tab 01/20/21 04/22/21 Rx iron) tablet,delayed release levothyroxine 50 mcg tablet 50 mcg PO QAM #90 tab 01/27/21 04/22/21 Rx furosemide 20 mg tablet 20 mg PO DAILY #30 tab 03/17/21 04/22/21 Rx finasteride 5 mg tablet 5 mg PO QPM #90 tab 04/01/21 04/22/21 Rx Allergies Allergy/AdvReac Type Severity Reaction Status Date / Time zinc Allergy Intermediate ITCHY Verified 04/22/21 15:44 Past Med/Surg History Medical History Atrial fibrillation RX PRADAXA 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 Dementia COGNITIVE IMPAIRMENT Epistaxis BALLOON CURRENLTY IN USE TO STOP BLEEDING-RT NOSTRIL GERD (gastroesophageal reflux disease) Hiatal hernia History of asthma A CHILD Hx of gastric ulcer Hyperlipidemia DENIES Hypertension Hypothyroidism Mitral regurgitation Raynaud's disease Tricuspid regurgitation Type 2 diabetes mellitus Surgical History H/O hernia repair History of colonoscopy History of esophagogastroduodenoscopy (EGD) History of tooth extraction Family History Brother Coronary arteriosclerosis Mother Heart disease Myocardial infarction Father Heart disease Myocardial infarction Other No family history of adverse response to anesthesia Denies family history of Colon cancer Ovarian cancer Prostate cancer Breast cancer Social History Smoking Status: Former smoker Tobacco Type: Cigarettes Age Quit Using Tobacco: 58; Second Hand Exposure: No; Hx Alcohol Use: No Hx Substance Use: No Preferred Language: Filipino Visual Impairment: No Limitations Hearing Ability: Use of Hearing Aid Lotus Notes Administrator Required: No Beliefs That Will Affect Care: None marital status: Current Living Situation: Spouse current occupational status: retired Feels Safe at Home: Yes Childhood Exposure to Second-Hand Smoke: Yes Dental Care, Regularly: Yes Physical Activity Frequency: Does not Exercise Seatbelt Use: always Sunscreen Use: No Do you think of yourself as: straight/heterosexual Assistive Devices: Glasses Review of Systems A total of 10 systems reviewed and were otherwise negative Physical Exam Vital Signs Vital Signs - 24 hr 04/22/21 14:11 04/22/21 15:24 04/22/21 15:30 Temperature 36.7 C Temperature Source Temporal Artery Scan Pulse Rate 74 65 64 Pulse Rate [Right Finger] Pulse Rate from SpO2 Sensor 61 66 Pulse Rhythm [Right Finger] Pulse Strength [Right Finger] Respiratory Rate 20 17 20 Respiratory Effort / Characteristics Non-Labored Respiratory Depth Respiratory Pattern Blood Pressure 119/71 Blood Pressure [Right Arm] Blood Pressure Mean 87 Blood Pressure Mean [Right Arm] Blood Pressure Position Sitting Blood Pressure Position [Right Arm] Pulse Oximetry 95 97 98 Oxygen Delivery Method Room Air Sepsis Recent Fever Within 48 Hours No Sepsis New/Unexplained Change in Mental Status No Sepsis Action Taken by Nursing No Action Required 04/22/21 16:00 04/22/21 16:04 04/22/21 16:38 Temperature Temperature Source Pulse Rate 73 80 Pulse Rate [Right Finger] 74 Pulse Rate from SpO2 Sensor Pulse Rhythm [Right Finger] Regular Pulse Strength [Right Finger] Normal Respiratory Rate 20 20 16 Respiratory Effort / Characteristics Non-Labored Respiratory Depth Normal Respiratory Pattern Regular Blood Pressure Blood Pressure [Right Arm] 158/95 H Blood Pressure Mean Blood Pressure Mean [Right Arm] 116 Blood Pressure Position Blood Pressure Position [Right Arm] Sitting Pulse Oximetry 100 Oxygen Delivery Method Room Air Sepsis Recent Fever Within 48 Hours Sepsis New/Unexplained Change in Mental Status Sepsis Action Taken by Nursing 04/22/21 17:00 04/22/21 17:30 04/22/21 18:00 Temperature Temperature Source Pulse Rate 68 64 61 Pulse Rate [Right Finger] Pulse Rate from SpO2 Sensor Pulse Rhythm [Right Finger] Pulse Strength [Right Finger] Respiratory Rate 19 13 13 Respiratory Effort / Characteristics Respiratory Depth Respiratory Pattern Blood Pressure 122/78 131/85 Blood Pressure [Right Arm] Blood Pressure Mean 92 100 Blood Pressure Mean [Right Arm] Blood Pressure Position Blood Pressure Position [Right Arm] Pulse Oximetry Oxygen Delivery Method Sepsis Recent Fever Within 48 Hours Sepsis New/Unexplained Change in Mental Status Sepsis Action Taken by Nursing General: Well developed well nourished older male who is hard of hearing but appears in no acute distress, breathing comfortably on room air. Normal speech HEENT: Normal cephalic atraumatic. Pupils are equal round and reactive to light. Extraocular movements are intact. Oropharynx is pink with moist mucous membranes. No swelling of the mouth lips or tongue. Conjunctiva are pink. Neck: Supple with a midline trachea. No meningeal signs or stiffness, no JVD or bruits. No Stridor. Chest: Clear to auscultation bilaterally. No wheezes or rhonchi. No increased work of breathing. Heart: Regular rate and rhythm without murmurs or gallops. Abdomen: Soft nontender, nondistended without rebound guarding or rigidity. Rectal: Dark stool that appears red-tinged/maroon. It was guaiac positive Extremities: No cyanosis clubbing or edema. No calf tenderness or assymetry Spine/Back. Non tender to palpation. No CVA tenderness Skin: Good turgor without rashes. Neurologic exam: Cranial nerves two through 12 are intact. Motor and sensation are intact and symmetrical throughout. Course Administered Medications Discontinued Medications Sodium Chloride (Nss) 250 mls @ 999 mls/hr IV .Q16M ONE Stop: 04/22/21 15:06 Last Infusion: 04/22/21 15:38 Dose: 0 mls/hr Documented by: [id number] Admin: 04/22/21 15:18 Dose: 999 mls/hr Documented by: [id number] Medical Decision Making Differential Diagnosis GI bleed, infection, diarrhea, Covid, electrolyte or metabolic abnormality, cardiac disease Medical Records Attestation: I reviewed the patient's medical records. Home Medications Current Medication List: was personally reviewed by me Laboratory Data Attestation: I reviewed the patient's lab results. Result diagrams: 04/22/21 15:03 04/22/21 15:03 Lab Results 04/22/21 04/22/21 04/22/21 Range/Units 15:03 15:03 15:03 WBC 7.60 (4.8-10.8) K/uL RBC 3.29 L (4.7-6.1) M/uL Hgb 10.7 L (14.0-18.0) g/dL Hct 32.7 L (42-52) % MCV 99.4 (80-100) fL MCH 32.5 (25-34) pg MCHC 32.7 (32-36) g/dL RDW Std Deviation 47.4 H (36.4-46.3) fL RDW Coeff of Julia 13.1 (11.5-14.5) % Plt Count 183 (130-400) K/uL MPV 9.0 (7.4-10.4) fL Immature Gran % (Auto) 0.1 % Neut % (Auto) 77.4 % Lymph % (Auto) 12.8 % [place] % (Auto) 7.2 % Eos % (Auto) 2.2 % Baso % (Auto) 0.3 % Neut # (Auto) 5.88 (1.4-6.5) K/uL Lymph # (Auto) 0.97 L (1.2-3.4) K/uL [place] # (Auto) 0.55 (0.11-0.59) K/uL Eos # (Auto) 0.17 (0-0.5) K/uL Baso # (Auto) 0.02 (0-0.2) K/uL Immature Gran # (Auto) 0.01 (0.00-0.02) K/uL PT 16.2 H (9.0-12.0) Seconds INR 1.7 H (0.9-1.1) APTT 47.7 H* (21.0-31.0) Seconds PTT Ratio 1.8 Sodium (136-145) mmol/L Potassium (3.5-5.1) mmol/L Chloride (98-107) mmol/L Carbon Dioxide (21-32) mmol/L Anion Gap (3-11) BUN (6-23) mg/dl Creatinine (0.6-1.4) mg/dl Est Cr Clr Drug Dosing ml/min Est GFR ( Amer) ml/min Est GFR (Non-Af Amer) ml/min BUN/Creatinine Ratio (10-20) Glucose (70-99(Fasting)) mg/dl Calcium (8.5-10.1) mg/dl Total Bilirubin (0.2-1.0) mg/dl AST (13-39) U/L ALT (7-52) U/L Alkaline Phosphatase (34-104) U/L Troponin I (0-0.04) ng/ml Total Protein (6.0-8.3) gm/dl Albumin (3.4-5.0) gm/dl Globulin (2.5-4.0) gm/dl Albumin/Globulin Ratio (0.9-2) POC Stool Occult Blood (Negative) SARS-CoV-2, RNA, NAAT (NEGATIVE) Blood Type A Positive Antibody Screen NEGATIVE Crossmatch See Detail 04/22/21 04/22/21 04/22/21 Range/Units 15:03 15:30 16:44 WBC (4.8-10.8) K/uL RBC (4.7-6.1) M/uL Hgb (14.0-18.0) g/dL Hct (42-52) % MCV (80-100) fL MCH (25-34) pg MCHC (32-36) g/dL RDW Std Deviation (36.4-46.3) fL RDW Coeff of Julia (11.5-14.5) % Plt Count (130-400) K/uL MPV (7.4-10.4) fL Immature Gran % (Auto) % Neut % (Auto) % Lymph % (Auto) % [place] % (Auto) % Eos % (Auto) % Baso % (Auto) % Neut # (Auto) (1.4-6.5) K/uL Lymph # (Auto) (1.2-3.4) K/uL [place] # (Auto) (0.11-0.59) K/uL Eos # (Auto) (0-0.5) K/uL Baso # (Auto) (0-0.2) K/uL Immature Gran # (Auto) (0.00-0.02) K/uL PT (9.0-12.0) Seconds INR (0.9-1.1) APTT (21.0-31.0) Seconds PTT Ratio Sodium 135 L (136-145) mmol/L Potassium 4.5 (3.5-5.1) mmol/L Chloride 104 (98-107) mmol/L Carbon Dioxide 23 (21-32) mmol/L Anion Gap 8 (3-11) BUN 39 H (6-23) mg/dl Creatinine 1.59 H (0.6-1.4) mg/dl Est Cr Clr Drug Dosing 27.4 ml/min Est GFR ( Amer) 44.6 ml/min Est GFR (Non-Af Amer) 38.5 ml/min BUN/Creatinine Ratio 24.5 H (10-20) Glucose 122 H (70-99(Fasting)) mg/dl Calcium 8.8 (8.5-10.1) mg/dl Total Bilirubin 0.4 (0.2-1.0) mg/dl AST 11 L (13-39) U/L ALT 8 (7-52) U/L Alkaline Phosphatase 43 (34-104) U/L Troponin I < 0.03 (0-0.04) ng/ml Total Protein 6.2 (6.0-8.3) gm/dl Albumin 3.6 (3.4-5.0) gm/dl Globulin 2.6 (2.5-4.0) gm/dl Albumin/Globulin Ratio 1.4 (0.9-2) POC Stool Occult Blood Positive A (Negative) SARS-CoV-2, RNA, NAAT NEGATIVE (NEGATIVE) Blood Type Antibody Screen Crossmatch ECG Data Attestation: I personally reviewed and interpreted this ECG as follows: Indication: + weakness Rate (beats per minute): 72 Rhythm: + atrial fibrillation and + other (poor baseline) ECG Intervals/blocks: + Normal QRS, + Normal QT and + Normal [place] ECG [place]: + Normal ECG ST segments: + Normal ST segments ECG Findings: + Other (low voltage); no PACs or no PVCs Comparison ECG Date: from (09/06/20) Change: no significant change MDM Narrative This patient comes in as described above. He was placed in room C1. He is here for treatment and evaluation of diarrhea and possible GI bleed he is on Pradaxa. He is hemodynamically stable. IV access were established blood work was obtained and he was typed and crossed. He is on iron as well. We did do stool bio fire as well as Covid testing. He was reassessed. His hemoglobin is in the mid 10 range which is down from 12. We did a rectal exam and he does have some maroonish stool. His abdomen is benign. He does have some renal insufficiency. Covid testing was negative. He was typed and screened. He did have a large bowel movement which was dark and maroon in light of this I did up with the blood to type and cross. I did consult Dr. Hudson to see him in the ER for further treatment evaluation. Stool bio fire was also ordered. He will be admitted/observed. Conitinous cardiac monitoring: Orders placed in EMR for continuous hospital monitor. 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 Discharge Plan Visit Data Chief Complaint: Diarrhea Stated Complaint: DIARRHEA, BLOOD IN STOOL ED Provider: Andrade Frazier ED Midlevel Provider: Nohelia Campbell Discharge Problem: Acute GI bleeding, Atrial fibrillation, Benign prostatic hyperplasia with urinary obstruction, Dementia, Lab test negative for COVID-19 virus, intermediate (current) use of antithrombotics/antiplatelets Discharge Instructions Interventions: ED Discharge Assessment Last Done: 04/22/21 21:01 Discharge Problem: Atrial fibrillation Qualifiers: Atrial fibrillation type: longstanding persistent Qualified Code(s): I48.11 - Longstanding persistent atrial fibrillation Dementia Qualifiers: Dementia type: unspecified type Dementia behavioral disturbance: without behavioral disturbance Qualified Code(s): F03.90 - Unspecified dementia without behavioral disturbance
--- NOTE | 2021-04-22 14:57 | Emergency Department Note ---
ED Visit Note 85 yo M presenting with diarrhea. Pt seen and evaluated with Dr. Frazier. Please refer to his note for further documentation. . Resident Activity Tracking Resident Involvement: Resident Care Provided Care Provided: Adult ED
[2021-04-22 15:16] LABS: Basophils # (auto) 0.02 K/uL (0-0.2); Basophils % (auto) 0.3 %; Eosinophils # (auto) 0.17 K/uL (0-0.5); Eosinophils % (auto) 2.2 %; Hematocrit (blood only) 32.7 % (42-52); Hemoglobin 10.7 g/dL (14.0-18.0); Immature Granulocytes # (auto) 0.01 K/uL (0.00-0.02); Immature Granulocytes % (auto) 0.1 %; Lymphocytes # (auto) 0.97 K/uL (1.2-3.4); Lymphocytes % (auto) 12.8 %; Mean Corpuscular Hemoglobin 32.5 pg (25-34); Mean Corpuscular Hgb Conc 32.7 g/dL (32-36); Mean Corpuscular Volume 99.4 fL (80-100); Monocytes # (auto) 0.55 K/uL (0.11-0.59); Monocytes % (auto) 7.2 %; Neutrophils # (auto) 5.88 K/uL (1.4-6.5); Neutrophils % (auto) 77.4 %; Platelet Count 183 K/uL (130-400); RDW Coefficient of Variation 13.1 % (11.5-14.5); RDW Standard Deviation 47.4 fL (36.4-46.3); Red Blood Count 3.29 M/uL (4.7-6.1)
[2021-04-22 15:59] LABS: INR 1.7 (0.9-1.1); Partial Thromboplastin Ratio 1.8; Prothrombin Time 16.2 Seconds (9.0-12.0)
[2021-04-22 16:07] LABS: Partial Thromboplastin Time 47.7 Seconds (21.0-31.0); Troponin I < 0.03 ng/ml (0-0.04)
[2021-04-22 16:10] LABS: Alanine Aminotransferase 8 U/L (7-52); Albumin Globulin Ratio 1.4 (0.9-2); Albumin Level 3.6 gm/dl (3.4-5.0); Alkaline Phosphatase 43 U/L (34-104); Anion Gap 8 (3-11); Aspartate Aminotransferase 11 U/L (13-39); BUN Creatinine Ratio 24.5 (10-20); Bilirubin,Total 0.4 mg/dl (0.2-1.0); Blood Urea Nitrogen 39 mg/dl (6-23); Calcium 8.8 mg/dl (8.5-10.1); Carbon Dioxide 23 mmol/L (21-32); Chloride 104 mmol/L (98-107); Creatinine Clr Calc Pharmacy 27.4 ml/min; Est GFR (African American) 44.6 ml/min; Est GFR (Non-African American) 38.5 ml/min; Globulin 2.6 gm/dl (2.5-4.0); Glucose 122 mg/dl (70-99(Fasting)); Potassium 4.5 mmol/L (3.5-5.1); Sodium 135 mmol/L (136-145); Total Protein 6.2 gm/dl (6.0-8.3)
[2021-04-22] MEDS ORDERED: SODIUM CHLORIDE 0.9% 250 ML IV PRN (17:18)
--- NOTE | 2021-04-22 18:15 | History & Physical Report ---
Date of Service April 22, 2021 Assessment & Plan (1) Bloody diarrhea: Plan: Differential includes colitis (infectious. Ischemic seems and less likely as this is painless), diverticulosis, AVM Admit to a monitored bed Will check CT of the abdomen pelvis. No IV contrast secondary to renal dysfunction Stool cultures including C. difficile Hold anticoagulation as noted below Gentle IV hydration. Will start clear liquid diet only for now We will ask GI to evaluate for further recommendations (2) Atrial fibrillation: Plan: Patient is currently rate controlled on current medications including diltiazem Will hold Pradaxa for now secondary to bleeding (3) Hypothyroidism: Plan: Continue levothyroxine 50 mcg (4) Type 2 diabetes mellitus: Plan: We will hold Metformin for now Sliding scale insulin and diabetic diet when cleared for p.o. (5) Hypertension: Plan: Continue diltiazem as noted Blood pressure is 131/85 (6) CKD (chronic kidney disease): Plan: Creatinine appears to be baseline from previous lab work dating from January 2021 History of Present Illness Chief Complaint: Bloody diarrhea Primary Care Provider: Braeden Sultana III, ABA This is a an 85-year-old male with past medical history chronic atrial fibrillation, dementia, hyperlipidemia that presents with bloody diarrhea. Patient is alone in room at the time my evaluation and is extremely hard of hea ring. Therefore, very little history can be obtained directly from the patient. Therefore, buccal history per ER documentation. The patient reported to the ER physician that he had approximately 1012 episodes of diarrhea over the past 2 days. His stools are typically dark/black secondary to his iron supplementation but his felt that there was some bright blood that can be seen. Apparently has a history of this and has had a previous EGD and colonoscopy that were unremarkable. He does have atrial fibrillation and is taking Pradaxa chronically. The patient himself seems to be very comfortable. He denies any pain. He was asleep but woke up easily. His complaints mostly involve the blood pressure cuff going off every several minutes to squeeze his arm. Allergies Allergy/AdvReac Type Severity Reaction Status Date / Time zinc Allergy Intermediate ITCHY Verified 04/22/21 15:44 Home Medications Medication Instructions Recorded Confirmed Type dabigatran etexilate 150 mg 150 mg PO BID #180 cap 09/19/20 04/22/21 Rx capsule (Pradaxa) diltiazem HCl 180 mg 180 mg PO QAM #90 cap 09/19/20 04/22/21 Rx capsule,extended release 24 hr pantoprazole 40 mg tablet,delayed 40 mg PO BID #60 tab 10/22/20 04/22/21 Rx release tamsulosin 0.4 mg capsule (Flomax) 0.4 mg PO DAILY #90 cap 10/28/20 04/22/21 Rx galantamine 24 mg 24 hr 24 mg PO QAM #90 cap 12/16/20 04/22/21 Rx capsule,extended release metformin 500 mg tablet 500 mg PO BID #180 tab 01/07/21 04/22/21 Rx ferrous sulfate 325 mg (65 mg 325 mg PO BID #60 tab 01/20/21 04/22/21 Rx iron) tablet,delayed release levothyroxine 50 mcg tablet 50 mcg PO QAM #90 tab 01/27/21 04/22/21 Rx furosemide 20 mg tablet 20 mg PO DAILY #30 tab 03/17/21 04/22/21 Rx finasteride 5 mg tablet 5 mg PO QPM #90 tab 04/01/21 04/22/21 Rx Past Med/Surg History Medical History Atrial fibrillation RX PRADAXA 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 Dementia COGNITIVE IMPAIRMENT Epistaxis BALLOON CURRENLTY IN USE TO STOP BLEEDING-RT NOSTRIL GERD (gastroesophageal reflux disease) Hiatal hernia History of asthma A CHILD Hx of gastric ulcer Hyperlipidemia DENIES Hypertension Hypothyroidism Mitral regurgitation Raynaud's disease Tricuspid regurgitation Type 2 diabetes mellitus Surgical History H/O hernia repair History of colonoscopy History of esophagogastroduodenoscopy (EGD) History of tooth extraction Family History Brother Coronary arteriosclerosis Mother Heart disease Myocardial infarction Father Heart disease Myocardial infarction Other No family history of adverse response to anesthesia Denies family history of Colon cancer Ovarian cancer Prostate cancer Breast cancer Social History Smoking Status: Former smoker Tobacco Type: Cigarettes Age Quit Using Tobacco: 58; Second Hand Exposure: No; Hx Alcohol Use: No Hx Substance Use: No Preferred Language: Colombian Visual Impairment: No Limitations Hearing Ability: Use of Hearing Aid Home Staging Specialist Required: No Beliefs That Will Affect Care: None marital status: Current Living Situation: Spouse current occupational status: retired Feels Safe at Home: Yes Childhood Exposure to Second-Hand Smoke: Yes Dental Care, Regularly: Yes Physical Activity Frequency: Does not Exercise Seatbelt Use: always Sunscreen Use: No Do you think of yourself as: straight/heterosexual Assistive Devices: Glasses Review of Systems Review of Systems: Review of systems is obtainable from this patient secondary to communication difficulties Physical Exam Constitutional: cooperative; no acute distress Neck: trachea midline, no thyromegaly Respiratory: normal respiratory effort Auscultation: lungs clear to auscultation bilaterally; no crackles, no rales, no rhonchi and no wheezes Cardiovascular: Rate/Rhythm: regular rate and regular rhythm Heart Sounds: normal S1, normal S2 and + murmur Gastrointestinal (Abdomen): Inspection/Auscultation: abdomen normal to inspection Percussion/Palpation: abdomen soft; abdomen nontender, no guarding, abdomen not rigid and no hepatosplenomegaly Skin: no rashes, warm and dry Results & Data Results & Data ([facility]) Vital Signs (Past 12 Hours) Vital Signs Temp Pulse Pulse Resp BP BP Pulse Ox 04/22/21 18:00 61 13 131/85 04/22/21 17:30 64 13 122/78 04/22/21 17:00 68 19 04/22/21 16:38 80 16 04/22/21 16:04 74 20 158/95 H 100 04/22/21 16:00 73 20 04/22/21 15:30 64 20 98 04/22/21 15:24 65 17 97 04/22/21 14:11 36.7 C 74 20 119/71 95 Laboratory Results Laboratory Results WBC 7.60 K/uL (4.8-10.8) 04/22/21 15:03 RBC 3.29 M/uL (4.7-6.1) L 04/22/21 15:03 Hgb 10.7 g/dL (14.0-18.0) L 04/22/21 15:03 Hct 32.7 % (42-52) L 04/22/21 15:03 MCV 99.4 fL (80-100) 04/22/21 15:03 MCH 32.5 pg (25-34) 04/22/21 15:03 MCHC 32.7 g/dL (32-36) 04/22/21 15:03 RDW Std Deviation 47.4 fL (36.4-46.3) H 04/22/21 15:03 RDW Coeff of Julia 13.1 % (11.5-14.5) 04/22/21 15:03 Plt Count 183 K/uL (130-400) 04/22/21 15:03 MPV 9.0 fL (7.4-10.4) 04/22/21 15:03 Immature Gran % (Auto) 0.1 % 04/22/21 15:03 Neut % (Auto) 77.4 % 04/22/21 15:03 Lymph % (Auto) 12.8 % 04/22/21 15:03 [place] % (Auto) 7.2 % 04/22/21 15:03 Eos % (Auto) 2.2 % 04/22/21 15:03 Baso % (Auto) 0.3 % 04/22/21 15:03 Neut # (Auto) 5.88 K/uL (1.4-6.5) 04/22/21 15:03 Lymph # (Auto) 0.97 K/uL (1.2-3.4) L 04/22/21 15:03 [place] # (Auto) 0.55 K/uL (0.11-0.59) 04/22/21 15:03 Eos # (Auto) 0.17 K/uL (0-0.5) 04/22/21 15:03 Baso # (Auto) 0.02 K/uL (0-0.2) 04/22/21 15:03 Immature Gran # (Auto) 0.01 K/uL (0.00-0.02) 04/22/21 15:03 PT 16.2 Seconds (9.0-12.0) H 04/22/21 15:03 INR 1.7 (0.9-1.1) H 04/22/21 15:03 APTT 47.7 Seconds (21.0-31.0) H* 04/22/21 15:03 PTT Ratio 1.8 04/22/21 15:03 Sodium 135 mmol/L (136-145) L 04/22/21 15:03 Potassium 4.5 mmol/L (3.5-5.1) 04/22/21 15:03 Chloride 104 mmol/L (98-107) 04/22/21 15:03 Carbon Dioxide 23 mmol/L (21-32) 04/22/21 15:03 Anion Gap 8 (3-11) 04/22/21 15:03 BUN 39 mg/dl (6-23) H 04/22/21 15:03 Creatinine 1.59 mg/dl (0.6-1.4) H 04/22/21 15:03 Est Cr Clr Drug Dosing 27.4 ml/min 04/22/21 15:03 Est GFR ( Amer) 44.6 ml/min 04/22/21 15:03 Est GFR (Non-Af Amer) 38.5 ml/min 04/22/21 15:03 BUN/Creatinine Ratio 24.5 (10-20) H 04/22/21 15:03 Glucose 122 mg/dl (70-99(Fasting)) H 04/22/21 15:03 Calcium 8.8 mg/dl (8.5-10.1) 04/22/21 15:03 Total Bilirubin 0.4 mg/dl (0.2-1.0) 04/22/21 15:03 AST 11 U/L (13-39) L 04/22/21 15:03 ALT 8 U/L (7-52) 04/22/21 15:03 Alkaline Phosphatase 43 U/L (34-104) 04/22/21 15:03 Troponin I < 0.03 ng/ml (0-0.04) 04/22/21 15:03 Total Protein 6.2 gm/dl (6.0-8.3) 04/22/21 15:03 Albumin 3.6 gm/dl (3.4-5.0) 04/22/21 15:03 Globulin 2.6 gm/dl (2.5-4.0) 04/22/21 15:03 Albumin/Globulin Ratio 1.4 (0.9-2) 04/22/21 15:03 POC Stool Occult Blood Positive (Negative) A 04/22/21 16:44 SARS-CoV-2, RNA, NAAT NEGATIVE (NEGATIVE) 04/22/21 15:30 Blood Type A Positive 04/22/21 15:03 Antibody Screen NEGATIVE 04/22/21 15:03 Crossmatch See Detail 04/22/21 15:03 PG Care Time/CCT Total # of Minutes Spent Total Time Spent with Patient: Total time spent is greater than 50% in coordination of care (as documented) at patient's floor/unit and/or counseling patient: Coding Level of Care Code INT OBSERVATION CARE 70M LVL 3 Diagnoses Atrial fibrillation I48.91 Atrial fibrillation type: unspecified Hypothyroidism E03.9 Hypothyroidism type: unspecified Type 2 diabetes mellitus E11.9 Diabetes mellitus assistant terminal manager insulin use: without senior care use Diabetes mellitus complication status: without complication Hypertension I10 Hypertension type: essential hypertension CKD (chronic kidney disease) N18.9 Bloody diarrhea R19.7 (1) Atrial fibrillation Atrial fibrillation type: unspecified Qualified Code(s): I48.91 - Unspecified atrial fibrillation (2) Hypothyroidism Hypothyroidism type: unspecified Qualified Code(s): E03.9 - Hypothyroidism, unspecified (3) Type 2 diabetes mellitus Diabetes mellitus assistant terminal manager insulin use: without senior care use Diabetes mellitus complication status: without complication Qualified Code(s): E11.9 - Type 2 diabetes mellitus without complications (4) Hypertension Hypertension type: essential hypertension Qualified Code(s): I10 - Essential (primary) hypertension
--- NOTE | 2021-04-22 19:05 | CT Scan Report ---
CT SCAN OF THE ABDOMEN AND PELVIS WITHOUT IV CONTRAST CLINICAL HISTORY: Diarrhea. COMPARISON STUDY: No priors. TECHNIQUE: CT scan of the abdomen and pelvis is performed from the lung bases to the proximal femora. Images are reviewed in the axial, sagittal, and coronal planes. IV contrast was not administered for this examination as per the referring clinician. Note that the examination was performed in signific antly suboptimal fashion without oral and IV contrast. The Examination is also compromised by motion artifact. A dose lowering technique was utilized adhering to the principles of ALARA. CT DOSE: 271.68 mGy.cm FINDINGS: Lung bases: The heart is enlarged and without pericardial effusion. Coronary artery density calcified . There is a tiny hiatal hernia. There are scattered calcified granulomas. Scarring/atelectasis is se en at the lung bases. There is no airspace consolidation typical for pneumonia or pleural effusion. Liver: The unenhanced liver is normal in size, contour, and attenuation. There is no intrahepatic artis iary ductal dilatation. Trace pneumobilia is noted in the left lobe. Gallbladder: There is a large calcified gallstone with no CT evidence of acute cholecystitis. Spleen: Normal in size and attenuation. There are calcified splenic granulomas. Pancreas: The unenhanced pancreas is atrophic and grossly unremarkable. Adrenal glands: Unremarkable. Kidneys: The unenhanced kidneys are atrophic and without hydronephrosis. There are no renal calculi i dentified. Bilateral renal cysts measure up to 2.7 cm. Additional subcentimeter cortical hypodensitie s also likely represent cysts but are too small for definitive characterization. Abdominal vasculature: The abdominal aorta is normal in course and caliber noting moderate atheroscle rotic calcification. Bowel: There is moderate to severe constipation. No bowel obstruction is identified. There is mild to moderate colonic diverticulosis without CT evidence of acute diverticulitis. The appendix is not vi sualized. Peritoneum: There is no intraperitoneal free air or abdominal ascites. Lymphadenopathy: None. Pelvic viscera: The prostate gland is markedly enlarged and heterogeneous. The bladder is significant ly distended. The bladder wall is thickened and trabeculated indicating chronic outlet obstruction. T here are large bladder diverticula which measure up to 7.5 cm. There is a small fat-containing left i nguinal hernia. Skeletal structures: The skeletal structures are osteopenic. There is moderate to advanced lumbar sac ral spondylosis. There is a moderate chronic deformity fracture of L1 with mildly retropulsed fragmen ts. This was also seen on a lateral chest x-ray dated 04/19/2019. No lytic or blastic lesions are seen . IMPRESSION: 1. Significantly suboptimal examination without oral and IV contrast. There is also significant motio n artifact. 2. No acute infectious or inflammatory findings are seen in the abdomen or pelvis. 3. Cholelithiasis. 4. Moderate to severe constipation. 5. Cardiomegaly with advanced coronary artery calcification. 6. Colonic diverticulosis without CT evidence of acute diverticulitis. 7. Marked prostatomegaly with bladder distention and evidence of chronic bladder outlet obstruction. 8. Additional findings as above. ACT 112: Negative or not required by law. Electronically signed by: Rafal Hernandez M.D. 04/22/2021 7:04 PM
[2021-04-22] MEDS ORDERED: ONDANSETRON INJ 2 MG/ML 2 ML VIAL IV PRN (21:03)
[2021-04-22] MEDS ORDERED: SODIUM CHLORIDE 0.9% 1000ML 1,000 ML IV SCH (21:03)
[2021-04-22] MEDS ORDERED: ACETAMINOPHEN 325 MG TAB PO PRN (21:03)
[2021-04-22] MEDS ORDERED: FINASTERIDE 5 MG TAB PO SCH (21:03)
[2021-04-22] MEDS: PANTOprazole 40 MG TAB PO SCH (23:05)
[2021-04-22] MEDS: FERROUS SULFATE 325 MG TAB PO SCH (23:05)
[2021-04-23 05:32] LABS: Basophils # (auto) 0.03 K/uL (0-0.2); Basophils % (auto) 0.4 %; Eosinophils # (auto) 0.23 K/uL (0-0.5); Eosinophils % (auto) 2.8 %; Hematocrit (blood only) 32.8 % (42-52); Hemoglobin 10.8 g/dL (14.0-18.0); Immature Granulocytes # (auto) 0.03 K/uL (0.00-0.02); Immature Granulocytes % (auto) 0.4 %; Lymphocytes # (auto) 0.83 K/uL (1.2-3.4); Mean Corpuscular Hemoglobin 32.6 pg (25-34); Mean Corpuscular Hgb Conc 32.9 g/dL (32-36); Mean Corpuscular Volume 99.1 fL (80-100); Mean Platelet Volume 9.3 fL (7.4-10.4); Monocytes # (auto) 0.69 K/uL (0.11-0.59); Monocytes % (auto) 8.3 %; Neutrophils # (auto) 6.52 K/uL (1.4-6.5); Neutrophils % (auto) 78.1 %; Platelet Count 190 K/uL (130-400); RDW Coefficient of Variation 13.1 % (11.5-14.5); RDW Standard Deviation 47.6 fL (36.4-46.3); Red Blood Count 3.31 M/uL (4.7-6.1); White Blood Count 8.33 K/uL (4.8-10.8)
[2021-04-23 05:55] LABS: Albumin Globulin Ratio 1.6 (0.9-2); Albumin Level 3.5 gm/dl (3.4-5.0); BUN Creatinine Ratio 24.6 (10-20); Bilirubin,Total 0.6 mg/dl (0.2-1.0); Calcium 8.6 mg/dl (8.5-10.1); Creatinine Clr Calc Pharmacy 35.7 ml/min; Est GFR (African American) 54.8 ml/min; Est GFR (Non-African American) 47.3 ml/min; Globulin 2.2 gm/dl (2.5-4.0); Potassium 4.5 mmol/L (3.5-5.1); Total Protein 5.7 gm/dl (6.0-8.3)
[2021-04-23] MEDS ORDERED: LEVOTHYROXINE SODIUM 50 MCG TABLET PO SCH (06:30)
[2021-04-23] MEDS: FERROUS SULFATE 325 MG TAB PO SCH (08:20)
[2021-04-23] MEDS: PANTOprazole 40 MG TAB PO SCH (08:21)
[2021-04-23] MEDS ORDERED: FUROSEMIDE 20 MG TAB PO SCH (09:00)
[2021-04-23] MEDS ORDERED: GALANTAMINE HYDROBROMIDE 8 MG CAPER PO SCH (09:00)
[2021-04-23] MEDS ORDERED: TAMSULOSIN HCL 0.4 MG CAP PO SCH (09:00)
[2021-04-23] MEDS ORDERED: dilTIAZem HCL 180 MG CAPCR PO SCH (09:00)
--- NOTE | 2021-04-23 09:41 | Gastrointestinal Consultation ---
Date of Consultation April 23, 2021 Assessment & Plan (1) Acute GI bleeding: CT not particularly helpful given lack of oral or IV contrast, but did show constipation. Patient's H/H is 10.8/32.8. He is without other GI symptoms. -Given overall clinical picture, would advise monitoring conservatively. -Follow H/H. -Would initiate a bowel regimen given constipation noted on CT scan. Can do Miralax 17 gm 1-2 times daily. -Anucort suppositories BID x 10 days. -Unless clinical situation worsens/changes, would plan to follow-up as an outpatient. No evidence of obvious masses or lesions on imaging, but if bleeding resumes, could consider NM tagged RBC scan. Supervising Physician Co-Signing Physician Notes I personally evaluated the patient and agree with the findings as documented by Sandy Go, WENDY Exam: abd: soft, nt, nd History of Present Illness Reason for Consultation: Bloody diarrhea Attending Physician: Kem Zuniga MD History of Present Illness Patient is an 85 yo male with PMH of afib, dementia, and HLD who presented to the ED with diarrhea. He reported 10-12 episodes of diarrhea over the past 2 days. He takes iron supplementation and typically has darker stools, but per there was concern for bright red blood. He takes Pradaxa chronically for his afib. He denies abdominal pain. H/H presently 10.8/32.8. He had a CT scan, unfortunately this was performed without oral or IV contrast. It was able to id entify notable constipation & diverticulosis. Patient had an EGD on September 03, 2020 for anemia. It was unremarkable for acute abnormalities with the exception of chewing gum in posterior pharynx. Colonoscopy in May 2021 indicated diverticulosis as well as internal hemorrhoids. Patient's BP is stable at 121/67. Allergies Allergy/AdvReac Type Severity Reaction Status Date / Time zinc Allergy Intermediate ITCHY Verified 04/22/21 15:44 Home Medications Medication Instructions Recorded Confirmed Type dabigatran etexilate 150 mg 150 mg PO BID #180 cap 09/19/20 04/22/21 Rx capsule (Pradaxa) diltiazem HCl 180 mg 180 mg PO QAM #90 cap 09/19/20 04/22/21 Rx capsule,extended release 24 hr pantoprazole 40 mg tablet,delayed 40 mg PO BID #60 tab 10/22/20 04/22/21 Rx release tamsulosin 0.4 mg capsule (Flomax) 0.4 mg PO DAILY #90 cap 10/28/20 04/22/21 Rx galantamine 24 mg 24 hr 24 mg PO QAM #90 cap 12/16/20 04/22/21 Rx capsule,extended release metformin 500 mg tablet 500 mg PO BID #180 tab 01/07/21 04/22/21 Rx ferrous sulfate 325 mg (65 mg 325 mg PO BID #60 tab 01/20/21 04/22/21 Rx iron) tablet,delayed release levothyroxine 50 mcg tablet 50 mcg PO QAM #90 tab 01/27/21 04/22/21 Rx furosemide 20 mg tablet 20 mg PO DAILY #30 tab 03/17/21 04/22/21 Rx finasteride 5 mg tablet 5 mg PO QPM #90 tab 04/01/21 04/22/21 Rx Patient History Medical History Atrial fibrillation RX PRADAXA 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 Dementia COGNITIVE IMPAIRMENT Epistaxis BALLOON CURRENLTY IN USE TO STOP BLEEDING-RT NOSTRIL GERD (gastroesophageal reflux disease) Hiatal hernia History of asthma A CHILD Hx of gastric ulcer Hyperlipidemia DENIES Hypertension Hypothyroidism Mitral regurgitation Raynaud's disease Tricuspid regurgitation Type 2 diabetes mellitus Surgical History H/O hernia repair History of colonoscopy History of esophagogastroduodenoscopy (EGD) History of tooth extraction Family History Brother Coronary arteriosclerosis Mother Heart disease Myocardial infarction Father Heart disease Myocardial infarction Other No family history of adverse response to anesthesia Denies family history of Colon cancer Ovarian cancer Prostate cancer Breast cancer Social History Smoking Status: Former smoker Tobacco Type: Cigarettes Age Quit Using Tobacco: 58; Second Hand Exposure: No; Hx Alcohol Use: No Hx Substance Use: No Preferred Language: Ghanaian Communication Ability: Impaired Visual Impairment: No Limitations Hearing Ability: Use of Hearing Aid Research Pharmacist Required: No Beliefs That Will Affect Care: None marital status: Current Living Situation: Spouse current occupational status: retired Other Information That Helps Us Care for You: No Feels Safe at Home: Yes Safety Concerns: Feels Safe At This Time Childhood Exposure to Second-Hand Smoke: Yes Dental Care, Regularly: Yes Physical Activity Frequency: Does not Exercise Seatbelt Use: always Sunscreen Use: No Do you think of yourself as: straight/heterosexual Assistive Devices: None Review of Systems Review of Systems: ROS is difficult to obtain due to hearing impairment and dementia Constitutional: no fever and no chills Respiratory: no cough Cardiovascular: no chest pain Gastrointestinal: + diarrhea/loose stools and + blood in stools; no abdominal pain Musculoskeletal: no problem reported Psychiatric: no problem reported Physical Exam Constitutional: well developed Respiratory: normal respiratory effort Cardiovascular: Rate/Rhythm: regular rate Gastrointestinal (Abdomen): normal bowel sounds, soft, nontender, no hepatosplenomegaly Musculoskeletal: Head/Neck/Chest: normocephalic Psychiatric: Orientation: alert and oriented x 3 Results & Data ([facility]) Vital Signs (Past 12 Hours) Vital Signs Pulse Resp BP Pulse Ox 04/23/21 08:17 66 15 121/67 97 04/23/21 03:00 60 18 106/66 100 04/22/21 22:00 85 18 105/66 96 PG Care Time/CCT Total # of Minutes Spent Total Time Spent with Patient: Total time spent is greater than 50% in coordination of care (as documented) at patient's floor/unit and/or counseling patient: Coding Level of Care Code 67540 Initial Inpt Care Lvl 3 Diagnoses Acute GI bleeding K92.2
[2021-04-23] MEDS ORDERED: HYDROCORTISONE ACETATE 25 MG SUPP PR SCH (11:00)
--- NOTE | 2021-04-23 11:15 | Electrocardiogram Report ---
Test Reason : Blood Pressure : / mmHG Vent. 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
[2021-04-23 11:56] LABS: Hemoglobin 11.6 g/dL (14.0-18.0)
--- NOTE | 2021-04-23 18:49 | Discharge Summary ---
Date of Service April 23, 2021 Admission HPI Per Admitting Provider This is a an 85-year-old male with past medical history chronic atrial fibrillation, dementia, hyperlipidemia that presents with bloody diarrhea. Patient is alone in room at the time my evaluation and is extremely hard of hearing. Therefore, very little history can be obtained directly from the patient. Therefore, buccal history per ER documentation. The patient reported to the ER physician that he had approximately 1012 episodes of diarrhea over the past 2 days. His stools are typically dark/black secondary to his iron supplementation but his felt that there was some bright blood that can be seen. Apparently has a history of this and has had a previous EGD and colonoscopy that were unremarkable. He does have atrial fibrillation and is taking Pradaxa chronically. The patient himself seems to be very comfortable. He denies any pain. He was asleep but woke up easily. His complaints mostly involve the blood pressure cuff going off every several minutes to squeeze his arm. Principal Diagnosis 1. Melena and hematocheziaH&H stable 2. Diarrhea in the setting of significant stool burden and underlying constipation 3. Chronic anticoagulation therapy Discharge Exam General: Resting comfortably in his hospital bed. Extremely hard of hearing. NAD. HEENT: Head is AT/NC buccal mucosa is moist and pink Neck: No JVD. Negative hepatojugular reflex Cardiac: Currently in a regular rate and rhythm and sinus on the monitor with 2/6 VILLA Lungs: CTA without W/R/R Abdomen: Normoactive X4. Soft and nontender in all quadrants. Positive Hemoccult Extremities: No peripheral clubbing cyanosis or edema Neuro: A&O X4 cranial nerves II through XII are grossly intact no focal neuro deficits Skin: No obvious skin lesions or rashes Psych: Appropriate affect pleasant and cooperative Discharge Data Allergies Allergy/AdvReac Type Severity Reaction Status Date / Time zinc Allergy Intermediate ITCHY Verified 04/22/21 15:44 Consultations 04/22/21 16:37 ED Decision to Admit Stat 04/22/21 21:03 Consult Gastroenterology Routine Assessment & Plan (1) Acute GI bleeding: CT not particularly helpful given lack of oral or IV contrast, but did show constipation. Patient's H/H is 10.8/32.8. He is without other GI symptoms. -Given overall clinical picture, would advise monitoring conservatively. -Follow H/H. -Would initiate a bowel regimen given constipation noted on CT scan. Can do Miralax 17 gm 1-2 times daily. -Anucort suppositories BID x 10 days. -Unless clinical situation worsens/changes, would plan to follow-up as an ou tpatient. No evidence of obvious masses or lesions on imaging, but if bleeding resumes, could consider NM tagged RBC scan. Ordered Studies 04/22/21 18:25 CT abd pelvis wo con Routine IMPRESSION: 1. Significantly suboptimal examination without oral and IV contrast. There is also significant motion artifact. 2. No acute infectious or inflammatory findings are seen in the abdomen or pelvis. 3. Cholelithiasis. 4. Moderate to severe constipation. 5. Cardiomegaly with advanced coronary artery calcification. 6. Colonic diverticulosis without CT evidence of acute diverticulitis. 7. Marked prostatomegaly with bladder distention and evidence of chronic bladder outlet obstruction. 8. Additional findings as above. Hospital Course (1) Rectal bleeding: * Patient presented with mixed melena and hematochezia (melena had been the major complaint but did have one episode of hematochezia while in the ED) * Denied dizziness, lightheadedness, shortness of breath, chest pain, palpitations, abdominal pain, epigastric discomfort with this * Does take chronic iron. In addition, is on Pradaxa for atrial fibrillation * Hemoglobin upon presentation into the ED was 10.7 (was 12.62 months ago) thus subsequently hospitalized * CT of the abdomen and pelvis performed (but without contrast given his creatinine clearance of 23). This showed significant stool burden with diverticulosis. No evidence of diverticulitis. * This is been an intermittent ongoing problem for the patient in the past * EGD done 09/09 showing no significant abnormality * Colonoscopy reviewed done 06/08 showing diverticulosis and internal hemorrhoids * H&H has been trended and has remained stable ([id number]). Some of the drop (from baseline of 12.6 to 10.7 upon presentation) could be dilutional effect as he was aggressively hydrated prior to lab draw * At any rate, he has remained hemodynamically stable, his lab values have remained stable and there is no medical contraindication to proceed with discharge at this time * I suspect the dark stools are related to his chronic iron supplementation * The bright red blood noted in the ED upon presentation could be multifactorial. He does have known hemorrhoids and diverticulosis. He does not have abdominal pain or any clinical evidence to suggest diverticulitis. * He has been seen by GI while in house who is recommending Anusol suppositories X 10 days. * If bleeding persists, to follow-up with GI for consideration of a tagged bleeding scan * I recommend withholding of Pradaxa for at least 1 to 2 weeks. Patient should follow-up with PCP and have a follow-up CBC drawn next week. If H&H remains stable, can consider resumption of Pradaxa but needs reduction in dose to 75 mg twice daily given his creatinine clearance less than 30. This is at the discretion of patient's PCP * Patient already taking PPI therapy. Should continue this (2) Constipation: * Although patient presented with loose stools, his CT scan does show significant stool burden consistent with severe constipation * Loose stools likely given the fact that only loose stools can fit around the stool burden noted * This is a chronic and ongoing problem for the patient which is likely related to the iron supplementation. * I have recommended a bowel regimen: Colace 100 mg twice daily, MiraLAX twice daily until adequate BM then once a day. Can continue twice daily if needed (3) Atrial fibrillation with RVR: * Currently in a normal sinus rhythm with controlled rate * Again, recommend withholding Pradaxa given #1 * If H&H remained stable as an outpatient (which should be trended), would recommend reduction of dose to 75 mg twice a day (4) Dementia: Noted and at baseline (5) CKD (chronic kidney disease): Noted and baseline Plan of care discussed with Dr. Zuniga. updated Total Time Total Time Spent Total Time Spent (In Minutes): 45 minutes Discharge Plan Discharge Items Patient Disposition: Home - Self-Care Reason For Visit: BLOODY DIARRHEA Discharge Diagnosis: 1. Hematochezia (bright red blood from rectum) 2. Constipation (stool burden seen on imaging) Activity: Resume your previous activity Non-emergency contact: Primary Care Provider Call non-emergency contact if: you have any medication questions and your symptoms worsen Follow-up/Referrals: Braeden Sultana III, CRNP [Primary Care Provider] - Diet: Heart Healthy Addtl Attending Provider Instructions: - you presented to the Emergency department for multiple reasons (loose stools, dark stools, and then while in the ED-- noted to have slight bright red bleeding with your bowel movement) - your CT of the abdomen and pelvis showed diverticulosis (which are little outpouches in the colon as discussed) and these can bleed. In addition, you have a known history of internal hemorrhoids seen on prior colonoscopy. These are likely both contributing to the blood noted. - you should HOLD PRADAXA for 1-2 weeks (follow up with PCP regarding when to go back on this medication) - when you do go back on Pradaxa, I would advise a dose adjustment (to 75mg twice a day based on your age and renal function) - you should have a repeat CBC in 1 week to follow up on your blood count and ensure that it is improving - the dark stools that you report to are likely due to the iron that you take. Make sure to remain on your Protonix to help protect your stomach from added bleeding - you are being continued on suppositories to help with the internal hemorrhoids (x10 days) - in addition, although you have been having some liquid stools, your CT shows significant constipation. Is it likely that only liquid is able to move around the stool burden seen. This straining and constant going to the bathroom will increase a flare up of your hemorrhoids - you should be on a good bowel regimen : --colace twice a day EVERYDAY-- this is a stool softener --Miralax twice a day until you have moved the hard stools and then can back down to daily as needed --note that IRON IS CONSTIPATING! - follow up with PCP within 7-10 days - return to the ED for new or worsening symptoms Pending Studies at Discharge: No Stand-Alone Forms: My [facility] [employer], Smoking Cessation Medications and DC Order Prescriptions: New hydrocortisone acetate [Anucort-HC] 25 mg Suppository 25 mg [place] BID Qty: 20 RF: 0 docusate sodium [Colace] 100 mg capsule 100 mg PO BID Qty: 60 RF: 0 polyethylene glycol 3350 [Miralax] 17 gram/dose powder 8.5 g PO BID Qty: 238 RF: 0 Continued pantoprazole 40 mg tablet,delayed release (DR/EC) 40 mg PO BID Qty: 60 RF: 2 tamsulosin [Flomax] 0.4 mg capsule 0.4 mg PO DAILY Qty: 90 RF: 2 galantamine 24 mg capsule,ext rel. pellets 24 hr 24 mg PO QAM Qty: 90 RF: 1 metformin 500 mg tablet 500 mg PO BID Qty: 180 RF: 1 ferrous sulfate 325 mg (65 mg iron) tablet,delayed release (DR/EC) 325 mg PO BID Qty: 60 RF: 3 levothyroxine 50 mcg tablet 50 mcg PO QAM Qty: 90 RF: 1 furosemide 20 mg tablet 20 mg PO DAILY Qty: 30 RF: 5 finasteride 5 mg tablet 5 mg PO QPM Qty: 90 RF: 3 diltiazem HCl 180 mg capsule,extended release 24hr 180 mg PO QAM Qty: 90 RF: 2 Discontinued Pradaxa 150 mg capsule 150 mg PO BID Qty: 180 RF: 2 Discharge Orders: Discharge Order (Routine); Ordered 04/23/21 Ordered By: Caryn Shen Admission Data Admit Date/Time: 04/22/21 18:25 Attending Provider: Kem Zuniga Admit Provider: Joao Hudson Primary Care Provider: Braeden Sultana III Other Providers: Joao Hudson ; Jamal Landers Other Interventions: Discharge Summary Assessment (RN) Last Done: 04/23/21 14:50 Supervising Physician Co-Signing Physician Notes Patient seen and examined, chart reviewed, case discussed with Bonita Shen PA-C and I agree with the assessment and plan as above except as otherwise noted General: A&Ox3. NAD. Cooperative. HEENT: Atraumatic, normocephalic. Vision intact. Extremely hard of hearing. Pulm: CTAB A&P. -wheezes, -rales, -rhonchi. Symmetrical chest rise. No increase in work of breathing. No respiratory distress. Cardiac: RRR, soft systolic murmur present, no rubs or gallops. Radial pulses intact and symmetrical. Abdominal: Nontender, nondistended, soft. BS present. Labs and images reviewed 85-year-old gentleman with rectal bleeding and constipation. Internal hemorrhoids on colonoscopy, diverticulitis also appreciated. Hold Pradaxa, when resumed if H&H stable on outpatient recheck but needs to be dose reduced for renal function to 75 mg Patient feeling well and ready for discharge on visit, seen in the presence of his . Patient is extremely hard of hearing, but receptive to written communication as needed. Coding Level of Care Code 12349 OBS Care - Discharge Diagnoses Rectal bleeding K62.5 Constipation K59.00 Atrial fibrillation with RVR I48.91 Dementia F03.90 Dementia behavioral disturbance: without behavioral disturbance Dementia type: unspecified type CKD (chronic kidney disease) N18.9
[2021-04-23] MEDS ORDERED: PANTOprazole 40 MG TAB PO SCH (21:00)
== END 2021-04-23 15:02 | disposition home or self-care (01) ==
LOC: EDINP 14:04 → ED 14:04 → SUATTDRO 18:25 → EDINP 21:01